=== PATIENT | male | born 1955 | race Two or more races ===

== ENCOUNTER 2020-07-21 08:49 | Day surgery (SDC) | payer MEDICAID, SELFPAY ==
[2020-07-18 11:26] VITALS: BMI 29.7
--- NOTE | 2020-07-18 13:09 | HO.ANESPROP2 ---
Documented by User: Laurie Goodman 07/18/20 13:11 HPI - Anesthesia Eval Consult details Narrative: 64yo F for colonoscopy: screening h/o incomplete prep PMFSH Past Medical History Medical History (Updated 07/21/20 @ 10:02 by Modesta Meredith) Arthritis Asthma Back pain Elevated cholesterol GERD (gastroesophageal reflux disease) HTN (hypertension) Myocardial infarction Peptic ulcer Surgical History Surgical History Hx of colonoscopy Hx of excision of mass Hx of umbilical hernia repair Social History Social History Smoking Status: Former smoker Packs Per Day: 2 Cigarettes Per Day: 40.0 Years Smoked: 40 Smoked in Last 30 Days: No Smoking Quit Date: 5 years Patient Interested in Nicotine Replacement: No Patient Given Instructions on How to Stop Smoking: No Second Hand Smoke Exposure: No Use of substances other than those prescribed or required for medical reasons: No Advance Directives Information Provided: No Recently lost weight without trying: No Meds Allergies Allergy/AdvReac Type Severity Reaction Status Date / Time lisinopril Allergy Swelling Verified 07/18/20 11:32 Home Medications Medication Instructions Recorded Confirmed Type albuterol sulfate [ProAir HFA] 2 puff INHALATION Q4-6H PRN 07/18/20 07/18/20 History amlodipine [Norvasc] 10 mg PO DAILY 07/18/20 07/21/20 History aspirin 81 mg PO DAILY 07/18/20 07/21/20 History atorvastatin [Lipitor] 40 mg PO BEDTIME 07/18/20 07/18/20 History fluticasone propion-salmeterol 1 inh INHALATION BID 07/18/20 07/18/20 History [Advair Diskus] ipratropium-albuterol 3 ml INHALATION QID PRN 07/18/20 07/18/20 History omega-3 fatty acids [Fish Oil] 1,000 mg PO DAILY 07/18/20 07/18/20 History omeprazole 20 mg PO DAILY 07/18/20 07/21/20 History Vitamin D3 07/21/20 History Exam Exam Date and Time: July 18, 2020 1309 Height,Weight and Vital Signs: Height 5 ft 6 in Weight 83.461 kg Assessment and Plan Assessment Anesthesia Assessment: Chart Reviewed Documented by User: Modesta Meredith 07/21/20 10:06 PMFSH Past Medical History Medical History (Updated 07/21/20 @ 10:02 by Modesta Meredith) Arthritis Asthma Back pain Elevated cholesterol GERD (gastroesophageal reflux disease) HTN (hypertension) Myocardial infarction Peptic ulcer Family History Family history of problems with anesthesia: No Surgical History Surgical History Hx of colonoscopy Hx of excision of mass Hx of umbilical hernia repair History of Problems with Anesthesia: No Social History Social History Smoking Status: Former smoker Packs Per Day: 2 Cigarettes Per Day: 40.0 Years Smoked: 40 Smoked in Last 30 Days: No Smoking Quit Date: 5 years Patient Interested in Nicotine Replacement: No Patient Given Instructions on How to Stop Smoking: No Second Hand Smoke Exposure: No Use of substances other than those prescribed or required for medical reasons: No Advance Directives Information Provided: No Recently lost weight without trying: No Meds Allergies Allergy/AdvReac Type Severity Reaction Status Date / Time lisinopril Allergy Swelling Verified 07/18/20 11:32 Home Medications Medication Instructions Recorded Confirmed Type albuterol sulfate [ProAir HFA] 2 puff INHALATION Q4-6H PRN 07/18/20 07/18/20 History amlodipine [Norvasc] 10 mg PO DAILY 07/18/20 07/21/20 History aspirin 81 mg PO DAILY 07/18/20 07/21/20 History atorvastatin [Lipitor] 40 mg PO BEDTIME 07/18/20 07/18/20 History fluticasone propion-salmeterol 1 inh INHALATION BID 07/18/20 07/18/20 History [Advair Diskus] ipratropium-albuterol 3 ml INHALATION QID PRN 07/18/20 07/18/20 History omega-3 fatty acids [Fish Oil] 1,000 mg PO DAILY 07/18/20 07/18/20 History omeprazole 20 mg PO DAILY 07/18/20 07/21/20 History Vitamin D3 07/21/20 History Exam Height,Weight and Vital Signs: Vital Signs Temp Pulse Resp BP Pulse Ox 07/21/20 09:16 96.7 F L 60 16 156/67 H 98 Airway Mallampati Class: II TM Dist: >3cm Neck ROM: Full Partial: Upper Heart: RRR Lungs: Bilateral wheezes Assessment and Plan Assessment Anesthesia Assessment: Anesthesia Plan Discussed and Chart Reviewed Final Anesthetic Review NPO: Yes ASA Class: III Final Preanesthetic Review: No Changes in Pt Med Stat, Meds/Allgs Chart Reviewed, Consent Obtained/Reviewed and Anes Risks/Benef Reviewed Patient Risk: Intermediate Procedure Risk: Low Anesthetic Plan Anesthetic Plan: MAC: Disposition: Standard PACU
[2020-07-21 09:16] VITALS: BP 156/67; PULSE 60; RESP 16; TEMP 35.9; O2SAT 98
[2020-07-21 09:20] VITALS: BMI 29.9
[2020-07-21] MEDS: Lactated Ringers 1,000 ML 100 ML IVCONT (09:20)
[2020-07-21] MEDS: Albuterol Sulfate (0.083%) 2.5 MG/3 ML VIAL.NEB INHALE (10:18)
--- NOTE | 2020-07-21 10:22 | MHC.SHP ---
Pre-Procedural Eval Section A The patient is an INPATIENT: No The History & Physical has been completed within 30 days and I have reviewed it.: No Section B Chief Complaint: HX adenomatous Polyps Details of Present Illness: Colon cancer screening Relevant Family History (Specify if Yes): No Relevant Social History: None Present Medications: see Short Stay Collaborative assessment Medical History: Significant History (Asthma vs Reactive Airway; Anxiety) History of Previous Operations: Relevant previous surgery/procedure and date(s) ([place] in [place] 10yr ago, [facility] colo-2017 ext adhesions; Gallbladder, appendix, BTL) Allergies: Allergies Allergy/AdvReac Type Severity Reaction Status Date / Time lisinopril Allergy Swelling Verified 07/18/20 11:32 Review of Systems Sugical H&P ROS: Negative: Constitution, Cardiovascular, Respiratory and Neurological and Yes, Specify: Psychiatric (anxiety) and Gastrointestinal (constipation) Exam Surgical H&P Exam: Normal: HEENT, Normal: Heart, Normal: Lungs, Normal: Extremities and Normal: Abdomen Exam Comment: Neg exam for changes. Plan Diagnosis/Plan: Unchanged Patient has been examined and remains a candidate for the planned procedure- YES
--- NOTE | 2020-07-21 10:31 | MHC.SHP ---
Pre-Procedural Eval Section A The patient is an INPATIENT: No The History & Physical has been completed within 30 days and I have reviewed it.: No Section B Chief Complaint: HX adenomatous Polyps Details of Present Illness: Colon Cancer screening No changes from H&P done in March, Relevant Family History (Specify if Yes): No Relevant Social History: Tobacco Use (former smoker< 5years) Present Medications: see Short Stay Collaborative assessment Medical History: Significant History (Asthma/? copd; GERD;CAD; Chronic back pain) History of Previous Operations: No relevant previous surgery (Colonoscopy 2014(R)---variability in preps) Allergies: Allergies Allergy/AdvReac Type Severity Reaction Status Date / Time lisinopril Allergy Swelling Verified 07/18/20 11:32 Review of Systems Sugical H&P ROS: Negative: Constitution, Cardiovascular and Gastrointestinal Exam Surgical H&P Exam: Normal: HEENT and Normal: Heart and Significant Findings: Lungs (slight hyperesonant) and Significant Findings: Abdomen (distended central obesity) Plan Diagnosis/Plan: Unchanged Patient has been examined and remains a candidate for the planned procedureYES
--- NOTE | 2020-07-21 10:32 | PC.NURSE ---
Resp. updraft given prior to procedure
[2020-07-21 10:37] VITALS: BP 121/80; PULSE 74; RESP 16; TEMP 36.8; O2SAT 100
[2020-07-21 11:40] VITALS: BP 111/54; PULSE 72; RESP 16; TEMP 36.6; O2SAT 91
--- NOTE | 2020-07-21 11:40 | PM.PROC ---
Brief Operative Note Date of procedure: 07/21/20 Pre-op diagnosis: COLON CANCER SCREENING Post-op diagnosis: other (FLAT ADENOMATOUS CECAL POLYP--ABOUT 1 CM.) Procedure: COLONOSCOPY WITH ORISE ELEVATION, SPOT TATOO, SEGMENTAL RESECTION USING SMALL HEX, AND SMALL HOT SNARE, ATTEMPT @ RESOLUTION CLIPPING--DUE TO RESPIRATORY EXCURSIONS. Anesthesia: MAC (JUAN JOSE HEIN) Surgeon: Ruth Ann Guthrie Estimated blood loss (mL): 0 Pathology: other (CECAL POLYP FRAGMENTS) Condition: stable Disposition: PACU
[2020-07-21 11:52] VITALS: BP 107/63; PULSE 68; RESP 18; TEMP 36.6; O2SAT 94
--- NOTE | 2020-07-21 12:26 | HO.POSTANES ---
Post Anesthesia Evaluation Post Anesthesia Evaluation Vital Signs: Vital Signs Temp Pulse Resp BP Pulse Ox 07/21/20 11:52 97.8 F 68 18 107/63 94 07/21/20 11:40 97.8 F 72 16 111/54 L 91 L 07/21/20 10:37 98.3 F 74 16 121/80 100 07/21/20 09:16 96.7 F L 60 16 156/67 H 98 Anesthesia: General (tiva) Mental Status: Awake Pain Control: Satisfactory Nausea/Vomiting: None Hydration: Adequate Anesthesia-Related Issues: No Anes. Related Issues
--- NOTE | 2020-07-21 12:29 | PC.NURSE ---
[facility] [id number] used for d/c instructions
--- NOTE | 2020-07-24 13:08 | OP_ITS ---
SURGEON: Ruth Ann Guthrie MD PREOPERATIVE DIAGNOSIS: Colon cancer screening. POSTOPERATIVE DIAGNOSIS: Flat cecal polyp, complex procedure, diverticulosis. PROCEDURE PERFORMED: Colonoscopy, ORISE submucosal injection, small hex snare, small loop [employer], cautery excisions, Erbe unit used, spot tattoo and ink marking, resolution clipping, was not able to be deployed due to positioning and movement. ESTIMATED BLOOD LOSS: Minimal. No grafts or implants. COMPLICATIONS: None. ANESTHESIA: Monitored ANESTHESIOLOGIST: Tommy Masters CRNA ASSISTANTS:NONE FEATHER SAWYER: Dr. Guthrie. CONDITION: Postprocedure, stable. SPECIMEN REMOVED: Flat cecal polyp. COMMENT: Start time for this procedure was 1038 hours, end time 1132 hours. Complex procedure using multiple modalities with segmental resection of flat adenomatous polyp. FINDINGS: Prostate was normal to digital palpation. Video colonoscope was introduced without difficulty without difficulty. It was navigated into the rectosigmoid where there were some diverticula noted through descending, transverse, ascending colon down into the cecum. In this area, 1-1.2 cm polyp was visualized. It was sessile. There was no component of pedunculation. ORISE lifting agent 6 mL was used submucosally. The various loop cautery systems were attempted with what appeared to be good removal of the polyp itself retrieved in segmental portions. Decision was made to tattoo the area. Spot ink was used. The scope was slowly withdrawn in good rotational views. No additional lesions were seen. Anorectal verge was clear. PLAN: Current recommendations are for the patient to avoid aspirin and nonsteroidals for 2 weeks. Avoid constipation if need be. Use stool softener. He will be re-seen to discuss need to reevaluate area in the cecum in 4-6 months. Purpose of this is to make sure that all of the polyp adenomatous fragments were removed. Ruth Ann Guthrie MD MEN/MODL / [id number] MTDD
== END 2020-07-21 12:29 | disposition home or self-care (01) ==
PROVIDERS: Visit Provider Internal Medicine Gastroenterology
PROC: 0DJD8ZZ Inspection of Lower Intestinal Tract, Via Natural or Artificial Opening Endoscopic (ICD-10-PCS; CPT 45378; principal; 2020-07-21 10:00)
DX: Z12.11 Encounter for screening for malignant neoplasm of colon (principal); Z86.010 Personal history of colon polyps; D12.0 Benign neoplasm of cecum; K57.30 Diverticulosis of large intestine without perforation or abscess without bleeding; K21.9 Gastro-esophageal reflux disease without esophagitis; I10 Essential (primary) hypertension; I25.10 Atherosclerotic heart disease of native coronary artery without angina pectoris; J45.909 Unspecified asthma, uncomplicated; F11.20 Opioid dependence, uncomplicated; Z87.891 Personal history of nicotine dependence; Z79.51 Long term (current) use of inhaled steroids; Z79.82 Long term (current) use of aspirin; Z79.899 Other long term (current) drug therapy; Z88.8 Allergy status to other drugs, medicaments and biological substances
CPT/HCPCS: 45380; 45381; 88305; 94640; J1610

== ENCOUNTER 2020-07-29 19:44 | Inpatient (IN) | payer MEDICAID, SELFPAY ==
[2020-07-29 20:02] VITALS: BP 147/73; PULSE 75; RESP 16; TEMP 37.2; O2SAT 99; BMI 30.2
--- NOTE | 2020-07-29 21:11 | ED.GENADULT ---
HPI - General Adult General Chief complaint: General Medical Stated complaint: RECTUM BLEEDING Time Seen by Provider: 07/29/20 20:50 Related Data Home Medications Medication Instructions Recorded Confirmed albuterol sulfate [ProAir HFA] 2 puff INHALATION Q4-6H PRN 07/18/20 07/18/20 amlodipine [Norvasc] 10 mg PO DAILY 07/18/20 07/21/20 atorvastatin [Lipitor] 40 mg PO BEDTIME 07/18/20 07/18/20 fluticasone propion-salmeterol 1 inh INHALATION BID 07/18/20 07/18/20 [Advair Diskus] ipratropium-albuterol 3 ml INHALATION QID PRN 07/18/20 07/18/20 omeprazole 20 mg PO DAILY 07/18/20 07/21/20 Vitamin D3 07/21/20 Allergies Allergy/AdvReac Type Severity Reaction Status Date / Time lisinopril Allergy Swelling Verified 07/18/20 11:32 [facility] Past Medical History Medical History Arthritis Asthma Back pain Elevated cholesterol GERD (gastroesophageal reflux disease) HTN (hypertension) Myocardial infarction Peptic ulcer Surgical History Hx of colonoscopy Hx of excision of mass Hx of umbilical hernia repair Social History Social History Smoking Status: Former smoker Packs Per Day: 2 Cigarettes Per Day: 40.0 Years Smoked: 40 Second Hand Smoke Exposure: No Advance Directives: No Physical Exam Vital Signs: Vital Signs: Vital Signs Temp Pulse Resp BP Pulse Ox 07/29/20 20:02 98.9 F 75 16 147/73 H 99 Body Mass Index 30.2 Discharge Plan Discharge Prescriptions: No Action atorvastatin [Lipitor] 40 mg Tablet 40 mg PO BEDTIME RF: 0 ipratropium-albuterol 0.5 mg-3 mg(2.5 mg base)/3 mL Solution For Nebulization 3 ml INHALATION QID PRN (Reason: Shortness Of Breath) RF: 0 amlodipine [Norvasc] 10 mg Tablet 10 mg PO DAILY RF: 0 fluticasone propion-salmeterol [Advair Diskus] 500-50 mcg/dose Blister With Device 1 inh INHALATION BID RF: 0 albuterol sulfate [ProAir HFA] 90 mcg/actuation Hfa Aerosol Inhaler 2 puff INHALATION Q4-6H PRN (Reason: Shortness Of Breath) RF: 0 omeprazole 20 mg Tablet,Delayed Release (Dr/Ec) 20 mg PO DAILY RF: 0 Vitamin D3 RF: 0
--- NOTE | 2020-07-29 21:19 | ED.GIBLEED ---
HPI - GI Bleed General Chief complaint: General Medical Stated complaint: RECTUM BLEEDING Time Seen by Provider: 07/29/20 20:50 Source: patient and digital photographic printer Mode of arrival: ambulatory Limitations: no limitations History of Present Illness HPI Narrative: This is a 64-year-old male with recent history of colonoscopy on 07/21/2020 and now presents with complaints of acute onset of bloody, painless bowel movements this started approximately 1915 this evening. This is not been associated with any nausea, vomiting, abdominal discomfort. Patient states that the episodes have soiled his underwear and denies any current blood thinners other than taking a daily aspirin. Otherwise, he denies shortness of breath, chest pain /palpitations, fevers, chills. Related Data Home Medications Medication Instructions Recorded Confirmed amlodipine 10 mg PO DAILY 07/29/20 07/29/20 aspirin 81 mg PO DAILY 07/29/20 07/29/20 atorvastatin 40 mg PO DAILY 07/29/20 07/29/20 cholecalciferol (vitamin D3) 25 mcg PO DAILY 07/29/20 07/29/20 [Vitamin D3] hydrochlorothiazide 25 mg PO DAILY 07/29/20 07/29/20 omega-3 fatty acids-vitamin E 1 cap PO DAILY 07/29/20 07/29/20 [Fish Oil] Allergies Allergy/AdvReac Type Severity Reaction Status Date / Time lisinopril Allergy Swelling Verified 07/18/20 11:32 Review of Systems Review of Systems: Pertinent positives and negatives as stated in HPI and 10 point review systems is otherwise negative. [facility] Past Medical History Source: nursing notes reviewed Medical History Arthritis Asthma Back pain Elevated cholesterol GERD (gastroesophageal reflux disease) HTN (hypertension) Myocardial infarction Peptic ulcer Surgical History Hx of colonoscopy Hx of excision of mass Hx of umbilical hernia repair Social History Social History Alcohol intake: never Smoking Status: Former smoker Packs Per Day: 2 Cigarettes Per Day: 40.0 Years Smoked: 40 Smoked in Last 30 Days: No Second Hand Smoke Exposure: No Use of substances other than those prescribed or required for medical reasons: No Advance Directives: No Physical Exam Vital Signs: Vital Signs: Vital Signs Temp Pulse Resp BP Pulse Ox 07/29/20 23:48 66 16 145/70 H 96 07/29/20 22:34 98.7 F 87 16 150/78 H 98 07/29/20 20:02 98.9 F 75 16 147/73 H 99 Body Mass Index 30.2 VITAL SIGNS: Reviewed. GENERAL: Well developed, well nourished, in no acute distress. HEAD: Normocephalic/atraumatic, EYES: PERRLA, EOMI intact without pain, no nystagmus/pallor/icterus noted EARS: Ext canals without abnormality, TMs non-bulging and non-erythematous NOSE: Nares patent bilateral OROPHARYNX: no oral lesions noted, posterior pharynx clear and non-erythematous without noted tonsillar enlargement/erythema/exudates NECK: Supple, no adenopathy LUNGS: Normal breath sounds. No adventitious sounds or accessory muscle use. SpO2<99> CARDIOVASCULAR: Regular rate and rhythm without noted murmurs, no JVD or lower extremity edema. ABDOMEN: Soft, non-tender, non-distended with bowel sounds. No rigidity. No guarding. No palpable masses or hernias noted MUSCULOSKELETAL: No tenderness, deformities, or effusions noted on gross inspection. CHAY: No hemorrhoids, tags, lesions, no stool in rectal vault but gross maroon /dark blood on finger. EXTREMITIES: No cyanosis, clubbing or edema. SKIN: Inspection of the skin reveals no rashes, ulcerations, jaundice, pallor, or petechiae. NEUROLOGIC: Alert and oriented x 4. Strength and sensation to light touch were grossly intact x 4. Course Course Course Narrative: This is a 64-year-old male with history and clinical presentation most consistent with likely lower GI bleed and will workup with labs, type and screen, as well as imaging as indicated. Review of all investigations shows a stable anemia without evidence of infection, coags within normal limits. CT scan did not indicate a blush to suggest brisk arterial bleeding, but there is evidence of a prominent venous plexus at the posterior wall of the rectum. Patient has remained hemodynamically stable throughout his stay in the emergency department and we are awaiting callback from GI, but in the interim this case was discussed with the inpatient hospitalist team who is agreeable for admission. Patient has been typed and screened. 0055: I discussed the case with GI who recommends repeat lab work in the morning unless there are otherwise acute changes. MDM - GI Bleed Lab Data Result diagrams: 07/29/20 21:25 07/29/20 21:25 Labs: Lab Results 07/29/20 07/29/20 07/29/20 Range/Units 21:25 21:25 21:25 WBC 10.7 (4.8-10.8) X10*3/uL RBC 4.57 L (4.60-5.80) X10*6/uL Hgb 13.1 L (14.0-18.0) g/dl Hct 40.6 L (42-52) % MCV 88.8 (80-98) fL MCH 28.7 (27.0-33.0) pg MCHC 32.3 (31.0-36.0) g/dl RDW 13.4 (11.0-16.0) % Plt Count 341 (160-400) X10*3/uL MPV 10.2 (9.4-12.4) fL Immature Gran % (Auto) 0.6 H (0.0-0.4) % Neut % (Auto) 54.2 (45-73) % Lymph % (Auto) 33.2 (20-40) % Andrews % (Auto) 9.1 (2-11) % Eos % (Auto) 2.3 (0-4) % Baso % (Auto) 0.6 (0-2) % Lymph # (Auto) 3.5 (1.2-4.9) X10*3/uL Andrews # (Auto) 1.0 (0.1-1.2) X10*3/uL Eos # (Auto) 0.3 (0.0-0.4) X10*3/uL Baso # (Auto) 0.1 (0.0-0.2) X10*3/uL Abs Immat Gran (auto) 0.06 H (0.00-0.03) X10*3/uL Absolute Neuts (auto) 5.8 (2.0-8.3) X10*3/uL Absolute Nucleated RBC 0.000 (0.0-0.012) X10*3/uL Nucleated RBC % (auto) 0.0 (0.0-0.2) /100WBC PT 12.0 (10.8-13.0) SEC INR 1.0 (0.9-1.1) Sodium 140 (135-145) mmol/L Potassium 3.7 (3.3-5.1) mmol/l Chloride 104 (96-108) mmol/L Carbon Dioxide 25 (22-29) mmol/L Anion Gap 15 (12-20) BUN 21 H (9-16) mg/dL Creatinine 1.31 (0.5-1.4) mg/dL Estim Creat Clear Calc 59.7 Estimated GFR 55 Random Glucose 160 H (60-115) mg/dL Calcium 8.3 L (8.4-10.2) mg/dL Total Bilirubin 0.3 (0.0-1.0) mg/dL AST 15 (5-37) U/L ALT 20 (0-40) U/L Alkaline Phosphatase 94 (39-117) U/L Total Protein 7.0 (6.5-8.0) g/dL Albumin 4.0 (3.5-5.0) g/dL Stool Occult Blood (NEG) Blood Type Antibody Screen 07/29/20 07/29/20 Range/Units 21:25 21:29 WBC (4.8-10.8) X10*3/uL RBC (4.60-5.80) X10*6/uL Hgb (14.0-18.0) g/dl Hct (42-52) % MCV (80-98) fL MCH (27.0-33.0) pg MCHC (31.0-36.0) g/dl RDW (11.0-16.0) % Plt Count (160-400) X10*3/uL MPV (9.4-12.4) fL Immature Gran % (Auto) (0.0-0.4) % Neut % (Auto) (45-73) % Lymph % (Auto) (20-40) % Andrews % (Auto) (2-11) % Eos % (Auto) (0-4) % Baso % (Auto) (0-2) % Lymph # (Auto) (1.2-4.9) X10*3/uL Andrews # (Auto) (0.1-1.2) X10*3/uL Eos # (Auto) (0.0-0.4) X10*3/uL Baso # (Auto) (0.0-0.2) X10*3/uL Abs Immat Gran (auto) (0.00-0.03) X10*3/uL Absolute Neuts (auto) (2.0-8.3) X10*3/uL Absolute Nucleated RBC (0.0-0.012) X10*3/uL Nucleated RBC % (auto) (0.0-0.2) /100WBC PT (10.8-13.0) SEC INR (0.9-1.1) Sodium (135-145) mmol/L Potassium (3.3-5.1) mmol/l Chloride (96-108) mmol/L Carbon Dioxide (22-29) mmol/L Anion Gap (12-20) BUN (9-16) mg/dL Creatinine (0.5-1.4) mg/dL Estim Creat Clear Calc Estimated GFR Random Glucose (60-115) mg/dL Calcium (8.4-10.2) mg/dL Total Bilirubin (0.0-1.0) mg/dL AST (5-37) U/L ALT (0-40) U/L Alkaline Phosphatase (39-117) U/L Total Protein (6.5-8.0) g/dL Albumin (3.5-5.0) g/dL Stool Occult Blood POS (NEG) Blood Type O Positive Antibody Screen NEGATIVE Discharge Plan Discharge Clinical Impression: Acute GI bleeding Patient Disposition: Admitted As Inpatient
--- NOTE | 2020-07-29 21:32 | PC.NURSE ---
this rn at bedside for rectal exam w/ dr. echols
[2020-07-29 21:35] LABS: MANUAL DIFF FLAG NO
[2020-07-29 21:36] LABS: Basophils Absolute Auto 0.1 X10*3/uL (0.0-0.2); Basophils Percent Auto 0.6 % (0-2); Eosinophils Absolute Auto 0.3 X10*3/uL (0.0-0.4); Eosinophils Percent Auto 2.3 % (0-4); Hematocrit 40.6 % (42-52); Hemoglobin 13.1 g/dl (14.0-18.0); Imm Gran Abs Auto 0.06 X10*3/uL (0.00-0.03); Imm Gran Pct Auto 0.6 % (0.0-0.4); Lymphocytes Absolute Auto 3.5 X10*3/uL (1.2-4.9); Lymphocytes Percent Auto 33.2 % (20-40); Mean Corpuscular HGB Conc 32.3 g/dl (31.0-36.0); Mean Corpuscular Hemoglobin 28.7 pg (27.0-33.0); Mean Corpuscular Volume 88.8 fL (80-98); Mean Platelet Volume 10.2 fL (9.4-12.4); Monocytes Percent Auto 9.1 % (2-11); Neutrophils Absolute Auto 5.8 X10*3/uL (2.0-8.3); Neutrophils Percent Auto 54.2 % (45-73); Platelet Count 341 X10*3/uL (160-400); Red Blood Count 4.57 X10*6/uL (4.60-5.80); Red Cell Distribution Width 13.4 % (11.0-16.0); White Blood Count 10.7 X10*3/uL (4.8-10.8)
[2020-07-29 21:45] LABS: OBS Int Ctl Valid YES; OBS1 POS (NEG)
[2020-07-29 22:07] LABS: Alanine Aminotransferase 20 U/L (0-40); Alkaline Phosphatase 94 U/L (39-117); Anion Gap 15 (12-20); Aspartate Amino Transferase 15 U/L (5-37); Bilirubin Total 0.3 mg/dL (0.0-1.0); Blood Urea Nitrogen 21 mg/dL (9-16); Calcium 8.3 mg/dL (8.4-10.2); Carbon Dioxide 25 mmol/L (22-29); Chloride 104 mmol/L (96-108); Creatinine Clr Calc Pharmacy 59.7; Estimated Glomerular Filt Rate 55; Glucose Random 160 mg/dL (60-115); Potassium 3.7 mmol/l (3.3-5.1); Sodium 140 mmol/L (135-145)
--- NOTE | 2020-07-29 22:19 | CT_ITS ---
EXAMINATION: CT ABDOMEN AND PELVIS WITHOUT AND WITH CONTRAST (GI BLEEDING PROTOCOL) CLINICAL INFORMATION: Bleeding. COMPARISON: CT abdomen and pelvis from 03/10/2015. TECHNIQUE: Multidetector volumetric imaging was performed through the abdomen and pelvis without contrast. Subsequently repeat imaging of the abdomen and pelvis was obtained following the administration of 80 mL of Omnipaque 350 intravenous contrast. Sagittal and coronal reformatted images were obtained on the technologist's workstation. DLP: 1458 mGy-cm. This CT examination was performed using dose optimization techniques as appropriate, variously including the following: *Automated exposure control. *Adjustment of mA and/or kV according to patient size (this includes techniques or standardized protocols for targeted exams where dose is matched to indication/reason for exam; i.e. extremities or head). *Use of iterative reconstruction technique. FINDINGS: Lower Chest: Moderate hiatal hernia. Small fat-containing Bochdalek diaphragmatic hernia. Mild bilateral dependent atelectasis. Otherwise, no diffuse or focal parenchymal abnormalities in the visualized lung bases. Coronary artery calcifications. There appears to be global cardiac enlargement. Otherwise, no demonstrated abnormalities of the visualized cardiac structures. Liver, Biliary Ducts, and Gallbladder: The liver is normal in size and attenuation without focal hepatic lesions or biliary ductal dilatation. The gallbladder is decompressed without radiopaque gallstones, pericholecystic fluid, or significant gallbladder wall thickening. Pancreas: The pancreas is normal in appearance. Adrenal Glands: The adrenal glands are normal in appearance. Spleen: The spleen is normal in appearance. Kidneys and Ureters: The kidneys demonstrate symmetric nephrograms without evidence of nephrolithiasis or hydronephrosis. There are two 1.5 cm cysts associated with the left kidney without suspicious features. No ureterolithiasis or hydroureter. Urinary Bladder: The urinary bladder is moderately distended without focal wall thickening. No bladder calculi are demonstrated. Gastrointestinal System: Moderate hiatal hernia. The stomach is moderately distended, presumably with ingested material. The small bowel is of normal caliber without regions of abnormal wall enhancement. Moderate pancolonic diverticulosis. No focal wall thickening or pericolonic inflammatory change. The appendix is not definitively visualized; however, there is no inflammatory change in its expected distribution to suggest appendicitis. No pooling hyperattenuating blood products within the colon on precontrast evaluation. On postcontrast evaluation, there is no definitive blush of intraluminal contrast. However, there does appear to be prominent serpiginous vascular structures within the posterior wall of the rectum with a prominent draining superior rectal vein. Genitourinary: Normal appearance of the prostate gland and seminal vesicles. Intra-abdominal and Retroperitoneal Spaces: No intra-abdominal free fluid collections or gas. No mesenteric, retroperitoneal, or inguinal lymphadenopathy. Vasculature: The abdominal aorta is of normal contour and caliber with mild to moderate calcific atherosclerotic disease. Normal opacification of the superior mesenteric, splenic, and portal veins. No demonstrated abnormalities of the renal veins, inferior vena cava, or hepatic veins. Musculoskeletal: Moderate multilevel degenerative changes of the spine. No lytic or sclerotic osseous lesions demonstrated. No soft tissue masses demonstrated. Moderate left-sided and mild right-sided fat-containing inguinal hernias. Small fat-containing umbilical hernia with adjacent 2 cm cystic structure adjacent. CT/CT gi bleed abd pel wo/w con IMPRESSION: Pancolonic diverticulosis without evidence of diverticulitis. There is no distinct blush of intraluminal contrast within the colon to strongly suggest brisk arterial active bleeding. There is a moderately prominent plexus of venous structures along the posterior wall of the rectum suggestive of telangiectasia versus internal venous ectasia. Moderate hiatal hernia. Mild cardiomegaly.
[2020-07-29 22:34] VITALS: BP 150/78; PULSE 87; RESP 16; TEMP 37.1; O2SAT 98
[2020-07-29] MEDS: 0.9 % Sodium Chloride 1,000 ML 1000 ML IV (22:49)
[2020-07-29] MEDS: iohexoL 350 MG/ML 100 ML INFUS..BTL IV (22:51)
--- NOTE | 2020-07-29 23:31 | PC.NURSE ---
Pt passed small bm, bright red, jelly-like substance, foul smelling. pt continues to deny pain.
[2020-07-29 23:48] VITALS: BP 145/70; PULSE 66; RESP 16; O2SAT 96
[2020-07-30] VITALS (9 sets, daily range): BP systolic 106–159; BP diastolic 43–71; PULSE 50–66; RESP 14–20; TEMP 36.1–36.8; O2SAT 96–99
--- NOTE | 2020-07-30 00:14 | PM.IMHP ---
History of Present Illness Date of Service: 07/30/20 Chief Complaint: GI bleed this is a 64-year-old male with past medical history of coronary artery disease, hypertension, presents to the hospital with complaints of GI bleed. Patient reports that the symptoms started about 7:00 p.m., he has seen blood with every bowel movement ever since. Patient has had about 3 episodes of bloody diarrhea while in the ED. The blood initially started as bright red blood progressed to be dark. Patient denies using any NSAIDs, he does take aspirin for history of coronary artery disease, he reports a history of heartburn. He otherwise denies any shortness of breath, dizziness, no chest pain, no abdominal pain, no nausea or vomiting, and no urinary symptoms or lower extremity edema. patient reports that he underwent colonoscopy on the of this month and is supposed to received there is also Saturday. On arrival to the ED hemodynamically stable with no significant abnormal vitals Labs are significant for hemoglobin of 13.1 (around his baseline ), BUN of 21, creatinine of 1.31 ( baseline around 1.1), stool occult positive, COVID-[address] GI bleed protocol shows pancolonic diverticulosis without evidence of diverticulitis. No distant/of intraluminal contras past medical history: Hypertension, coronary artery disease, GERD, chronic back pain, asthma, history of peptic ulcer, hyperlipidemia surgical history: Denies family history: Denies social history: Comes from home, denies tobacco alcohol or illicit drugs Review of Systems Review of Systems: Yes all other systems are reviewed and are negative [facility] Medical History (Updated 07/30/20 @ 04:31 by Pippa Clarke MD) Arthritis Asthma Back pain Elevated cholesterol GERD (gastroesophageal reflux disease) HTN (hypertension) Myocardial infarction Peptic ulcer Surgical History Hx of colonoscopy Hx of excision of mass Hx of umbilical hernia repair Social History Alcohol intake: never Smoking Status: Former smoker Packs Per Day: 2 Cigarettes Per Day: 40.0 Years Smoked: 40 Smoked in Last 30 Days: No Second Hand Smoke Exposure: No Use of substances other than those prescribed or required for medical reasons: No Advance Directives: No Meds Allergies Allergy/AdvReac Type Severity Reaction Status Date / Time lisinopril Allergy Swelling Verified 07/18/20 11:32 Home Medications Medication Instructions Recorded Confirmed Type amlodipine 10 mg PO DAILY 07/29/20 07/29/20 History aspirin 81 mg PO DAILY 07/29/20 07/29/20 History atorvastatin 40 mg PO DAILY 07/29/20 07/29/20 History cholecalciferol (vitamin D3) 25 mcg PO DAILY 07/29/20 07/29/20 History [Vitamin D3] hydrochlorothiazide 25 mg PO DAILY 07/29/20 07/29/20 History omega-3 fatty acids-vitamin E 1 cap PO DAILY 07/29/20 07/29/20 History [Fish Oil] Physical Exam Vital Signs and Narrative: Vital Signs: Last Vital Signs Temp 98.7 F 07/29/20 22:34 Pulse 66 07/29/20 23:48 Resp 16 07/29/20 23:48 BP 145/70 H 07/29/20 23:48 Pulse Ox 96 07/29/20 23:48 Body Mass Index 30.2 Const: General: cooperative and no acute distress Orientation/consciousness: patient oriented x3 Eyes: General: appearance normal, both eyes and all related structures Pupils: Equal, round and reactive pupils present Resp: Effort & Inspection: normal respiratory effort and able to speak in complete sentences Auscultation: clear to auscultation bilaterally Cardio: Rate: regular rate Rhythm: regular rhythm GI: Other: no abdominal tenderness Palpation (GI): Soft to palpation Auscultation: normal bowel sounds Skin: General skin exam: no rashes or lesions noted Neuro: General: patient oriented x3 Cranial nerves: Yes Equal, round and reactive pupils present Cognition (Neuro): normal cognition Extrem: General: Yes normal to inspection and Yes no pedal edema Results Labs Labs: Laboratory Tests 07/29/20 07/29/20 07/29/20 21:25 21:25 21:25 WBC 10.7 RBC 4.57 L Hgb 13.1 L Hct 40.6 L MCV 88.8 MCH 28.7 MCHC 32.3 RDW 13.4 Plt Count 341 MPV 10.2 Immature Gran % (Auto) 0.6 H Neut % (Auto) 54.2 Lymph % (Auto) 33.2 [place] % (Auto) 9.1 Eos % (Auto) 2.3 Baso % (Auto) 0.6 Lymph # (Auto) 3.5 [place] # (Auto) 1.0 Eos # (Auto) 0.3 Baso # (Auto) 0.1 Abs Immat Gran (auto) 0.06 H Absolute Neuts (auto) 5.8 Absolute Nucleated RBC 0.000 Nucleated RBC % (auto) 0.0 PT 12.0 INR 1.0 Sodium 140 Potassium 3.7 Chloride 104 Carbon Dioxide 25 Anion Gap 15 BUN 21 H Creatinine 1.31 Estim Creat Clear Calc 59.7 Estimated GFR 55 Random Glucose 160 H Calcium 8.3 L Total Bilirubin 0.3 AST 15 ALT 20 Alkaline Phosphatase 94 Total Protein 7.0 Albumin 4.0 Stool Occult Blood Blood Type Antibody Screen 07/29/20 07/29/20 21:25 21:29 WBC RBC Hgb Hct MCV MCH MCHC RDW Plt Count MPV Immature Gran % (Auto) Neut % (Auto) Lymph % (Auto) [place] % (Auto) Eos % (Auto) Baso % (Auto) Lymph # (Auto) [place] # (Auto) Eos # (Auto) Baso # (Auto) Abs Immat Gran (auto) Absolute Neuts (auto) Absolute Nucleated RBC Nucleated RBC % (auto) PT INR Sodium Potassium Chloride Carbon Dioxide Anion Gap BUN Creatinine Estim Creat Clear Calc Estimated GFR Random Glucose Calcium Total Bilirubin AST ALT Alkaline Phosphatase Total Protein Albumin Stool Occult Blood POS Blood Type O Positive Antibody Screen NEGATIVE Imaging CT scan - abdomen: Radiologist's impression: IMPRESSION: Pancolonic diverticulosis without evidence of diverticulitis. There is no distinct blush of intraluminal contrast within the colon to strongly suggest brisk arterial active bleeding. There is a moderately prominent plexus of venous structures along the posterior wall of the rectum suggestive of telangiectasia versus internal venous ectasia. Moderate hiatal hernia. Mild cardiomegaly. Assessment and Plan (1) Acute GI bleeding: Status: Acute (2) Asthma: Problem details: stable w/daily inhaler Status: Acute (3) GERD (gastroesophageal reflux disease): Status: Acute (4) HTN (hypertension): Status: Acute (5) Myocardial infarction: Problem details: 2002-no surgery or stents. Denies recent CP Status: Acute this is a 64-year-old male with past medical history of coronary artery disease as well as hypertension who presents to the hospital with complaints of acute GI bleed. # Acute GI bleed - evidence of telangiectasia versus internal venous ectasia on CT of the abdomen which may be the source of the bleed, versus diverticular versus hemorrhoidal - had colonoscopy on 21 of July, per pathology report had a polypectomy which shows tubular adenoma - hemodynamically stable, with no significant drop of hemoglobin - Also has history of peptic ulcer disease and uses aspirin for history of coronary artery disease - has elevated BUN plan: - pantoprazole IV b.i.d. - H&H q.12 hours - GI consult - NPO - hold aspirin # history of coronary artery disease - no history of stent placement - hold aspirin at this time given GI bleed # hyperlipidemia - continue statin # hypertension - stable - continue amlodipine and hydrochlorothiazide # GERD - IV pantoprazole as above DVT prophylaxis: SCDs
[2020-07-30 02:00] LABS: SARS COV2 PCR INHOUSE NEGATIVE (Negative)
--- NOTE | 2020-07-30 02:10 | PC.NURSE ---
Pt resting in bed, called hospitalist to clarify hospital admission- orders entered.awaiting room assignment
--- NOTE | 2020-07-30 02:45 | PC.NURSE ---
pt placed on tele, showing nsr
--- NOTE | 2020-07-30 02:47 | PC.NURSE ---
x1 attempt to give report
[2020-07-30] MEDS: Pantoprazole Sodium 40 MG/10 ML VIAL IVPUSH (04:11)
[2020-07-30] MEDS: Lactated Ringers 1,000 ML 100 ML IVCONT ×2 (04:29→14:06)
[2020-07-30 05:08] LABS: Hematocrit 37.6 % (42-52); Hemoglobin 12.2 g/dl (14.0-18.0)
[2020-07-30] MEDS: PEG 3350/Na Sulf,Bicarb,Cl/KCL 4,000 ML SOLN.RECON 4000 ML PO (11:14)
--- NOTE | 2020-07-30 13:54 | P.EN_ITS ---
Event Note Event Note: GI Consult-Full note dictated. History via EMR and center medical specialist. Imp: Postpolypectomy lower GI bleed in relation to his colonoscopy on 07/21/[address] Guthrie. A flat cecal tubular adenoma was removed with a combination of submucosal injection and cautery. He has been off all aspirin and NSAIDs since the procedure. His Hgb has dropped somewhat but he is asymptomatic otherwise. He is doing a colon prep currently and it still seems quite bloody. He denies abdominal pain and his abdomen is benign. Rec: Colonoscopy with MAC today. Full consent obtained for this, including risks of bleeding and perforation. Follow Hgb. D/W patient in detail and he is comfortable with this plan. Thanks
[2020-07-30 14:17] LABS: Hematocrit 38.6 % (42-52); Hemoglobin 12.4 g/dl (14.0-18.0); Mean Corpuscular HGB Conc 32.1 g/dl (31.0-36.0); Mean Corpuscular Hemoglobin 28.3 pg (27.0-33.0); Mean Corpuscular Volume 88.1 fL (80-98); Mean Platelet Volume 10.4 fL (9.4-12.4); Platelet Count 345 X10*3/uL (160-400); Red Blood Count 4.38 X10*6/uL (4.60-5.80); Red Cell Distribution Width 13.4 % (11.0-16.0); White Blood Count 10.5 X10*3/uL (4.8-10.8)
--- NOTE | 2020-07-30 15:12 | HO.ANESPROP2 ---
[facility] Past Medical History Medical History Arthritis Asthma Back pain Elevated cholesterol GERD (gastroesophageal reflux disease) HTN (hypertension) Myocardial infarction Peptic ulcer Surgical History Surgical History Hx of colonoscopy Hx of excision of mass Hx of umbilical hernia repair Social History Social History Household Members: Spouse Housing: Apartment Do you presently have visiting nurse or other home services: No Alcohol intake: never Smoking Status: Never smoker Packs Per Day: 2 Cigarettes Per Day: 40.0 Years Smoked: 40 Smoked in Last 30 Days: No Second Hand Smoke Exposure: No Use of substances other than those prescribed or required for medical reasons: No Advance Directives: No Do you have thoughts of harming others: None Do you have a plan to hurt others: No Plan Recently lost weight without trying: Unsure Meds Allergies Allergy/AdvReac Type Severity Reaction Status Date / Time lisinopril Allergy Swelling Verified 07/18/20 11:32 Home Medications Medication Instructions Recorded Confirmed Type amlodipine 10 mg PO DAILY 07/29/20 07/29/20 History aspirin 81 mg PO DAILY 07/29/20 07/29/20 History atorvastatin 40 mg PO DAILY 07/29/20 07/29/20 History cholecalciferol (vitamin D3) 25 mcg PO DAILY 07/29/20 07/29/20 History [Vitamin D3] hydrochlorothiazide 25 mg PO DAILY 07/29/20 07/29/20 History omega-3 fatty acids-vitamin E 1 cap PO DAILY 07/29/20 07/29/20 History [Fish Oil] Exam Exam Date and Time: July 30, 2020 1512 Height,Weight and Vital Signs: Height 5 ft 6 in Weight 84.5 kg Last Vital Signs Temp 97.2 F 07/30/20 12:00 Pulse 54 07/30/20 12:00 Resp 20 07/30/20 12:00 BP 159/70 H 07/30/20 12:00 Pulse Ox 98 07/30/20 12:00 Pertinent Lab Results Pertinent Lab Results: Laboratory Tests 07/29/20 07/29/20 07/29/20 21:25 21:25 21:25 WBC 10.7 RBC 4.57 L Hgb 13.1 L Hct 40.6 L MCV 88.8 MCH 28.7 MCHC 32.3 RDW 13.4 Plt Count 341 MPV 10.2 Immature Gran % (Auto) 0.6 H Neut % (Auto) 54.2 Lymph % (Auto) 33.2 [place] % (Auto) 9.1 Eos % (Auto) 2.3 Baso % (Auto) 0.6 Lymph # (Auto) 3.5 [place] # (Auto) 1.0 Eos # (Auto) 0.3 Baso # (Auto) 0.1 Abs Immat Gran (auto) 0.06 H Absolute Neuts (auto) 5.8 Absolute Nucleated RBC 0.000 Nucleated RBC % (auto) 0.0 PT 12.0 INR 1.0 Sodium 140 Potassium 3.7 Chloride 104 Carbon Dioxide 25 Anion Gap 15 BUN 21 H Creatinine 1.31 Estim Creat Clear Calc 59.7 Estimated GFR 55 Random Glucose 160 H Calcium 8.3 L Total Bilirubin 0.3 AST 15 ALT 20 Alkaline Phosphatase 94 Total Protein 7.0 Albumin 4.0 Stool Occult Blood Coronavirus (PCR) Blood Type Antibody Screen 07/29/20 07/29/20 07/30/20 21:25 21:29 00:55 WBC RBC Hgb Hct MCV MCH MCHC RDW Plt Count MPV Immature Gran % (Auto) Neut % (Auto) Lymph % (Auto) [place] % (Auto) Eos % (Auto) Baso % (Auto) Lymph # (Auto) [place] # (Auto) Eos # (Auto) Baso # (Auto) Abs Immat Gran (auto) Absolute Neuts (auto) Absolute Nucleated RBC Nucleated RBC % (auto) PT INR Sodium Potassium Chloride Carbon Dioxide Anion Gap BUN Creatinine Estim Creat Clear Calc Estimated GFR Random Glucose Calcium Total Bilirubin AST ALT Alkaline Phosphatase Total Protein Albumin Stool Occult Blood POS Coronavirus (PCR) NEGATIVE Blood Type O Positive Antibody Screen NEGATIVE 07/30/20 07/30/20 04:58 13:20 WBC 10.5 RBC 4.38 L Hgb 12.2 L 12.4 L Hct 37.6 L 38.6 L MCV 88.1 MCH 28.3 MCHC 32.1 RDW 13.4 Plt Count 345 MPV 10.4 Immature Gran % (Auto) Neut % (Auto) Lymph % (Auto) [place] % (Auto) Eos % (Auto) Baso % (Auto) Lymph # (Auto) [place] # (Auto) Eos # (Auto) Baso # (Auto) Abs Immat Gran (auto) Absolute Neuts (auto) Absolute Nucleated RBC 0.000 Nucleated RBC % (auto) 0.0 PT INR Sodium Potassium Chloride Carbon Dioxide Anion Gap BUN Creatinine Estim Creat Clear Calc Estimated GFR Random Glucose Calcium Total Bilirubin AST ALT Alkaline Phosphatase Total Protein Albumin Stool Occult Blood Coronavirus (PCR) Blood Type Antibody Screen Airway Mallampati Class: II TM Dist: >3cm Neck ROM: Full
--- NOTE | 2020-07-30 15:44 | CONS_ITS ---
DATE OF SERVICE: 07/30/2020 REASON FOR CONSULTATION: Lower GI bleeding. HISTORY OF PRESENT ILLNESS: This has been obtained from the patient with a medical assembler, and from the medical record. The patient is a 64-year-old male, who underwent a screening colonoscopy on July [address] Guthrie with removal of a cecal polyp. According to the note, the polyp in the cecum was approximately 1.2 cm and was sessile. This was removed initially with submucosal injection and then hot snare polypectomy. The area was also marked with submucosal ink. The remainder of the colonoscopy appeared normal. The pathology report is a tubular adenoma with no significant dysplasia nor carcinoma. The patient had been on aspirin in the past, but has not use any aspirin or NSAIDs since the procedure. He does describe some right-sided abdominal pain and question of fever the evening of the procedure, but since that time, he has been asymptomatic. In general, he has been feeling very well up until last evening. He describes the spontaneous onset of some lower GI bleeding with fresh blood. This persisted and prompted his visit to the ER. He subsequently was admitted. Since admission, he has continued to pass fresh blood and is currently undergoing a bowel prep, which still appears bloody. He denies any abdominal pain, dizziness, nor weakness. He has been afebrile. Prior to last evening, he was feeling well. He denies any nausea nor vomiting. On admission, his hemoglobin was 13.1 compared to 13.8 back in October. Hemoglobin early this morning was 12.2 and another hemoglobin is currently pending. MEDICATIONS: At home included amlodipine, atorvastatin, vitamin D, hydrochlorothiazide. Again, he does not use any aspirin and NSAIDs since his procedure. PAST MEDICAL HISTORY: Colon polyps as above. Hypertension. Asthma. He does have a history of NE over 10 years ago, but denies any history of surgery nor stent placement for that. He denies any subsequent cardiac problems. He denies any history of stroke nor diabetes. He does have asthma. He denies any surgeries. SOCIAL HISTORY: He is . He does not smoke nor use any significant amounts of alcohol. FAMILY HISTORY: Noncontributory. REVIEW OF SYSTEMS: CONSTITUTIONAL: He has been feeling very well up until last evening. SKIN: No rash. No pruritus. CARDIAC: No chest pain. PULMONARY: No cough. No hemoptysis. GASTROINTESTINAL: As above. URINARY: No dysuria. No hematuria. NEUROLOGIC: No headache or seizures. PHYSICAL EXAMINATION: GENERAL: The patient is a pleasant, alert, comfortable male. SKIN: Warm and dry. Anicteric sclerae. NECK: Supple. CHEST: Clear. CARDIAC: Normal S1 and S2. ABDOMEN: Soft, nondistended. Normal bowel sounds. Nontender. LABORATORY DATA: As above. PT 12.0 with INR 1.0. Chemistries are normal with BUN 21, creatinine 1.3. Liver profile is normal. IMPRESSION: Given the patient's clinical history, this does seem consistent with a post polypectomy bleed, albeit somewhat rather late in onset. Nonetheless, given what appears to be still be ongoing bleeding, I would recommend a colonoscopy today with monitored anesthesia care to attempt to visualize the polypectomy site and perform any therapeutic intervention as needed if indeed there is still signs of active bleeding or visible vessel. This has all been reviewed with the patient in detail. Given the location, it does make therapeutic intervention somewhat riskier in regard to perforation of the cecum, but nonetheless, we shall proceed at this time. Full consent has been obtained from him for this, including risks of bleeding and perforation. In the meantime, he will have continued monitoring of his hemoglobin. This has all been discussed with the patient in detail and he is comfortable with this plan. Thank you for this consultation. MD EVA Breaux/BEBE / [id number]
--- NOTE | 2020-07-30 16:25 | PM.OP ---
Brief Operative Note Date of procedure: 07/30/20 Pre-op diagnosis: Lower GI bleed Post-op diagnosis: other (Postpolypectomy bleed, Diverticulsosis, Internal hemorrhoids) Procedure: Colonoscopy to cecum with placement of Resolution clips x 8 on polypectomy site in cecum Surgeon: Piter Cifuentes Anesthesia: MAC Estimated blood loss (mL): 0 Pathology: none sent Condition: stable Disposition: PACU
--- NOTE | 2020-07-30 16:27 | PM.EVENT ---
Event Note Event Note: Colonoscopy to cecum-Full note dictated Findings: 1. Ulcerated Polypectomy site clearly visualized in ceum, adjacent to a submucosal ink henrik and opposite the ICV. 2. There was no active bleeding nor any definitive vessel noted in the polypectomy site, although the edges were friable. 3. The ulcerated site was rather large and deep, approx 15mm x 5mm 4. Given the clinical history and size of the lesion, I did feel it was prudent to endoscopically treat the area. 5. Given no active bleeding and its location in the cecum, I opted to hold off on any cautery or sclerotherapy. 6. I placed 8 Resolution clips, opposing the edges of the ulcerated area for its entire length. There was good deployment of all 8 clips. The area was copiously irrigated and observed for at least 10 minutes without any bleeding noted. 7. Sigmoid diverticulosis and occ. ascending colon diverticulosis 8. Internal hemorrhoids 9. Of note, prep was excellent and there was no old nor fresh blood in the colon. Plan: Observe, NPO for today, F/U Hgb, and clear liqs on Saturday. If stable on Saturday his diet can be advanced and he can be discharged once seen by Dr. Guthrie. Call me if recurrent bleeding. No ASA/NSAIDs/Blood thinners x 2 weeks. D/W patient and . Thanks
[2020-07-30 21:07] LABS: Hematocrit 35.3 % (42-52); Hemoglobin 11.4 g/dl (14.0-18.0); Mean Corpuscular HGB Conc 32.3 g/dl (31.0-36.0); Mean Corpuscular Hemoglobin 28.3 pg (27.0-33.0); Mean Corpuscular Volume 87.6 fL (80-98); Platelet Count 320 X10*3/uL (160-400); Red Blood Count 4.03 X10*6/uL (4.60-5.80); Red Cell Distribution Width 13.3 % (11.0-16.0); White Blood Count 14.5 X10*3/uL (4.8-10.8)
[2020-07-31] VITALS (7 sets, daily range): BP systolic 125–146; BP diastolic 57–67; PULSE 54–61; RESP 18; TEMP 36.4–36.9; O2SAT 97–99
[2020-07-31] MEDS: Lactated Ringers 1,000 ML 100 ML IVCONT (01:54)
[2020-07-31 05:24] LABS: MANUAL DIFF FLAG NO
[2020-07-31 05:36] LABS: Basophils Absolute Auto 0.1 X10*3/uL (0.0-0.2); Basophils Percent Auto 0.4 % (0-2); Eosinophils Absolute Auto 0.2 X10*3/uL (0.0-0.4); Hematocrit 35.3 % (42-52); Hemoglobin 11.6 g/dl (14.0-18.0); Imm Gran Abs Auto 0.04 X10*3/uL (0.00-0.03); Imm Gran Pct Auto 0.3 % (0.0-0.4); Lymphocytes Absolute Auto 2.8 X10*3/uL (1.2-4.9); Lymphocytes Percent Auto 23.4 % (20-40); Mean Corpuscular HGB Conc 32.9 g/dl (31.0-36.0); Mean Corpuscular Hemoglobin 28.7 pg (27.0-33.0); Mean Corpuscular Volume 87.4 fL (80-98); Mean Platelet Volume 10.8 fL (9.4-12.4); Monocytes Absolute Auto 0.8 X10*3/uL (0.1-1.2); Monocytes Percent Auto 6.9 % (2-11); Neutrophils Absolute Auto 7.9 X10*3/uL (2.0-8.3); Platelet Count 316 X10*3/uL (160-400); Red Blood Count 4.04 X10*6/uL (4.60-5.80); Red Cell Distribution Width 13.3 % (11.0-16.0); White Blood Count 11.8 X10*3/uL (4.8-10.8)
[2020-07-31 05:52] LABS: Anion Gap 12 (12-20); Blood Urea Nitrogen 11 mg/dL (9-16); Carbon Dioxide 25 mmol/L (22-29); Chloride 106 mmol/L (96-108); Creatinine Clr Calc Pharmacy 96.4; Estimated Glomerular Filt Rate > 60; Glucose Random 80 mg/dL (60-115); Potassium 3.6 mmol/l (3.3-5.1); Sodium 139 mmol/L (135-145)
[2020-07-31] MEDS: amLODIPine Besylate 10 MG TABLET PO (08:25)
[2020-07-31] MEDS: Atorvastatin Calcium 40 MG TABLET PO (08:25)
--- NOTE | 2020-07-31 12:17 | MHC.CM.PN ---
HEAD OF SCIENCE COMPLETED WITH PT WITH THE ASSISTANCE OF A SAUDI ARABIAN PROPOSAL WRITER. PT REPORTS HE LIVES AT HOME WITH HIS S/O AND IS INDEPENDENT WITH CARE AND MOBILITY. PT DENIES USING ANY DME AND HAS NO IN HOME SERVICES. PT REPORTS HE GOES TO [facility] FOR PRIMARY CARE. PT DOES NOT HAVE A HCP AND DECLINED TO COMPLETE ONE TODAY. CURRENT DC PLAN IS HOME WITH NO SERVICES. PT DENIES HAVING ANY CONCERNS RELATED TO DISCHARGE OR CARE ONCE HOME. PT WILL SELF ARRANGE TRANSPORTATION AT DC
--- NOTE | 2020-07-31 14:17 | HO.PM.IMPN ---
Subjective Subjective Date of Service: 07/31/20 Interval History: patient denies abdominal pain no recurrent melena now bright red blood per rectum, patient had an uneventful night. Review of Systems General no headache no dizziness no fever chills. CVS no chest pain, no palpitation. Respiratory no cough , no shortness of breath. Gastrointestinal no nausea,no vomiting, no abdominal pain Physical Exam Vital Signs: Vital Signs: Vital Signs Temp Pulse Resp BP Pulse Ox 07/31/20 11:00 98 F 59 18 146/67 H 98 07/31/20 08:25 61 137/66 07/31/20 07:46 98.5 F 55 18 137/66 97 07/31/20 04:00 97.8 F 54 18 125/57 L 98 07/31/20 00:00 97.9 F 57 18 131/61 97 07/30/20 19:14 97.4 F 60 14 139/69 98 07/30/20 16:46 96.9 F 50 16 150/70 H 98 07/30/20 16:40 97.0 F 57 16 128/50 L 97 07/30/20 16:31 51 18 112/49 L 99 07/30/20 16:26 96.9 F 53 15 106/43 L 96 Body Mass Index 30.0 General patient resting comfortably in no acute distress. Neck supple, no JVD. CVS regular, rate rhythm, Respiratory lungs clear to auscultation, no respiratory distress Gastrointestinal abdomen soft, nontender, bowel sounds audible, no no guarding , no rigidity. Extremities no clubbing cyanosis or edema. Neuro nonfocal Skin no rash Objective Data Current Medications Generic Name Dose Route Start Last Admin Trade Name Freq PRN Reason Stop Dose Admin Acetaminophen 650 mg 07/30/20 02:48 Acetaminophen 325 Mg Tablet PO Q6H PRN Pain, Mild (Pain Scale 1-3) Acetaminophen 650 mg 07/30/20 02:48 Acetaminophen Supp 650 Mg Supp.Rect NV Q6H PRN Pain, Mild (Pain Scale 1-3) Acetaminophen 650 mg 07/30/20 15:43 Acetaminophen 325 Mg Tablet PO ONCE PRN Pain, Mild (Pain Scale 1-3) Albuterol Sulfate 2.5 mg 07/30/20 15:43 Albuterol Sulfate (0.083%) 2.5 Mg/3 Ml Vial.Neb INHALE ONCE PRN Wheezing Amlodipine Besylate 10 mg 07/30/20 09:00 07/31/20 08:25 Amlodipine Besylate 10 Mg Tablet PO 10 mg DAILY JOANNA Administration Protocol Atorvastatin Calcium 40 mg 07/30/20 09:00 07/31/20 08:25 Atorvastatin Calcium 40 Mg Tablet PO 40 mg DAILY JOANNA Administration Ondansetron HCl 4 mg 07/30/20 02:48 Ondansetron Hcl 4 Mg/2 Ml Vial IVPUSH Q8H PRN Nausea and Vomiting Ondansetron HCl 4 mg 07/30/20 15:43 Ondansetron Hcl 4 Mg/2 Ml Vial IVPUSH ONCE PRN Nausea and Vomiting Sodium Chloride 3 ml 07/30/20 08:00 07/31/20 08:28 0.9 % Sodium Chloride Flush 3 Ml Syringe IVFLUSH Not Given QSHIFT [facility] Labs CBC & Chem 7: 07/31/20 04:20 07/31/20 04:20 Assessment and Plan (1) Acute GI bleeding: Status: Acute (2) Asthma: Problem details: stable w/daily inhaler Status: Acute (3) GERD (gastroesophageal reflux disease): Status: Acute (4) HTN (hypertension): Status: Acute (5) Elevated cholesterol: Status: Acute Assessment and Plan: 64-year-old male with past medical history of coronary artery disease as well as hypertension who presents to the hospital with complaints of acute GI bleed. # Acute GI bleed - no recurrent GI bleed hematocrit stable , CT abdomen showed telangiectasia versus internal venous ectasia , and diverticulosis, patient had colonoscopy on 21 of July, and had a polypectomy which shows tubular adenoma, due to active GI bleed patient underwent repeat colonoscopy by Dr. Cifuentes on 07/30 ,during colonoscopy patient was found to have ulcerated polypectomy site with no active bleeding, nor any definite vessel noted although the edges were friable and due to the size of the lesion patient was treated with 8 resolution clips, postprocedure patient had no recurrent bleed he is hemodynamically stable hematocrit remains stable therefore will place patient on clear liquid diet and if he tolerates it will advance diet to solid and patient will be evaluated by Dr. Guthrie prior to discharge as per Dr. Cifuentes recommendation will DC IV fluids # history of coronary artery disease no history of stent placement will hold aspirin no NSAIDs # hyperlipidemia - continue statin # hypertension - stable continue amlodipine and hold hydrochlorothiazide # GERD stable DVT prophylaxis: SCDs
--- NOTE | 2020-07-31 16:20 | PM.GIPN ---
Subjective Subjective Date of Service: 07/31/20 Interval History: Hx via patient and RN. Patient is comfortable. Denies any bleeding, abdominal pain, N/V. Physical Exam Vital Signs: Vital Signs: Vital Signs Temp Pulse Resp BP Pulse Ox 07/31/20 15:46 98.2 F 58 18 145/65 H 99 07/31/20 11:00 98 F 59 18 146/67 H 98 07/31/20 08:25 61 137/66 07/31/20 07:46 98.5 F 55 18 137/66 97 07/31/20 04:00 97.8 F 54 18 125/57 L 98 07/31/20 00:00 97.9 F 57 18 131/61 97 07/30/20 19:14 97.4 F 60 14 139/69 98 Body Mass Index 30.0 GI: Inspection: Yes normal to inspection Palpation (GI): Soft to palpation (Soft, normal BS, NT, Nondistended) Objective Data Labs CBC & Chem 7: 07/31/20 04:20 07/31/20 04:20 Labs: Laboratory Results - last 24 hr 07/30/20 07/31/20 07/31/20 20:50 04:20 04:20 WBC 14.5 H 11.8 H RBC 4.03 L 4.04 L Hgb 11.4 L 11.6 L Hct 35.3 L 35.3 L MCV 87.6 87.4 MCH 28.3 28.7 MCHC 32.3 32.9 RDW 13.3 13.3 Plt Count 320 316 MPV 10.0 10.8 Immature Gran % (Auto) 0.3 Neut % (Auto) 67.0 Lymph % (Auto) 23.4 [place] % (Auto) 6.9 Eos % (Auto) 2.0 Baso % (Auto) 0.4 Lymph # (Auto) 2.8 [place] # (Auto) 0.8 Eos # (Auto) 0.2 Baso # (Auto) 0.1 Abs Immat Gran (auto) 0.04 H Absolute Neuts (auto) 7.9 Absolute Nucleated RBC 0.000 0.000 Nucleated RBC % (auto) 0.0 0.0 Sodium 139 Potassium 3.6 Chloride 106 Carbon Dioxide 25 Anion Gap 12 BUN 11 Creatinine 0.81 Estim Creat Clear Calc 96.4 Estimated GFR > 60 Random Glucose 80 D Calcium 8.0 L Progress Note: A&P Assessment and plan (1) GI bleed: Status: Acute Assessment and Plan: Imp: Lower GI bleed due to probable postpolypectomy bleed. Presently stable. Tolerating liquids. Rec: Advance diet in AM, 08/01, if stable. F/U Hgb. Discharge 08/01 if stable, after seen by Dr. Guthrie. D/W patient. Thanks. Fall Risk Details Current Medications: Current Medications Generic Name Dose Route Start Last Admin Trade Name Freq PRN Reason Stop Dose Admin Acetaminophen 650 mg 07/30/20 02:48 Acetaminophen 325 Mg Tablet PO Q6H PRN Pain, Mild (Pain Scale 1-3) Acetaminophen 650 mg 07/30/20 02:48 Acetaminophen Supp 650 Mg Supp.Rect [place] Q6H PRN Pain, Mild (Pain Scale 1-3) Acetaminophen 650 mg 07/30/20 15:43 Acetaminophen 325 Mg Tablet PO ONCE PRN Pain, Mild (Pain Scale 1-3) Albuterol Sulfate 2.5 mg 07/30/20 15:43 Albuterol Sulfate (0.083%) 2.5 Mg/3 Ml Vial.Neb INHALE ONCE PRN Wheezing Amlodipine Besylate 10 mg 07/30/20 09:00 07/31/20 08:25 Amlodipine Besylate 10 Mg Tablet PO 10 mg DAILY JOANNA Administration Protocol Atorvastatin Calcium 40 mg 07/30/20 09:00 07/31/20 08:25 Atorvastatin Calcium 40 Mg Tablet PO 40 mg DAILY JOANNA Administration Ondansetron HCl 4 mg 07/30/20 02:48 Ondansetron Hcl 4 Mg/2 Ml Vial IVPUSH Q8H PRN Nausea and Vomiting Ondansetron HCl 4 mg 07/30/20 15:43 Ondansetron Hcl 4 Mg/2 Ml Vial IVPUSH ONCE PRN Nausea and Vomiting Sodium Chloride 3 ml 07/30/20 08:00 07/31/20 08:28 0.9 % Sodium Chloride Flush 3 Ml Syringe IVFLUSH Not Given QSHIFT JOANNA Time Spent With Patient Time: Total time spent is greater than 50% in coordination of care (as documented) at patient's floor/unit and/or counseling patient: Time with patient: 15 - 24 minutes
[2020-07-31] MEDS: 0.9 % Sodium Chloride Flush 3 ML SYRINGE IVFLUSH ×2 (16:29→23:39)
[2020-08-01] VITALS: BP 144/70; PULSE 53; RESP 16; TEMP 36.6; O2SAT 97
--- NOTE | 2020-08-01 00:27 | PC.NURSE ---
Pt refusing compression boots. note; pt is ambulating in room frequently. pt educated on need for ambulation for prevention of dvt. will cont to monitor
[2020-08-01 03:22] VITALS: BP 118/68; PULSE 48; RESP 16; TEMP 36.8; O2SAT 92
[2020-08-01 06:19] LABS: MANUAL DIFF FLAG NO
[2020-08-01 06:51] LABS: Basophils Absolute Auto 0.1 X10*3/uL (0.0-0.2); Basophils Percent Auto 0.6 % (0-2); Eosinophils Absolute Auto 0.3 X10*3/uL (0.0-0.4); Eosinophils Percent Auto 3.3 % (0-4); Hematocrit 35.5 % (42-52); Hemoglobin 11.4 g/dl (14.0-18.0); Imm Gran Abs Auto 0.04 X10*3/uL (0.00-0.03); Imm Gran Pct Auto 0.5 % (0.0-0.4); Lymphocytes Absolute Auto 2.6 X10*3/uL (1.2-4.9); Mean Corpuscular HGB Conc 32.1 g/dl (31.0-36.0); Mean Corpuscular Hemoglobin 28.3 pg (27.0-33.0); Mean Corpuscular Volume 88.1 fL (80-98); Mean Platelet Volume 10.7 fL (9.4-12.4); Monocytes Absolute Auto 0.8 X10*3/uL (0.1-1.2); Monocytes Percent Auto 9.7 % (2-11); Neutrophils Absolute Auto 4.6 X10*3/uL (2.0-8.3); Neutrophils Percent Auto 54.9 % (45-73); Platelet Count 337 X10*3/uL (160-400); Red Blood Count 4.03 X10*6/uL (4.60-5.80); Red Cell Distribution Width 13.3 % (11.0-16.0); White Blood Count 8.4 X10*3/uL (4.8-10.8)
[2020-08-01 07:40] VITALS: BP 130/69; PULSE 51; RESP 16; TEMP 36; O2SAT 98
--- NOTE | 2020-08-01 08:22 | PM.GIPN ---
Subjective Subjective Date of Service: 08/01/20 Interval History: Patient tells me he ate solid foods last PM. No abdominal pains, no bleeding. He is feeling well. He is seen with Interpretor Dav/JAYDE. Physical Exam Vital Signs: Vital Signs: Vital Signs Temp Pulse Resp BP Pulse Ox 08/01/20 07:40 96.8 F 51 16 130/69 98 08/01/20 03:22 98.2 F 48 L 16 118/68 92 08/01/20 00:00 97.8 F 53 16 144/70 H 97 07/31/20 19:25 97.6 F 56 18 126/65 97 07/31/20 15:46 98.2 F 58 18 145/65 H 99 07/31/20 11:00 98 F 59 18 146/67 H 98 07/31/20 08:25 61 137/66 Body Mass Index 30.0 Const: General: cooperative, healthy appearing and alert; No anxious Resp: Effort & Inspection: normal respiratory effort and able to speak in complete sentences Cardio: Rate: regular rate Rhythm: regular rhythm GI: Palpation (GI): Soft to palpation, nontender and no guarding Auscultation: normal bowel sounds Extrem: General: Yes no clubbing, cyanosis or edema Objective Data Labs CBC & Chem 7: 08/01/20 05:27 07/31/20 04:20 Labs: Laboratory Results - last 24 hr 08/01/20 05:27 WBC 8.4 RBC 4.03 L Hgb 11.4 L Hct 35.5 L MCV 88.1 MCH 28.3 MCHC 32.1 RDW 13.3 Plt Count 337 MPV 10.7 Immature Gran % (Auto) 0.5 H Neut % (Auto) 54.9 Lymph % (Auto) 31.0 [place] % (Auto) 9.7 Eos % (Auto) 3.3 Baso % (Auto) 0.6 Lymph # (Auto) 2.6 [facility] # (Auto) 0.8 Eos # (Auto) 0.3 Baso # (Auto) 0.1 Abs Immat Gran (auto) 0.04 H Absolute Neuts (auto) 4.6 Absolute Nucleated RBC 0.000 Nucleated RBC % (auto) 0.0 Progress Note: A&P Assessment and plan (1) Acute GI bleeding: Problem details: There was a post polypectomy site seen with urgent colo on 07/30. Patient has been tolerating diet since=no pain, no bleeding. Status: Acute Assessment and Plan: CBC in 1 week to be drawn @ [facility]; Avoid heavy lifting and constipation. No ASA or NSAIA for additional 2 weeks. OV in 2 weeks or as scheduled. Fall Risk Details Current Medications: Current Medications Generic Name Dose Route Start Last Admin Trade Name Freq PRN Reason Stop Dose Admin Acetaminophen 650 mg 07/30/20 02:48 Acetaminophen 325 Mg Tablet PO Q6H PRN Pain, Mild (Pain Scale 1-3) Acetaminophen 650 mg 07/30/20 02:48 Acetaminophen Supp 650 Mg Supp.Rect [place] Q6H PRN Pain, Mild (Pain Scale 1-3) Acetaminophen 650 mg 07/30/20 15:43 Acetaminophen 325 Mg Tablet PO ONCE PRN Pain, Mild (Pain Scale 1-3) Albuterol Sulfate 2.5 mg 07/30/20 15:43 Albuterol Sulfate (0.083%) 2.5 Mg/3 Ml Vial.Neb INHALE ONCE PRN Wheezing Amlodipine Besylate 10 mg 07/30/20 09:00 07/31/20 08:25 Amlodipine Besylate 10 Mg Tablet PO 10 mg DAILY JOANNA Administration Protocol Atorvastatin Calcium 40 mg 07/30/20 09:00 07/31/20 08:25 Atorvastatin Calcium 40 Mg Tablet PO 40 mg DAILY JOANNA Administration Ondansetron HCl 4 mg 07/30/20 02:48 Ondansetron Hcl 4 Mg/2 Ml Vial IVPUSH Q8H PRN Nausea and Vomiting Ondansetron HCl 4 mg 07/30/20 15:43 Ondansetron Hcl 4 Mg/2 Ml Vial IVPUSH ONCE PRN Nausea and Vomiting Sodium Chloride 3 ml 07/30/20 08:00 07/31/20 23:39 0.9 % Sodium Chloride Flush 3 Ml Syringe IVFLUSH 3 ml QSHIFT JOANNA Administration Time Spent With Patient Time: Total time spent is greater than 50% in coordination of care (as documented) at patient's floor/unit and/or counseling patient:(15minutes with assist vinyl top installer.) Time with patient: 15 - 24 minutes
[2020-08-01 08:44] VITALS: BP 141/79; PULSE 64
[2020-08-01] MEDS: amLODIPine Besylate 10 MG TABLET PO (08:44)
[2020-08-01] MEDS: 0.9 % Sodium Chloride Flush 3 ML SYRINGE IVFLUSH (08:45)
[2020-08-01] MEDS: Atorvastatin Calcium 40 MG TABLET PO (08:45)
--- NOTE | 2020-08-01 08:46 | PM.DS ---
DS: Providers Provider Date of admission: 07/30/20 02:04 Primary care physician: Unknown Physician Consults: 07/30/20 02:48 Consult to Gastroenterology Routine Consulting Provider: Piter Cifuentes Reason for consultation: GI bleed Has provider been notified: Yes DS: Diagnosis Discharge Diagnosis (1) Acute GI bleeding: Status: Acute DS: Summary Hospital Course Hospital Course: [id number] with past medical history of coronary artery disease, hypertension, presents to the hospital with complaints of GI bleed. Patient reports that the symptoms started about 7:00 p.m., he has seen blood with every bowel movement ever since. Patient has had about 3 episodes of bloody diarrhea while in the ED. The blood initially started as bright red blood progressed to be dark. Patient denies using any NSAIDs, he does take aspirin for history of coronary artery disease, he reports a history of heartburn. He otherwise denies any shortness of breath, dizziness, no chest pain, no abdominal pain, no nausea or vomiting, and no urinary symptoms or lower extremity edema. patient reports that he underwent colonoscopy on the of this month and is supposed to received there is also Saturday. On arrival to the ED hemodynamically stable with no significant abnormal vitals Labs are significant for hemoglobin of 13.1 (around his baseline ), BUN of 21, creatinine of 1.31 ( baseline around 1.1), stool occult positive, COVID-[address] GI bleed protocol shows pancolonic diverticulosis without evidence of diverticulitis. No distant/of intraluminal contras past medical history: Hypertension, coronary artery disease, GERD, chronic back pain, asthma, history of peptic ulcer, hyperlipidemia surgical history: Denies Acute GI bleed patient noted to have multiple episodes of melena and the 1st 24 hours, hematocrit remained stable , CT abdomen showed telangiectasia versus internal venous ectasia , and diverticulosis, patient had colonoscopy on 21 of July, and had a polypectomy which shows tubular adenoma, due to active GI bleed patient underwent repeat colonoscopy by Dr. Cifuentes on 07/30 ,during colonoscopy patient was found to have ulcerated polypectomy site with no active bleeding, nor any definite vessel noted although the edges were friable and due to the size of the lesion patient was treated with 8 resolution clips, postprocedure patient had no recurrent bleed he is hemodynamically stable hematocrit remains stable patient diet has been gradually advanced that he is tolerating fairly well subsequently patient seen by Dr. Guthrie and since he is hemodynamically stable he is being discharged home to have close outpatient follow-up with Gastroenterology. # history of coronary artery disease no history of stent placement will hold aspirin And no NSAIDs for 2 weeks # hyperlipidemia continue statin # hypertension stable continue amlodipine and hydrochlorothiazide # GERD stable Time Spent with Patient Time attestation: Total time spent providing and/or coordinating discharge services: Physical Exam Vital Signs: Vital Signs: Vital Signs Temp Pulse Resp BP Pulse Ox 08/01/20 08:44 64 141/79 H 08/01/20 07:40 96.8 F 51 16 130/69 98 08/01/20 03:22 98.2 F 48 L 16 118/68 92 08/01/20 00:00 97.8 F 53 16 144/70 H 97 07/31/20 19:25 97.6 F 56 18 126/65 97 07/31/20 15:46 98.2 F 58 18 145/65 H 99 07/31/20 11:00 98 F 59 18 146/67 H 98 Body Mass Index 30.0 General patient resting comfortably in no acute distress. Neck is supple no JVD. CVS regular rate rhythm, Respiratory lungs clear to auscultation, no respiratory distress, no wheeze, no rhonchi. Gastrointestinal abdomen soft, nontender, bowel sounds audible, Extremities no clubbing cyanosis or edema. Neuro nonfocal patient moving all 4 extremity speech clear. Skin no rash DS: Data Data Completed and Pending Labs on day of discharge: Labs from last 24 hours 08/01/20 05:27 WBC 8.4 RBC 4.03 L Hgb 11.4 L Hct 35.5 L MCV 88.1 MCH 28.3 MCHC 32.1 RDW 13.3 Plt Count 337 MPV 10.7 Immature Gran % (Auto) 0.5 H Neut % (Auto) 54.9 Lymph % (Auto) 31.0 [place] % (Auto) 9.7 Eos % (Auto) 3.3 Baso % (Auto) 0.6 Lymph # (Auto) 2.6 [place] # (Auto) 0.8 Eos # (Auto) 0.3 Baso # (Auto) 0.1 Abs Immat Gran (auto) 0.04 H Absolute Neuts (auto) 4.6 Absolute Nucleated RBC 0.000 Nucleated RBC % (auto) 0.0 Discharge Plan Discharge Patient Disposition: Home, Self-Care Referrals: Physician,Unknown [Primary Care Provider] - Discharge Medications: Continued atorvastatin 40 mg Tablet 40 mg PO DAILY RF: 0 amlodipine 10 mg Tablet 10 mg PO DAILY RF: 0 hydrochlorothiazide 25 mg Tablet 25 mg PO DAILY RF: 0 omega-3 fatty acids-vitamin E 1,000 mg Capsule 1 cap PO DAILY RF: 0 cholecalciferol (vitamin D3) [Vitamin D3] 25 mcg (1,000 unit) Tablet 25 mcg PO DAILY RF: 0 Held aspirin 81 mg Tablet 81 mg PO DAILY RF: 0 Hold Instructions: Resume on 08/13/20. Discharge Orders: Discharge Order (Routine); Ordered 08/01/20 Ordered By: Dayan Denny Diet: low fat, low cholesterol Activity on Discharge: As tolerated Visit Report Forms: Patient Portal Discharge page Care Plan Goals: Hold aspirin for 2 weeks and follow-up with gastroenterology, do not take any Advil or Motrin for 2 weeks Health Concerns: outpatient follow-up with PCP and Gastroenterology Plan of Treatment: continue all medication as prescribed.
--- NOTE | 2020-08-01 08:48 | MHC.CM.PN ---
Patient is being discharged home today no services. Patient will arrange for his own transportation.
--- NOTE | 2020-08-01 13:03 | HO.POSTANES ---
Post Anesthesia Evaluation Post Anesthesia Evaluation Vital Signs: Vital Signs Temp Pulse Resp BP Pulse Ox 08/01/20 08:44 64 141/79 H 08/01/20 07:40 96.8 F 51 16 130/69 98 08/01/20 03:22 98.2 F 48 L 16 118/68 92 Anesthesia: Monitored Mental Status: Awake Pain Control: Satisfactory Nausea/Vomiting: None Hydration: Adequate Anesthesia-Related Issues: No Anes. Related Issues
--- NOTE | 2020-08-22 11:09 | OP_ITS ---
SURGEON: Piter Cifuentes MD INDICATIONS: The patient presents for evaluation of lower GI bleeding. Full consent has been obtained from him for this, including risks of bleeding and perforation. PREOPERATIVE DIAGNOSIS: Lower gastrointestinal bleeding. POSTOPERATIVE DIAGNOSIS: PROCEDURE PERFORMED: Colonoscopy to the cecum with placement of Resolution clips. ESTIMATED BLOOD LOSS: COMPLICATIONS: ANESTHESIA: Monitored anesthesia care. ASSISTANTS: SPECIMENS: POSTOPERATIVE DIAGNOSES: Lower gastrointestinal bleeding, probable bleeding from polypectomy site, sigmoid diverticulosis, ascending colon diverticulosis, internal hemorrhoids. DESCRIPTION OF PROCEDURE: The patient was placed in the left lateral decubitus position. The digital rectal exam revealed no abnormalities. The Olympus video pediatric colonoscope was entered into the rectum and advanced easily into the cecum. Once in the cecum, I visualized the previously placed submucosal ink henrik at the ileocecal valve. The polypectomy site appeared ulcerated, but there was no active bleeding nor any definitive vessel noted in the polypectomy site, although the edges were somewhat friable. There was clearly no active bleeding. There was no old blood in the cecum either. The ulcerated site was rather large and deep, approximately 15 mm x 5 mm. Given the clinical history and size of the lesion, I did feel this was the most likely site of his lower GI bleeding and 8 Resolution clips were placed across the edges of the ulcerated area along the entire length, opposing the edges. There was good deployment of all 8 clips. The area was copiously irrigated and observed for at least 10 minutes without any bleeding noted. The scope was then slowly withdrawn assessing all mucosal surfaces carefully. Preparation was otherwise excellent and there was no sign of any fresh blood nor old blood in the colon. There was some diverticula noted in the ascending colon and sigmoid colon. There was no sign of any colitis nor angiodysplasia. In the rectum, scope was retroflexed visualizing internal hemorrhoids, but no other pathology. The rectal mucosa appeared normal. The scope was straightened and withdrawn from the patient. He tolerated the procedure well and was returned to the recovery area in stable condition. IMPRESSION: 1. Probable post-polypectomy bleed, status post placement of Resolution clips. 2. Diverticulosis. 3. Internal hemorrhoids. PLAN: The patient will be observed and kept n.p.o.. He will have followup hemoglobins followed closely. His diet will be slowly advanced over the next 24 to 48 hours if stable. He should avoid aspirin, NSAIDs, and other blood thinners for at least 2 weeks. This has been discussed with the patient and his . MD EVA Breaux/BEBE / [id number] MTDD
== END 2020-08-01 09:30 | disposition home or self-care (01) | DRG 810 ==
LOC: HO.ED 07-30 00:19 → HO.IMC 07-30 02:20
PROVIDERS: Internal Medicine; Admitting Provider Internal Medicine; Emergency Provider Student in an Organized Health Care Education/Training Program; Visit Provider Hospitalist
PROC: 0DJD8ZZ Inspection of Lower Intestinal Tract, Via Natural or Artificial Opening Endoscopic (ICD-10-PCS; CPT 45378; principal; 2020-07-30 15:00)
DX: K91.840 Postprocedural hemorrhage of a digestive system organ or structure following a digestive system procedure (principal); K63.3 Ulcer of intestine; K57.31 Diverticulosis of large intestine without perforation or abscess with bleeding; E78.5 Hyperlipidemia, unspecified; I25.10 Atherosclerotic heart disease of native coronary artery without angina pectoris; K64.8 Other hemorrhoids; K21.9 Gastro-esophageal reflux disease without esophagitis; Z20.828 Contact with and (suspected) exposure to other viral communicable diseases; Z87.891 Personal history of nicotine dependence; Z79.82 Long term (current) use of aspirin; Z79.899 Other long term (current) drug therapy
CPT/HCPCS: 36415; 74178; 80048; 80053; 82272; 85014; 85018; 85025; 85027; 85610; 86850; 86900; 86901; 96360; 99232; 99285; Q9967; U0003

== ENCOUNTER → 2020-08-01 14:40 | Outpatient (BNVA) | payer MEDICAID, SELFPAY | PROVIDERS: Visit Provider Nurse Practitioner | DX: D12.0 Benign neoplasm of cecum (principal); K57.30 Diverticulosis of large intestine without perforation or abscess without bleeding; Z98.890 Other specified postprocedural states | CPT/HCPCS: 99212 ==

== ENCOUNTER → 2020-11-03 14:09 | Outpatient (BNVA) | payer MEDICAID, SELFPAY | PROVIDERS: PCP Internal Medicine; Visit Provider Nurse Practitioner ==

== ENCOUNTER → 2020-11-09 08:17 | Outpatient (BNVA) | payer MEDICAID, SELFPAY | PROVIDERS: PCP Internal Medicine; Visit Provider Internal Medicine Gastroenterology ==

== ENCOUNTER → 2021-01-30 10:19 | Outpatient (BNVA) | payer MEDICAID, SELFPAY | PROVIDERS: PCP Internal Medicine; Visit Provider Nurse Practitioner ==

== ENCOUNTER 2021-05-06 08:34 | Emergency (ER) | payer MEDICAID, SELFPAY ==
[2021-05-06 08:46] VITALS: BP 138/67; PULSE 70; RESP 16; TEMP 36.9; O2SAT 96; BMI 30.9
--- NOTE | 2021-05-06 09:07 | ED.GENADULT ---
HPI - General Adult General Chief complaint: Upper Respiratory Symptoms Stated complaint: fever, body ache/chills, headache Time Seen by Provider: 05/06/21 09:06 Source: patient Mode of arrival: ambulatory Limitations: no limitations History of Present Illness HPI narrative: 65 y/o male presents to the ER from home after he woke up this morning feeling unwell. He reports feeling feverish and he has diffuse body aches. He has had no sick contacts and he is fully vaccinated against COVID-19. He has no cough, SOB, chest pain, abdominal pain, N/V/D, or urinary symptoms. No neck pain. MD complaint: body aches and headache Onset (ago): hour(s) Location: head and back Radiation: non-radiation Severity: mild Severity scale (1-10): 3 Quality: aching Pain Consistency: constant Relieving factors: none Exacerbating factors: none Associated symptoms: denies other symptoms Treatments prior to arrival: none Related Data Home Medications Medication Instructions Recorded Confirmed amlodipine 10 mg tablet 10 mg PO DAILY 07/29/20 11/09/20 aspirin 81 mg tablet 81 mg PO DAILY 07/29/20 11/09/20 atorvastatin 40 mg tablet 40 mg PO DAILY 07/29/20 11/09/20 cholecalciferol (vitamin D3) 25 25 mcg PO DAILY 07/29/20 11/09/20 mcg (1,000 unit) tablet (Vitamin D3) hydrochlorothiazide 25 mg tablet 25 mg PO DAILY 07/29/20 11/09/20 omega-3 fatty acids-vitamin E 1 cap PO DAILY 07/29/20 11/09/20 1,000 mg capsule Previous Rx's Medication Instructions Recorded Saccharomyces boulardii 250 mg 250 mg PO DAILY 30 Days #30 cap 11/03/20 capsule (Florastor) sennosides 8.6 mg tablet (senna) 17.2 mg PO BEDTIME #60 tab 04/11/21 Allergies Allergy/AdvReac Type Severity Reaction Status Date / Time lisinopril Allergy Intermediate Swelling Verified 01/30/21 10:19 Review of Systems Constitutional: Constitutional: Denies chills, Denies fever(s), Reports headache(s), Denies lethargy, Denies malaise and Denies night sweats Eyes: Eyes: Reports no additional eye complaints ENT: Denies dizziness, Denies otalgia, Reports headache(s), Denies nasal congestion, Denies neck pain and Denies sore throat Cardiovascular: Cardiovascular: Denies chest pain, Denies chest pain at rest and Denies chest pain with activity Respiratory: Respiratory: Denies chest congestion, Denies cough and Denies wheezing Gastrointestinal: Gastrointestinal: Denies abdominal pain, Denies diarrhea, Denies nausea and Denies vomiting Genitourinary: Genitourinary: Denies dysuria Musculoskeletal: Musculoskeletal: Reports back pain, Reports myalgias, Denies arthralgias, Denies joint swelling and Denies neck pain Integumentary/Breasts: Skin/Breast: Denies rash Neurologic: Denies dizziness and Reports headache(s) Hematologic/Lymphatic: Hematologic/Lymphatic: Denies lymphadenopathy Allergic/Immunologic: Allergic/Immunologic: Denies wheezing [facility] Past Medical History Medical History Arthritis Asthma Back pain Elevated cholesterol GERD (gastroesophageal reflux disease) HTN (hypertension) Myocardial infarction Peptic ulcer Surgical History Hx of colonoscopy Hx of excision of mass Hx of umbilical hernia repair Family History Family History Mother Diabetes Heart disease Arthritis Father Heart disease Social History Social History Household Members: Spouse Housing: Apartment Do you presently have visiting nurse or other home services: No Alcohol intake: current Alcohol intake frequency: does not drink Years Smoked: 40 Second Hand Smoke Exposure: No Advance Directives: No Advance Directives Information Provided: No service: No Current occupational status: unemployed Physical Exam Vital Signs: Vital Signs: Last Vital Signs Temp 98.3 F 05/06/21 09:57 Pulse 67 05/06/21 09:57 Resp 15 05/06/21 09:57 BP 132/70 05/06/21 09:57 Pulse Ox 98 05/06/21 09:57 Body Mass Index 30.9 Appearance: Alert. Oriented X3. No acute distress. Eyes: Pupils equal, round and reactive to light. ENT: Pharynx normal. Neck: Normal inspection. Neck supple. CVS: Normal heart rate and rhythm. Pulses normal. Respiratory: No respiratory distress. Breath sounds normal. Abdomen: Soft and nontender. +BS x4 Skin: Skin warm and dry. Normal skin color. Normal skin turgor. No rashes. Extremities: No lower extremity edema. Neuro: Oriented X 3. No motor deficit. No sensory deficit. Course Course Course Narrative: 65 y/o male with history of IBS and HTN presenting with body aches and headaches that started when he woke up this morning. Also reports subjective fever. No other symptoms. Afebrile on arrival. Non-toxic wiht a benign physical exam. Will check viral PCR. Concern for possible COVID delta variant. Reevaluation(s) Reevaluation #1: COVID, flu and RSV are negative. Patient is stable for discharge home with supportive care and plan to f/u with his PCP early next week. Patient agreeable with plan. Medical Decision Making Lab Data Labs: Lab Results 05/06/21 Range/Units 09:11 Coronavirus (PCR) NEGATIVE (Negative) Influenza Type A (PCR) NEGATIVE (Negative) Influenza Type B (PCR) NEGATIVE (Negative) RSV RNA Qual (PCR) NEGATIVE (Negative) Discharge Plan Discharge Clinical Impression: Acute viral syndrome Patient Disposition: Home, Self-Care Instructions: Viral Syndrome (ED) Additional Instructions: You were NEGATIVE for COVID, Flu and RSV. Your exam and vital signs are normal. Your symptoms are consistent with the start of a nonspecific viral illness. Recommend rest. Stay hydrated. Drink plenty of water. Take Motrin and/or Tylenol as needed for headache and body aches. Follow up with your doctor on Saturday. If you develop new or worsening symptoms call 911 or come back to the ER for further evaluation. Fue NEGATIVO para COVID, Gripe y RSV. Keyes examen y liana signos vitales son normales. Liana s?ntomas son consistentes con el comienzo de annette enfermedad viral inespec?fica. Recomiendo descansar. Mantente hidratado. Beber abundante agua. Rice Tracts Motrin y / o Tylenol seg?n sea necesario para el dolor de david y los praveen corporales. Charles un seguimiento con keyes m?dico el es. Si presenta s?ntomas nuevos o que empeoran, llame al 911 o regrese a la casey de emergencias para annette evaluaci?n adicional. Prescriptions: No Action sennosides [senna] 8.6 mg tablet 17.2 mg PO BEDTIME Qty: 60 RF: 3 atorvastatin 40 mg Tablet 40 mg PO DAILY RF: 0 amlodipine 10 mg Tablet 10 mg PO DAILY RF: 0 aspirin 81 mg Tablet 81 mg PO DAILY RF: 0 Hold Instructions: Resume on 08/13/20. hydrochlorothiazide 25 mg Tablet 25 mg PO DAILY RF: 0 omega-3 fatty acids-vitamin E 1,000 mg Capsule 1 cap PO DAILY RF: 0 cholecalciferol (vitamin D3) [Vitamin D3] 25 mcg (1,000 unit) Tablet 25 mcg PO DAILY RF: 0 Saccharomyces boulardii [Florastor] 250 mg capsule 250 mg PO DAILY 30 Days Qty: 30 RF: 6 Interventions: ED Discharge Assessment Last Done: 05/06/21 10:42 Discharge Date/Time: 05/06/21 10:42 Print Language: Barbadian
[2021-05-06 09:57] VITALS: BP 132/70; PULSE 67; RESP 15; TEMP 36.8; O2SAT 98
[2021-05-06 10:18] LABS: Influenza A PCR NEGATIVE (Negative); Influenza B PCR NEGATIVE (Negative); Resp Syncy Virus RNA Qual PCR NEGATIVE (Negative); SARS COV2 PCR INHOUSE NEGATIVE (Negative)
== END 2021-05-06 10:42 | disposition home or self-care (01) ==
PROVIDERS: Physician Assistant; Emergency Provider Emergency Medicine Emergency Medical Services
DX: B34.9 Viral infection, unspecified (principal); Z20.822 Contact with and (suspected) exposure to COVID-19
CPT/HCPCS: 0241U; 36415; 99283

== ENCOUNTER → 2021-06-16 15:40 | Outpatient (BNVA) | payer MEDICAID, SELFPAY | PROVIDERS: Visit Provider Nurse Practitioner ==

== ENCOUNTER → 2021-07-14 08:39 | Outpatient (BNVA) | payer MEDICAID, SELFPAY | PROVIDERS: Visit Provider Nurse Practitioner ==

== ENCOUNTER 2022-01-24 22:02 | Emergency (ER) | payer MEDICAID, SELFPAY ==
--- NOTE | 2022-01-24 | ECG_ITS ---
Test Reason : CHEST PAIN Blood Pressure : / mmHG Vent. Rate : 068 BPM Atrial Rate : 068 BPM P-R Int : 174 ms QRS Dur : 088 ms QT Int : 402 ms P-R-T Axes : 045 008 016 degrees QTc Int : 427 ms Normal sinus rhythm Normal ECG When compared with ECG of 02-NOV-2019 08:29, No significant change was found Referred By: Teresita Bernard Electronically Signed By:NICK ECKERT
--- NOTE | ~2022-01-24 | XR_ITS ---
EXAMINATION: XR CHEST CLINICAL INFORMATION: Chest pain COMPARISON: Chest radiograph 11/02/[address] abdomen pelvis 07/29/2020 TECHNIQUE: Frontal view of the chest was obtained. FINDINGS: Aside from the presence of a hiatal hernia, no significant abnormality is noted involving the heart, lungs, mediastinum, bony thorax or soft tissues. XR/XR chest 1V IMPRESSION: No acute intrathoracic disease. Redemonstration of a moderate-sized hiatal hernia. Could the patient's chest pain be secondary to reflux?
[2022-01-24 22:12] VITALS: BP 170/73; PULSE 67; RESP 26; TEMP 36.4; O2SAT 100; BMI 29.2
[2022-01-24 22:36] LABS: Glucose, Whole Blood 84 mg/dL (60-115)
--- NOTE | 2022-01-24 22:47 | ED_ITS ---
HPI - Chest Pain General Chief Complaint: Chest Pain Stated Complaint: chest pain Time Seen by Provider: 01/24/22 22:31 Source: patient Mode of arrival: ambulatory Limitations: no limitations History of Present Illness HPI narrative: Patient comes to the emergency room complaining of high blood pressure. Patient states that he is taking amlodipine and hydrochlorothiazide. Patient used to take lisinopril but he stopped taking it due angioedema. Patient states that earlier today he had a bit of blurry vision but it self resolved. The triage note states that the patient had drooping of the mouth and that the patient saw himself on his phone and said that this was abnormal for him. The patient's tells me that he did not understand before, patient states that his face has looked normal to him all day long, he did not notice anything abnormal in triage Related Data Home Medications Medication Instructions Recorded Confirmed amlodipine 10 mg tablet 10 mg PO DAILY 07/29/20 11/09/20 aspirin 81 mg tablet 81 mg PO DAILY 07/29/20 11/09/20 atorvastatin 40 mg tablet 40 mg PO DAILY 07/29/20 11/09/20 cholecalciferol (vitamin D3) 25 25 mcg PO DAILY 07/29/20 11/09/20 mcg (1,000 unit) tablet (Vitamin D3) hydrochlorothiazide 25 mg tablet 25 mg PO DAILY 07/29/20 11/09/20 omega-3 fatty acids-vitamin E 1 cap PO DAILY 07/29/20 11/09/20 1,000 mg capsule omega-3 fatty acids-fish oil 340 1 cap PO 06/16/21 mg-1,000 mg capsule (Fish Oil) omeprazole 20 mg capsule,delayed 20 mg PO QAM 06/16/21 release Previous Rx's Medication Instructions Recorded Saccharomyces boulardii 250 mg 250 mg PO DAILY 30 Days #30 cap 11/03/20 capsule (Florastor) sennosides 8.6 mg tablet (senna) 17.2 mg PO BEDTIME #60 ea 08/15/21 Allergies Allergy/AdvReac Type Severity Reaction Status Date / Time lisinopril Allergy Intermediate Swelling Verified 07/14/21 08:41 Review of Systems Review of Systems: Constitutional : No Weight loss, No Fever, No Chills, No Night Sweats, No Fatigue, No Malaise ENT/Mouth : No Hearing loss, No Ear Pain, No Nasal Congestion, No Sinus Pain, No Hoarseness, No sore throat, No Rhinorrhea, No Swallowing Difficulty Eyes: No Eye Pain, No Swelling, No Redness, No Foreign Body, No Discharge, mild blurry vision earlier today which self-resolved Cardiovascular : No Chest Pain, No SOB, No Dyspnea on Exertion, No Orthopnea, No Edema, No Palpitations Respiratory : No Cough, No Sputum, No Wheezing, No Smoke Exposure, No Dyspnea Gastrointestinal : No Nausea, No Vomiting, No Diarrhea, No Constipation, No abdominal Pain, No Hematochezia, No Melena Genitourinary : no irregular bleeding, No Dysuria, No Urinary Frequency, No Hematuria, No Urinary Incontinence, No Urgency, No Flank Pain, No Urinary Flow Changes, No Hesitancy Musculoskeletal : No joint pain, No Myalgias, No Joint Swelling Skin : No Skin Lesions, No rash Neuro : No Weakness, No Numbness, No Paresthesias, No Loss of Consciousness, No Dizziness, No Headache Psych : No Anxiety/Panic, No Depression, No SI/HI/AH/VH, No Social Issues, Heme/Lymph: No Bruising, No Bleeding,No Lymphadenopathy Endocrine : No Polyuria, No Polydipsia, No Temperature Intolerance PMFSH Past Medical History Medical History Arthritis Asthma Back pain Elevated cholesterol GERD (gastroesophageal reflux disease) HTN (hypertension) Lower gastrointestinal bleed Myocardial infarction Peptic ulcer Surgical History Hx of colonoscopy Hx of excision of mass Hx of umbilical hernia repair Family History Family History Mother Diabetes Heart disease Arthritis Father Heart disease Social History Social History Household Members: Spouse Housing: Apartment Do you presently have visiting nurse or other home services: No Alcohol intake: current Alcohol intake frequency: does not drink Years Smoked: 42 Second Hand Smoke Exposure: No Advance Directives: No Advance Directives Information Provided: Yes service: No Current occupational status: unemployed Physical Exam Vital Signs: Vital Signs: Last Vital Signs Temp 97.5 F 01/24/22 22:12 Pulse 67 01/24/22 22:12 Resp 26 H 01/24/22 22:12 BP 170/73 H 01/24/22 22:12 Pulse Ox 100 01/24/22 22:12 BMI result Body Mass Index 29.2 Const: Other: Appearance: Alert. Oriented X3. No acute distress. Eyes: Pupils equal, round and reactive to light. ENT: Pharynx normal. Neck: Normal inspection. Neck supple. No lymph nodes noted. No crepitus CVS: Normal heart rate and rhythm. Pulses normal. Normal S1 and S2 Respiratory: No respiratory distress. Breath sounds normal. No Wheezing. No rales Abdomen: Soft and nontender. No rigidity. No distention. Skin: Skin warm and dry. Normal skin color. Normal skin turgor. Extremities: No lower extremity edema. No Lacerations. No Rash Neuro: Oriented X 3. No motor deficit. No sensory deficit. Moving all extr emities. No slurred speech. CN 2 through 12 grossly intact, symmetric smile Psych: calm, cooperative, normal affect NIH Stroke Scale Level of Consciousness: Alert Level of Consciousness Questions: Answers both questions correctly Level of Consciousness Commands: Performs both tasks correctly Best Gaze: Normal Visual: No visual loss Facial Palsy: Normal Motor Arm (Right): No drift Motor Arm (Left): No drift Motor Leg (Right): No drift Motor Leg (Left): No drift Limb Ataxia: Absent Sensory: Normal Best Language: No aphasia Dysarthia: Normal Extinction and Inattention: No abnormality Score: 0 Course Course Course Narrative: Patient already takes maximum dose of hydrochlorothiazide and amlodipine. Patient cannot take lisinopril due to previous history of any edema. Patient's blood pressure 145/69, heart rate 53 without any medication. I discussed with the patient to keep a log of his blood pressures, at this time we will not change any of his medications. Patient asymptomatic. MDM - Chest Pain Lab Data Result diagrams: 01/24/22 23:02 01/24/22 23:02 Labs: Lab Results 01/24/22 01/24/22 01/24/22 Range/Units 22:30 23:02 23:02 WBC 10.9 H (4.8-10.8) X10*3/uL RBC 4.90 (4.60-5.80) X10*6/uL Hgb 13.3 L (14.0-18.0) g/dl Hct 41.8 L (42.0-52.0) % MCV 85.3 (80.0-98.0) fL MCH 27.1 (27.0-33.0) pg MCHC 31.8 (31.0-36.0) g/dl RDW 14.6 (11.0-16.0) % Plt Count 317 (160-400) X10*3/uL MPV 10.0 (9.4-12.4) fL Immature Gran % (Auto) 0.5 H (0.0-0.4) % Neut % (Auto) 52.8 (45-73) % Lymph % (Auto) 33.4 (20-40) % [place] % (Auto) 9.9 (2-11) % Eos % (Auto) 2.7 (0-4) % Baso % (Auto) 0.7 (0-2) % Lymph # (Auto) 3.7 (1.2-4.9) X10*3/uL [place] # (Auto) 1.1 (0.1-1.2) X10*3/uL Eos # (Auto) 0.3 (0.0-0.4) X10*3/uL Baso # (Auto) 0.1 (0.0-0.2) X10*3/uL Abs Immat Gran (auto) 0.05 H (0.00-0.03) X10*3/uL Absolute Neuts (auto) 5.8 (2.0-8.3) x10*3/uL Absolute Nucleated RBC 0.000 (0.0-0.012) X10*3/uL Nucleated RBC % (auto) 0.0 (0.0-0.2) /100WBC Sodium 135 (135-145) mmol/L Potassium 4.4 (3.3-5.1) mmol/L Chloride 104 (96-108) mmol/L Carbon Dioxide 22 (22-29) mmol/L Anion Gap 13 (12-20) BUN 15 (9-16) mg/dL Creatinine 1.05 (0.5-1.4) mg/dL Estim Creat Clear Calc 71.4 Estimated GFR > 60 POC Glucose 84 (60-115) mg/dL Random Glucose 95 (60-115) mg/dL Calcium 9.7 D (8.4-10.2) mg/dL Troponin I High Sens (<3.5-35.0) ng/L 01/24/22 Range/Units 23:02 WBC (4.8-10.8) X10*3/uL RBC (4.60-5.80) X10*6/uL Hgb (14.0-18.0) g/dl Hct (42.0-52.0) % MCV (80.0-98.0) fL MCH (27.0-33.0) pg MCHC (31.0-36.0) g/dl RDW (11.0-16.0) % Plt Count (160-400) X10*3/uL MPV (9.4-12.4) fL Immature Gran % (Auto) (0.0-0.4) % Neut % (Auto) (45-73) % Lymph % (Auto) (20-40) % [place] % (Auto) (2-11) % Eos % (Auto) (0-4) % Baso % (Auto) (0-2) % Lymph # (Auto) (1.2-4.9) X10*3/uL [place] # (Auto) (0.1-1.2) X10*3/uL Eos # (Auto) (0.0-0.4) X10*3/uL Baso # (Auto) (0.0-0.2) X10*3/uL Abs Immat Gran (auto) (0.00-0.03) X10*3/uL Absolute Neuts (auto) (2.0-8.3) x10*3/uL Absolute Nucleated RBC (0.0-0.012) X10*3/uL Nucleated RBC % (auto) (0.0-0.2) /100WBC Sodium (135-145) mmol/L Potassium (3.3-5.1) mmol/L Chloride (96-108) mmol/L Carbon Dioxide (22-29) mmol/L Anion Gap (12-20) BUN (9-16) mg/dL Creatinine (0.5-1.4) mg/dL Estim Creat Clear Calc Estimated GFR POC Glucose (60-115) mg/dL Random Glucose (60-115) mg/dL Calcium (8.4-10.2) mg/dL Troponin I High Sens 3.9 (<3.5-35.0) ng/L Discharge Plan Discharge Clinical Impression: Hypertension Patient Disposition: Home, Self-Care Instructions: Chronic Hypertension (DC) Additional Instructions: Please follow-up with your primary care physician tomorrow. If you have any worsening or new symptoms, please return to the emergency room or call 911 Prescriptions: No Action sennosides [senna] 8.6 mg tablet 17.2 mg PO BEDTIME Qty: 60 3RF atorvastatin 40 mg Tablet 40 mg PO DAILY 0RF amlodipine 10 mg Tablet 10 mg PO DAILY 0RF aspirin 81 mg Tablet 81 mg PO DAILY 0RF Hold Instructions: Resume on 08/13/20. hydrochlorothiazide 25 mg Tablet 25 mg PO DAILY 0RF omega-3 fatty acids-vitamin E 1,000 mg Capsule 1 cap PO DAILY 0RF cholecalciferol (vitamin D3) [Vitamin D3] 25 mcg (1,000 unit) Tablet 25 mcg PO DAILY 0RF Fish Oil 340-1,000 mg capsule 1 cap PO 0RF omeprazole 20 mg capsule,delayed release(DR/EC) 20 mg PO QAM 0RF Saccharomyces boulardii [Florastor] 250 mg capsule 250 mg PO DAILY 30 Days Qty: 30 6RF Rx Instructions: swallow whole
--- NOTE | 2022-01-24 23:02 | PC.NURSE ---
20G IV placed L AC, labs drawn.
[2022-01-24 23:09] LABS: MANUAL DIFF FLAG NO
[2022-01-24 23:11] LABS: Basophils Absolute Auto 0.1 X10*3/uL (0.0-0.2); Basophils Percent Auto 0.7 % (0-2); Eosinophils Absolute Auto 0.3 X10*3/uL (0.0-0.4); Eosinophils Percent Auto 2.7 % (0-4); Hematocrit 41.8 % (42.0-52.0); Hemoglobin 13.3 g/dl (14.0-18.0); Imm Gran Abs Auto 0.05 X10*3/uL (0.00-0.03); Imm Gran Pct Auto 0.5 % (0.0-0.4); Lymphocytes Absolute Auto 3.7 X10*3/uL (1.2-4.9); Lymphocytes Percent Auto 33.4 % (20-40); Mean Corpuscular HGB Conc 31.8 g/dl (31.0-36.0); Mean Corpuscular Hemoglobin 27.1 pg (27.0-33.0); Mean Corpuscular Volume 85.3 fL (80.0-98.0); Monocytes Absolute Auto 1.1 X10*3/uL (0.1-1.2); Monocytes Percent Auto 9.9 % (2-11); Neutrophils Absolute Auto 5.8 x10*3/uL (2.0-8.3); Neutrophils Percent Auto 52.8 % (45-73); Platelet Count 317 X10*3/uL (160-400); Red Cell Distribution Width 14.6 % (11.0-16.0); White Blood Count 10.9 X10*3/uL (4.8-10.8)
[2022-01-24 23:24] LABS: Anion Gap 13 (12-20); Blood Urea Nitrogen 15 mg/dL (9-16); Calcium 9.7 mg/dL (8.4-10.2); Carbon Dioxide 22 mmol/L (22-29); Chloride 104 mmol/L (96-108); Creatinine Clr Calc Pharmacy 71.4; Estimated Glomerular Filt Rate > 60; Glucose Random 95 mg/dL (60-115); Potassium 4.4 mmol/L (3.3-5.1); Sodium 135 mmol/L (135-145)
[2022-01-24 23:29] LABS: Troponin-I High Sensitivity 3.9 ng/L (<3.5-35.0)
[2022-01-24 23:38] VITALS: BP 145/69; PULSE 53; RESP 16; O2SAT 99
== END 2022-01-24 23:50 | disposition home or self-care (01) ==
PROVIDERS: Emergency Provider Emergency Medicine
DX: I10 Essential (primary) hypertension (principal); J45.909 Unspecified asthma, uncomplicated; Z79.899 Other long term (current) drug therapy; I25.2 Old myocardial infarction
CPT/HCPCS: 36415; 71045; 80048; 82947; 84484; 85025; 93005; 99284

== ENCOUNTER 2022-04-17 09:32 | Outpatient (REF) | payer MEDICAID, SELFPAY ==
[2022-04-17 10:01] LABS: COVID-19 Test Negative (Negative)
== END 2022-04-17 09:33 | disposition home or self-care (01) ==
LOC: HO.LAB 09:32
PROVIDERS: Visit Provider Internal Medicine
DX: Z20.822 Contact with and (suspected) exposure to COVID-19 (principal)
CPT/HCPCS: 87635; C9803

== ENCOUNTER 2022-05-04 14:01 | Outpatient (REF) | payer MEDICAID, SELFPAY ==
--- NOTE | ~2022-05-04 | XR_ITS ---
EXAMINATION: XR FOOT, LEFT CLINICAL INFORMATION: Pain left foot COMPARISON: None TECHNIQUE: AP, lateral, and oblique views of the left foot. FINDINGS: Normal bony mineralization. No acute or healing fracture, dislocation, destructive process. Visualized subtalar joint unremarkable. Retrocalcaneal recess preserved. No calcaneal spurring. No joint narrowing or erosive changes. There are atherosclerotic calcifications in region of posterior tibial artery. XR/XR foot LT min 3V IMPRESSION: -No fracture, destructive process, or arthropathy.
--- NOTE | ~2022-05-04 | XR_ITS ---
EXAMINATION: XR TIBIA AND FIBULA, LEFT CLINICAL INFORMATION: Pain COMPARISON: Radiographs left foot 05/04/2022 TECHNIQUE: Left lower leg is imaged in 3 views. FINDINGS: No fracture, dislocation, or destructive process. Normal bony mineralization. No periostitis. No focal joint narrowing or erosive change. No periostitis. XR/XR tibia fibula LT 2V IMPRESSION: Normal left tibia and fibula.
== END 2022-05-04 14:02 | disposition home or self-care (01) ==
LOC: HO.XRAY 14:01
PROVIDERS: Visit Provider Internal Medicine
DX: M79.672 Pain in left foot (principal)
CPT/HCPCS: 73590; 73630

== ENCOUNTER 2022-05-31 10:46 | Outpatient (REF) | payer MEDICAID, SELFPAY ==
--- NOTE | ~2022-05-31 | US_ITS ---
EXAMINATION: US VENOUS ULTRASOUND WITH DOPPLER LOWER EXTREMITY, LEFT CLINICAL INFORMATION: Leg swelling, rule out DVT COMPARISON: None TECHNIQUE: Ultrasound of the deep veins is performed from the hip to the calf with compression sonography and color and pulse Doppler assessment. Spectral analysis with color-flow imaging is performed. FINDINGS: There is normal venous compression and respiratory variation and augmented flow. The visualized common femoral vein, superficial femoral vein, profunda femoral vein, popliteal vein, and the trifurcation region shows no evidence of deep venous thrombosis. There is no significant popliteal fossa cyst. If the patient's symptoms persist, followup ultrasound in 5 days 7 days might be of value to exclude proximal propagation from a non-visualized calf vein. There is a prominent left inguinal lymph node. US/US venous duplex LE IMPRESSION: No DVT demonstrated in the left lower extremity.
== END 2022-05-31 10:47 | disposition home or self-care (01) ==
LOC: HO.US 10:46
PROVIDERS: PCP Internal Medicine; Visit Provider Internal Medicine
DX: M79.89 Other specified soft tissue disorders (principal)
CPT/HCPCS: 93971

== ENCOUNTER 2022-06-21 14:02 | Outpatient (REF) | payer MEDICAID, SELFPAY ==
--- NOTE | ~2022-06-21 | MR_ITS ---
EXAMINATION: MR ANKLE WITHOUT CONTRAST, LEFT CLINICAL INFORMATION: Left ankle and joint pain. Stabbing. Swelling. Burning. COMPARISON: None TECHNIQUE: Multidetector volumetric imaging was obtained to the left ankle without contrast on a 1.5 Nisha magnet. Multiplanar reformatted images in coronal and sagittal orientations were submitted. FINDINGS: ACHILLES TENDON: Normal OTHER TENDONS: Peroneus longus quartus is incidentally noted. Tendons are otherwise unremarkable. No tears. Minimal posterior tibial tendinosis at the insertion. No tenosynovitis. LIGAMENTS: There is mild edema signal around the superomedial band of the spring ligament without a discrete tear, possibly due to a mild sprain. Ligaments are otherwise unremarkable. No additional tears or sprains. BONE AND ARTICULAR CARTILAGE: Normal marrow signal. Cartilage is well preserved. No talar osteochondral lesions. JOINT FLUID AND SOFT TISSUES: Generalized subcutaneous edema in the ankle, most pronounced posteriorly in Kager's fat pad. Trace talocrural joint effusion. PLANTAR FASCIA: Normal SINUS TARSI AND TARSAL TUNNEL: Normal MR/MR ankle LT wo con IMPRESSION: Mild insertional tendinosis of the posterior tibial tendon without a tear. Mild edema signal at the spring ligament, possibly due to a prior sprain. No tears. Generalized subcutaneous edema in the ankle. No acute osteochondral abnormalities.
== END 2022-06-21 14:03 | disposition home or self-care (01) ==
LOC: HO.MRI 14:02
PROVIDERS: Visit Provider Internal Medicine
DX: M25.572 Pain in left ankle and joints of left foot (principal)
CPT/HCPCS: 73721

== ENCOUNTER 2022-07-30 07:20 | Outpatient (REF) | payer MEDICAID, SELFPAY ==
--- NOTE | ~2022-07-30 | XR_ITS ---
EXAMINATION: XR ANKLE, LEFT CLINICAL INFORMATION: Pain. COMPARISON: Tib-fib study dated 05/04/2022 TECHNIQUE: AP, lateral, and mortise views of the left ankle. FINDINGS: There is no acute finding here. The mortise is grossly intact. No significant degeneration is seen. There is no soft tissue calcification identified here. Vascular calcifications are noted. XR/XR ankle LT min 3V IMPRESSION: No acute bony finding. Vascular calcifications are noted.
== END 2022-07-30 07:21 | disposition home or self-care (01) ==
LOC: HO.HOSX 07:20
PROVIDERS: Visit Provider Physician Assistant
DX: M76.72 Peroneal tendinitis, left leg (principal); M25.572 Pain in left ankle and joints of left foot
CPT/HCPCS: 73610; 99202

== ENCOUNTER 2022-08-14 07:39 | Emergency (ER) | payer MEDICARE, MEDICAID, SELFPAY ==
[2022-08-14] VITALS (10 sets, daily range): BP systolic 133–154; BP diastolic 61–71; PULSE 52–625; RESP 11–18; TEMP 36.4–36.7; O2SAT 97–99; BMI 27.4
--- NOTE | ~2022-08-14 | CT_ITS ---
EXAMINATION: CTA OF THE HEAD AND NECK CLINICAL INFORMATION: Unsteady gait. COMPARISON: None. TECHNIQUE: Test bolus sequences followed by intravenous administration 70 mL of Omnipaque 350. Helical imaging was performed in the axial plane from the mediastinum to the skull vertex. Delayed postcontrast imaging of the head was also performed. The data was processed at the development technologist's workstation for generation of MIP sequences. Three-dimensional volume rendered reformatted images were also generated at an offline 3-D workstation. Stenoses are assessed in accordance with NASCET criteria unless otherwise indicated. This CT examination was performed using dose optimization techniques as appropriate, variously including the following: *Automated exposure control *Adjustment of mA and/or kV according to patient size (this includes techniques or standardized protocols for targeted exams where dose is matched to indication/reason for exam; i.e. extremities or head) *Use of iterative reconstruction technique DLP: 2446 mGy-cm. FINDINGS: CT head: There is no evidence of acute intracranial hemorrhage or territorial infarction. There is no loss of wilhelm to white matter differentiation. No abnormal mass effect or midline shift is seen. No extra-axial fluid collections are identified. There is no abnormal enhancement. The ventricles are normal in size. There is no abnormal attenuation within the brain parenchyma. The osseous structures and soft tissues are normal. The mastoid air cells and visualized portions of the paranasal sinuses are well aerated. CTA neck: The imaged aortic arch and origins of the great vessels are normal. The common carotid arteries are widely patent. The carotid bifurcations are relatively normal with mild atherosclerotic wall calcifications on the left side. The cervical internal carotid arteries are normal. The left vertebral artery opacifies normally and is normal in caliber. There is a severe stenosis at the origin of the right vertebral artery with atheromatous disease. There are multifocal areas of eotb-kw-xwsslunr stenosis in the cervical right vertebral artery as well. At the C2-C3 level, there is a severe stenosis in the cervical right vertebral artery. Moderate stenosis evident in the right vertebral artery at the C1 level. There is a focal high-grade stenosis in the distal V3 segment of the right vertebral artery near the craniovertebral junction as well. Incidental small perforated defect in the anterior-inferior cartilaginous septum. Iwfz-yp-bpyljuuj spondylosis noted at the C5-C6 level with a disc-osteophyte complex and moderate to severe right foraminal narrowing. Paraseptal emphysematous changes noted in the lungs with lateral apical bullae as well. CTA head: There is mild stenosis in the distal intradural right vertebral artery. The intradural left vertebral artery and basilar artery are normal. The posterior cerebral arteries are widely patent. The internal carotid arteries are of normal caliber with mild scattered atherosclerotic wall calcifications. The PRISCILLA and MCA vascular complexes bilaterally are normal. The venous sinuses opacify normally. CT/CT angio head neck IMPRESSION: 1. No acute territorial infarction or intracranial hemorrhage. No abnormal enhancement. 2. 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 Additional high-grade stenoses in the V3 segment of the upper cervical right vertebral artery near the craniovertebral junction. Mild long segment stenotic narrowing of the intradural right vertebral artery. Although findings may be due to chronic atheromatous disease, given that the remaining vasculature is relatively normal, the possibility of an age-indeterminate nonocclusive dissection of the right vertebral artery versus a prior dissection and vascular recanalization cannot be ruled out. If there is concern for a subtle acute or early evolving infarct in the posterior circulation, an MRI of the brain be recommended in follow-up for further evaluation. 3. Remainder of the vasculature in the head and neck appears relatively normal. 4. Paraseptal emphysematous changes in the lungs with lateral apical bullae. 5. Ridging findings reported to IKE Sal at 12:14 PM on 08/14/2022.
--- NOTE | ~2022-08-14 | MR_ITS ---
EXAMINATION: MR BRAIN WITHOUT CONTRAST CLINICAL INFORMATION: Evaluate posterior circulation for stroke. Unsteady gait. COMPARISON: CT angiogram from 08/14/2022. TECHNIQUE: Multiplanar, multisequence imaging of the brain was performed without contrast. FINDINGS: No diffusion abnormalities are identified to suggest an acute infarct. The ventricles are normal in size. No mass effect or midline shift is seen. No brain parenchymal signal abnormality is noted. Mild prominence of the frontoparietal extra-axial fluid spaces bilaterally along the high convexities to the vertex. The brainstem and cerebellum are normal. The gradient refocused acquisition is normal. The craniovertebral junction, marrow signal, and midline structures are normal. Loss of normal flow related signal evident in the distal V3 and proximal V4 segments of the right vertebral artery, due to vascular stenosis, better characterized on the CT angiogram study. The remaining major intracranial flow voids at the level of the yocha dehe of [place] are preserved. The dural venous sinus flow voids are maintained. The mastoid air cells are clear. [id number]-[id number] ethmoid sinus disease noted. MR/MR head/brain wo con IMPRESSION: No acute intracranial process. Frontoparietal brain parenchymal volume loss bilaterally along the high cerebral convexities to the vertex is favored as opposed to small bilateral hemispheric subdural hygromas. Poor flow-related signal within the distal cervical and proximal intradural right vertebral artery due to stenotic changes in the vessel described on the CT angiogram study.
--- NOTE | 2022-08-14 09:06 | ECG_ITS ---
Test Reason : dizziness Blood Pressure : / mmHG Vent. Rate : 047 BPM Atrial Rate : 047 BPM P-R Int : 200 ms QRS Dur : 090 ms QT Int : 450 ms P-R-T Axes : 031 001 003 degrees QTc Int : 398 ms Sinus bradycardia RSR' or QR pattern in V1 suggests right ventricular conduction delay Borderline ECG Heart rate has decreased Referred By: Prerna Sal Electronically Signed By:JESUSITA TABARES MD
--- NOTE | 2022-08-14 09:06 | ED_ITS ---
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 Patient states that since last night, he began to feel dizzy like he was spinning and his gait was off. Patient denies any lightheadedness, abdominal pain, nausea, vomiting, fever, chills, blurry vision, double vision, loss of vision, chest pain, difficulty breathing, shortness of breath, back pain, night sweats, pain with urination, increased urinary frequency, increased urinary urgency, blood in his urine or stool, syncope or a near syncopal episode, recent trauma or falls, bowel incontinence, bladder incontinence, bowel retention, bladder retention, or any other complaints at this time. Onset (ago): day(s) (1) Severity: mild Severity scale (1-10): 3 Relieving factors: none Exacerbating factors: none Associated symptoms: denies other symptoms Treatments prior to arrival: none Related Data Home Medications Medication Instructions Recorded Confirmed amlodipine 10 mg tablet 10 mg PO DAILY 07/29/20 08/14/22 aspirin 81 mg tablet 81 mg PO DAILY 07/29/20 08/14/22 atorvastatin 40 mg tablet 40 mg PO DAILY 07/29/20 08/14/22 cholecalciferol (vitamin D3) 25 25 mcg PO DAILY 07/29/20 08/14/22 mcg (1,000 unit) tablet (Vitamin D3) omeprazole 20 mg capsule,delayed 20 mg PO QAM 06/16/21 08/14/22 release spironolactone 25 mg tablet 25 mg PO QAM 07/30/22 08/14/22 fluticasone 500 mcg-salmeterol 50 1 puff inhalation DAILY 08/14/22 08/14/22 mcg/dose blistr powdr for inhalation (Advair Diskus) omega-3 300 mg-dha 120 mg-epa 180 1 cap PO BID 08/14/22 08/14/22 mg-fish oil 1,000 mg capsule Allergies Allergy/AdvReac Type Severity Reaction Status Date / Time lisinopril Allergy Intermediate Swelling Verified 07/30/22 11:23 Review of Systems Constitutional: Constitutional: Reports no additional constitutional complaints, Denies chills, Denies fever(s) and Denies night sweats Eyes: Eyes: Reports no additional eye complaints, Denies blurry vision, Denies change in vision, Denies diplopia, Denies eye discharge, Denies loss of vision and Denies eye pain ENT: Reports dizziness Cardiovascular: Cardiovascular: Reports no additional cardiovascular complaints, Denies chest pain, Denies lightheadedness, Denies Loss of Consciousness and Denies dyspnea Respiratory: Respiratory: Reports no additional respiratory complaints and Denies dyspnea Gastrointestinal: Gastrointestinal: Reports no additional gastrointestinal complaints, Denies abdominal pain, Denies melena, Denies hematochezia, Denies change in bowel habits and Denies change in stool character Genitourinary: Genitourinary: Reports no additional male genitourinary complaints, Denies hematuria, Denies oliguria, Denies difficulty urinating, Denies dysuria, Denies urinary frequency, Denies urinary hesitancy, Denies urinary incontinence and Denies urinary urgency Musculoskeletal: Musculoskeletal: Reports no additional musculoskeletal complaints, Reports abnormal gait, Denies numbness and Denies tingling Neurologic: Reports abnormal gait, Reports dizziness, Denies loss of vision, Denies numbness and Denies tingling Psychiatric: Psychiatric: Reports no additional psychiatric complaints Endocrine: Endocrine: Reports no additional endocrine complaints Hematologic/Lymphatic: Hematologic/Lymphatic: Reports no additional hematologic/lymphatic complaints Allergic/Immunologic: Allergic/Immunologic: Reports no additional allergic/immunologic complaints PMFSH Past Medical History Attestation statement: The following information was validated with the patient. Source: old records reviewed Medical History Arthritis Asthma Back pain Elevated cholesterol GERD (gastroesophageal reflux disease) HTN (hypertension) Lower gastrointestinal bleed Myocardial infarction Peptic ulcer Surgical History Hx of colonoscopy Hx of excision of mass Hx of umbilical hernia repair Family History Family History Mother Diabetes Heart disease Arthritis Father Heart disease Social History Social History Household Members: Spouse Housing: Apartment Do you presently have visiting nurse or other home services: No Alcohol intake: current Alcohol intake frequency: does not drink Patient Tobacco Use Status: Never used Tobacco Years Smoked: 40 Smoked in Last 30 Days: No Second Hand Smoke Exposure: No Use of substances other than those prescribed or required for medical reasons: No Advance Directives: No Advance Directives Information Provided: Yes service: No Current occupational status: unemployed Physical Exam ED Vital Signs: Vital Signs - 24 hr 08/14/22 07:47 08/14/22 07:56 08/14/22 08:14 Temperature 98.0 F 97.8 F 97.6 F Pulse Rate 53 54 53 Respiratory Rate 17 14 18 Blood Pressure 154/66 H 142/62 H 142/62 H Pulse Oximetry 97 97 97 Oxygen Delivery Method Room Air Room Air Room Air 08/14/22 10:47 08/14/22 12:59 08/14/22 14:12 Temperature 97.6 F Pulse Rate 55 52 625 H Respiratory Rate 16 12 16 Blood Pressure 150/70 H 142/64 H 150/71 H Pulse Oximetry 99 98 97 Oxygen Delivery Method Room Air Room Air Room Air 08/14/22 16:12 08/14/22 16:13 08/14/22 16:14 Temperature 97.7 F Pulse Rate 58 53 57 Respiratory Rate 11 L Blood Pressure 148/61 H 140/62 H 148/65 H Pulse Oximetry 99 Oxygen Delivery Method Room Air 08/14/22 16:17 Temperature Pulse Rate 61 Respiratory Rate Blood Pressure 133/67 Pulse Oximetry Oxygen Delivery Method BMI result Body Mass Index 27.4 Const General: cooperative, no acute distress, alert and awake Nutritional Appearance: well nourished Orientation/consciousness: patient oriented x3 Limitations: no limitations [facility] Head: Yes normal to inspection and Yes atraumatic Ears: hearing grossly normal bilaterally and external ears normal General nose exam: Normal external nose present, no nasal discharge noted and no epistaxis Face and sinus: Yes normal facial exam, No abrasion and No laceration Mouth: Normal oral and palatal mucosa present, no drooling and no muffled voice Eyes General: appearance normal, both eyes and all related structures Periorbital: periorbital findings normal Eyelids: Yes eyelids normal Conjunctivae: conjunctivae normal Pupils: Equal, round and reactive pupils present EOM: EOMs intact bilaterally Neck Neck: Yes normal visual inspection, Yes full ROM and Yes no lymphadenopathy Chest Chest palpation & inspection: normal inspection of the chest Resp Effort & Inspection: normal respiratory effort and able to speak in complete sentences Auscultation: clear to auscultation bilaterally Cardio Rate: regular rate Rhythm: regular rhythm GI Inspection: Yes normal to inspection Palpation (GI): Soft to palpation, not firm, nontender, no guarding and not rigid Neuro General: patient oriented x3 and moves all extremities Cranial nerves: Yes Equal, round and reactive pupils present Cognition (Neuro): normal cognition Gait exam (Neuro): Staggering gait present Motor exam (neuro): 5/5 motor strength present throughout Sensory Exam: Normal double simultaneous stimulation for sensation Coordination: [id number] test normal Extrem General: Yes normal to inspection, Yes full ROM and Yes capillary refill normal Psych Appearance: grossly normal Mental Status: mental status grossly normal Affect: normal affect Attitude: cooperative Thought process: Normal thought process present Thought content: Normal thought content present Insight: Good insight present (Psych) NIH Stroke Scale Internal: Initial- Upon Arrival Time: 09:06 Level of Consciousness: Alert Level of Consciousness Questions: Answers both questions correctly Level of Consciousness Commands: Performs both tasks correctly Best Gaze: Normal Visual: No visual loss Facial Palsy: Normal Motor Arm (Right): No drift Motor Arm (Left): No drift Motor Leg (Right): No drift Motor Leg (Left): No drift Limb Ataxia: Present in one limb Sensory: Normal Best Language: No aphasia Dysarthia: Normal Extinction and Inattention: No abnormality Score: 1 Course Course Course Narrative: Spoke with neurology team who recommended adding on a lipid panel, obtaining orthostatic vital signs, and giving the patient ASA. Neurology states they will come consult on the patient. Disposition will be determined after that. Medications Administered Discontinued Medications Generic Name Dose Route Start Last Admin Trade Name Kolby PRJeffy Reason Stop Dose Admin Aspirin 325 mg 08/14/22 14:43 08/14/22 15:47 Aspirin 325 Mg Tablet PO 08/14/22 14:44 325 mg ONCE ONE Administration Iohexol 70 ml 08/14/22 11:35 08/14/22 11:36 Iohexol 350 Mg/Ml 100 Ml Infus..Btl IV 08/14/22 11:36 70 ml ONCE ONE Administration Midazolam HCl 2 mg 08/14/22 13:29 08/14/22 13:30 Midazolam Hcl/Pf 2 Mg/2 Ml Vial IVPUSH 08/14/22 13:30 2 mg ONCE ONE Administration Medical Decision Making MDM Narrative Medical decision making narrative: Patient is a 66 year old assigned male at with a history of HTN presenting to the emergency department today with dizziness. Patient's physical exam showed some gait unsteadiness but was otherwise unremarkable. Patient's blood work was unremarkable. Patient's EKG was unremarkable. Patient's head/neck CTA showed severe stenosis at the origin of the right vertebral artery with multifocal areas of [id number] stenosis in the mid cervical right ve rtebral artery. Additional high-grade stenoses in the V3 segment of the upper cervical right vertebral artery near the craniovertebral junction. Mild long segment stenotic narrowing of the intradural right vertebral artery. Patient's brain MRI showed no acute process. Neurology was consulted, examined the patient, and recommended discharge home. I explained my physical exam findings as well as all test results to the patient and the patient's . I answered all questions asked by the patient and the patient's . I stressed the importance of the patient taking his medication as prescribed. I stressed the importance of the patient following up with his primary care provider and a neurologist. I stressed the importance of the patient returning to the emergency department immediately if his symptoms were to worsen or if he were to develop any dizziness, shortness of breath, difficulty breathing, chest pain, blurry vision, loss of vision, nausea, vomiting, abdominal pain, fever, chills, back pain, or any other complaints. Patient and the patient's verbalized agreement and understanding with this treatment plan and discharge. Medical Records Medical records reviewed: Yes I reviewed the patient's medical records. Lab Data Lab results reviewed: Yes I reviewed the patient's lab results. Result diagrams: 08/14/22 09:17 08/14/22 10:08 Labs: Lab Results 08/14/22 08/14/22 08/14/22 Range/Units 09:17 09:17 09:17 WBC 9.3 (4.8-10.8) X10*3/uL RBC 5.31 (4.60-5.80) X10*6/uL Hgb 14.1 (14.0-18.0) g/dl Hct 45.4 (42.0-52.0) % MCV 85.5 (80.0-98.0) fL MCH 26.6 L (27.0-33.0) pg MCHC 31.1 (31.0-36.0) g/dl RDW 15.4 (11.0-16.0) % Plt Count 330 (160-400) X10*3/uL MPV 10.6 (9.4-12.4) fL Immature Gran % (Auto) 0.3 (0.0-0.4) % Neut % (Auto) 58.1 (45-73) % Lymph % (Auto) 28.7 (20-40) % [place] % (Auto) 9.7 (2-11) % Eos % (Auto) 2.2 (0-4) % Baso % (Auto) 1.0 (0-2) % Lymph # (Auto) 2.7 (1.2-4.9) X10*3/uL [place] # (Auto) 0.9 (0.1-1.2) X10*3/uL Eos # (Auto) 0.2 (0.0-0.4) X10*3/uL Baso # (Auto) 0.1 (0.0-0.2) X10*3/uL Abs Immat Gran (auto) 0.03 (0.00-0.03) X10*3/uL Absolute Neuts (auto) 5.4 (2.0-8.3) x10*3/uL Absolute Nucleated RBC 0.000 (0.0-0.012) X10*3/uL Nucleated RBC % (auto) 0.0 (0.0-0.2) /100WBC Sodium (135-145) mmol/L Potassium (3.3-5.1) mmol/L Chloride (96-108) mmol/L Carbon Dioxide (22-29) mmol/L Anion Gap (12-20) BUN (9-16) mg/dL Creatinine (0.5-1.4) mg/dL Estim Creat Clear Calc Estimated GFR Random Glucose (60-115) mg/dL Calcium (8.4-10.2) mg/dL Magnesium (1.6-2.6) mg/dL Total Bilirubin (0.0-1.0) mg/dL AST (5-37) U/L ALT (0-40) U/L Alkaline Phosphatase (39-117) U/L Troponin I High Sens < 3.5 (<3.5-35.0) ng/L Total Protein (6.5-8.0) g/dL Albumin (3.5-5.0) g/dL Triglycerides mg/dL Cholesterol mg/dL LDL Cholesterol, Calc mg/dl HDL Cholesterol mg/dL Urine Color Yellow Urine Appearance Clear Urine pH 6.5 (5.0-9.0) Ur Specific [place] <= 1.005 (1.005-1.025) Urine Protein Negative (Neg-Trace) mg/dL Urine Glucose (UA) Negative (Negative) mg/dL Urine Ketones Negative (Negative) mg/dL Urine Blood Negative (Negative) Urine Nitrite Negative (Negative) Ur Leukocyte Esterase Negative (Negative) COVID-19 ([facility]) (Negative) COVID-19 Clin Com 08/14/22 08/14/22 08/14/22 Range/Units 10:08 13:05 16:39 WBC (4.8-10.8) X10*3/uL RBC (4.60-5.80) X10*6/uL Hgb (14.0-18.0) g/dl Hct (42.0-52.0) % MCV (80.0-98.0) fL MCH (27.0-33.0) pg MCHC (31.0-36.0) g/dl RDW (11.0-16.0) % Plt Count (160-400) X10*3/uL MPV (9.4-12.4) fL Immature Gran % (Auto) (0.0-0.4) % Neut % (Auto) (45-73) % Lymph % (Auto) (20-40) % [place] % (Auto) (2-11) % Eos % (Auto) (0-4) % Baso % (Auto) (0-2) % Lymph # (Auto) (1.2-4.9) X10*3/uL [place] # (Auto) (0.1-1.2) X10*3/uL Eos # (Auto) (0.0-0.4) X10*3/uL Baso # (Auto) (0.0-0.2) X10*3/uL Abs Immat Gran (auto) (0.00-0.03) X10*3/uL Absolute Neuts (auto) (2.0-8.3) x10*3/uL Absolute Nucleated RBC (0.0-0.012) X10*3/uL Nucleated RBC % (auto) (0.0-0.2) /100WBC Sodium 137 (135-145) mmol/L Potassium 5.3 H D (3.3-5.1) mmol/L Chloride 106 (96-108) mmol/L Carbon Dioxide 22 (22-29) mmol/L Anion Gap 14 (12-20) BUN 13 (9-16) mg/dL Creatinine 1.01 (0.5-1.4) mg/dL Estim Creat Clear Calc 72.2 Estimated GFR > 60 Random Glucose 104 (60-115) mg/dL Calcium 9.3 (8.4-10.2) mg/dL Magnesium 2.3 (1.6-2.6) mg/dL Total Bilirubin 0.3 (0.0-1.0) mg/dL AST 26 D (5-37) U/L ALT 26 (0-40) U/L Alkaline Phosphatase 80 (39-117) U/L Troponin I High Sens (<3.5-35.0) ng/L Total Protein 7.9 (6.5-8.0) g/dL Albumin 4.4 (3.5-5.0) g/dL Triglycerides 118 mg/dL Cholesterol 121 mg/dL LDL Cholesterol, Calc 56 mg/dl HDL Cholesterol 42 mg/dL Urine Color Urine Appearance Urine pH (5.0-9.0) Ur Specific [place] (1.005-1.025) Urine Protein (Neg-Trace) mg/dL Urine Glucose (UA) (Negative) mg/dL Urine Ketones (Negative) mg/dL Urine Blood (Negative) Urine Nitrite (Negative) Ur Leukocyte Esterase (Negative) COVID-19 ([facility]) Negative (Negative) COVID-19 Clin Com See Note Imaging Data Head and neck CTA: Attestation: I personally reviewed and interpreted this imaging study as follows: Radiologist's impression: EXAMINATION: CTA OF THE HEAD AND NECK CLINICAL INFORMATION: Unsteady gait. COMPARISON: None. TECHNIQUE: Test bolus sequences followed by intravenous administration 70 mL of Omnipaque 350. Helical imaging was performed in the axial plane from the mediastinum to the skull vertex. Delayed postcontrast imaging of the head was also performed. The data was processed at the clinical technologist's workstation for generation of MIP sequences. Three-dimensional volume rendered reformatted images were also generated at an offline 3-D workstation. Stenoses are assessed in accordance with NASCET criteria unless otherwise indicated. This CT examination was performed using dose optimization techniques as appropriate, variously including the following: *Automated exposure control *Adjustment of mA and/or kV according to patient size (this includes techniques or standardized protocols for targeted exams where dose is matched to indication/reason for exam; i.e. extremities or head) *Use of iterative reconstruction technique DLP: 2446 mGy-cm. FINDINGS: CT head: There is no evidence of acute intracranial hemorrhage or territorial infarction. There is no loss of wilhelm to white matter differentiation. No abnormal mass effect or midline shift is seen. No extra-axial fluid collections are identified. There is no abnormal enhancement. The ventricles are normal in size. There is no abnormal attenuation within the brain parenchyma. The osseous structures and soft tissues are normal. The mastoid air cells and visualized portions of the paranasal sinuses are well aerated. ? CTA neck: The imaged aortic arch and origins of the great vessels are normal. The common carotid arteries are widely patent. The carotid bifurcations are relatively normal with mild atherosclerotic wall calcifications on the left side. The cervical internal carotid arteries are normal. The left vertebral artery opacifies normally and is normal in caliber. There is a severe stenosis at the origin of the right vertebral artery with atheromatous disease. There are multifocal areas of uayd-ue-ghcptcyz stenosis in the cervical right vertebral artery as well. At the C2-C3 level, there is a severe stenosis in the cervical right vertebral artery. Moderate stenosis evident in the right vertebral artery at the C1 level. There is a focal high-grade stenosis in the distal V3 segment of the right vertebral artery near the craniovertebral junction as well. Incidental small perforated defect in the anterior-inferior cartilaginous septum. Njma-wt-kkjgrztr spondylosis noted at the C5-C6 level with a disc-osteophyte complex and moderate to severe right foraminal narrowing. Paraseptal emphysematous changes noted in the lungs with lateral apical bullae as well. CTA head: There is mild stenosis in the distal intradural right vertebral artery. The intradural left vertebral artery and basilar artery are normal. The posterior cerebral arteries are widely patent. The internal carotid arteries are of normal caliber with mild scattered atherosclerotic wall calcifications. The PRISCILLA and MCA vascular complexes bilaterally are normal. The venous sinuses opacify normally. CT/CT angio head neck IMPRESSION: 1.? No acute territorial infarction or intracranial hemorrhage. No abnormal enhancement. 2.? Severe stenosis at the origin of the right vertebral artery with multifocal areas of vevh-el-fdnbrraf stenosis in the mid cervical right vertebral artery. Additional high-grade stenoses in the V3 segment of the upper cervical right vertebral artery near the craniovertebral junction. Mild long segment stenotic narrowing of the intradural right vertebral artery. Although findings may be due to chronic atheromatous disease, given that the remaining vasculature is relatively normal, the possibility of an age-indeterminate nonocclusive dissection of the right vertebral artery versus a prior dissection and vascular recanalization cannot be ruled out. If there is concern for a subtle acute or early evolving infarct in the posterior circulation, an MRI of the brain be recommended in follow-up for further evaluation. 3.? Remainder of the vasculature in the head and neck appears relatively normal. 4.? Paraseptal emphysematous changes in the lungs with lateral apical bullae. ? 5.? Ridging findings reported to IKE Sal at 12:14 PM on 08/14/2022. Dictated By: NIEVES GARBER MD Signed By: Electronically signed by NIEVES GARBER MD 08/14/22 1218 MRI - head: Attestation: I personally reviewed and interpreted this imaging study as follows: My impression: No acute process. Radiologist's impression: EXAMINATION: MR BRAIN WITHOUT CONTRAST CLINICAL INFORMATION: Evaluate posterior circulation for stroke. Unsteady gait. COMPARISON: CT angiogram from 08/14/2022. TECHNIQUE: Multiplanar, multisequence imaging of the brain was performed without contrast. FINDINGS: No diffusion abnormalities are identified to suggest an acute infarct. The ventricles are normal in size. No mass effect or midline shift is seen. No brain parenchymal signal abnormality is noted. Mild prominence of the frontoparietal extra-axial fluid spaces bilaterally along the high convexities to the vertex. The brainstem and cerebellum are normal. The gradient refocused acquisition is normal. The craniovertebral junction, marrow signal, and midline structures are normal. Loss of normal flow related signal evident in the distal V3 and proximal V4 segments of the right vertebral artery, due to vascular stenosis, better characterized on the CT angiogram study. The remaining major intracranial flow voids at the level of the [place] are preserved. The dural venous sinus flow voids are maintained. The mastoid air cells are clear. Xcdm-fq-oryyfvwo ethmoid sinus disease noted. MR/MR head/brain wo con IMPRESSION: No acute intracranial process. Frontoparietal brain parenchymal volume loss bilaterally along the high cerebral convexities to the vertex is favored as opposed to small bilateral hemispheric subdural hygromas. ? Poor flow-related signal within the distal cervical and proximal intradural right vertebral artery due to stenotic changes in the vessel described on the CT angiogram study. Dictated By: NIEVES GARBER MD Signed By: Electronically signed by NIEVES GARBER MD 08/14/22 1500 ECG Data Attestation: I personally reviewed and interpreted this ECG as follows: Prior ECG tracings: available for review Interpretation: Vent. Rate: 047 BPM ? ? Atrial Rate: 047 BPM P-R Int: 200 ms? QRS Dur: 090 ms QT Int: 450 ms ? ? ? P-R-T Axes: 031 001 003 degrees QTc Int: 398 ms ? Sinus bradycardia Otherwise normal ECG DD/ [id number] Critical Care Time Critical Care Time Critical Care Time: Yes Total Critical Care Time: 30 Attestation: I spent 30 minutes of Critical Care Time with this patient. This does not include time spent on separately reported billable procedures. Discharge Plan Discharge Clinical Impression: Dizziness Patient Disposition: Home, Self-Care Instructions: Dizziness (ED) Additional Instructions: Follow up with your primary care provider and a neurologist. Return to the emergency department immediately if your symptoms worsen or if you develop any dizziness, shortness of breath, difficulty breathing, chest pain, blurry vision, loss of vision, nausea, vomiting, abdominal pain, fever, chills, back pain, or any other complaints. Prescriptions: No Action atorvastatin 40 mg Tablet 40 mg PO DAILY amlodipine 10 mg Tablet 10 mg PO DAILY aspirin 81 mg Tablet 81 mg PO DAILY Hold Instructions: Resume on 08/13/20. cholecalciferol (vitamin D3) [Vitamin D3] 25 mcg (1,000 unit) Tablet 25 mcg PO DAILY omega 0-tmh-osj-fish oil 300 mg (120 mg- 180mg)-1,000 mg capsule 1 cap PO BID fluticasone propion-salmeterol [Advair Diskus] 500-50 mcg/dose blister with device 1 puff inhalation DAILY omeprazole 20 mg capsule,delayed release(DR/EC) 20 mg PO QAM spironolactone 25 mg tablet 25 mg PO QAM Ref[place]: [facility] [place] [facility] [place] Group] Shyanne Antunez MD [Primary Care Provider] - Stand Alone Forms: Work/School Release Print Language: [place]ian
[2022-08-14 09:22] LABS: MANUAL DIFF FLAG NO
[2022-08-14 09:25] LABS: Appearance Urine Clear; Color Urine Yellow; Glucose Urine UA Negative (Negative); Leukocyte Esterase Urine Negative (Negative); Nitrite Urine Negative (Negative); PH 6.5 (5.0-9.0); Specific Gravity - Urine <= 1.005 (1.005-1.025); Urine Blood Negative (Negative); Urine Ketones Negative (Negative); Urine Protein Negative (Neg-Trace)
[2022-08-14 09:44] LABS: Basophils Absolute Auto 0.1 X10*3/uL (0.0-0.2); Eosinophils Absolute Auto 0.2 X10*3/uL (0.0-0.4); Eosinophils Percent Auto 2.2 % (0-4); Hematocrit 45.4 % (42.0-52.0); Hemoglobin 14.1 g/dl (14.0-18.0); Imm Gran Abs Auto 0.03 X10*3/uL (0.00-0.03); Imm Gran Pct Auto 0.3 % (0.0-0.4); Lymphocytes Absolute Auto 2.7 X10*3/uL (1.2-4.9); Lymphocytes Percent Auto 28.7 % (20-40); Mean Corpuscular HGB Conc 31.1 g/dl (31.0-36.0); Mean Corpuscular Hemoglobin 26.6 pg (27.0-33.0); Mean Corpuscular Volume 85.5 fL (80.0-98.0); Mean Platelet Volume 10.6 fL (9.4-12.4); Monocytes Absolute Auto 0.9 X10*3/uL (0.1-1.2); Monocytes Percent Auto 9.7 % (2-11); Neutrophils Absolute Auto 5.4 x10*3/uL (2.0-8.3); Neutrophils Percent Auto 58.1 % (45-73); Platelet Count 330 X10*3/uL (160-400); Red Blood Count 5.31 X10*6/uL (4.60-5.80); Red Cell Distribution Width 15.4 % (11.0-16.0); White Blood Count 9.3 X10*3/uL (4.8-10.8)
[2022-08-14 09:46] LABS: Troponin-I High Sensitivity < 3.5 ng/L (<3.5-35.0)
[2022-08-14 10:43] LABS: Alanine Aminotransferase 26 U/L (0-40); Albumin Level 4.4 g/dL (3.5-5.0); Alkaline Phosphatase 80 U/L (39-117); Anion Gap 14 (12-20); Aspartate Amino Transferase 26 U/L (5-37); Bilirubin Total 0.3 mg/dL (0.0-1.0); Blood Urea Nitrogen 13 mg/dL (9-16); Calcium 9.3 mg/dL (8.4-10.2); Carbon Dioxide 22 mmol/L (22-29); Chloride 106 mmol/L (96-108); Creatinine Clr Calc Pharmacy 72.2; Estimated Glomerular Filt Rate > 60; Glucose Random 104 mg/dL (60-115); Magnesium 2.3 mg/dL (1.6-2.6); Potassium 5.3 mmol/L (3.3-5.1); Sodium 137 mmol/L (135-145); Total Protein 7.9 g/dL (6.5-8.0)
[2022-08-14] MEDS: iohexoL 350 MG/ML 100 ML INFUS..BTL 70 ML IV (11:36)
[2022-08-14] MEDS: Midazolam HCl/PF 2 MG/2 ML VIAL IVPUSH (13:30)
[2022-08-14 13:45] LABS: COVID-19 Test Negative (Negative); IDNOW Serial# 55D5AD1C
--- NOTE | 2022-08-14 14:33 | PHA.MEDREC ---
Pharmacy Consult ? Medication Reconciliation Pharmacy has completed the medication reconciliation. Patient had a hand written list at bedside.
--- NOTE | 2022-08-14 14:51 | MHC.STROKE ---
Addendum entered by Columba Shine RN 08/14/22 15:47: I SPOKE WITH DR WOMACK AGAIN AND HE WILL SEE THE PATIENT IN CONSULT, OBTAIN ORTHOSTATIC BP'S AND DOCUMENT, STROKE PREVENTION GUIDELINES: I AM RECOMMENDING A LIPID PANEL, STATIN IF APPROPRIATE. Original Note: 0739 WALK-IN C/O UNSTEADY, OFF BALANCE, ONSET 08/13/[address] H/N DONE, RIGHT VERTEBRAL STENOSIS ATHEROSCLEROSIS. SEE REPORT. OUT OF THE WINDOW FOR THROMBOLYTICS. I REVIEWED CASE WITH DR WOMACK, HE CONCURS WITH RADIOLOGIST TO GET MRI. WITH TECHNOLOGY ANALYST PRESENT I MET WITH THE PATIENT AND HIS AND CONFIRMED THE ABOVE INFORMATION. HE PASSED THE NURSING SWALLOW SCREEN. I DID HAVE HIM GET UP AND SIT ON THE EDGE OF THE STRETCHER. HE COULD DO THAT WITHOUT ASSISTANCE. HE SAID HE FEELS BETTER THAN WHEN HE CAME IN. HE AMBULATED 50 FT UP AND BACK, I DID HOLD HIS ARM, WHEN I LET GO HE BEGAN TO TILT TO THE RIGHT THEN THE LEFT, HE COULD NOT WALK THE LINE WITH ONE FOOT IN FRONT OF THE OTHER WITHOUT LOOSING HIS BALANCE. NIHSS = 2 FOR ATAXIA. HE IS NOT ON ANY ANTIPLATELET. HE DOES NOT DRIVE OR WORK. HE HAS AN ELEVATOR WHERE HE LIVES. I REPORTED THIS INFORMATION TO THE PROVIDER. I WILL CONTINUE TO FOLLOW.
[2022-08-14] MEDS: Aspirin 325 MG TABLET PO (15:47)
[2022-08-14 17:00] LABS: Cholesterol 121 mg/dL; HDL Cholesterol 42 mg/dL; LDL Cholesterol Calculated 56 mg/dl; Triglycerides 118 mg/dL
--- NOTE | 2022-08-14 17:38 | P.CNNE_ITS ---
History of Present Illness Data of Consult Service Date: 08/14/22 Primary Care Provider: Shyanne Antunez MD [facility] Reason for consult: unstaedy balance This is a 66 year old man with a history of HTN presenting to the emergency department today with feeling dizzy like he was spinning and his gait was off. Patient denies any lightheadedness, abdominal pain, nausea, vomiting, blurry vision, double vision, loss of vision, chest pain, syncope or a near syncopal episode.His dizziness has resolved and he feels back to normal.. At no point was there any blurred vision or double vision no facial droop lateralized we akness or numbness. Review of Systems Constitutional: Constitutional: Reports no additional constitutional complaints, Denies chills, Denies fever(s) and Denies night sweats Eyes: Eyes: Reports no additional eye complaints, Denies blurry vision, Denies change in vision, Denies diplopia, Denies eye discharge, Denies loss of vision and Denies eye pain ENT: Reports dizziness Cardiovascular: Cardiovascular: Reports no additional cardiovascular complaints, Denies chest pain, Denies lightheadedness, Denies Loss of Consciousness and Denies dyspnea Respiratory: Respiratory: Reports no additional respiratory complaints and Denies dyspnea Gastrointestinal: Gastrointestinal: Reports no additional gastrointestinal complaints, Denies abdominal pain, Denies melena, Denies hematochezia, Denies change in bowel habits and Denies change in stool character Genitourinary: Genitourinary: Reports no additional male genitourinary complaints, Denies hematuria, Denies oliguria, Denies difficulty urinating, Denies dysuria, Denies urinary frequency, Denies urinary hesitancy, Denies urinary incontinence and Denies urinary urgency Musculoskeletal: Musculoskeletal: Reports no additional musculoskeletal complaints, Reports abnormal gait, Denies numbness and Denies tingling Neurologic: Reports abnormal gait, Reports dizziness, Denies loss of vision, Denies numbness and Denies tingling Psychiatric: Psychiatric: Reports no additional psychiatric complaints Endocrine: Endocrine: Reports no additional endocrine complaints Hematologic/Lymphatic: Hematologic/Lymphatic: Reports no additional hematologic/lymphatic complaints Allergic/Immunologic: Allergic/Immunologic: Reports no additional allergic/immunologic complaints PMFSH Past Medical History Medical History Arthritis Asthma Back pain Elevated cholesterol GERD (gastroesophageal reflux disease) HTN (hypertension) Lower gastrointestinal bleed Myocardial infarction Peptic ulcer Family History Family History Mother Diabetes Heart disease Arthritis Father Heart disease Surgical History Surgical History Hx of colonoscopy Hx of excision of mass Hx of umbilical hernia repair Social History Social History Household Members: Spouse Housing: Apartment Do you presently have visiting nurse or other home services: No Alcohol intake: current Alcohol intake frequency: does not drink Patient Tobacco Use Status: Never used Tobacco Years Smoked: 40 Smoked in Last 30 Days: No Second Hand Smoke Exposure: No Use of substances other than those prescribed or required for medical reasons: No Advance Directives: No Advance Directives Information Provided: Yes service: No Current occupational status: unemployed Meds Allergies Allergy/AdvReac Type Severity Reaction Status Date / Time lisinopril Allergy Intermediate Swelling Verified 07/30/22 11:23 Active Medications: Current Medications Pharmacy Consult (Consult Rx Perform Med Rec) 1 each MISCELLANE ONCE PRN PRN Reason: Consult order Home Medications Medication Instructions Recorded Confirmed Last Taken Type amlodipine 10 mg tablet 10 mg PO DAILY 07/29/20 08/14/22 Unknown History aspirin 81 mg tablet 81 mg PO DAILY 07/29/20 08/14/22 Unknown History atorvastatin 40 mg tablet 40 mg PO DAILY 07/29/20 08/14/22 Unknown History cholecalciferol (vitamin D3) 25 25 mcg PO DAILY 07/29/20 08/14/22 Unknown History mcg (1,000 unit) tablet (Vitamin D3) omeprazole 20 mg capsule,delayed 20 mg PO QAM 06/16/21 08/14/22 Unknown History release spironolactone 25 mg tablet 25 mg PO QAM 07/30/22 08/14/22 Unknown History fluticasone 500 mcg-salmeterol 50 1 puff inhalation DAILY 08/14/22 08/14/22 Unknown History mcg/dose blistr powdr for inhalation (Advair Diskus) omega-3 300 mg-dha 120 mg-epa 180 1 cap PO BID 08/14/22 08/14/22 Unknown History mg-fish oil 1,000 mg capsule Physical Exam Vital Signs: Vital Signs: Last Vital Signs Temp 97.7 F 08/14/22 16:12 Pulse 61 08/14/22 16:17 Resp 11 L 08/14/22 16:12 BP 133/67 08/14/22 16:17 Pulse Ox 99 08/14/22 16:12 O2 Del Method 08/14/22 16:12 BMI result Body Mass Index 27.4 Const: General: cooperative, no acute distress, alert and awake Nutritional Appearance: well nourished Orientation/consciousness: patient oriented x3 Limitations: no limitations HEENT: Head: Yes normal to inspection and Yes atraumatic Ears: hearing grossly normal bilaterally and external ears normal General nose exam: Normal external nose present, no nasal discharge noted and no epistaxis Face and sinus: Yes normal facial exam, No abrasion and No laceration Mouth: Normal oral and palatal mucosa present, no drooling and no muffled voice Eyes: General: appearance normal, both eyes and all related structures Periorbital: periorbital findings normal Eyelids: Yes eyelids normal Conjunctivae: conjunctivae normal Pupils: Equal, round and reactive pupils present EOM: EOMs intact bilaterally Neck: Neck: Yes normal visual inspection, Yes full ROM and Yes no lymphadenopathy Chest: Chest palpation & inspection: normal inspection of the chest Resp: Effort & Inspection: normal respiratory effort and able to speak in complete sentences Auscultation: clear to auscultation bilaterally Cardio: Rate: regular rate Rhythm: regular rhythm GI: Inspection: Yes normal to inspection Palpation (GI): Soft to palpation, not firm, nontender, no guarding and not rigid Neuro: Other: Nonfocal examination. Slight unsteadiness on tandem walking only. General: patient oriented x3 and moves all extremities Cranial nerves: Yes Equal, round and reactive pupils present Cognition (Neuro): normal cognition Gait exam (Neuro): Normal gait present Motor exam (neuro): 5/5 motor strength present throughout Sensory Exam: Normal double simultaneous stimulation for sensation Coordination: yucnht-nv-xqom test normal Extrem: General: Yes normal to inspection, Yes full ROM and Yes capillary r efill normal Psych: Appearance: grossly normal Mental Status: mental status grossly normal Affect: normal affect Attitude: cooperative Thought process: Normal thought process present Thought content: Normal thought content present Insight: Good insight present (Psych) Results Labs CBC & Chem 7: 08/14/22 09:17 08/14/22 10:08 Labs: Short CBC 08/14/22 Range/Units 09:17 WBC 9.3 (4.8-10.8) X10*3/uL Hgb 14.1 (14.0-18.0) g/dl Hct 45.4 (42.0-52.0) % Plt Count 330 (160-400) X10*3/uL BMP 08/14/22 10:08 Sodium 137 Potassium 5.3 H D Chloride 106 Carbon Dioxide 22 BUN 13 Creatinine 1.01 Calcium 9.3 Liver Function 08/14/22 Range/Units 10:08 Total Bilirubin 0.3 (0.0-1.0) mg/dL AST 26 D (5-37) U/L ALT 26 (0-40) U/L Alkaline Phosphatase 80 (39-117) U/L Albumin 4.4 (3.5-5.0) g/dL Urine 08/14/22 Range/Units 09:17 Urine Color Yellow Urine Appearance Clear Urine pH 6.5 (5.0-9.0) Ur Specific [place] <= 1.005 (1.005-1.025) Urine Protein Negative (Neg-Trace) mg/dL Urine Glucose (UA) Negative (Negative) mg/dL Assessment and Plan (1) Dizziness: Status: Acute No evidence of stroke. Probable labyrinthine dysfunction. MRI does nnot show any acute stroke. There may be some right vertebral diseasse, however of the left vertebral system appears wide open. Recommendations aspirin 81 mg a day. Atorvastatin 40 mg a day. The patient can be discharged Procedures Date of Service Date of Service: 08/14/22
== END 2022-08-14 19:05 | disposition home or self-care (01) ==
PROVIDERS: Physician Assistant Medical; Emergency Provider Emergency Medicine Emergency Medical Services; PCP Internal Medicine
DX: R42 Dizziness and giddiness (principal); I10 Essential (primary) hypertension; R26.9 Unspecified abnormalities of gait and mobility; Z20.822 Contact with and (suspected) exposure to COVID-19; Z79.899 Other long term (current) drug therapy
CPT/HCPCS: 36415; 70496; 70498; 70551; 80053; 80061; 81003; 83735; 84484; 85025; 87635; 93005; 96374; 99285; J2250; Q9967

== ENCOUNTER 2022-11-20 13:20 | Emergency (ER) | payer MEDICARE, MEDICAID, SELFPAY ==
--- NOTE | ~2022-11-20 | CT_ITS ---
EXAMINATION: CT ABDOMEN AND PELVIS WITH CONTRAST CLINICAL INFORMATION: Right lower quadrant pain COMPARISON: CT abdomen pelvis 07/29/2020 TECHNIQUE: Multidetector volumetric images were obtained from the superior aspect of the liver through the pubic symphysis following administration 85 mL of Omnipaque 350 intravenous contrast. Sagittal and coronal reformatted images were obtained on the technologist's workstation. Oral contrast: No This CT examination was performed using dose optimization techniques as appropriate, variously including the following: *Automated exposure control *Adjustment of mA and/or kV according to patient size (this includes techniques or standardized protocols for targeted exams where dose is matched to indication/reason for exam; i.e. extremities or head) *Use of iterative reconstruction technique DLP: 565 mGy-cm FINDINGS: LUNG BASES: The visualized lung bases are unremarkable. There is a left-sided Bochdalek hernia containing only fat. LIVER, GALLBLADDER, AND BILIARY TREE: The liver is normal in size, shape, and attenuation. No focal hepatic lesion or biliary ductal dilatation is present. The gallbladder is distended. A tiny calcification is seen near the fundus. No other radiopaque gallstones, gallbladder wall thickening, or obvious pericholecystic inflammatory changes. PANCREAS: Unremarkable. SPLEEN: Unremarkable. ADRENAL GLANDS: Unremarkable. KIDNEYS AND URETERS: The kidneys are normal in size, shape, and attenuation. A Bosniak class I left renal cysts are seen which need no additional imaging or follow-up. No solid renal masses. No hydronephrosis, hydroureter, or calculi seen. No perinephric stranding. BLADDER: Symmetric bladder wall thickening. No calculi or masses. GASTROINTESTINAL TRACT: A moderate-sized hiatal hernia is present. There is colonic diverticulosis without evidence of diverticulitis. The small and large bowel are unremarkable. The appendix is not seen but there is no evidence of appendicitis appendicitis. ABDOMINAL WALL: Tiny periumbilical hernia seen containing only fat. There is a left inguinal hernia seen containing only fat. LYMPH NODES: No retroperitoneal lymphadenopathy. VASCULAR: Mild calcific aorto iliofemoral plaque without aneurysm. PELVIC VISCERA: Prostate upper limits of normal. Seminal vesicles appear normal. OSSEOUS STRUCTURES: Mild degenerative changes are seen in the spine. There is mild compression fracture of the superior endplate of L4 unchanged from 2019. CT/CT abdomen pelvis w IV con IMPRESSION: 1. A cause for the patient's right lower quadrant pain has not been found. 2. Incidental note made of distended gallbladder with a tiny calcification, moderate-sized hiatal hernia, colonic diverticulosis without diverticulitis and other findings described above. Fleischner guidelines were followed.
--- NOTE | 2022-11-20 13:49 | ED_ITS ---
HPI - Abdominal Pain General Chief Complaint: Abdominal Pain <IKE Fam - Last Filed: 11/20/22 13:53> Stated Complaint: Abd pain <IKE Fam Last Filed: 11/20/22 13:53> Time Seen by Provider: 11/20/22 16:02 <IKE Fam - Last Filed: 11/20/22 13:53> Source: patient <IKE Madrigal Last Filed: 11/20/22 19:12> Mode of arrival: ambulatory <IKE Madrigal Last Filed: 11/20/22 19:12> Limitations: no limitations <IKE Madrigal Last Filed: 11/20/22 19:12> History of Present Illness HPI narrative: This is a 67-year-old male history of peroneal tendinitis, since L colonic polyp, IBS presenting to the emergency department with complaints of body aches and pains, dry cough, diffuse headache which feels like his typical without vision changes or dizziness, subjective fevers and chills, right lower quadrant pain that started this morning. Patient reports that right lower quadrant pain is intermittent, sharp and very uncomfortable in nature, nonradiating. Patient denies recent sick contacts, chest pain, shortness of breath, nausea, vomiting, changes in bowel habits or urination, testicular pain or discharge, vision changes, dizziness or weakness. NIH stroke scale 0. <IKE Madrigal Last Filed: 11/20/22 19:12> Related Data Home Medications: Home Medications Medication Instructions Recorded Confirmed amlodipine 10 mg tablet 10 mg PO DAILY 07/29/20 08/14/22 aspirin 81 mg tablet 81 mg PO DAILY 07/29/20 08/14/22 atorvastatin 40 mg tablet 40 mg PO DAILY 07/29/20 08/14/22 cholecalciferol (vitamin D3) 25 25 mcg PO DAILY 07/29/20 08/14/22 mcg (1,000 unit) tablet (Vitamin D3) omeprazole 20 mg capsule,delayed 20 mg PO QAM 06/16/21 08/14/22 release spironolactone 25 mg tablet 25 mg PO QAM 07/30/22 08/14/22 fluticasone 500 mcg-salmeterol 50 1 puff inhalation DAILY 08/14/22 08/14/22 mcg/dose blistr powdr for inhalation (Advair Diskus) omega-3 300 mg-dha 120 mg-epa 180 1 cap PO BID 08/14/22 08/14/22 mg-fish oil 1,000 mg capsule <IKE Fam - Last Filed: 11/20/22 13:53> Allergies/Adverse Reactions: Allergies Allergy/AdvReac Type Severity Reaction Status Date / Time lisinopril Allergy Intermediate Swelling Verified 07/30/22 11:23 <IKE Fam - Last Filed: 11/20/22 13:53> Review of Systems Review of Systems Constitutional : No Weight loss, + Fever, + Chills, + Fatigue, + Malaise ENT/Mouth : No sore throat, No Rhinorrhea Eyes: No Eye Pain, No Swelling, No Redness Cardiovascular : No Chest Pain, No SOB, No Dyspnea on Exertion, No Orthopnea, No Edema, No Palpitations Respiratory : No Cough, No Sputum, No Wheezing Gastrointestinal : No Nausea, No Vomiting, No Diarrhea, No Constipation, + ab dominal Pain, No Hematochezia, No Melena Genitourinary : No Dysuria, No Urinary Frequency, No Hematuria, Musculoskeletal : No joint pain, + Myalgias, No Joint Swelling Skin : No Skin Lesions, No rash Neuro : No Weakness, No Numbness, No Dizziness, + Headache Psych : No Anxiety/Panic, No Depression All other systems reviewed and are negative <IKE Madrigal - Last Filed: 11/20/22 19:12> Yes all other systems are reviewed and are negative <IKE Madrigal - Last Filed: 11/20/22 19:12> PMFSH Past Medical History Medical History: Medical History Arthritis Asthma Back pain Elevated cholesterol GERD (gastroesophageal reflux disease) HTN (hypertension) Lower gastrointestinal bleed Myocardial infarction Peptic ulcer <IKE Fam - Last Filed: 11/20/22 13:53> Surgical History: Surgical History Hx of colonoscopy Hx of excision of mass Hx of umbilical hernia repair <IKE Fam - Last Filed: 11/20/22 13:53> Family History Family History: Family History Mother Diabetes Heart disease Arthritis Father Heart disease <IKE Fam - Last Filed: 11/20/22 13:53> Social History Social History: Social History Household Members: Spouse Housing: Apartment Do you presently have visiting nurse or other home services: No Alcohol intake: current Alcohol intake frequency: does not drink Patient Tobacco Use Status: Never used Tobacco Years Smoked: 40 Smoked in Last 30 Days: No Second Hand Smoke Exposure: No Use of substances other than those prescribed or required for medical reasons: No Advance Directives: No Advance Directives Information Provided: Yes service: No Current occupational status: unemployed <IKE Fam - Last Filed: 11/20/22 13:53> Physical Exam ED Vital Signs: Vital Signs - 24 hr 11/20/22 13:50 11/20/22 16:06 Temperature 97.4 F Pulse Rate 83 74 Respiratory Rate 18 18 Blood Pressure 150/63 H 146/69 H Pulse Oximetry 98 96 Oxygen Delivery Method Room Air Room Air BMI result Body Mass Index 28.2 <IKE Fam - Last Filed: 11/20/22 13:53> Vital Signs - 24 hr 11/20/22 13:50 11/20/22 16:06 Temperature 97.4 F Pulse Rate 83 74 Respiratory Rate 18 18 Blood Pressure 150/63 H 146/69 H Pulse Oximetry 98 96 Oxygen Delivery Method Room Air Room Air BMI result Body Mass Index 28.2 Vital signs stable <IKE Madrigal - Last Filed: 11/20/22 19:12> Appearance: Alert.? Oriented X3.? No acute distress.? Head: Normocephalic, atraumatic, no step-offs or deformities Eyes: Pupils equal, round and reactive to light.? Neck: Normal inspection.? Neck supple.? CVS: Normal heart rate and rhythm.? Pulses normal.? Respiratory: No respiratory distress.? Breath sounds normal.? Abdomen: Soft and + tenderness to right lower quadrant on palpation. Negative Rovsing sign negative Doan's..? Skin: Skin warm and dry.? Normal skin color.? Normal skin turgor.? Extremities: No lower extremity edema.? No calf ttp. 5/5 strength to bilateral upper and lower extremities Neuro: Oriented X 3.? No motor deficit.? No sensory deficit. CN 2-12 intact. Ambulating with steady gait normal coordination. Normal rapid alternating movements. <IKE Madrigal - Last Filed: 11/20/22 19:12> Course Course Course Narrative: RMKorin--67-year-old male with a past medical history of IBS, presenting to the ED complaining of constant RLQ abd pain and subj fever x4 days. Denies nausea, vomiting, diarrhea Abdomen soft with RLQ tenderness, no guarding, no CVA tenderness Labs, UA, IVF, CTAP ordered <IKE Fam - Last Filed: 11/20/22 13:53> Reevaluation(s) Reevaluation #1: CBC appears to have slight leukocytosis could be secondary to viral infection. Chemistry with no acute electrolyte abnormalities requiring int ervention. Lipase within normal limits. UA without infection. Patient is noted to be positive for COVID-19 likely contributing to all his symptoms. Pending CT of the abdomen and pelvis. <IKE Madrigal Last Filed: 11/20/22 19:12> Time: 16:34 <IKE Madrigal - Last Filed: 11/20/22 19:12> Reevaluation #2: Patient's pain improving, tolerating p.o.. Patient's CT scan unable to identify a cause for patient's right lower quadrant pain, no signs of appendicitis. Incidental note of distended gallbladder with a tiny calci fication, moderate size hiatal hernia, colonic diverticulosis without diverticulitis. Patient does not have tenderness to right upper quadrant I do not suspect acute cholecystitis. Negative Doan sign on exam. At this time likely cause of patient's symptoms is COVID-19. Will discharge with CDC guidelines. Educated patient on diagnosis and treatment plan, answered all question, patient verbalizes understanding. At this time patient will be discharged home, advised to return with new or worsening symptoms. Educated on worrisome signs and symptoms and when to return. At this time I feel comfortable discharge home. <IKE Madrigal - Last Filed: 11/20/22 19:12> Time: 19:09 <IKE Madrigal - Last Filed: 11/20/22 19:12> Medical Decision Making Medical Decision Making [facility] Narrative: 1600 This is a 67-year-old male presenting with fevers, chills, body aches and pains, fatigue, malaise, abdominal pain is, headache x1 day. Sudden in onset. Physical examination with right lower quadrant tenderness to palpation. Suspected viral infection. Patient's history and physical exam not consistent with acute abdomen, appendicitis, cholecystitis, testicular torsion, cholecystitis, diverticulitis. Plan at this time to obtain basic labs, urine, viral testing, CT of the abdomen and pelvis has been ordered from triage. <IKE Madrigal - Last Filed: 11/20/22 19:12> Differential Diagnosis Differential Diagnoses: The differential diagnosis associated with the presentation includes <IKE Madrigal - Last Filed: 11/20/22 19:12> Suspected viral infection. Patient's history and physical exam not consistent with acute abdomen, appendicitis, cholecystitis, testicular torsion, cholecystitis, diverticulitis. <IKE Madrigal - Last Filed: 11/20/22 19:12> Admission/Observation Consideration of admission/observation: Escalation of care including admission/observation considered <IKE Madrigal - Last Filed: 11/20/22 19:12> Unlikely <IKE Madrigal - Last Filed: 11/20/22 19:12> Lab Data [facility] Lab Attestation statement: I reviewed the patient's lab results. <IKE Madrigal - Last Filed: 11/20/22 19:12> Result Diagrams: 11/20/22 14:08 11/20/22 14:08 <IKE Fam - Last Filed: 11/20/22 13:53> Labs: Lab Results 11/20/22 11/20/22 11/20/22 Range/Units 14:08 14:08 14:08 WBC 11.0 H (4.8-10.8) X10*3/uL RBC 5.21 (4.60-5.80) X10*6/uL Hgb 14.2 (14.0-18.0) g/dl Hct 44.2 (42.0-52.0) % MCV 84.8 (80.0-98.0) fL MCH 27.3 (27.0-33.0) pg MCHC 32.1 (31.0-36.0) g/dl RDW 15.0 (11.0-16.0) % Plt Count 317 (160-400) X10*3/uL MPV 9.5 (9.4-12.4) fL Immature Gran % (Auto) 0.5 H (0.0-0.4) % Neut % (Auto) 78.2 H (45-73) % Lymph % (Auto) 7.6 L (20-40) % [place] % (Auto) 11.7 H (2-11) % Eos % (Auto) 1.4 (0-4) % Baso % (Auto) 0.6 (0-2) % Lymph # (Auto) 0.8 L (1.2-4.9) X10*3/uL [place] # (Auto) 1.3 H (0.1-1.2) X10*3/uL Eos # (Auto) 0.2 (0.0-0.4) X10*3/uL Baso # (Auto) 0.1 (0.0-0.2) X10*3/uL Abs Immat Gran (auto) 0.05 H (0.00-0.03) X10*3/uL Absolute Neuts (auto) 8.6 H (2.0-8.3) x10*3/uL Absolute Nucleated RBC 0.000 (0.0-0.012) X10*3/uL Nucleated RBC % (auto) 0.0 (0.0-0.2) /100WBC Sodium 135 (135-145) mmol/L Potassium 3.6 D (3.3-5.1) mmol/L Chloride 96 (96-108) mmol/L Carbon Dioxide 29 (22-29) mmol/L Anion Gap 14 (12-20) BUN 12 (9-16) mg/dL Creatinine 1.14 (0.5-1.4) mg/dL Estim Creat Clear Calc 63.9 Estimated GFR > 60 Random Glucose 101 (60-115) mg/dL Calcium 9.4 (8.4-10.2) mg/dL Magnesium 1.7 (1.6-2.6) mg/dL Total Bilirubin 0.8 (0.0-1.0) mg/dL Direct Bilirubin 0.3 (0.0-0.5) mg/dL AST 29 (5-37) U/L ALT 42 H (0-40) U/L Alkaline Phosphatase 77 (39-117) U/L Total Protein 7.6 (6.5-8.0) g/dL Albumin 4.5 (3.5-5.0) g/dL Lipase 21 (8-78) U/L Urine Color Urine Appearance Urine pH (5.0-9.0) Ur Specific [place] (1.005-1.025) Urine Protein (Neg-Trace) mg/dL Urine Glucose (UA) (Negative) mg/dL Urine Ketones (Negative) mg/dL Urine Blood (Negative) Urine Nitrite (Negative) Ur Leukocyte Esterase (Negative) COVID-19 (UYEN) Positive A (Negative) COVID-19 Clin Com See Note 11/20/22 Range/Units 14:08 WBC (4.8-10.8) X10*3/uL RBC (4.60-5.80) X10*6/uL Hgb (14.0-18.0) g/dl Hct (42.0-52.0) % MCV (80.0-98.0) fL MCH (27.0-33.0) pg MCHC (31.0-36.0) g/dl RDW (11.0-16.0) % Plt Count (160-400) X10*3/uL MPV (9.4-12.4) fL Immature Gran % (Auto) (0.0-0.4) % Neut % (Auto) (45-73) % Lymph % (Auto) (20-40) % [place] % (Auto) (2-11) % Eos % (Auto) (0-4) % Baso % (Auto) (0-2) % Lymph # (Auto) (1.2-4.9) X10*3/uL [place] # (Auto) (0.1-1.2) X10*3/uL Eos # (Auto) (0.0-0.4) X10*3/uL Baso # (Auto) (0.0-0.2) X10*3/uL Abs Immat Gran (auto) (0.00-0.03) X10*3/uL Absolute Neuts (auto) (2.0-8.3) x10*3/uL Absolute Nucleated RBC (0.0-0.012) X10*3/uL Nucleated RBC % (auto) (0.0-0.2) /100WBC Sodium (135-145) mmol/L Potassium (3.3-5.1) mmol/L Chloride (96-108) mmol/L Carbon Dioxide (22-29) mmol/L Anion Gap (12-20) BUN (9-16) mg/dL Creatinine (0.5-1.4) mg/dL Estim Creat Clear Calc Estimated GFR Random Glucose (60-115) mg/dL Calcium (8.4-10.2) mg/dL Magnesium (1.6-2.6) mg/dL Total Bilirubin (0.0-1.0) mg/dL Direct Bilirubin (0.0-0.5) mg/dL AST (5-37) U/L ALT (0-40) U/L Alkaline Phosphatase (39-117) U/L Total Protein (6.5-8.0) g/dL Albumin (3.5-5.0) g/dL Lipase (8-78) U/L Urine Color Yellow Urine Appearance Clear Urine pH 7.5 (5.0-9.0) Ur Specific [place] 1.015 (1.005-1.025) Urine Protein Negative (Neg-Trace) mg/dL Urine Glucose (UA) Negative (Negative) mg/dL Urine Ketones Negative (Negative) mg/dL Urine Blood Negative (Negative) Urine Nitrite Negative (Negative) Ur Leukocyte Esterase Negative (Negative) COVID-19 (UYEN) (Negative) COVID-19 Clin Com <IKE Fam - Last Filed: 11/20/22 13:53> Lab Results 11/20/22 11/20/22 11/20/22 Range/Units 14:08 14:08 14:08 WBC 11.0 H (4.8-10.8) X10*3/uL RBC 5.21 (4.60-5.80) X10*6/uL Hgb 14.2 (14.0-18.0) g/dl Hct 44.2 (42.0-52.0) % MCV 84.8 (80.0-98.0) fL MCH 27.3 (27.0-33.0) pg MCHC 32.1 (31.0-36.0) g/dl RDW 15.0 (11.0-16.0) % Plt Count 317 (160-400) X10*3/uL MPV 9.5 (9.4-12.4) fL Immature Gran % (Auto) 0.5 H (0.0-0.4) % Neut % (Auto) 78.2 H (45-73) % Lymph % (Auto) 7.6 L (20-40) % [place] % (Auto) 11.7 H (2-11) % Eos % (Auto) 1.4 (0-4) % Baso % (Auto) 0.6 (0-2) % Lymph # (Auto) 0.8 L (1.2-4.9) X10*3/uL [place] # (Auto) 1.3 H (0.1-1.2) X10*3/uL Eos # (Auto) 0.2 (0.0-0.4) X10*3/uL Baso # (Auto) 0.1 (0.0-0.2) X10*3/uL Abs Immat Gran (auto) 0.05 H (0.00-0.03) X10*3/uL Absolute Neuts (auto) 8.6 H (2.0-8.3) x10*3/uL Absolute Nucleated RBC 0.000 (0.0-0.012) X10*3/uL Nucleated RBC % (auto) 0.0 (0.0-0.2) /100WBC Sodium 135 (135-145) mmol/L Potassium 3.6 D (3.3-5.1) mmol/L Chloride 96 (96-108) mmol/L Carbon Dioxide 29 (22-29) mmol/L Anion Gap 14 (12-20) BUN 12 (9-16) mg/dL Creatinine 1.14 (0.5-1.4) mg/dL Estim Creat Clear Calc 63.9 Estimated GFR > 60 Random Glucose 101 (60-115) mg/dL Calcium 9.4 (8.4-10.2) mg/dL Magnesium 1.7 (1.6-2.6) mg/dL Total Bilirubin 0.8 (0.0-1.0) mg/dL Direct Bilirubin 0.3 (0.0-0.5) mg/dL AST 29 (5-37) U/L ALT 42 H (0-40) U/L Alkaline Phosphatase 77 (39-117) U/L Total Protein 7.6 (6.5-8.0) g/dL Albumin 4.5 (3.5-5.0) g/dL Lipase 21 (8-78) U/L Urine Color Urine Appearance Urine pH (5.0-9.0) Ur Specific [place] (1.005-1.025) Urine Protein (Neg-Trace) mg/dL Urine Glucose (UA) (Negative) mg/dL Urine Ketones (Negative) mg/dL Urine Blood (Negative) Urine Nitrite (Negative) Ur Leukocyte Esterase (Negative) COVID-19 (UYEN) Positive A (Negative) COVID-19 Clin Com See Note 11/20/22 Range/Units 14:08 WBC (4.8-10.8) X10*3/uL RBC (4.60-5.80) X10*6/uL Hgb (14.0-18.0) g/dl Hct (42.0-52.0) % MCV (80.0-98.0) fL MCH (27.0-33.0) pg MCHC (31.0-36.0) g/dl RDW (11.0-16.0) % Plt Count (160-400) X10*3/uL MPV (9.4-12.4) fL Immature Gran % (Auto) (0.0-0.4) % Neut % (Auto) (45-73) % Lymph % (Auto) (20-40) % [place] % (Auto) (2-11) % Eos % (Auto) (0-4) % Baso % (Auto) (0-2) % Lymph # (Auto) (1.2-4.9) X10*3/uL [place] # (Auto) (0.1-1.2) X10*3/uL Eos # (Auto) (0.0-0.4) X10*3/uL Baso # (Auto) (0.0-0.2) X10*3/uL Abs Immat Gran (auto) (0.00-0.03) X10*3/uL Absolute Neuts (auto) (2.0-8.3) x10*3/uL Absolute Nucleated RBC (0.0-0.012) X10*3/uL Nucleated RBC % (auto) (0.0-0.2) /100WBC Sodium (135-145) mmol/L Potassium (3.3-5.1) mmol/L Chloride (96-108) mmol/L Carbon Dioxide (22-29) mmol/L Anion Gap (12-20) BUN (9-16) mg/dL Creatinine (0.5-1.4) mg/dL Estim Creat Clear Calc Estimated GFR Random Glucose (60-115) mg/dL Calcium (8.4-10.2) mg/dL Magnesium (1.6-2.6) mg/dL Total Bilirubin (0.0-1.0) mg/dL Direct Bilirubin (0.0-0.5) mg/dL AST (5-37) U/L ALT (0-40) U/L Alkaline Phosphatase (39-117) U/L Total Protein (6.5-8.0) g/dL Albumin (3.5-5.0) g/dL Lipase (8-78) U/L Urine Color Yellow Urine Appearance Clear Urine pH 7.5 (5.0-9.0) Ur Specific [place] 1.015 (1.005-1.025) Urine Protein Negative (Neg-Trace) mg/dL Urine Glucose (UA) Negative (Negative) mg/dL Urine Ketones Negative (Negative) mg/dL Urine Blood Negative (Negative) Urine Nitrite Negative (Negative) Ur Leukocyte Esterase Negative (Negative) COVID-19 (UYEN) (Negative) COVID-19 Clin Com <IKE Madrigal - Last Filed: 11/20/22 19:12> Independent Interpretation I performed an independent interpretation of an: CT Scan <IKE Madrigal - Last Filed: 11/20/22 19:12> Radiology Impression Discussion of test interpretation with radiology: I have reviewed the radiologist's reading. <IKE Madrigal - Last Filed: 11/20/22 19:12> External Record Review External record reviewed: Inpatient record, Office record, Outpatient record, Prior outpatient labs, Prior outpatient radiology, Primary care record and Outside ED record <IKE Madrigal - Last Filed: 11/20/22 19:12> Core Measures AMI core measures followed: Yes <IKE Madrigal - Last Filed: 11/20/22 19:12> Measure exclusions: not indicated <IKE Madrigal - Last Filed: 11/20/22 19:12> Medications Administered Discontinued Medications Generic Name Dose Route Start Last Admin Trade Name Freq PRN Reason Stop Dose Admin Acetaminophen 650 mg 11/20/22 16:34 11/20/22 16:52 Acetaminophen 325 Mg Tablet PO 11/20/22 16:35 650 mg ONCE ONE Administration Sodium Chloride 1,000 mls @ 999 mls/hr 11/20/22 14:00 11/20/22 16:53 Ns IV 11/20/22 15:00 Not Given .Q1H1M JOANNA <IKE Fam - Last Filed: 11/20/22 13:53> Medications Administered Discontinued Medications Generic Name Dose Route Start Last Admin Trade Name Freq PRN Reason Stop Dose Admin Acetaminophen 650 mg 11/20/22 16:34 11/20/22 16:52 Acetaminophen 325 Mg Tablet PO 11/20/22 16:35 650 mg ONCE ONE Administration Sodium Chloride 1,000 mls @ 999 mls/hr 11/20/22 14:00 11/20/22 16:53 Ns IV 11/20/22 15:00 Not Given .Q1H1M JOANNA <IKE Madrigal - Last Filed: 11/20/22 19:12> Critical Care Time Critical Care Time Critical Care Time: No <IKE Madrigal - Last Filed: 11/20/22 19:12> Discharge Plan Discharge Clinical Impression: Abdominal pain, COVID-19 <IKE Fam - Last Filed: 11/20/22 13:53> Patient Disposition: Home, Self-Care <IKE Fam - Last Filed: 11/20/22 13:53> Instructions: Abdominal Pain (ED), COVID-19 (Coronavirus Disease 2019) (ED) <IKE Fam - Last Filed: 11/20/22 13:53> Additional Instructions: Take your medications as prescribed. If you were prescribed antibiotics today, it is important that you take your medication to their entirety, do not skip any doses, do not finish them early. Today you tested positive for COVID-19. Take Ibuprofen or Tylenol as needed for fevers or body aches. Quarantine for 5 days and ensure you wear a mask. After 5 days you should wear a mask for 5 days after that. Practice social distancing and good hand hygiene. Drink plenty of fluids. Follow-up with your primary care provider this week. Return to the emergency department with new or worsening symptoms. In case of emergency call 911 You can purchase a pulse oximeter from your local pharmacy or grocery store, and monitor your oxygen saturation if it goes below 94% you should return to the emergency department for further evaluation. [place] kasandra medicamentos seg?n lo prescrito. Si le recetaron antibi?ticos hoy, es importante que tome duran medicamento en duran totalidad, no se salte ninguna dosis, no los termine antes de tiempo. Hoy diste positivo por COVID-19. [place] ibuprofeno o Tylenol seg?n sea necesario para la fiebre o los praveen corporales. Cuarentena keon 5 d?as y aseg?rese de usar annette m?scara. Despu?s de 5 d?as, debe usar annette m?scara keon 5 d?as despu?s de eso. Practique el distanciamiento social y annette buena higiene de douglas. Beber mucho l?quido. Seguimiento con duran proveedor de atenci?n primaria esta semana. Regrese al departamento de emergencias con s?ntomas nuevos o que empeoran. En tim de emergencia llama al 911 Puede comprar un ox?metro de pulso en duran farmacia o serge de comestibles local, y controlar duran saturaci?n de ox?enriqueta si desciende por debajo del 94%, debe regresar al departamento de emergencias para annette evaluaci?n adicional. CT/CT abdomen pelvis w IV con IMPRESSION: 1.? A cause for the patient's right lower quadrant pain has not been found. 2.? Incidental note made of distended gallbladder with a tiny calcification, moderate-sized hiatal hernia, colonic diverticulosis without diverticulitis and other findings described above. ? Fleischner guidelines were followed. <IKE Fam - Last Filed: 11/20/22 13:53> Prescriptions: No Action atorvastatin 40 mg Tablet 40 mg PO DAILY amlodipine 10 mg Tablet 10 mg PO DAILY aspirin 81 mg Tablet 81 mg PO DAILY Hold Instructions: Resume on 08/13/20. cholecalciferol (vitamin D3) [Vitamin D3] 25 mcg (1,000 unit) Tablet 25 mcg PO DAILY omega [id number]-[id number]-fish oil 300 mg (120 mg- 180mg)-1,000 mg capsule 1 cap PO BID fluticasone propion-salmeterol [Advair Diskus] 500-50 mcg/dose blister with device 1 puff inhalation DAILY omeprazole 20 mg capsule,delayed release(DR/EC) 20 mg PO QAM spironolactone 25 mg tablet 25 mg PO QAM <IKE Fam - Last Filed: 11/20/22 13:53> Referrals: Shyanne Antunez MD [Primary Care Provider] - 2 days <IKE Fam - Last Filed: 11/20/22 13:53> Stand Alone Forms: Work/School Release <IKE Fam - Last Filed: 11/20/22 13:53>
[2022-11-20 13:50] VITALS: BP 150/63; PULSE 83; RESP 18; TEMP 36.3; O2SAT 98; BMI 28.2
[2022-11-20 14:14] LABS: MANUAL DIFF FLAG NO
[2022-11-20 14:17] LABS: Basophils Absolute Auto 0.1 X10*3/uL (0.0-0.2); Basophils Percent Auto 0.6 % (0-2); Eosinophils Absolute Auto 0.2 X10*3/uL (0.0-0.4); Eosinophils Percent Auto 1.4 % (0-4); Hematocrit 44.2 % (42.0-52.0); Hemoglobin 14.2 g/dl (14.0-18.0); Imm Gran Abs Auto 0.05 X10*3/uL (0.00-0.03); Imm Gran Pct Auto 0.5 % (0.0-0.4); Lymphocytes Absolute Auto 0.8 X10*3/uL (1.2-4.9); Lymphocytes Percent Auto 7.6 % (20-40); Mean Corpuscular HGB Conc 32.1 g/dl (31.0-36.0); Mean Corpuscular Hemoglobin 27.3 pg (27.0-33.0); Mean Corpuscular Volume 84.8 fL (80.0-98.0); Mean Platelet Volume 9.5 fL (9.4-12.4); Monocytes Absolute Auto 1.3 X10*3/uL (0.1-1.2); Monocytes Percent Auto 11.7 % (2-11); Neutrophils Absolute Auto 8.6 x10*3/uL (2.0-8.3); Neutrophils Percent Auto 78.2 % (45-73); Platelet Count 317 X10*3/uL (160-400); Red Blood Count 5.21 X10*6/uL (4.60-5.80)
[2022-11-20 14:21] LABS: Appearance Urine Clear; Color Urine Yellow; Glucose Urine UA Negative (Negative); Leukocyte Esterase Urine Negative (Negative); Nitrite Urine Negative (Negative); PH 7.5 (5.0-9.0); Specific Gravity - Urine 1.015 (1.005-1.025); Urine Blood Negative (Negative); Urine Ketones Negative (Negative); Urine Protein Negative (Neg-Trace)
[2022-11-20 14:25] LABS: COVID-19 Test Positive (Negative); IDNOW Serial# 9DB6401D
[2022-11-20 14:31] LABS: Alanine Aminotransferase 42 U/L (0-40); Albumin Level 4.5 g/dL (3.5-5.0); Alkaline Phosphatase 77 U/L (39-117); Anion Gap 14 (12-20); Aspartate Amino Transferase 29 U/L (5-37); Bilirubin Direct 0.3 mg/dL (0.0-0.5); Bilirubin Total 0.8 mg/dL (0.0-1.0); Blood Urea Nitrogen 12 mg/dL (9-16); Calcium 9.4 mg/dL (8.4-10.2); Carbon Dioxide 29 mmol/L (22-29); Chloride 96 mmol/L (96-108); Creatinine Clr Calc Pharmacy 63.9; Estimated Glomerular Filt Rate > 60; Glucose Random 101 mg/dL (60-115); Lipase 21 U/L (8-78); Magnesium 1.7 mg/dL (1.6-2.6); Potassium 3.6 mmol/L (3.3-5.1); Sodium 135 mmol/L (135-145); Total Protein 7.6 g/dL (6.5-8.0)
[2022-11-20 16:06] VITALS: BP 146/69; PULSE 74; RESP 18; O2SAT 96
[2022-11-20] MEDS: Acetaminophen 325 MG TABLET 650 MG PO (16:52)
== END 2022-11-20 19:28 | disposition home or self-care (01) ==
PROVIDERS: Physician Assistant; Emergency Provider Emergency Medicine Emergency Medical Services; PCP Internal Medicine
DX: U07.1 COVID-19 (principal); R10.31 Right lower quadrant pain; I10 Essential (primary) hypertension; E78.5 Hyperlipidemia, unspecified; Z79.899 Other long term (current) drug therapy; Z79.02 Long term (current) use of antithrombotics/antiplatelets
CPT/HCPCS: 74177; 80048; 80076; 81003; 83690; 83735; 85025; 87635; 99284

== ENCOUNTER → 2023-03-27 08:21 | Outpatient (BNVA) | payer MEDICARE, MEDICAID, SELFPAY | PROVIDERS: PCP Internal Medicine; Visit Provider Internal Medicine | DX: R07.2 Precordial pain (principal); I25.10 Atherosclerotic heart disease of native coronary artery without angina pectoris; I10 Essential (primary) hypertension; E11.9 Type 2 diabetes mellitus without complications; E78.00 Pure hypercholesterolemia, unspecified; Z79.82 Long term (current) use of aspirin; Z79.84 Long term (current) use of oral hypoglycemic drugs; Z79.899 Other long term (current) drug therapy | CPT/HCPCS: 99202 ==

== ENCOUNTER → 2023-04-23 08:40 | Outpatient (REF) | payer MEDICARE, MEDICAID, SELFPAY ==
--- NOTE | ~2023-04-23 | NM_ITS ---
EXERCISE MYOCARDIAL PERFUSION STUDY INDICATION: Coronary artery disease, history of myocardial infarction, assess for ischemia TECHNIQUE: The patient was brought in for an exercise perfusion study on 04/23/2023. Patient performed exercise as per Nate protocol and was injected 30 mCi of sestamibi once target heart rate was achieved. Images were obtained using the SPECT gamma camera interlaced with the gating device. Images were obtained in supine position. Resting perfusion study was performed on 04/24/2023. Patient was administered 30 mCi of sestamibi intravenously at rest. Images were then obtained in supine position. Images were processed with the software and compared side to side in short axis, horizontal long axis and vertical long axis views. Total DLP 87mGy-cm. FINDINGS: Raw images were reviewed. The stress perfusion study showed diminished tracer uptake along the inferior wall. There is improvement with CT attenuation correction and hence could be components of diaphragmatic attenuation artifact. The gated study shows normal LV systolic function with calculated LVEF of 65%. LV cavity is normal in size. The gated study shows normal wall thickening and contraction of segments. Resting study shows diminished tracer uptake along the inferior wall. There is improvement with CT attenuation correction suggestive of diaphragmatic attenuation artifact. Gating at rest reveals normal wall motion with ejection fraction at 55%. The findings are consistent with fixed inferior defect which could be related to diaphragmatic attenuation artifact. NM/NM cardiolite stress test IMPRESSION: 1. Myocardial perfusion imaging study shows no clear evidence of any ischemia. Fixed inferior defect probably related to diaphragmatic attenuation artifact. 2. Gated LVEF is 65% during stress and 55% during rest. 3. Transient ischemic dilatation not present. EKG component of the test reported separately.
--- NOTE | 2023-04-23 08:44 | CA_ITS ---
Acquisition Time: 2023-04-23 09:42:54 Total Exercise Time: 00:05:20 Test Indications: CP Medications: SEE H Protocol: RACHELL Max HR: 150 BPM 96% of Pred: 155 BPM Max BP: 184/060 mmHG Max Work Load: 7.0 METS Exercise stress test exercise 5 min 20 sec of Rachell protocol achieving 97% MPHR, with moderate SOB, no chest discomfort, with isolated PVCs and PACs, with normotensive response to exercise, without EKG changes, Nuclear images pending. Test reviewed with Dr. Johnson. Referred By: Nick Eckert Overread By: NICK ECKERT
--- NOTE | 2023-04-23 08:44 | CA_ITS ---
Transthoracic Echocardiogram Patient (Last, First, Middle): John Milligan, Gender: Male Date of : 1955 Age: 67 Procedure Date: 04/23/2023 Procedure Type: Transthoracic Echocardiogram Location: OP Height: 167.64 cm Weight: 74.84 kg BSA: 1.84 m2 Heart Rate: bpm BP: 115 / 72 mmHg Casino Surveillance Officer: MEIR Referring MD: Bhavesh Medrano MD Cattle Sticker: Jeremy Johnson MD Symptoms: I25.10 - Atherosclerotic heart disease of [place] coronary artery without... Study Quality: Adequate ECG Rhythm: Sinus Conclusions: - Essentially normal study Findings Left Ventricle Normal left ventricular size, thickness, and systolic function. The visually estimated ejection fraction is between 55-60%. Spectral Doppler is indicative of a normal filling pattern. Peak GLS is -19.1%, within normal limits. Right Ventricle Normal right ventricular cavity size and systolic function. Atria Both atria are normal in size. There is no evidence of interatrial shunt. Aortic Valve Normal aortic valve structure and function. There is no aortic valve stenosis. There is no aortic valve regurgitation. Mitral Valve Normal mitral valve structure and function. There is trace mitral valve regurgitation. There is no mitral valve stenosis. Pulmonic Valve The pulmonic valve is likely normal. There is no pulmonic valve regurgitation. Tricuspid Valve Normal tricuspid valve structure. Tricuspid regurgitation envelope is inadequate for calculation of right ventricular systolic pressure. Normal right atrial pressure. Great Vessels All visible segments of the aorta are normal in size. The pulmonary artery was not well visualized. Venous The inferior vena cava is normal in size and collapses greater than 50% with inspiration. Pericardium/Pleural There is no evidence of pericardial effusion. Measurements 2D Linear Measurements IVSd: 1.05 0.6-0.9/0.6-1.0 cm LVIDd: 4.67 3.9-5.3/4.2-5.9 cm LVIDd Index: 2.54 2.4-3.2/2.2-3.1 cm/m2 LVIDs: 2.79 2.0-3.6 cm LVPWd: 1.06 0.7-1.1 cm LA Diam: 3.20 2.7-3.8/3.0-4.0 cm LAIDs Index: 1.74 1.5-2.3 cm/m2 LV Mass: 218.21 67-162/88-224 g LV Mass Index: 118.59 43-95/49-115 g/m2 LVOT Diam: 2.10 3.0+(-)1.3 cm 2D Systolic Function EF 4C: 55.30 >55% EF 2C: 61.20 >55% EF BiP: 58.60 >55% Mitral Valve MV Pk E: 0.91 MV PK A: 0.81 MV Decel Time: 240.00 E/A: 1.10 E'Lateral: 9.36 E'Medial: 7.40 E/E' Med: 12.30 E/E' Lat: 9.70 PHT: 70.00 MVA PHT: 3.14 Decel Walker: 3.79 Aortic Valve AoV Pk Justus: 1.36 AoV Mn Justus: 0.81 AoV VTI: 0.34 AoV Pk Grad: 7.00 Aov Mn Grad: 3.00 IGOR Cont.VTI: 2.53 LVOT LVOT Pk Justus: 0.98 LVOT Mn Justus: 0.58 LVOT VTI: 0.25 LVOT Pk Grad: 4.00 LVOT Mn Grad: 2.00 LVOT Diam: 2.10 LVOT Area: 3.46 Diastolic Function MV Pk E: 0.91 MV Pk A: 0.81 E/A: 1.10 E'Medial: 7.40 E/E' Med: 12.30 E' Laterial: 9.36 E/E' Lat: 9.70 Right Ventricle TAPSE (mm): 24.90 TVS' Justus: 11.90 Tricuspid Valve RA Press: 3.00 Great Vessels Aorta Sinus of Valsalva: 3.47 2.0-3.[address] [place]: 2.45 1.7-3.4 cm Ao Asc: 3.30 2.1-3.4 cm Updated in Other Vendor System with Status of Final Jeremy Johnson MD electronically signed on 04/23/2023 1:27:02 PM with status of Final
== END ==
LOC: HO.CARD 08:40
PROVIDERS: Visit Provider Internal Medicine
DX: R07.2 Precordial pain (principal); I25.10 Atherosclerotic heart disease of native coronary artery without angina pectoris
CPT/HCPCS: 78452; 93017; 93306; 93356; A9500

== ENCOUNTER → 2023-04-23 08:44 | Outpatient (BNV) | payer MEDICARE, MEDICAID, SELFPAY | PROVIDERS: Visit Provider Internal Medicine Cardiovascular Disease | DX: I25.10 Atherosclerotic heart disease of native coronary artery without angina pectoris (principal) | CPT/HCPCS: 78452; 93016; 93018; 93306 ==

== ENCOUNTER 2023-05-20 12:57 | Outpatient (AMB) | payer MEDICARE, MEDICAID, SELFPAY ==
[2023-05-20 13:10] VITALS: BP 144/78; PULSE 60; O2SAT 98; BMI 28.3
--- NOTE | 2023-05-20 13:10 | A.OFFVIS_ITS ---
Intake Vital Signs 05/20/23 13:10 Height 5 ft 6 in Weight 175 lb 7.807 oz BMI 28.3 BP 144/78 H Blood Pressure Location Lt brachial Position Sitting Pulse 60 Pulse Source Pulse Oximeter Pulse Oximetry (%) 98 Oxygen Delivery Method Room Air Intake Visit Reasons: follow up after testing per HS Allergies lisinopril Allergy (Intermediate, Verified 05/20/23 13:15) Swelling Medication List - Last Reconciled 05/20/23 by Tamiko Arriola NP-C albuterol sulfate 90 mcg/actuation (Ventolin HFA) 0 mcg inhalation amlodipine 10 mg PO DAILY aspirin 81 mg PO DAILY atorvastatin 40 mg PO DAILY cholecalciferol (vitamin D3) (Vitamin D3) 25 mcg PO DAILY famotidine 20 mg PO DAILY fluticasone propion-salmeterol 500-50 mcg/dose (Advair Diskus) 1 puff inhalation DAILY docakttefit-edmqrghcu-otlorunu 200-62.5-25 mcg (Trelegy Ellipta) 1 ea inhalation DAILY metformin 1,000 mg PO omega 4-inf-sgc-fish oil 300 mg (120 mg- 180mg)-1,000 mg 1 cap PO BID HPI follow up after testing per HS HPI Details John is a 67-year-old male with past medical history of hypertension, hyperlipidemia, diabetes, CAD with reported history of prior [place] who reported rodger rtness of breath in the humid weather and presents for follow-up after recent echocardiogram and stress test. Today he reports he has been feeling well. He denies any chest discomfort at rest or with activity. No shortness of breath that is bothersome to him recently. He does admit to having COPD and coughs occasionally. He quit smoking approximately 8 years ago. No palpitations, dizziness, presyncope, syncope, PND, orthopnea or edema. He stays active throughout the day. Takes his medications as directed. is present. [facility] Medical History Arthritis Asthma Atherosclerotic cardiovascular disease Back pain Elevated cholesterol GERD (gastroesophageal reflux disease) HTN (hypertension) Lower gastrointestinal bleed Myocardial infarction Peptic ulcer Surgical History Hx of colonoscopy Hx of excision of mass Hx of umbilical hernia repair Family History Mother Diabetes Heart disease Arthritis Father Heart disease Social History Household Members: Spouse Housing: Apartment Do you presently have visiting nurse or other home services: No Alcohol intake: current Alcohol intake frequency: does not drink Patient Tobacco Use Status: Never used Tobacco Years Smoked: 40 Second Hand Smoke Exposure: No service: No Current occupational status: unemployed Review of Systems Const All systems reviewed & are unremarkable except as noted in HPI and below Card Reports dyspnea (with humidity) Resp Reports dyspnea (with humidity) Physical Exam Vital Signs: Last Vital Signs Pulse 60 05/20/23 13:10 BP 144/78 H 05/20/23 13:10 Pulse Ox 98 05/20/23 13:10 Oxygen Delivery Method Room Air 05/20/23 13:10 BMI result Body Mass Index 28.3 Const General: cooperative, healthy appearing, comfortable and no acute distress Orientation/consciousness: patient oriented x3 Neck Neck: Yes normal visual inspection Resp Effort & Inspection: normal respiratory effort Auscultation: clear to auscultation bilaterally, no crackles, no rales, no rhonchi and no wheezes Cardio Jugular venous distension: no JVD Rate: regular rate Rhythm: regular rhythm Heart sounds: S1 normal heart sound present, S2 normal heart sound present, no murmurs and no rubs Neuro General: patient oriented x3 Extrem General: Yes normal to inspection Psych Appearance: grossly normal Mental Status: mental status grossly normal Speech and movement: Normal speech and movement present Assessment & Plan Assessment & Plan (1) Atherosclerotic cardiovascular disease: Code(s): I25.10 - Atherosclerotic heart disease of [place] coronary artery without angina pectoris Plan: History of CAD with reported prior [place]. on last visit reported feeling short of breath in the humid air. EKG done in July showed sinus rhythm with incomplete right bundle-branch block. Echocardiogram was done 04/23/2023 showing normal study, EF 55-60%. Nuclear stress test done 04/23/2023 showing exercise 5 minutes 20 seconds, moderate shortness of breath, no EKG changes, nuclear imaging with no clear ischemia, fixed defect most likely related to diaphragm attenuation artifact. Today he reports that his breathing has been better more recently. He has no chest discomfort at rest or with activity. Continue with cardiac risk factor modification including good blood pressure, cholesterol and diabetes control. Activity as tolerated. Continue aspirin indefinitely. Continue atorvastatin with ideal LDL goal less than 70. Hemoglobin A1c goal less than 7, followed by his PCP. He is newer to our practice. Signs and symptoms of angina reviewed. Will arrange for re-evaluation of symptoms in 6 months, sooner if needed. (2) HTN (hypertension): Code(s): I10 - Essential (primary) hypertension Plan: Mild elevation initially, improved on recheck. Blood pressure meds continued without change. He is currently on amlodipine 10 mg daily. Lisinopril is listed as an allergy for him, causing swelling. Heart rate today is 60. If further antihypertensive agent is needed then recommend start of diuretic such as hydrochlorothiazide. (3) Elevated cholesterol: Code(s): E78.00 - Pure hypercholesterolemia, unspecified Plan: Aragon LDL goal less than 70. Continue atorvastatin. Labs done on 08/14/2022 shows LDL 56. Recheck can be done by PCP (4) Type 2 diabetes mellitus with unspecified complications: Code(s): E11.8 - Type 2 diabetes mellitus with unspecified complications Plan: As above (5) Myocardial infarction: Comment: 2002-no surgery or stents. Denies recent CP Code(s): I21.9 - Acute myocardial infarction, unspecified Coding Level of Care Code Est Pt Level 4 (23986) Diagnoses Atherosclerotic cardiovascular disease I25.10 HTN (hypertension) I10 Elevated cholesterol E78.00 Type 2 diabetes mellitus with unspecified complications E11.8 Myocardial infarction I21.9 Time Spent (min) 26 Comment Chart review, documentation, interview, assessment
== END 2023-05-20 13:39 | disposition home or self-care (01) ==
PROVIDERS: PCP Internal Medicine; Visit Provider Nurse Practitioner Family
DX: I25.10 Atherosclerotic heart disease of native coronary artery without angina pectoris (principal); I10 Essential (primary) hypertension; E78.00 Pure hypercholesterolemia, unspecified; E11.8 Type 2 diabetes mellitus with unspecified complications; I21.9 Acute myocardial infarction, unspecified
CPT/HCPCS: 99214

== ENCOUNTER → 2023-05-20 12:57 | Outpatient (BNVA) | payer MEDICARE, MEDICAID, SELFPAY | PROVIDERS: PCP Internal Medicine; Visit Provider Nurse Practitioner Family | DX: I25.10 Atherosclerotic heart disease of native coronary artery without angina pectoris (principal); I10 Essential (primary) hypertension; I25.2 Old myocardial infarction; E11.9 Type 2 diabetes mellitus without complications; E78.00 Pure hypercholesterolemia, unspecified; Z87.891 Personal history of nicotine dependence | CPT/HCPCS: 99212 ==

== ENCOUNTER 2023-05-22 10:45 | Outpatient (AMB) | payer MEDICARE, MEDICAID, SELFPAY ==
[2023-05-22 10:54] VITALS: BP 132/87; PULSE 64; O2SAT 99; BMI 28.5
--- NOTE | 2023-05-22 10:54 | A.OFFVIS_ITS ---
Intake Vital Signs 05/22/23 10:54 Height 5 ft 6 in Weight 176 lb 5.917 oz BMI 28.5 BP 132/87 Blood Pressure Location Rt brachial Position Sitting Pulse 64 Pulse Source Doppler Pulse Oximetry (%) 99 Oxygen Delivery Method Room Air Intake Visit Reasons: Pulmonary Emphysema Allergies lisinopril Allergy (Intermediate, Verified 05/22/23 10:56) Swelling HPI Pulmonary Emphysema HPI Details 67-year-old gentleman, former 40 pack-year smoker, quit 2014 referred for evaluation for possible emphysema and/or COPD. Patient complains of intermittent dyspnea on exertion. He denies cough or sputum production. He has been using Trelegy and albuterol MDI. Patient denies family history of lung disease or personal history of exposure to industrial dusts. [facility] Medical History Arthritis Asthma Atherosclerotic cardiovascular disease Back pain Elevated cholesterol GERD (gastroesophageal reflux disease) HTN (hypertension) Lower gastrointestinal bleed Myocardial infarction Peptic ulcer Surgical History Hx of colonoscopy Hx of excision of mass Hx of umbilical hernia repair Family History Mother Diabetes Heart disease Arthritis Father Heart disease Social History Household Members: Spouse Housing: Apartment Do you presently have visiting nurse or other home services: No Alcohol intake: current Alcohol intake frequency: does not drink Patient Tobacco Use Status: Never used Tobacco Years Smoked: 40 Second Hand Smoke Exposure: No service: No Current occupational status: unemployed Review of Systems Const Denies daytime sleepiness, Denies excessive sweating, Denies fatigue, Denies fever(s), Denies lethargy, Denies malaise, Denies night sweats, Denies snoring and Denies weight loss Eyes Denies blurry vision and Denies itchy eyes ENT Denies nasal congestion, Denies post nasal drip, Denies sinus pain, Denies sinus pressure and Denies other ( Thrush) Card Denies chest pain, Denies pedal edema, Denies dyspnea, Denies orthopnea and Denies paroxysmal nocturnal dyspnea Resp Denies cough, Denies hemoptysis, Denies excessive phlegm production, Denies dyspnea, Denies snoring and Denies wheezing GI Denies abdominal pain and Denies heartburn Musc Denies myalgias, Denies arthralgias and Denies joint swelling Skin/Breast Denies rash Neuro Denies memory loss and Denies seizure-like activity Psych Denies abnormal sleep pattern, Denies anxiety and Denies memory loss Endo Denies excessive sweating, Denies fatigue and Denies heat intolerance Sukumar/Lymph Denies easy bruising Aller/Immun Denies itchy eyes, Denies seasonal rhinorrhea and Denies wheezing Physical Exam Vital Signs: Last Vital Signs Pulse 64 05/22/23 10:54 BP 132/87 05/22/23 10:54 Pulse Ox 99 05/22/23 10:54 Oxygen Delivery Method Room Air 05/22/23 10:54 BMI result Body Mass Index 28.5 Const General: no acute distress and alert Nutritional Appearance: not obese Orientation/consciousness: Other orientation findings ( oriented) HEENT Head: Yes atraumatic Eyes General: appearance normal, both eyes and all related structures Sclerae: sclerae normal EOM: EOMs intact bilaterally Neck Neck: Yes supple Lymphatic: no lymphadenopathy noted Resp Effort & Inspection: normal respiratory effort and no use of accessory muscles Auscultation: clear to auscultation bilaterally Cardio Rate: regular rate Rhythm: regular rhythm Heart sounds: no gallops, no murmurs and no rubs Skin General skin exam: other ( warm) Extrem General: No clubbing, No cyanosis and No edema Assessment & Plan Assessment & Plan (1) COPD (chronic obstructive pulmonary disease): Code(s): J44.9 - Chronic obstructive pulmonary disease, unspecified Plan: Likely underlying COPD of unclear severity. Continue Trelegy and albuterol MDI. Will obtain full PFT. Inhaler technique checked and adjusted. Coding Level of Care Code New Pt Level 3 (26623) Diagnoses COPD (chronic obstructive pulmonary disease) J44.9
== END 2023-05-22 11:15 | disposition home or self-care (01) ==
PROVIDERS: PCP Internal Medicine; Visit Provider Internal Medicine Pulmonary Disease
DX: J44.9 Chronic obstructive pulmonary disease, unspecified (principal)
CPT/HCPCS: 99203

== ENCOUNTER → 2023-05-22 10:45 | Outpatient (BNVA) | payer MEDICARE, MEDICAID, SELFPAY | PROVIDERS: PCP Internal Medicine; Visit Provider Internal Medicine Pulmonary Disease | DX: J44.9 Chronic obstructive pulmonary disease, unspecified (principal); Z79.899 Other long term (current) drug therapy; Z87.891 Personal history of nicotine dependence | CPT/HCPCS: 99202 ==

== ENCOUNTER 2023-06-12 08:39 | Outpatient (REF) | payer MEDICARE, MEDICAID, SELFPAY ==
[2023-06-12 11:39] LABS: MANUAL DIFF FLAG NO
[2023-06-12 12:07] LABS: Basophils Absolute Auto 0.1 X10*3/uL (0.0-0.2); Basophils Percent Auto 0.6 % (0-2); Eosinophils Absolute Auto 0.2 X10*3/uL (0.0-0.4); Eosinophils Percent Auto 1.7 % (0-4); Hematocrit 42.1 % (42.0-52.0); Hemoglobin 13.4 g/dl (14.0-18.0); Imm Gran Abs Auto 0.04 X10*3/uL (0.00-0.03); Imm Gran Pct Auto 0.4 % (0.0-0.4); Lymphocytes Absolute Auto 2.9 X10*3/uL (1.2-4.9); Lymphocytes Percent Auto 31.2 % (20-40); Mean Corpuscular HGB Conc 31.8 g/dl (31.0-36.0); Mean Corpuscular Hemoglobin 27.4 pg (27.0-33.0); Mean Corpuscular Volume 86.1 fL (80.0-98.0); Mean Platelet Volume 10.7 fL (9.4-12.4); Monocytes Absolute Auto 0.9 X10*3/uL (0.1-1.2); Monocytes Percent Auto 9.1 % (2-11); Neutrophils Absolute Auto 5.3 x10*3/uL (2.0-8.3); Platelet Count 371 X10*3/uL (160-400); Red Blood Count 4.89 X10*6/uL (4.60-5.80); Red Cell Distribution Width 14.9 % (11.0-16.0); White Blood Count 9.3 X10*3/uL (4.8-10.8)
[2023-06-12 12:10] LABS: Estimated Average Glucose 117 mg/dL; Hemoglobin A1c % 5.7 % (<6.0)
[2023-06-12 12:32] LABS: Alanine Aminotransferase 25 U/L (0-40); Albumin Level 4.4 g/dL (3.5-5.0); Alkaline Phosphatase 64 U/L (39-117); Anion Gap 15 (12-20); Aspartate Amino Transferase 18 U/L (5-37); Bilirubin Total 0.6 mg/dL (0.0-1.0); Blood Urea Nitrogen 20 mg/dL (9-16); C Reactive Protein 0.18 mg/dL (< or = 0.50); Calcium 10.1 mg/dL (8.4-10.2); Carbon Dioxide 28 mmol/L (22-29); Chloride 101 mmol/L (96-108); Cholesterol 133 mg/dL (<200); Estimated Glomerular Filt Rate 55; Glucose Random 96 mg/dL (60-115); HDL Cholesterol 43 mg/dL (>40); LDL Cholesterol Calculated 72 mg/dL (<100); Sodium 140 mmol/L (135-145); Total Protein 7.9 g/dL (6.5-8.0); Triglycerides 93 mg/dL (<150)
[2023-06-12 12:48] LABS: Creatinine Urine 263.15 mg/dL
[2023-06-12 12:48] LABS: Rheumatoid Factor < 13.0 IU/mL (<15.0); Vitamin B12 421 pg/mL (200-900)
[2023-06-12 12:59] LABS: Erythrocyte Sedimentation Rate 4 MM/HR (0-15)
[2023-06-14 15:54] LABS: IgA 297 mg/dL (70-320); IgG 1429 mg/dL (600-1540); IgM 124 mg/dL (50-300)
[2023-06-17 07:28] LABS: Cyclic Citrullinated Peptide <16 UNITS
== END 2023-06-12 08:40 | disposition home or self-care (01) ==
LOC: HO.HHCL 08:39
PROVIDERS: Visit Provider Student in an Organized Health Care Education/Training Program
DX: Z13.89 Encounter for screening for other disorder (principal)
CPT/HCPCS: 36415; 80053; 80061; 82043; 82570; 82607; 82784; 83036; 85025; 85652; 86140; 86200; 86431

== ENCOUNTER 2023-07-03 08:46 | Outpatient (REF) | payer MEDICARE, MEDICAID, SELFPAY | END 2023-07-03 08:47 | disposition home or self-care (01) | LOC: HO.US 08:46 | PROVIDERS: PCP Internal Medicine; Visit Provider Student in an Organized Health Care Education/Training Program | DX: Z13.6 Encounter for screening for cardiovascular disorders (principal); Z87.891 Personal history of nicotine dependence; Z77.22 Contact with and (suspected) exposure to environmental tobacco smoke (acute) (chronic) | CPT/HCPCS: 76604; 76775 ==

== ENCOUNTER 2023-08-06 09:53 | Outpatient (REF) | payer MEDICARE, MEDICAID, SELFPAY ==
[2023-08-08 18:34] LABS: Antibody to SS-A Antigen <1.0 NEG AI (<1.0 NEG); Antibody to SS-B Antigen <1.0 NEG AI (<1.0 NEG)
== END 2023-08-06 09:54 | disposition home or self-care (01) ==
LOC: HO.HHCL 09:53
PROVIDERS: Visit Provider Student in an Organized Health Care Education/Training Program
DX: R68.2 Dry mouth, unspecified (principal)
CPT/HCPCS: 36415; 86235

== ENCOUNTER 2023-08-20 13:48 | Outpatient (AMB) | payer MEDICARE, MEDICAID, SELFPAY ==
--- NOTE | 2023-08-20 14:13 | A.OFFVIS_ITS ---
Intake Vital Signs 3 08/20/23 14:23 Height 5 ft 6 in Weight 177 lb 2 oz BMI 28.6 BP 156/75 H Blood Pressure Location Lt brachial Position Sitting Pulse 71 Intake Visit Reasons: umbilical hernia Intake Note: Patient is seen in office for evaluation and treatment of an umbilical hernia. Patient c/o: recurrent umbilical hernia was repaired 6 yrs ago, came back couple yrs after, Ct abd: 11/20/22 Supervisor [employer] Required: Yes [employer] Language: Junior Sales Representative Name: Ranjana HICKS Information Interpreted: non-clinical & clinical Wood Finisher: Wood Finisher Present Accompanied by: Family/Other Allergies lisinopril Allergy (Intermediate, Verified 08/20/23 14:19) Swelling Medication List - Last Reconciled 08/20/23 by Vijay Armenta MD albuterol sulfate 90 mcg/actuation (Ventolin HFA) 0 mcg inhalation amlodipine 2.5 mg PO DAILY aspirin 81 mg PO DAILY atorvastatin 40 mg PO DAILY cholecalciferol (vitamin D3) (Vitamin D3) 25 mcg PO DAILY famotidine 20 mg PO DAILY fluticasone propion-salmeterol 500-50 mcg/dose (Advair Diskus) 1 puff inhalation DAILY kexmtdckmxu-xaymnbryd-iqjpivha 200-62.5-25 mcg (Trelegy Ellipta) 1 ea inhalation DAILY metformin 1,000 mg PO omega 8-izw-avp-fish oil 300 mg (120 mg- 180mg)-1,000 mg 1 cap PO BID omeprazole 20 mg PO DAILY HPI HPI Comments 2 History of Present Illness0 Details 67-year-old male patient with a previous history of an umbilical hernia repaired in 2017 with mesh now returning with a recurrent umbilical hernia. He reports that the hernia recurred approximately 2 years ago following the repair while doing heavy lifting. Since this time the hernias increased in size and is causing occasional discomfort. The pain also increases with pressure on the hernia. He denies nausea, vomiting, fever or chills. His bowels have been normal without bleeding. He has requested repair of this recurrent umbilical hernia. He also reports a soft tissue mass on the left flank which is been present for several years and is felt to be a lipoma. He is also requesting excision of this lesion as well. [facility] Medical History Atherosclerotic cardiovascular disease Lower gastrointestinal bleed Back pain Arthritis Peptic ulcer GERD (gastroesophageal reflux disease) Asthma Elevated cholesterol Myocardial infarction HTN (hypertension) Surgical History Hx of excision of mass (03/30/15) Hx of colonoscopy Hx of umbilical hernia repair (04/23/17) Family History Mother Diabetes Heart disease Arthritis Father Heart disease Household Members: Spouse Housing: Apartment Do you presently have visiting nurse or other home services: No Alcohol intake: current Alcohol intake frequency: does not drink Patient Tobacco Use Status: Never used Tobacco Years Smoked: 40 Second Hand Smoke Exposure: No service: No Current occupational status: unemployed Review of Systems Const All systems reviewed & are unremarkable except as noted in HPI and below Physical Exam Vital Signs: Last Vital Signs Pulse 71 08/20/23 14:23 BP 156/75 H 08/20/23 14:23 BMI result Body Mass Index 28.6 Const General: cooperative and no acute distress Nutritional Appearance: well nourished Orientation/consciousness: patient oriented x3 Limitations: no limitations HEENT Head: Yes normocephalic and Yes atraumatic Ears: hearing grossly normal bilaterally Resp Effort & Inspection: normal respiratory effort, no audible wheezes, no cough and no respiratory distress Cardio Jugular venous distension: no JVD GI Inspection: Yes normal to inspection Palpation (GI): Soft to palpation, nontender, no guarding and not rigid Percussion: Yes normal to percussion Auscultation: normal bowel sounds Abdomen image: 2 1. Hernia to right of umbilicus, reducible, 2 cm diameter Back/Spine/Pelvis Back/spine/pelvis image: 2 1. Soft tissue mass left flank 2.5 cm diameter, mobile within the subcutaneous tissue. No overlying skin changes appreciated. Skin Other: Warm, dry, no rash Neuro General: patient oriented x3 Extrem General: Yes no clubbing, cyanosis or edema Assessment & Plan Assessment & Plan (1) Recurrent umbilical hernia: Code(s): K42.9 - Umbilical hernia without obstruction or gangrene (2) Lipoma of flank: Code(s): D17.1 - Benign lipomatous neoplasm of skin and subcutaneous tissue of trunk Plan 67-year-old male patient presenting with a recurrent umbilical hernia and a lipoma of the left flank. I recommended repair of the umbilical hernia with mesh and excision of the lipoma at the same time. After discussion of the procedure, risks, and alternatives, he consents to the surgery. This will be scheduled as a short-stay surgery at his earliest convenience. Coding Level of Care Code New Pt Level 4 (73948) Diagnoses Recurrent umbilical hernia K42.9 Lipoma of flank D17.1
[2023-08-20 14:23] VITALS: BP 156/75; PULSE 71; BMI 28.6
== END 2023-08-20 14:59 | disposition home or self-care (01) ==
PROVIDERS: PCP Student in an Organized Health Care Education/Training Program; Referring Provider Student in an Organized Health Care Education/Training Program; Visit Provider Surgery
DX: K42.9 Umbilical hernia without obstruction or gangrene (principal); D17.1 Benign lipomatous neoplasm of skin and subcutaneous tissue of trunk
CPT/HCPCS: 99204

== ENCOUNTER → 2023-08-20 13:48 | Outpatient (BNVA) | payer MEDICARE, MEDICAID, SELFPAY | PROVIDERS: PCP Student in an Organized Health Care Education/Training Program; Referring Provider Student in an Organized Health Care Education/Training Program; Visit Provider Surgery | DX: K42.9 Umbilical hernia without obstruction or gangrene (principal); D17.1 Benign lipomatous neoplasm of skin and subcutaneous tissue of trunk | CPT/HCPCS: 99202 ==

== ENCOUNTER 2023-11-01 09:47 | Outpatient (AMB) | payer MEDICARE, MEDICAID, SELFPAY ==
--- NOTE | 2023-11-01 09:53 | MHC.OFFVIS ---
Intake Intake Visit Reasons: LDCT SD Allergies lisinopril Allergy (Intermediate, Verified 08/20/23 14:19) Swelling HPI LDCT SD HPI Details quit 8 years ago HPI Comments History of Present Illness Details John is a pleasant 68 year old male, former smoker with a 49 PYH. Patient started smoking at age 11 for 49 years at 1 ppd, quit 8 years ago Denies marijuana use. Denies exposure to chemicals or substances like asbestos. Denies second hand smoke exposure. Denies known family history of lung cancer. Denies personal history of cancers. Denies chest CT in last year. Denies recent travel outside the [place]. Denies testing positive for COVID. Admits receiving COVID Vaccine. Denies fever, chills, chest pain, new cough, hemoptysis or unintentional weight loss. Lung Cancer Screening Questionnaire reviewed with patient by provider. Shared Decision Making Completed. Discussed in detail with patient, the risk versus benefit of LDCT screening. Patient in agreement of proceeding with scan. [facility] Medical History Atherosclerotic cardiovascular disease Lower gastrointestinal bleed Back pain Arthritis Peptic ulcer GERD (gastroesophageal reflux disease) Asthma Elevated cholesterol Myocardial infarction HTN (hypertension) Surgical History Hx of excision of mass (03/30/15) Hx of colonoscopy Hx of umbilical hernia repair (04/23/17) Family History Mother Diabetes Heart disease Arthritis Father Heart disease Social History (Updated 11/01/23 @ 10:25 by Teresita Hawkins NP) Household Members: Spouse Housing: Apartment Do you presently have visiting nurse or other home services: No Alcohol intake: current Alcohol intake frequency: does not drink Patient Tobacco Use Status: Former Tobacco user Quit Date: quit 8 years ago Years Smoked: 48 Second Hand Smoke Exposure: No service: No Current occupational status: unemployed Assessment & Plan Assessment & Plan (1) Personal history of tobacco use: Code(s): Z87.891 - Personal history of nicotine dependence Plan Shared decision-making visit completed today in office. This patient meets criteria for LDCT for lung cancer screening purposes and is asymptomatic. Patient has been scheduled for a low dose chest CT for screening purposes at [facility]. We discussed how the results will be obtained depending on CT findings. RADS 1 and RADS 2 will receive a letter with results and will follow up for annual LDCT. Patient informed they will be contacted at later date to schedule upcoming LDCT scan. RADS 3 and RADS 4 will receive a telephone call, or an office visit after reviewing case at our Lung Cancer Conference to determine when the next LDCT will be scheduled or further interventions that may be needed. Discussed importance of screening program and compliance with yearly LDCT scan as scheduled. Risks, benefits, and alternatives were discussed in detail and patient agrees to proceed. Risks discussed include but are not limited to: radiation exposure and possibility of additional intervention for benign disease. Benefits include detection of lung cancer at an early stage. A copy of today's visit and LDCT results will be sent to patient's PCP. Incidental findings on LDCT are PCP's responsibility. If there are incidental findings, our office will ensure that PCP office is aware of these findings. All questions were answered and patient is in agreement of plan. Coding Level of Care Code Lung Cancer Screening G0296 Diagnoses Personal history of tobacco use Z87.891
== END 2023-11-01 10:43 | disposition home or self-care (01) ==
PROVIDERS: PCP Student in an Organized Health Care Education/Training Program; Referring Provider Student in an Organized Health Care Education/Training Program; Visit Provider Nurse Practitioner Family
DX: Z87.891 Personal history of nicotine dependence (principal)
CPT/HCPCS: G0296

== ENCOUNTER 2023-11-01 10:15 | Outpatient (REF) | payer MEDICARE, MEDICAID, SELFPAY ==
--- NOTE | ~2023-11-01 | CT_ITS ---
EXAMINATION: CT CHEST SCREENING CLINICAL INFORMATION: Former smoker with 50 pack year history, quit smoking 8 years ago COMPARISON: 02/05/[address] TECHNIQUE: Multidetector volumetric CT imaging of the chest is performed without contrast using low dose technique. Additional 2D coronal and sagittal reformatted images and axial 3D maximum intensity projection (MIP) images are generated on the CT workstation. This CT examination was performed using dose optimization techniques as appropriate, variously including the following: *Automated exposure control *Adjustment of mA and/or kV according to patient size (this includes techniques or standardized protocols for targeted exams where dose is matched to indication/reason for exam; i.e. extremities or head) *Use of iterative reconstruction technique DLP: 58 mGy-cm FINDINGS: MANAGEMENT ARCHITECT: Hiatal hernia. Clear lungs. LUNGS: Trachea and bronchi are patent. Diffuse peribronchial thickening. Apical bullous changes. Interval development of 9 mm peripheral soft tissue density associated with decreasing size left upper lobe bulla, 5:80. No significant change groundglass opacity just superior to the aortic arch, 5:123. Patchy central peribronchial groundglass opacities, 4:23 through 32. Superior segment right lower lobe 5 mm groundglass opacity, 8:79 Dependent atelectasis. MEDIASTINUM: Unremarkable thyroid. Large hiatal hernia. No pathologic lymphadenopathy. Nonenlarged heart. No pericardial effusion. Nonaneurysmal aorta with atherosclerotic calcifications. Nonenlarged pulmonary arteries. CORONARY ARTERY CALCIFICATION: Moderate. PLEURA: There is no pleural effusion. No pleural mass or thickening. AXILLA: No lymphadenopathy. UPPER ABDOMEN: Hepatic calcifications. OSSEOUS STRUCTURES: No suspicious osseous lesions. CT/CT lung screening IMPRESSION: Groundglass opacities and 5 mm RLL groundglass nodule. Increasing soft tissue density associated with decreasing size below left apex. ASSESSMENT: Lung-RADS category 3: Probably Benign RECOMMENDATION: Short interval 6 month follow up low dose CT chest.
== END 2023-11-01 10:16 | disposition home or self-care (01) ==
LOC: HO.CT 10:15
PROVIDERS: PCP Student in an Organized Health Care Education/Training Program; Visit Provider Nurse Practitioner Family
DX: Z87.891 Personal history of nicotine dependence (principal)
CPT/HCPCS: 71271; G0296

== ENCOUNTER → 2023-11-22 10:29 | Outpatient (BNVA) | payer MEDICARE, MEDICAID, SELFPAY | PROVIDERS: PCP Student in an Organized Health Care Education/Training Program; Visit Provider Nurse Practitioner ==

== ENCOUNTER 2023-11-27 05:52 | Day surgery (SDC) | payer MEDICARE, MEDICAID, SELFPAY ==
[2023-11-15 12:31] VITALS: BP 158/72; PULSE 61; RESP 20; O2SAT 99; BMI 29.0
--- NOTE | 2023-11-15 12:59 | P.CONAN_ITS ---
Documented by User: Modesta Meredith MD 11/15/23 13:30 HPI - Anesthesia Eval Consult details Narrative: 68 yo male patient for repair of recurrent umbilical hernia and excision of left flank lipoma Echo 04/23/23: EF 50-55% Stress test 04/23/23: PMFSH Active Problems Active Problems: All Active Problems (Updated 11/15/23 @ 13:00 by Modesta Meredith MD) Personal history of tobacco use (Acute) Lipoma of flank (Acute) Recurrent umbilical hernia (Acute) COPD (chronic obstructive pulmonary disease) (Acute) Type 2 diabetes mellitus with unspecified complications (Acute) Peroneal tendonitis (Acute) IBS (irritable bowel syndrome) (Acute) Sessile colonic polyp (Acute) Elevated cholesterol (Acute) HTN (hypertension) (Acute) Atherosclerotic cardiovascular disease (Acute) Past Medical History Medical History COVID-19 Wheezing Normocytic anemia Poor memory Overweight Dry mouth Osteoarthrosis Skin lesion Diabetes Umbilical hernia Hearing loss Nodule of chest wall Murmur CAD (coronary artery disease) COPD (chronic obstructive pulmonary disease) Atherosclerotic cardiovascular disease Lower gastrointestinal bleed Back pain Arthritis Peptic ulcer GERD (gastroesophageal reflux disease) Asthma Elevated cholesterol Myocardial infarction HTN (hypertension) Family History Family History Mother Diabetes Heart disease Arthritis Father Heart disease Family history of problems with anesthesia: No Surgical History Surgical History Hx of excision of mass (03/30/15) Hx of colonoscopy Hx of umbilical hernia repair (04/23/17) History of Problems with Anesthesia: No Social History Social History Household Members: Spouse Housing: Apartment Are you a primary care management assistant to a significant other at home: No Do you presently have visiting nurse or other home services: No Alcohol intake: current Alcohol intake frequency: does not drink Patient Tobacco Use Status: Former Tobacco user Quit Date: quit 8 years ago Years Smoked: 48 Second Hand Smoke Exposure: No Use of substances other than those prescribed or required for medical reasons: No Have you been hit, kicked, punched, or otherwise hurt by someone within the past year? If so, by whom?: No Advance Directives: No Advance Directives Information Provided: Yes Advance Directives on File: No Recently lost weight without trying: No Eating poorly because of decreased appetite: No Nutrition Risks: No Nutritional Risk service: No Current occupational status: unemployed Meds Allergies Allergy/AdvReac Type Severity Reaction Status Date / Time lisinopril Allergy Intermediate Swelling Verified 11/27/23 06:01 Home Medications Medication Instructions Recorded Confirmed Last Taken Type atorvastatin 40 mg tablet 40 mg PO BEDTIME 07/29/20 11/15/23 Unknown History cholecalciferol (vitamin D3) 25 25 mcg PO DAILY 07/29/20 11/15/23 Unknown History mcg (1,000 unit) tablet (Vitamin D3) omega-3 300 mg-dha 120 mg-epa 180 1 cap PO BID 08/14/22 11/15/23 Unknown History mg-fish oil 1,000 mg capsule albuterol sulfate 90 mcg/actuation 2 puff inhalation QID PRN 03/27/23 11/15/23 Unknown History aerosol inhaler (Ventolin HFA) Shortness Of Breath Or Wheezing fluticasone fur. 200 mcg-umeclid 1 ea inhalation DAILY 03/27/23 11/15/23 Unknown History 62.5 mcg-vilant 25 mcg inhalat.powder (Trelegy Ellipta) metformin 1,000 mg tablet 1,000 mg PO BID 03/27/23 11/15/23 Unknown History omeprazole 20 mg capsule,delayed 20 mg PO DAILY 08/20/23 11/15/23 Unknown History release amlodipine 5 mg tablet 5 mg PO QAM 11/15/23 11/15/23 Unknown History aspirin 81 mg tablet,delayed 81 mg PO DAILY 11/15/23 11/15/23 Unknown History release chlorthalidone 25 mg tablet 25 mg PO BEDTIME 11/15/23 11/15/23 Unknown History Exam Height,Weight and Vital Signs: Height 5 ft 6 in Weight 81.647 kg Last Vital Signs Pulse 61 11/15/23 12:31 Resp 20 11/15/23 12:31 BP 158/72 H 11/15/23 12:31 Pulse Ox 99 11/15/23 12:31 O2 Del Method Room Air 11/15/23 12:31 Airway Mallampati Class: III TM Dist: >3cm Neck ROM: Full Denture: Upper Loose/Missing/Broken Teeth: Yes (Full dentures top. Denies broken or loose teeth) Heart: RRR Lungs: CTAB Assessment and Plan Assessment Anesthesia Assessment: Anesthesia Plan Discussed and Chart Reviewed Final Anesthetic Review Family History of Problems with Anesthesia: No History of Problems with Anesthesia: No NPO: Yes ASA Class: III Final Preanesthetic Review: No Changes in Pt Med Stat, Meds/Allgs Chart Reviewed, Consent Obtained/Reviewed and Anes Risks/Benef Reviewed Patient Risk: Intermediate Procedure Risk: Low Assessment/Block/Sedation in SS: Assess/Block/Sedation-SS Anesthetic Plan Anesthetic Plan: GA Disposition: Standard PACU Documented by User: Laurie Goodman NP 11/26/23 08:38 HPI - Anesthesia Eval Consult details Narrative: 68 yo male patient for repair of recurrent umbilical hernia and excision of left flank lipoma Echo 04/23/23: EF 50-55% Stress test 04/23/23: Neg (see below) PMFSH Past Medical History Medical History COVID-19 Wheezing Normocytic anemia Poor memory Overweight Dry mouth Osteoarthrosis Skin lesion Diabetes Umbilical hernia Hearing loss Nodule of chest wall Murmur CAD (coronary artery disease) COPD (chronic obstructive pulmonary disease) Atherosclerotic cardiovascular disease Lower gastrointestinal bleed Back pain Arthritis Peptic ulcer GERD (gastroesophageal reflux disease) Asthma Elevated cholesterol Myocardial infarction HTN (hypertension) Family History Family History Mother Diabetes Heart disease Arthritis Father Heart disease Surgical History Surgical History Hx of excision of mass (03/30/15) Hx of colonoscopy Hx of umbilical hernia repair (04/23/17) Social History Social History Household Members: Spouse Housing: Apartment Are you a primary care management assistant to a significant other at home: No Do you presently have visiting nurse or other home services: No Alcohol intake: current Alcohol intake frequency: does not drink Patient Tobacco Use Status: Former Tobacco user Quit Date: quit 8 years ago Years Smoked: 48 Second Hand Smoke Exposure: No Use of substances other than those prescribed or required for medical reasons: No Have you been hit, kicked, punched, or otherwise hurt by someone within the past year? If so, by whom?: No Advance Directives: No Advance Directives Information Provided: Yes Advance Directives on File: No Recently lost weight without trying: No Eating poorly because of decreased appetite: No Nutrition Risks: No Nutritional Risk service: No Current occupational status: unemployed Meds Allergies Allergy/AdvReac Type Severity Reaction Status Date / Time lisinopril Allergy Intermediate Swelling Verified 11/27/23 06:01 Home Medications Medication Instructions Recorded Confirmed Last Taken Type atorvastatin 40 mg tablet 40 mg PO BEDTIME 07/29/20 11/15/23 Unknown History cholecalciferol (vitamin D3) 25 25 mcg PO DAILY 07/29/20 11/15/23 Unknown History mcg (1,000 unit) tablet (Vitamin D3) omega-3 300 mg-dha 120 mg-epa 180 1 cap PO BID 08/14/22 11/15/23 Unknown History mg-fish oil 1,000 mg capsule albuterol sulfate 90 mcg/actuation 2 puff inhalation QID PRN 03/27/23 11/15/23 Unknown History aerosol inhaler (Ventolin HFA) Shortness Of Breath Or Wheezing fluticasone fur. 200 mcg-umeclid 1 ea inhalation DAILY 03/27/23 11/15/23 Unknown History 62.5 mcg-vilant 25 mcg inhalat.powder (Trelegy Ellipta) metformin 1,000 mg tablet 1,000 mg PO BID 03/27/23 11/15/23 Unknown History omeprazole 20 mg capsule,delayed 20 mg PO DAILY 08/20/23 11/15/23 Unknown History release amlodipine 5 mg tablet 5 mg PO QAM 11/15/23 11/15/23 Unknown History aspirin 81 mg tablet,delayed 81 mg PO DAILY 11/15/23 11/15/23 Unknown History release chlorthalidone 25 mg tablet 25 mg PO BEDTIME 11/15/23 11/15/23 Unknown History Exam Pertinent Lab Results Pertinent Lab Results: Laboratory Tests 06/12/23 08:46 WBC 9.3 Hgb 13.4 L Hct 42.1 Plt Count 371 Sodium 140 Potassium 4.0 Chloride 101 Carbon Dioxide 28 BUN 20 H Creatinine 1.31 Narrative Narrative: ME cardiolite stress test 03/2023 IMPRESSION: 1. Myocardial perfusion imaging study shows no clear evidence of any ischemia. Fixed inferior defect probably related to diaphragmatic attenuation artifact. 2. Gated LVEF is 65% during stress and 55% during rest. 3. Transient ischemic dilatation not present. EKG component of the test reported separately. Documented by User: Rod Shine MD 11/27/23 07:21 PMF Past Medical History Medical History COVID-19 Wheezing Normocytic anemia Poor memory Overweight Dry mouth Osteoarthrosis Skin lesion Diabetes Umbilical hernia Hearing loss Nodule of chest wall Murmur CAD (coronary artery disease) COPD (chronic obstructive pulmonary disease) Atherosclerotic cardiovascular disease Lower gastrointestinal bleed Back pain Arthritis Peptic ulcer GERD (gastroesophageal reflux disease) Asthma Elevated cholesterol Myocardial infarction HTN (hypertension) Functional capacity: independent ambulation Family History Family History Mother Diabetes Heart disease Arthritis Father Heart disease Surgical History Surgical History Hx of excision of mass (03/30/15) Hx of colonoscopy Hx of umbilical hernia repair (04/23/17) Social History Social History Household Members: Spouse Housing: Apartment Are you a primary care management assistant to a significant other at home: No Do you presently have visiting nurse or other home services: No Alcohol intake: current Alcohol intake frequency: does not drink Patient Tobacco Use Status: Former Tobacco user Quit Date: quit 8 years ago Years Smoked: 48 Second Hand Smoke Exposure: No Use of substances other than those prescribed or required for medical reasons: No Have you been hit, kicked, punched, or otherwise hurt by someone within the past year? If so, by whom?: No Advance Directives: No Advance Directives Information Provided: Yes Advance Directives on File: No Recently lost weight without trying: No Eating poorly because of decreased appetite: No Nutrition Risks: No Nutritional Risk service: No Current occupational status: unemployed Meds Allergies Allergy/AdvReac Type Severity Reaction Status Date / Time lisinopril Allergy Intermediate Swelling Verified 11/27/23 06:01 Home Medications Medication Instructions Recorded Confirmed Last Taken Type atorvastatin 40 mg tablet 40 mg PO BEDTIME 07/29/20 11/15/23 Unknown History cholecalciferol (vitamin D3) 25 25 mcg PO DAILY 07/29/20 11/15/23 Unknown History mcg (1,000 unit) tablet (Vitamin D3) omega-3 300 mg-dha 120 mg-epa 180 1 cap PO BID 08/14/22 11/15/23 Unknown History mg-fish oil 1,000 mg capsule albuterol sulfate 90 mcg/actuation 2 puff inhalation QID PRN 03/27/23 11/15/23 Unknown History aerosol inhaler (Ventolin HFA) Shortness Of Breath Or Wheezing fluticasone fur. 200 mcg-umeclid 1 ea inhalation DAILY 03/27/23 11/15/23 Unknown History 62.5 mcg-vilant 25 mcg inhalat.powder (Trelegy Ellipta) metformin 1,000 mg tablet 1,000 mg PO BID 03/27/23 11/15/23 Unknown History omeprazole 20 mg capsule,delayed 20 mg PO DAILY 08/20/23 11/15/23 Unknown History release amlodipine 5 mg tablet 5 mg PO QAM 11/15/23 11/15/23 Unknown History aspirin 81 mg tablet,delayed 81 mg PO DAILY 11/15/23 11/15/23 Unknown History release chlorthalidone 25 mg tablet 25 mg PO BEDTIME 11/15/23 11/15/23 Unknown History
[2023-11-27] VITALS (8 sets, daily range): BP systolic 124–139; BP diastolic 49–86; PULSE 50–74; RESP 16–18; TEMP 36.2–36.7; O2SAT 94–99; BMI 28.1
[2023-11-27] MEDS: Lactated Ringers 1,000 ML 100 ML IVCONT (06:14)
[2023-11-27 06:22] LABS: Glucose, Whole Blood 94 mg/dL (60-115)
--- NOTE | 2023-11-27 07:21 | MHC.SHP ---
Pre-Procedural Eval Section A - 24 Hr Update-Section A only Date of Service: 11/27/23 The patient is an INPATIENT: Yes Changes since office visit: Yes Patient answered all questions; No Cold of Flu in the past 2 weeks, No New Medical Problems and No Changes in Medication The patient has been examined within 24 hours of the surgical procedure. The History & Physical has been completed within 30 days and I have reviewed it.: No Section B - Complete if H&P > 30 days Chief Complaint: Benign lipomatous neoplasm of skin and subcutaneou Details of Present Illness: No changes since previous evaluation, minimal pain reported Relevant Family History (Specify if Yes): No Relevant Social History: None Present Medications: see Short Stay Collaborative assessment Medical History: No relevant PMH History of Previous Operations: Relevant previous surgery/procedure and date(s) (previous umbilical hernia repair) Allergies: Allergies Allergy/AdvReac Type Severity Reaction Status Date / Time lisinopril Allergy Intermediate Swelling Verified 11/27/23 06:01 Review of Systems Sugical H&P ROS: Negative: Constitution, Cardiovascular, Respiratory, Neurological, Psychiatric, Hem-Onc, Allergic/Immunologic, Gastrointestinal, Genitourinary, Musculoskeletal, Integumentary, Endocrine and Eyes/Ears/Nose/Throat Exam Surgical H&P Exam: Normal: HEENT, Normal: Heart, Normal: Lungs, Normal: Extremities, Normal: Skin and Normal: Neurological and Significant Findings: Abdomen (small umbilical hernia 1 cm diameter) Plan Diagnosis/Plan: Unchanged I have reviewed the history and physical and performed a pertinent physical examination on my patient. No changes have occurred unless specified. Time Spent With Patient Time: Total time managing care of this patient today ____ minutes.
--- NOTE | 2023-11-27 08:28 | P.OP_ITS ---
Operative Note Operative Note Date of Service: 11/27/23 Narrative: Preoperative diagnosis: Umbilical hernia, recurrent; lipoma left flank Postoperative diagnosis: Same Procedure: Repair of umbilical hernia, recurrent with mesh; excision of lipoma left flank Surgeon: Vijay Armenta MD Mangle Tender Cloth: Chance Kline PA-S Anesthesia: General endotracheal Indications for procedure: 68-year-old male patient presenting umbilical hernia which is causing some discomfort and increasing in size. The previous underwent a mesh repair in 2017. Patient also has a painful lipoma in the left flank measuring approximately 2 cm. Operative findings: Recurrent umbilical hernia, lipoma left flank Specimen: Lipoma left flank Estimated blood loss: 2 mL Complications: None Procedure details: Patient was brought to the OR and placed in a supine position. After administering general anesthesia the patient's abdomen was prepped with ChloraPrep and draped in a sterile fashion. A surgical time-out was called the consent confirmed. Patient received preoperative antibiotics and Venodyne boots were in place. Local anesthesia was then infiltrated in a curvilinear fashion across the top surface of the umbilicus transversely. Incision was then made with a scalpel carried out through subcutaneous tissue down to the hernia sac. The umbilical skin was then lifted off the fascia using electrocautery. Hernia sac was then dissected down to the fascial edge. Hernia sac contained preperitoneal fat. This was then reduced into the abdominal cavity. A previous repair was noted just above this new hernia. A mesh was noted in this location with polypropylene sutures. A preperitoneal space was then created using electrocautery and blunt dissection. A 4.6 cm round Ventralex mesh was then obtained. This was deployed within the preperitoneal space and secured in 4 quadrants using 0 Tycron sutures in the fascia and including the previous mesh repair. The fascia was then closed over the mesh using [id number] 0 Tycron sutures. Wounds were then irrigated with saline solution and suctioned dry. Umbilical skin was then reattached to the fascia using a 3-0 Polysorb suture. Dermis was then reapproximated using interrupted 3-0 Polysorb sutures. Skin was closed using a running subcuticular 4-0 Polysorb suture. Steri-Strips and Tegaderm were then applied. Patient was then rotated to a right lateral decubitus position for excision of the lipoma. The skin was prepped with Betadine and draped in a sterile fashion. Local anesthesia was then infiltrated in a transverse fashion over the lipoma. Incision was then made with a 15 blade and carried out through subcutaneous tissue of the lipoma. Electrocautery was then used to dissect the lipoma from the surrounding subcutaneous tissue. Lipoma was passed off the table and sent to pathology for further examination. Hemostasis was again assured using electrocautery. Dermis was then reapproximated using interrupted 3-0 Polysorb sutures. Skin was closed using a running subcuticular 4-0 Polysorb suture. Steri-Strips, 2 x 2 gauze and Tegaderm were then applied. The patient tolerated the procedure well. Sponge, instrument, and needle counts reported as correct. The patient was transferred to PACU in stable condition.
--- NOTE | 2023-11-27 10:52 | PC.NURSE ---
Jameel from [employer] present during all discharge instructions and patient has copy of all. 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 Aware to f/u in one week with surgeon.
== END 2023-11-27 10:25 | disposition home or self-care (01) ==
PROVIDERS: PCP Student in an Organized Health Care Education/Training Program; Visit Provider Surgery
PROC: (CPT 49613; principal; 2023-11-27 07:30)
PROC: (CPT 49613; 2023-11-27 07:30)
DX: K42.9 Umbilical hernia without obstruction or gangrene (principal); D17.1 Benign lipomatous neoplasm of skin and subcutaneous tissue of trunk; K21.9 Gastro-esophageal reflux disease without esophagitis; Z79.82 Long term (current) use of aspirin; I25.10 Atherosclerotic heart disease of native coronary artery without angina pectoris; I25.2 Old myocardial infarction; I10 Essential (primary) hypertension; E11.9 Type 2 diabetes mellitus without complications; E78.00 Pure hypercholesterolemia, unspecified; J45.909 Unspecified asthma, uncomplicated; Z79.51 Long term (current) use of inhaled steroids; Z79.84 Long term (current) use of oral hypoglycemic drugs; Z79.899 Other long term (current) drug therapy; Z88.8 Allergy status to other drugs, medicaments and biological substances; Z87.891 Personal history of nicotine dependence
CPT/HCPCS: 49613; 21930; 82947; 88304; C1781; J0131; J0665; J0690; J2250; J2405; J2704; J3010

== ENCOUNTER → 2023-11-27 05:52 | Outpatient (BNV) | payer MEDICARE, MEDICAID, SELFPAY | PROVIDERS: PCP Student in an Organized Health Care Education/Training Program; Visit Provider Surgery | DX: K42.9 Umbilical hernia without obstruction or gangrene (principal); D17.1 Benign lipomatous neoplasm of skin and subcutaneous tissue of trunk | CPT/HCPCS: 21930; 49615 ==

== ENCOUNTER 2023-12-12 12:52 | Outpatient (AMB) | payer MEDICARE, MEDICAID, SELFPAY ==
--- NOTE | 2023-12-12 12:54 | A.OFFVIS_ITS ---
Intake Vital Signs 12/12/23 13:09 Height 5 ft 6 in Weight 174 lb 4 oz BMI 28.1 BP 156/72 H Blood Pressure Location Lt brachial Position Sitting Pulse 73 Intake Visit Reasons: S/P umbilical hernia, exc. lipoma Lt flank Intake Note: Patient is seen in office for post op assessment post recurrent hernia repair & excision of left flank lipoma. Pt c/o: back cyst looking well, steri strips removed by pts PCP, regarding hernia pt states he still feels a lump in the area Op: 11/27/23 Industrial Insulator Required: Yes Industrial Insulator Language: Kelly Machine Operator Name: Ranjana HICKS Information Interpreted: non-clinical & clinical Accompanied by: Family/Other Allergies lisinopril Allergy (Intermediate, Verified 12/12/23 12:56) Swelling HPI HPI Comments History of Present Illness Details Patient returns 2 weeks following repair of an umbilical hernia recurrence with mesh and excision of a lipoma of the posterior left shoulder. He denies any significant pain but does note some hardness in the incision at the umbilicus. Denies any bleeding or discharge. [facility] Medical History COVID-19 Wheezing Normocytic anemia Poor memory Overweight Dry mouth Osteoarthrosis Skin lesion Diabetes Umbilical hernia Hearing loss Nodule of chest wall Murmur CAD (coronary artery disease) COPD (chronic obstructive pulmonary disease) Atherosclerotic cardiovascular disease Lower gastrointestinal bleed Back pain Arthritis Peptic ulcer GERD (gastroesophageal reflux disease) Asthma Elevated cholesterol Myocardial infarction HTN (hypertension) Surgical History S/P excision of lipoma (11/27/23) H/O umbilical hernia repair (11/27/23) Hx of excision of mass (03/30/15) Hx of colonoscopy Hx of umbilical hernia repair (04/23/17) Family History Mother Diabetes Heart disease Arthritis Father Heart disease Social History Household Members: Spouse Housing: Apartment Are you a primary healthcare administrative assistant to a significant other at home: No Do you presently have visiting nurse or other home services: No Alcohol intake: current Alcohol intake frequency: does not drink Comment: COUNTS CORRECT Patient Tobacco Use Status: Former Tobacco user Quit Date: quit 8 years ago Years Smoked: 48 Second Hand Smoke Exposure: No service: No Current occupational status: unemployed Physical Exam Const General: no acute distress Nutritional Appearance: well nourished Orientation/consciousness: patient oriented x3 Resp Effort & Inspection: normal respiratory effort, no audible wheezes, no cough and no respiratory distress GI Other: Umbilical incision is clean, dry, and intact. There is a small scab located in the central portion of the incision. There is some residual firmness in the umbilical skin consistent with scar tissue. No changes noted with Valsalva maneuvers. Back/Spine/Pelvis Other: Excision site in the left mid back clean, dry, and intact without redness or discharge. Neuro General: patient oriented x3 Assessment & Plan Assessment & Plan (1) Lipoma of flank: Code(s): D17.1 - Benign lipomatous neoplasm of skin and subcutaneous tissue of trunk (2) Recurrent umbilical hernia: Code(s): K42.9 - Umbilical hernia without obstruction or gangrene Plan Patient returns 2 weeks following repair of a recurrent umbilical hernia with mesh as well as excision of a lipoma of the left back. He tolerated the procedure well the wounds are healing nicely. He should continue to avoid lifting greater than 10 lb for another 2 weeks after which he may resume normal activity. Should follow up as needed. Medications: Discontinued oxycodone Partial Fill upon patient request. Discontinued Reason: Patient Completed Course 5 mg PO Q6H PRN 15 tabs 0RF pain (scale score 7-10) Coding Level of Care Code Global (45757) Diagnoses Lipoma of flank D17.1 Recurrent umbilical hernia K42.9
[2023-12-12 13:09] VITALS: BP 156/72; PULSE 73; BMI 28.1
== END 2023-12-12 13:18 | disposition home or self-care (01) ==
PROVIDERS: PCP Student in an Organized Health Care Education/Training Program; Visit Provider Surgery
DX: D17.1 Benign lipomatous neoplasm of skin and subcutaneous tissue of trunk (principal); K42.9 Umbilical hernia without obstruction or gangrene
CPT/HCPCS: 99024

== ENCOUNTER → 2023-12-12 12:52 | Outpatient (BNVA) | payer MEDICARE, MEDICAID, SELFPAY | PROVIDERS: PCP Student in an Organized Health Care Education/Training Program; Visit Provider Surgery | DX: Z48.815 Encounter for surgical aftercare following surgery on the digestive system (principal); Z48.817 Encounter for surgical aftercare following surgery on the skin and subcutaneous tissue; Z87.2 Personal history of diseases of the skin and subcutaneous tissue; Z87.19 Personal history of other diseases of the digestive system | CPT/HCPCS: 99212 ==

== ENCOUNTER 2024-01-21 08:10 | Outpatient (REF) | payer MEDICARE, MEDICAID, SELFPAY ==
[2024-01-21 11:44] LABS: Hematocrit 36.6 % (42.0-52.0); Mean Corpuscular HGB Conc 32.8 g/dl (31.0-36.0); Mean Corpuscular Volume 85.5 fL (80.0-98.0); Mean Platelet Volume 10.2 fL (9.4-12.4); Platelet Count 437 X10*3/uL (160-400); Red Blood Count 4.28 X10*6/uL (4.60-5.80); Red Cell Distribution Width 14.8 % (11.0-16.0); White Blood Count 10.2 X10*3/uL (4.8-10.8)
[2024-01-21 12:08] LABS: Estimated Average Glucose 123 mg/dL; Hemoglobin A1c % 5.9 % (<6.0)
[2024-01-21 12:30] LABS: Alanine Aminotransferase 18 U/L (0-40); Albumin Level 4.1 g/dL (3.5-5.0); Alkaline Phosphatase 65 U/L (39-117); Anion Gap 11 (12-20); Aspartate Amino Transferase 20 U/L (5-37); Bilirubin Total 0.4 mg/dL (0.0-1.0); Blood Urea Nitrogen 23 mg/dL (9-16); Calcium 9.8 mg/dL (8.4-10.2); Carbon Dioxide 29 mmol/L (22-29); Chloride 105 mmol/L (96-108); Cholesterol 107 mg/dL (<200); Estimated Glomerular Filt Rate 55; Glucose Random 94 mg/dL (60-115); HDL Cholesterol 30 mg/dL (>40); Iron 55 mcg/dL (45-160); LDL Cholesterol Calculated 60 mg/dL (<100); Percent Iron Saturation 19 % (15-50); Sodium 141 mmol/L (135-145); Total Iron Binding Capacity 297 mcg/dL (228-428); Total Protein 7.6 g/dL (6.5-8.0); Triglycerides 88 mg/dL (<150); Unsaturated Iron Binding 242 ug/dL
[2024-01-21 12:47] LABS: Ferritin 31 ng/mL (20-250)
[2024-01-21 12:55] LABS: Folate 12.2 ng/mL (> or = 4.0); Vitamin B12 283 pg/mL (200-900)
[2024-01-23 15:23] LABS: Anti Nuclear Antibody Screen NEGATIVE (NEGATIVE)
== END 2024-01-21 08:11 | disposition home or self-care (01) ==
LOC: HO.HHCL 08:10
PROVIDERS: Visit Provider Student in an Organized Health Care Education/Training Program
DX: D64.9 Anemia, unspecified (principal); E11.9 Type 2 diabetes mellitus without complications; R68.2 Dry mouth, unspecified
CPT/HCPCS: 36415; 80053; 80061; 82607; 82728; 82746; 83036; 83540; 85027; 86038

== ENCOUNTER 2024-01-28 09:46 | Outpatient (AMB) | payer MEDICARE, MEDICAID, SELFPAY ==
--- NOTE | 2024-01-28 09:53 | MHC.OFFVIS ---
Vital Signs 01/28/24 09:54 Height 5 ft 6 in Weight 173 lb 7.554 oz BMI 28.0 BP 120/64 Blood Pressure Location Rt brachial Position Sitting Pulse 65 Pulse Source Doppler Pulse Oximetry (%) 99 Oxygen Delivery Method Room Air Intake Visit Reasons: Emphysema Accounts Receivable Administrator Required: Yes Accounts Receivable Administrator Name: Rocío Van C.L.M Allergies lisinopril Allergy (Intermediate, Verified 01/28/24 10:02) Swelling HPI HPI Emphysema: Details: 67-year-old gentleman, former 40 pack-year smoker, quit 2014 now followed for underlying pulmonary emphysema and environmental allergies. Patient states that after the last office visit he has been using trilogy and albuterol MDI with good control of his symptoms. He does complain of intermittent allergy symptoms during summer months. He was not able to complete his pulmonary function testing. [facility] Medical History COVID-19 Wheezing Normocytic anemia Poor memory Overweight Dry mouth Osteoarthrosis Skin lesion Diabetes Umbilical hernia Hearing loss Nodule of chest wall Murmur CAD (coronary artery disease) COPD (chronic obstructive pulmonary disease) Atherosclerotic cardiovascular disease Lower gastrointestinal bleed Back pain Arthritis Peptic ulcer GERD (gastroesophageal reflux disease) Asthma Elevated cholesterol Myocardial infarction HTN (hypertension) Surgical History S/P excision of lipoma (11/27/23) H/O umbilical hernia repair (11/27/23) Hx of excision of mass (03/30/15) Hx of colonoscopy Hx of umbilical hernia repair (04/23/17) Family History Mother Diabetes Heart disease Arthritis Father Heart disease Social History Household Members: Spouse Housing: Apartment Are you a primary director of home care hospice to a significant other at home: No Do you presently have visiting nurse or other home services: No Alcohol intake: current Alcohol intake frequency: does not drink Comment: COUNTS CORRECT Patient Tobacco Use Status: Former Tobacco user Quit Date: quit 8 years ago Years Smoked: 48 Second Hand Smoke Exposure: No service: No Current occupational status: unemployed Review of Systems Const Denies daytime sleepiness, Denies excessive sweating, Denies fatigue, Denies fever(s), Denies lethargy, Denies malaise, Denies night sweats, Denies snoring and Denies weight loss Eyes Denies blurry vision and Denies itchy eyes ENT Denies nasal congestion, Denies post nasal drip, Denies sinus pain, Denies sinus pressure and Denies other ( Thrush) Card Denies chest pain, Denies pedal edema, Denies dyspnea, Denies orthopnea and Denies paroxysmal nocturnal dyspnea Resp Denies cough, Denies hemoptysis, Denies excessive phlegm production, Denies dyspnea, Denies snoring and Denies wheezing GI Denies abdominal pain and Denies heartburn Musc Denies myalgias, Denies arthralgias and Denies joint swelling Skin/Breast Denies rash Neuro Denies memory loss and Denies seizure-like activity Psych Denies abnormal sleep pattern, Denies anxiety and Denies memory loss Endo Denies excessive sweating, Denies fatigue and Denies heat intolerance Sukumar/Lymph Denies easy bruising Aller/Immun Denies itchy eyes, Denies seasonal rhinorrhea and Denies wheezing Physical Exam Vital Signs: Last Vital Signs Pulse 65 01/28/24 09:54 BP 120/64 01/28/24 09:54 Pulse Ox 99 01/28/24 09:54 Oxygen Delivery Method Room Air 01/28/24 09:54 BMI result Body Mass Index 28.0 Const General: no acute distress and alert Nutritional Appearance: not obese Orientation/consciousness: Other orientation findings ( oriented) HEENT Head: Yes atraumatic Eyes General: appearance normal, both eyes and all related structures Sclerae: sclerae normal EOM: EOMs intact bilaterally Neck Neck: Yes supple Lymphatic: no lymphadenopathy noted Resp Effort & Inspection: normal respiratory effort and no use of accessory muscles Auscultation: clear to auscultation bilaterally Cardio Rate: regular rate Rhythm: regular rhythm Heart sounds: no gallops, no murmurs and no rubs Skin General skin exam: other ( warm) Extrem General: No clubbing, No cyanosis and No edema Assessment & Plan Assessment & Plan (1) COPD (chronic obstructive pulmonary disease): Code(s): J44.9 - Chronic obstructive pulmonary disease, unspecified Category: Medical Plan: Well controlled on current regimen of trilogy and albuterol MDI. Continue regimen. (2) Environmental allergies: Code(s): Z91.09 - Other allergy status, other than to drugs and biological substances Category: Medical Plan: Will start on empiric Singulair for intermittent symptoms. (3) Personal history of nicotine dependence: Code(s): Z87.891 - Personal history of nicotine dependence Category: Medical Plan: Results of lung cancer screening CT chest reviewed. Follow-up CT chest is pending in 2 months. Medications: New montelukast (Singulair) 10 mg PO DAILY 30 tabs 2RF Coding Level of Care Code Est Pt Level 4 (92925) Diagnoses COPD (chronic obstructive pulmonary disease) J44.9 Environmental allergies Z91.09 Personal history of nicotine dependence Z87.891
[2024-01-28 09:54] VITALS: BP 120/64; PULSE 65; O2SAT 99; BMI 28.0
== END 2024-01-28 10:17 | disposition home or self-care (01) ==
PROVIDERS: PCP Student in an Organized Health Care Education/Training Program; Visit Provider Internal Medicine Pulmonary Disease
DX: J44.9 Chronic obstructive pulmonary disease, unspecified (principal); Z91.09 Other allergy status, other than to drugs and biological substances; Z87.891 Personal history of nicotine dependence
CPT/HCPCS: 99214

== ENCOUNTER → 2024-01-28 09:46 | Outpatient (BNVA) | payer MEDICARE, MEDICAID, SELFPAY | PROVIDERS: PCP Student in an Organized Health Care Education/Training Program; Visit Provider Internal Medicine Pulmonary Disease | DX: J44.9 Chronic obstructive pulmonary disease, unspecified (principal); Z91.09 Other allergy status, other than to drugs and biological substances; Z87.891 Personal history of nicotine dependence | CPT/HCPCS: 99212 ==

== ENCOUNTER 2024-01-29 11:49 | Outpatient (AMB) | payer MEDICARE, MEDICAID, SELFPAY ==
--- NOTE | 2024-01-29 12:48 | A.OFFVIS_ITS ---
Vital Signs 01/29/24 12:49 Height 5 ft 6 in Weight 167 lb 8.821 oz BMI 27.0 BP 120/70 Blood Pressure Location Lt brachial Position Sitting Pulse 63 Intake Visit Reasons: 6 month f/u Intake Note: 6 month follow-up with ekg feeling good Call Center Support Consultant Required: Yes Call Center Support Consultant [place] [facility] [place]ergies lisinopril Allergy (Intermediate, Verified 01/28/24 10:02) Swelling Medication List - Last Reconciled 01/29/24 by Bhavesh Medrano MD albuterol sulfate 90 mcg/actuation (Ventolin HFA) 2 puffs inhalation QID PRN amlodipine 5 mg PO QAM aspirin 81 mg PO DAILY atorvastatin 40 mg PO BEDTIME chlorthalidone 25 mg PO BEDTIME cholecalciferol (vitamin D3) (Vitamin D3) 25 mcg PO DAILY docusate sodium 100 mg PO BID aqkjjuzqpix-crkmsenky-hldpayun 200-62.5-25 mcg (Trelegy Ellipta) 1 ea inhalation DAILY metformin 1,000 mg PO BID montelukast (Singulair) 10 mg PO DAILY omega 4-fyp-fgg-fish oil 300 mg (120 mg- 180mg)-1,000 mg 1 cap PO BID omeprazole 20 mg PO DAILY sodium,potassium,mag sulfates 17.5-3.13-1.6 gram (Suprep Bowel Prep Kit) 480 mL orally; FOR COLONOSCOPY PREP HPI Comments Details: John returns for follow-up. History of coronary disease. Apparently myocardial infarction on 2001 in [place] but we do not know what exactly was done. Overall, he states he feels good. No cardiac symptoms at all. Many comorbidities including diabetes, hypertension and dyslipidemia. [facility] Medical History COVID-19 Wheezing Normocytic anemia Poor memory Overweight Dry mouth Osteoarthrosis Skin lesion Diabetes Umbilical hernia Hearing loss Nodule of chest wall Murmur CAD (coronary artery disease) COPD (chronic obstructive pulmonary disease) Atherosclerotic cardiovascular disease Lower gastrointestinal bleed Back pain Arthritis Peptic ulcer GERD (gastroesophageal reflux disease) Asthma Elevated cholesterol Myocardial infarction HTN (hypertension) Surgical History S/P excision of lipoma (11/27/23) H/O umbilical hernia repair (11/27/23) Hx of excision of mass (03/30/15) Hx of colonoscopy Hx of umbilical hernia repair (04/23/17) Family History Mother Diabetes Heart disease Arthritis Father Heart disease Social History Household Members: Spouse Housing: Apartment Are you a primary care management coordinator to a significant other at home: No Do you presently have visiting nurse or other home services: No Alcohol intake: current Alcohol intake frequency: does not drink Comment: COUNTS CORRECT Patient Tobacco Use Status: Former Tobacco user Quit Date: quit 8 years ago Years Smoked: 48 Second Hand Smoke Exposure: No service: No Current occupational status: unemployed Review of Systems Const Denies chills, Denies fatigue, Denies fever(s), Denies frequent falls, Denies weakness, Denies weight gain and Denies weight loss ENT Denies dizziness Card Denies chest pain, Denies leg edema, Denies lightheadedness, Denies palpitations, Denies dyspnea, Denies dyspnea on exertion, Denies orthopnea and Denies other (loss of consciousness) Resp Denies cough, Denies dyspnea and Denies dyspnea on exertion GI Denies hematochezia and Denies change in stool character Musc Denies abnormal gait, Denies muscle weakness, Denies numbness, Denies radiating pain into limb and Denies tingling Neuro Denies abnormal gait, Denies dizziness, Denies frequent falls, Denies numbness, Denies tingling and Denies weakness Endo Denies fatigue and Denies palpitations Physical Exam Vital Signs: Last Vital Signs Pulse 63 01/29/24 12:49 BP 120/70 01/29/24 12:49 BMI result Body Mass Index 27.0 Const General: comfortable and no acute distress Orientation/consciousness: patient oriented x3 HEENT Other: Unremarkable Head: Yes normal to inspection Neck Neck: Yes normal visual inspection Chest Chest palpation & inspection: normal inspection of the chest Resp Auscultation: clear to auscultation bilaterally Cardio Palpation: normal PMI Heart sounds: S1 normal heart sound present, S2 normal heart sound present, no gallops, no murmurs and no rubs GI Palpation (GI): Soft to palpation Back/Spine/Pelvis Other: unremarkable Skin General skin exam: no rashes or lesions noted Neuro General: patient oriented x3 Extrem General: Yes normal to inspection Psych Mental Status: mental status grossly normal Office Procedures EKG Details: EKG with sinus rhythm at 63/Min; RSR' pattern in V1; T-wave inversions in lead 3 and AVF slightly more prominent than prior. [id number], Complete Assessment & Plan Assessment & Plan (1) Atherosclerotic cardiovascular disease: Code(s): I25.10 - Atherosclerotic heart disease of [place] coronary artery without angina pectoris Category: Medical (2) HTN (hypertension): Code(s): I10 - Essential (primary) hypertension Category: Medical (3) Type 2 diabetes mellitus with unspecified complications: Code(s): E11.8 - Type 2 diabetes mellitus with unspecified complications Category: Medical (4) Elevated cholesterol: Code(s): E78.00 - Pure hypercholesterolemia, unspecified Category: Medical Plan Based on 12 lead EKG, possible prior NSTEMI with inferior wall involvement. In the echocardiogram, LVEF is 55-60% with no significant abnormalities. Myocardial perfusion imaging study reported to be with no ischemia; fixed inferior defect thought to be from diaphragmatic attenuation artifact but based on the EKG findings could also be reflecting a prior inferior scar. Overall, continue treatment for stable coronary disease. Continue aspirin statins. Cholesterol level is controlled. Otherwise, risk factor modification diabetes, hypertension. Hemoglobin A1c is 5.9%. Blood pressure seems to be okay. Follow-up in 1 year. In the interim, call with concerns. Discussed patient using a in-person ruby engineer. Coding Level of Care Code Est Pt Level 4 (28336) Diagnoses Atherosclerotic cardiovascular disease I25.10 HTN (hypertension) I10 Type 2 diabetes mellitus with unspecified complications E11.8 Elevated cholesterol E78.00 CPT Codes EKG - CPT: 51805-[id number], Complete ([id number])
[2024-01-29 12:49] VITALS: BP 120/70; PULSE 63; BMI 27.0
== END 2024-01-29 13:06 | disposition home or self-care (01) ==
PROVIDERS: PCP Student in an Organized Health Care Education/Training Program; Visit Provider Internal Medicine
DX: I25.10 Atherosclerotic heart disease of native coronary artery without angina pectoris (principal); I10 Essential (primary) hypertension; E11.8 Type 2 diabetes mellitus with unspecified complications; E78.00 Pure hypercholesterolemia, unspecified
CPT/HCPCS: 93010; 99214

== ENCOUNTER → 2024-01-29 11:49 | Outpatient (BNVA) | payer MEDICARE, MEDICAID, SELFPAY | PROVIDERS: PCP Student in an Organized Health Care Education/Training Program; Visit Provider Internal Medicine | DX: I25.10 Atherosclerotic heart disease of native coronary artery without angina pectoris (principal); I10 Essential (primary) hypertension; E78.00 Pure hypercholesterolemia, unspecified; E11.8 Type 2 diabetes mellitus with unspecified complications | CPT/HCPCS: 93005; 99212 ==

== ENCOUNTER 2024-02-14 11:41 | Emergency (ER) | payer MEDICARE, MEDICAID, SELFPAY ==
[2024-02-14 11:52] VITALS: BP 140/63; PULSE 67; RESP 20; TEMP 36.6; O2SAT 97; BMI 28.3
--- NOTE | 2024-02-14 11:57 | ED_ITS ---
HPI - URI/Sore Throat General Chief Complaint: Upper Respiratory Symptoms Stated Complaint: Flu symptoms Time Seen by Provider: 02/14/24 13:17 Source: patient and family Mode of arrival: ambulatory Limitations: no limitations History of Present Illness HPI Narrative: 68 year old male hx of HTN, asthma, diabetes, arthritis, cad, ibs, copd, presents w/ fatigue, malaise, myalgias, sore throat, cough X 2 days sick with similar symptoms. No cp, sob, nausea, vomiting, diarrhea, vision changes, dizziness. Related Data Home Medications ?Medication ?Instructions ?Recorded ?Confirmed atorvastatin 40 mg tablet 40 mg PO BEDTIME 07/29/20 02/26/24 cholecalciferol (vitamin D3) 25 25 mcg PO DAILY 07/29/20 02/26/24 mcg (1,000 unit) tablet (Vitamin D3) omega-3 300 mg-dha 120 mg-epa 180 1 cap PO BID 08/14/22 02/26/24 mg-fish oil 1,000 mg capsule albuterol sulfate 90 mcg/actuation 2 puff inhalation QID PRN 03/27/23 02/26/24 aerosol inhaler (Ventolin HFA) Shortness Of Breath Or Wheezing fluticasone fur. 200 mcg-umeclid 1 ea inhalation DAILY 03/27/23 02/26/24 62.5 mcg-vilant 25 mcg inhalat.powder (Trelegy Ellipta) metformin 1,000 mg tablet 1,000 mg PO BID 03/27/23 02/26/24 omeprazole 20 mg capsule,delayed 20 mg PO DAILY 08/20/23 02/26/24 release aspirin 81 mg tablet,delayed 81 mg PO DAILY 11/15/23 02/26/24 release chlorthalidone 25 mg tablet 25 mg PO BEDTIME 11/15/23 02/26/24 amlodipine 10 mg tablet 10 mg PO DAILY 03/11/24 cyanocobalamin (vitamin B-12) 500 500 mcg PO QAM 03/11/24 mcg tablet Previous Rx's ?Medication ?Instructions ?Recorded docusate sodium 100 mg capsule 100 mg PO BID #60 caps 11/28/23 montelukast 10 mg tablet 10 mg PO DAILY #30 tabs 01/28/24 (Singulair) bisacodyl 5 mg tablet,delayed 10 mg (2 x 5 mg) PO BEDTIME 2 days 03/11/24 release (Dulcolax (bisacodyl)) #4 tabs sodium,potassium,mag sulfates 17.5 480 ml PO .COMPLEX #354 mL 03/11/24 gram-3.13 gram-1.6 gram oral soln (Suprep Bowel Prep Kit) Allergies Allergy/AdvReac Type Severity Reaction Status Date / Time lisinopril Allergy Intermediate Swelling Verified 03/11/24 08:55 Review of Systems Review of Systems: Yes all other systems are reviewed and are negative [facility] Past Medical History Attestation statement: The following information was validated with the patient. Source: old records reviewed and nursing notes reviewed Medical History (Updated 03/16/24 @ 11:26 by Terri Mccarthy PA-C) CAD (coronary artery disease) Atherosclerotic cardiovascular disease History of ID (myocardial infarction) Murmur HTN (hypertension) Elevated cholesterol Diabetes COPD (chronic obstructive pulmonary disease) Asthma Personal history of nicotine dependence GERD (gastroesophageal reflux disease) Peptic ulcer Tubular adenoma of colon Sessile colonic polyp History of lower GI bleeding Normocytic anemia Poor memory Overweight Dry mouth Osteoarthrosis Skin lesion Hearing loss Nodule of chest wall Back pain Arthritis Surgical History (Updated 03/16/24 @ 11:26 by Terri Mccarthy PA-C) History of colonoscopy History of excision of mass History of umbilical hernia repair S/P excision of lipoma Family History Family History Mother Diabetes Heart disease Arthritis Father Heart disease Social History Social History Household Members: Spouse Housing: Apartment Are you a primary chronic care nurse to a significant other at home: No Do you presently have visiting nurse or other home services: No Alcohol intake: current Alcohol intake frequency: does not drink Comment: COUNTS CORRECT Patient Tobacco Use Status: Former Tobacco user Years Smoked: 48 Second Hand Smoke Exposure: No service: No Current occupational status: unemployed Physical Exam Vital Signs: Vital Signs: Last Vital Signs Temp 97.9 F 02/14/24 13:51 Pulse 67 02/14/24 13:51 Resp 20 02/14/24 13:51 BP 140/63 H 02/14/24 13:51 Pulse Ox 97 02/14/24 13:51 O2 Del Method Room Air 05/17/24 11:52 BMI result Body Mass Index 28.3 vss Appearance: Alert.? Oriented X3.? No acute distress.? Head: Normocephalic, atraumatic, no step-offs or deformities Eyes: Pupils equal, round and reactive to light.? ENT: Pharynx normal. Neck: Normal inspection.? Neck supple.? CVS: Normal heart rate and rhythm.? Pulses normal.? Respiratory: No respiratory distress.? Breath sounds normal.? Abdomen: Soft and nontender.? Skin: Skin warm and dry.? Normal skin color.? Normal skin turgor.? Extremities: No lower extremity edema.? No calf ttp. 5/5 strength to bilateral upper and lower extremities Back: No midline tenderness, no C-spine tenderness, full range of motion, no CVA tenderness bilaterally Neuro: Oriented X 3.? No motor deficit.? No sensory deficit. CN 2-12 intact Course Course Course Narrative: This is an RME done by [facility] Lewis: Additional HPI, ROS, PE not included below will be deferred to primary provider. 68 year old male hx of HTN, asthma, diabetes, arthritis, cad, ibs, copd, presents w/ fatigue, malaise, myalgias, sore throat, cough X 2 days sick with similar symptoms. No cp, sob, nausea, vomiting, diarrhea, vision changes, dizziness. Appearance: Alert.? Oriented X3.? No acute cardiopulmonary distress distress.? Head: Normocephalic, atraumatic, no step-offs or deformities ENT: Pharynx normal.? Neck: Normal inspection.? Neck supple.? CVS: Pulses normal.? Respiratory: No respiratory distress.? Abdomen: N/A Skin: ? Normal skin color. Extremities: 5/5 strength to bilateral upper and lower extremities Back: No midline tenderness, no C-spine tenderness, full range of motion, Neuro: Oriented X 3.? No motor deficit.? No sensory deficit. Reevaluation(s) Reevaluation #1: + COVID --> d/c w/ supportive measures dicssued milla will follow with PCP Educated patient on diagnosis and treatment plan, answered all question, patient verbalizes understanding. At this time patient will be discharged home, advised to return with new or worsening symptoms. Educated on worrisome signs and symptoms and when to return. At this time I feel comfortable discharge home. Time: 13:30 Medical Decision Making Medical Decision Making [facility] Narrative: 1325 68 year old male presents w/ URI sx for the lasat 2 days. + sick contacts at home w/ similar sx. PE - benign hx and pe concerning for flu vs covid vs rsv. Unlikley acs, PE, pna, pneumothorax, ards, dissection, epiglotitis, RPA, SENIOR PRODUCT INTEGRITY ENGINEER, threat to airway Plan- strep test and viral test. Differential Diagnosis Differential Diagnoses: The differential diagnosis associated with the presentation includes hx and pe concerning for flu vs covid vs rsv. Unlikley acs, PE, pna, pneumothorax, ards, dissection, epiglotitis, RPA, SENIOR PRODUCT INTEGRITY ENGINEER, threat to airway Admission/Observation Consideration of admission/observation: Escalation of care including admission/observation [facility] Lab Data [facility] Lab Attestation statement: I reviewed the patient's lab results. Labs: Lab Results 02/14/24 Range/Units 12:09 Influenza Type A (PCR) NEGATIVE (Negative) Influenza Type B (PCR) NEGATIVE (Negative) RSV RNA Qual (PCR) NEGATIVE (Negative) SARS-CoV-2 RNA (RT-PCR) POSITIVE A (Negative) S. pyogenes GrpA TREMAYNE Negative (Negative) Tests considered The following testing was considered but not selected: BS CTA - no indication for xray of chest Chronic Conditions Patient?s care impacted by: Diabetes, Hypertension and Other Critical Care Time Critical Care Time Critical Care Time: No Discharge Plan Discharge Clinical Impression: COVID-19 Patient Disposition: Home, Self-Care Instructions: COVID-19 (Coronavirus Disease 2019) (ED) Additional Instructions: Take your medications as prescribed. If you were prescribed antibiotics today, it is important that you take your medication to their entirety, do not skip any doses, do not finish them early. Today you tested positive for COVID-19. Take Ibuprofen or Tylenol as needed for fevers or body aches. Quarantine for 5 days and ensure you wear a mask. After 5 days you should wear a mask for 5 days after that. Practice social distancing and good hand hygiene. Drink plenty of fluids. Follow-up with your primary care provider this week. Return to the emergency department with new or worsening symptoms. In case of emergency call 911 You can purchase a pulse oximeter from your local pharmacy or grocery store, and monitor your oxygen saturation if it goes below 94% you should return to the emergency department for further evaluation. Discuss initiation of paxlovid with your pcp if indicated Prescriptions: No Action docusate sodium 100 mg capsule 100 mg PO BID Qty: 60 0RF atorvastatin 40 mg Tablet 40 mg PO BEDTIME cholecalciferol (vitamin D3) [Vitamin D3] 25 mcg (1,000 unit) Tablet 25 mcg PO DAILY omega 4-gqu-fha-fish oil 300 mg (120 mg- 180mg)-1,000 mg capsule 1 cap PO BID aspirin 81 mg Tablet,Delayed Release (Dr/Ec) 81 mg PO DAILY chlorthalidone 25 mg tablet 25 mg PO BEDTIME Trelegy Ellipta 200-62.5-25 mcg blister with device 1 ea inhalation DAILY metformin 1,000 mg tablet 1,000 mg PO BID albuterol sulfate [Ventolin HFA] 90 mcg/actuation HFA aerosol inhaler 2 puff inhalation QID PRN (Reason: Shortness Of Breath Or Wheezing) amlodipine 10 mg tablet 10 mg PO DAILY cyanocobalamin (vitamin B-12) 500 mcg tablet 500 mcg PO QAM sodium,potassium,mag sulfates [Suprep Bowel Prep Kit] 17.5-3.13-1.6 gram recon soln 480 ml PO .COMPLEX Qty: 354 0RF Rx Instructions: 480 mL orally; FOR COLONOSCOPY PREP bisacodyl [Dulcolax (bisacodyl)] 5 mg tablet,delayed release (DR/EC) 10 mg PO BEDTIME 2 Days Qty: 4 0RF montelukast [Singulair] 10 mg tablet 10 mg PO DAILY Qty: 30 2RF omeprazole 20 mg capsule,delayed release(DR/EC) 20 mg PO DAILY Referrals: Lisa Ji MD [Primary Care Provider] - 2 days Interventions: ED Discharge Assessment Last Done: 02/14/24 13:51 Discharge Date/Time: 02/14/24 13:52 Print Language: Divehi
[2024-02-14 12:35] LABS: IDNOW Serial# 08D9AD1C; Strep A Nucleic Acid Negative (Negative)
[2024-02-14 13:12] LABS: Influenza A PCR NEGATIVE (Negative); Influenza B PCR NEGATIVE (Negative); Resp Syncy Virus RNA Qual PCR NEGATIVE (Negative); SARS COV2 PCR INHOUSE POSITIVE (Negative)
[2024-02-14 13:51] VITALS: BP 140/63; PULSE 67; RESP 20; TEMP 36.6; O2SAT 97
== END 2024-02-14 13:52 | disposition home or self-care (01) ==
LOC: HO.ED 13:46
PROVIDERS: Physician Assistant; Emergency Provider Emergency Medicine; PCP Student in an Organized Health Care Education/Training Program
DX: U07.1 COVID-19 (principal); J02.9 Acute pharyngitis, unspecified; R05.9 Cough, unspecified
CPT/HCPCS: 0241U; 87651; 99282; 99283

== ENCOUNTER 2024-02-26 10:02 | Day surgery (SDC) | payer MEDICARE, MEDICAID, SELFPAY ==
[2024-02-26 11:40] VITALS: BMI 25.8
[2024-02-26 11:55] VITALS: BP 163/74; PULSE 59; RESP 18; TEMP 36.8; O2SAT 99
[2024-02-26 11:56] LABS: Glucose, Whole Blood 97 mg/dL (60-115)
[2024-02-26] MEDS: Albuterol Sulfate (0.083%) 2.5 MG/3 ML VIAL.NEB INHALE (12:00)
[2024-02-26] MEDS: Lactated Ringers 1,000 ML 80 ML IVCONT (12:00)
--- NOTE | 2024-02-26 12:31 | MHC.SHP ---
Pre-Procedural Eval Section A - 24 Hr Update-Section A only Date of Service: 02/26/24 Section B - Complete if H&P > 30 days Chief Complaint: Polyp of colon Relevant Family History (Specify if Yes): No Relevant Social History: None Present Medications: see Short Stay Collaborative assessment Medical History: Significant History (COVID-19 Wheezing Normocytic anemia Poor memory Overweight Dry mouth Osteoarthrosis Skin lesion Diabetes Umbilical hernia Hearing loss Nodule of chest wall Murmur CAD (coronary artery disease) COPD (chronic obstructive pulmonary disease) Atherosclerotic cardiovascular disease Lower gastrointestinal ) History of Previous Operations: Relevant previous surgery/procedure and date(s) (Hx of excision of mass (03/30/15) Hx of colonoscopy Hx of umbilical hernia repair (04/23/17)) Allergies: Allergies Allergy/AdvReac Type Severity Reaction Status Date / Time lisinopril Allergy Intermediate Swelling Verified 02/26/24 11:26 Review of Systems Sugical H&P ROS: Negative: Constitution, Cardiovascular, Respiratory, Neurological, Psychiatric, Hem-Onc, Allergic/Immunologic, Gastrointestinal, Genitourinary, Musculoskeletal, Integumentary, Endocrine and Eyes/Ears/Nose/Throat Exam Surgical H&P Exam: Normal: HEENT, Normal: Heart, Normal: Lungs, Normal: Extremities, Normal: Abdomen, Normal: Skin and Normal: Neurological Plan Diagnosis/Plan: Unchanged I have reviewed the history and physical and performed a pertinent physical examination on my patient. No changes have occurred unless specified. Time Spent With Patient Time: Total time managing care of this patient today ____ minutes.
--- NOTE | 2024-02-26 12:47 | P.OPN-COLO_ITS ---
Colonoscopy Operative Note Operative Note Date of Service: 02/26/24 Narrative: Operative Information Procedure Description: Colonoscopy Indication: screening, hx of colon polyp Anesthesia: MAC COLONOSCOPY Instrument: Olympus variable stiffness pediatric scope 190L Colonoscopy Monitoring: Vital signs and clinical assessment, continuous EKG monitoring, Pulse oximetry, Carbon Dioxide monitoring and blood pressure monitoring were done throughout the procedure. Colon withdrawal time was 47 minutes. Procedure: The patient was placed in the left lateral decubitis position and pre-procedure medications were administered. After a digital rectal examination of the ano-rectum, the video colonoscope was inserted into the rectum and advanced through the colon to the cecum/TI. The colonoscope was slowly withdrawn in a retrograde panoramic fashion and the colon mucosa was carefully examined including a retroflexed view of the rectum. Findings and interventions are described below. Procedure Difficulty: moderate Findings: Terminal Ileum-normal Cecum: 4-6 mm sessile polyp removed with cold forceps, adjacent to a prior tattoo henrik there was a lateral spreading granular polyp about 14-15 mm, which was raised with eleview and removed with combination of hot snare, cold snare and cold forceps. Edges were ablated and x2 ultra clips applied for hemostasis along with hemospray application. for this part, the scope was withdrawn and a distal attachment placed. Ascending Colon: x 2 sessile polyps 7-9 mm removed with cold snare Transverse Colon -normal Descending Colon: x 2 sessile polyps 8-10 mm removed with cold snare Sigmoid Colon: moderate diverticulosis Rectum: Retroflexion with small internal hemorrhoids seen, grade I Anorectum - normal Intervention: cold snare, eleview injection for EMR, cold forceps, clips, hemospray Colon preparation: [place] Bowel Preparation Scale Right colon; 2 Transverse colon: 2 Left colon; 2 (0 = Unprepared colon segment with mucosa not seen due to solid stool that cannot be cleared. 1 = Portion of mucosa of the colon segment seen, but other areas of the colon segment not well seen due to staining, residual stool and/or opaque liquid. 2 = Minor amount of residual staining, small fragments of stool and/or opaque liquid, but mucosa of colon segment seen well. 3 = Entire mucosa of colon segment seen well with no residual staining, small fragments of stool or opaque liquid) Impression and Post Procedure Diagnosis: diverticulosis colon polyps internal hemorrhoids Plan: High fiber diet leaflet Avoid straining at stool, epsom salts and sitz bath, anusol supps or cream Repeat Colonoscopy in 3-6 months or earlier if clinically indicated Above findings were reviewed with the patient and relevant handouts were provided if indicated.
[2024-02-26 13:47] VITALS: BP 103/59; PULSE 63; RESP 16; TEMP 36.2; O2SAT 95
[2024-02-26 14:02] VITALS: BP 139/63; PULSE 62; RESP 20; TEMP 36.7; O2SAT 96
== END 2024-02-26 15:42 | disposition home or self-care (01) ==
PROVIDERS: PCP Student in an Organized Health Care Education/Training Program; Visit Provider Internal Medicine Gastroenterology
PROC: 0DJD8ZZ Inspection of Lower Intestinal Tract, Via Natural or Artificial Opening Endoscopic (ICD-10-PCS; CPT 45378; principal; 2024-02-26 13:30)
DX: Z12.11 Encounter for screening for malignant neoplasm of colon (principal); D12.0 Benign neoplasm of cecum; D12.2 Benign neoplasm of ascending colon; K57.30 Diverticulosis of large intestine without perforation or abscess without bleeding; K64.0 First degree hemorrhoids; Z86.010 Personal history of colon polyps; E11.9 Type 2 diabetes mellitus without complications; I10 Essential (primary) hypertension; E78.00 Pure hypercholesterolemia, unspecified; I25.2 Old myocardial infarction; Z87.891 Personal history of nicotine dependence; Z79.02 Long term (current) use of antithrombotics/antiplatelets; Z79.84 Long term (current) use of oral hypoglycemic drugs; Z79.82 Long term (current) use of aspirin; Z79.899 Other long term (current) drug therapy
CPT/HCPCS: 45385; 45381; 45380; 82947; 88305; J1610; J2704

== ENCOUNTER → 2024-02-26 10:02 | Outpatient (BNV) | payer MEDICARE, MEDICAID, SELFPAY | PROVIDERS: PCP Student in an Organized Health Care Education/Training Program; Visit Provider Internal Medicine Gastroenterology | DX: Z12.11 Encounter for screening for malignant neoplasm of colon (principal); Z86.010 Personal history of colon polyps; D12.0 Benign neoplasm of cecum; K63.5 Polyp of colon; K57.30 Diverticulosis of large intestine without perforation or abscess without bleeding; K64.0 First degree hemorrhoids | CPT/HCPCS: 45380; 45381; 45385 ==

== ENCOUNTER 2024-03-11 08:50 | Outpatient (AMB) | payer MEDICARE, MEDICAID, SELFPAY ==
[2024-03-11 08:54] VITALS: BP 141/63; PULSE 63; BMI 27.3
--- NOTE | 2024-03-11 08:54 | MHC.OFFVIS ---
Vital Signs 03/11/24 08:54 Height 5 ft 6 in Weight 169 lb 5.04 oz BMI 27.3 BP 141/63 H Blood Pressure Location Lt brachial Position Sitting Pulse 63 Intake Visit Reasons: S/P [place] Pool; Dr. Umanzor Intake Note: John returns to in office visit today in follow up s/p colonoscopy. CC: Patient states that he has been doing good and denies having any GI symptoms today. Lock Operator Required: Yes Allergies lisinopril Allergy (Intermediate, Verified 03/11/24 08:55) Swelling HPI HPI S/P [place] Pool; Dr. Umanzor: Details: Assessment & Plan (1) Sessile colonic polyp: Comment: TA at the I/C valve, on 06/2020 scope repeat 1 year. Code(s): K63.5 - Polyp of colon (2) Pre-op examination: Code(s): Z01.818 - Encounter for other preprocedural examination (3) COPD (chronic obstructive pulmonary disease): Code(s): J44.9 - Chronic obstructive pulmonary disease, unspecified (4) Myocardial infarction: Comment: 2002-no surgery or stents. Denies recent CP Code(s): I21.9 - Acute myocardial infarction, unspecified Plan INDONESIAN #Shalonda Live He is here today with his who is supportive. He is still upset over the bleeding from the last colonoscopy, so I again explain that I can not book him with Dr. Cifuentes, but reassure him that we have very good providers here and the physician that he felt did not treat him properly is not here any more. With this he is in agreement to have a repeat scope via out service. Pt needs Suprep or low volume prep as can not tolerate PEG. His COPD is controlled as is his cardiac conditions. He was no asleep for one of the procedures and this upset him, no other problems with anesthesia or sedation. He will be having umbilical surgery soon. No ID problems. There is no known family history of colon cancer or polyps. Orders: Orders Colonoscopy - GI Use Only 11/22/23 K63.5 - Polyp of colon Medications: New sodium,potassium,mag sulfates 17.5-3.13-1.6 gram (Suprep Bowel Prep Kit) 480 mL orally; FOR COLONOSCOPY PREP 354 mL 0RF COLONOSCOPY 02/27/24 Findings: Terminal Ileum-normal Cecum: 4-6 mm sessile polyp removed with cold forceps, adjacent to a prior tattoo henrik there was a lateral spreading granular polyp about 14-15 mm, which was raised with eleview and removed with combination of hot snare, cold snare and cold forceps. Edges were ablated and x2 ultra clips applied for hemostasis along with hemospray application. for this part, the scope was withdrawn and a distal attachment placed. Ascending Colon: x 2 sessile polyps 7-9 mm removed with cold snare Transverse Colon -normal Descending Colon: x 2 sessile polyps 8-10 mm removed with cold snare Sigmoid Colon: moderate diverticulosis Rectum: Retroflexion with small internal hemorrhoids seen, grade I Anorectum - normal Intervention: cold snare, eleview injection for EMR, cold forceps, clips, hemospray Impression and Post Procedure Diagnosis: diverticulosis colon polyps internal hemorrhoids Plan: High fiber diet leaflet Avoid straining at stool, epsom salts and sitz bath, anusol supps or cream Repeat Colonoscopy in 3-6 months or earlier if clinically indicated BIOPSY .Received: 02/27/24 Diagnosis A. Cecum, polypectomy: Inflammatory polyp. B. Colon, descending, polypectomies (2): Hyperplastic mucosal polyps. C. Colon, ascending, polypectomies (2): Fragments of sessile serrated lesions/polyps; negative for cytologic dysplasia. D. Cecum, #2, polypectomy: Fragments of tubular adenoma; negative for high-grade dysplasia or carcinoma. TODAY'S VISIT INDONESIAN #Yunior, Live He is agreeable to a 6 mos repeat. He did not have any of the problems with sedation or bleeding that he had on prior procedures. The procedure was well tolerated. The results were explained and the patient is agreeable to the follow-up interval as stated. The bowel pattern has returned to normal. Education was provided to tell any 1st degree relatives about their findings to be sure that they are screened by age 45. Educated that they will be put on a recall list when it is time for their repeat scope but should they move out of state or away from the hospital they will need to remember along with their primary to repeat the procedure in a timely fashion to avoid any adverse complications. He needs a low volume prep such as Suprep as he does not tolerate the PEG prep. His COPD is controlled as is his cardiac conditions. He was no asleep for one of the procedures and this upset him, no other problems with anesthesia or sedation. He will be having umbilical surgery soon. No ID problems. There is no known family history of colon cancer or polyps. I will see him after the repeat procedure. [facility] Medical History (Updated 03/11/24 @ 09:12 by BEATRIZ Carter) Sessile colonic polyp Pre-op examination COVID-19 Wheezing Normocytic anemia Poor memory Overweight Dry mouth Osteoarthrosis Skin lesion Diabetes Umbilical hernia Hearing loss Nodule of chest wall Murmur CAD (coronary artery disease) COPD (chronic obstructive pulmonary disease) Atherosclerotic cardiovascular disease Lower gastrointestinal bleed Back pain Arthritis Peptic ulcer GERD (gastroesophageal reflux disease) Asthma Elevated cholesterol Myocardial infarction HTN (hypertension) Surgical History S/P excision of lipoma (11/27/23) H/O umbilical hernia repair (11/27/23) Hx of excision of mass (03/30/15) Hx of colonoscopy Hx of umbilical hernia repair (04/23/17) Family History Mother Diabetes Heart disease Arthritis Father Heart disease Social History Household Members: Spouse Housing: Apartment Are you a primary health and social care teacher to a significant other at home: No Do you presently have visiting nurse or other home services: No Alcohol intake: current Alcohol intake frequency: does not drink Comment: COUNTS CORRECT Patient Tobacco Use Status: Former Tobacco user Years Smoked: 48 Second Hand Smoke Exposure: No service: No Current occupational status: unemployed Review of Systems Const Denies fatigue, Denies fever(s), Denies night sweats, Denies poor appetite and Denies weight loss ENT Reports Normal hearing present, Denies dental pain, Denies dysphagia, Denies hearing loss, Denies mouth pain, Denies odynophagia, Denies throat swelling, Denies tongue swelling and Reports other (Dentition adequate) Card Reports no additional complaints Resp Reports no additional complaints GI Details: Denies abdominal pain, Denies melena, Denies bloating, Denies hematochezia, Denies constipation, Denies GI cramping, Denies dysphagia, Denies excessive flatus, Denies early satiety, Denies heartburn, Denies diarrhea, Denies nausea, Denies odynophagia, Denies vomiting and Denies hematemesis Skin/Breast Denies pruritus, Denies lesions, Denies rash and Denies jaundice Neuro Reports Normal hearing present and Denies Abnormal speech present Endo Denies fatigue Aller/Immun Denies throat swelling and Denies tongue swelling Physical Exam Vital Signs: Last Vital Signs Pulse 63 03/11/24 08:54 BP 141/63 H 03/11/24 08:54 BMI result Body Mass Index 27.3 Const General: cooperative, no acute distress, well developed and well groomed Nutritional Appearance: average body habitus and well nourished Orientation/consciousness: oriented to person, oriented to place and oriented to time Limitations: language barrier HEENT Head: Yes normocephalic and Yes atraumatic Eyes General: appearance normal, both eyes and all related structures Pupils: Equal, round and reactive pupils present Neck Neck: Yes normal visual inspection and Yes no lymphadenopathy Thyroid: Thyroid normal Resp Effort & Inspection: normal respiratory effort and able to speak in complete sentences Auscultation: clear to auscultation bilaterally Cardio Rate: regular rate Rhythm: regular rhythm Heart sounds: Normal, physiologic split S2 sound present Peripheral pulses: radial pulses present and posterior tibial pulses present GI Inspection: No distended and No Abdominal panniculus present Palpation (GI): Soft to palpation, nontender, no guarding, not rigid and No hepatosplenomegaly present Percussion: Yes normal to percussion Auscultation: normal bowel sounds Rectal Exam - Male: Yes deferred Skin General skin exam: no rashes or lesions noted, turgor normal, skin not dry, no jaundice, No spider nevi and no striae Rashes: no rashes Nails: normal Neuro General: oriented to person, oriented to place and oriented to time Cranial nerves: Yes Equal, round and reactive pupils present and Yes Normal hearing present Speech: No Abnormal speech present Extrem General: Yes normal to inspection, No clubbing, No cyanosis and No edema Psych Appearance: grossly normal and well kempt Mental Status: mental status grossly normal Speech and movement: Normal speech and movement present Affect: normal affect Attitude: cooperative Thought process: Normal thought process present and not confabulating Thought content: Normal thought content present Insight: Limited insight present (Psych) Judgement: Limited judgement present (Psych) Assessment & Plan Assessment & Plan (1) Tubular adenoma of colon: Comment: 2023 SCOPE= multiple polyps/ TA IS REPEAT IN 3-6 mos; TA at the I/C valve, on 06/2020 scope repeat 1 year. Code(s): D12.6 - Benign neoplasm of colon, unspecified Category: Medical Plan INDONESIAN #Yunior, Waldemar He is agreeable to a 6 mos repeat. He did not have any of the problems with sedation or bleeding that he had on prior procedures. The procedure was well tolerated. The results were explained and the patient is agreeable to the follow-up interval as stated. The bowel pattern has returned to normal. Education was provided to tell any 1st degree relatives about their findings to be sure that they are screened by age 45. Educated that they will be put on a recall list when it is time for their repeat scope but should they move out of state or away from the hospital they will need to remember along with their primary to repeat the procedure in a timely fashion to avoid any adverse complications. He needs a low volume prep such as Suprep as he does not tolerate the PEG prep. His COPD is controlled as is his cardiac conditions. He was no asleep for one of the procedures and this upset him, no other problems with anesthesia or sedation. He will be having umbilical surgery soon. No ID problems. There is no known family history of colon cancer or polyps. I will see him after the repeat procedure. Orders: Orders Colonoscopy - GI Use Only Today D12.6 - Benign neoplasm of colon, unspecified Medications: New sodium,potassium,mag sulfates 17.5-3.13-1.6 gram (Suprep Bowel Prep Kit) 480 mL orally; FOR COLONOSCOPY PREP 354 mL 0RF bisacodyl (Dulcolax (bisacodyl)) 10 mg (2 x 5 mg) PO BEDTIME 4 tabs 0RF 2 days Coding Level of Care Code Est Pt Level 3 (92418) Diagnoses Tubular adenoma of colon D12.6
== END 2024-03-11 09:20 | disposition home or self-care (01) ==
PROVIDERS: PCP Student in an Organized Health Care Education/Training Program; Visit Provider Nurse Practitioner
DX: D12.6 Benign neoplasm of colon, unspecified (principal)
CPT/HCPCS: 99213

== ENCOUNTER → 2024-03-11 08:50 | Outpatient (BNVA) | payer MEDICARE, MEDICAID, SELFPAY | PROVIDERS: PCP Student in an Organized Health Care Education/Training Program; Visit Provider Nurse Practitioner | DX: D12.6 Benign neoplasm of colon, unspecified (principal) | CPT/HCPCS: 99212 ==

== ENCOUNTER 2024-04-22 09:52 | Outpatient (AMB) | payer MEDICARE, MEDICAID, SELFPAY ==
[2024-04-22 10:01] VITALS: BP 122/64; PULSE 56; O2SAT 99; BMI 27.9
--- NOTE | 2024-04-22 10:01 | MHC.OFFVIS ---
Vital Signs 04/22/24 10:01 Height 5 ft 6 in Weight 173 lb 1.006 oz BMI 27.9 BP 122/64 Blood Pressure Location Lt brachial Position Sitting Pulse 56 Pulse Source Doppler Pulse Oximetry (%) 99 Oxygen Delivery Method Room Air Intake Visit Reasons: Emphysema Cutting And Splicing Supervisor Required: Yes Cutting And Splicing Supervisor Name: Rocío Castañeda Allergies lisinopril Allergy (Intermediate, Verified 03/11/24 08:55) Swelling HPI HPI Emphysema: Details: 68-year-old gentleman, former 40 pack-year smoker, quit 2014 now followed for underlying pulmonary emphysema and environmental allergies. He continues to use Trelegy and albuterol MDI with good control of his symptoms. His follow-up CT chest is pending. He denies recent acute exacerbations. [facility] Medical History (Updated 04/22/24 @ 10:41 by William Armas MD) CAD (coronary artery disease) Atherosclerotic cardiovascular disease History of AK (myocardial infarction) Murmur HTN (hypertension) Elevated cholesterol Diabetes COPD (chronic obstructive pulmonary disease) Asthma Personal history of nicotine dependence GERD (gastroesophageal reflux disease) Peptic ulcer Tubular adenoma of colon Sessile colonic polyp History of lower GI bleeding Normocytic anemia Poor memory Overweight Dry mouth Osteoarthrosis Skin lesion Hearing loss Nodule of chest wall Back pain Arthritis Surgical History (Updated 03/16/24 @ 11:26 by Terri Mccarthy PA-C) History of colonoscopy History of excision of mass History of umbilical hernia repair S/P excision of lipoma Family History Mother Diabetes Heart disease Arthritis Father Heart disease Social History Household Members: Spouse Housing: Apartment Are you a primary wound care rn to a significant other at home: No Do you presently have visiting nurse or other home services: No Alcohol intake: current Alcohol intake frequency: does not drink Comment: COUNTS CORRECT Patient Tobacco Use Status: Former Tobacco user Years Smoked: 48 Second Hand Smoke Exposure: No service: No Current occupational status: unemployed Review of Systems Const Denies daytime sleepiness, Denies excessive sweating, Denies fatigue, Denies fever(s), Denies lethargy, Denies malaise, Denies night sweats, Denies snoring and Denies weight loss Eyes Denies blurry vision and Denies itchy eyes ENT Denies nasal congestion, Denies post nasal drip, Denies sinus pain, Denies sinus pressure and Denies other ( Thrush) Card Denies chest pain, Denies pedal edema, Denies dyspnea, Denies orthopnea and Denies paroxysmal nocturnal dyspnea Resp Denies cough, Denies hemoptysis, Denies excessive phlegm production, Denies dyspnea, Denies snoring and Denies wheezing GI Denies abdominal pain and Denies heartburn Musc Denies myalgias, Denies arthralgias and Denies joint swelling Skin/Breast Denies rash Neuro Denies memory loss and Denies seizure-like activity Psych Denies abnormal sleep pattern, Denies anxiety and Denies memory loss Endo Denies excessive sweating, Denies fatigue and Denies heat intolerance Sukumar/Lymph Denies easy bruising Aller/Immun Denies itchy eyes, Denies seasonal rhinorrhea and Denies wheezing Physical Exam Vital Signs: Last Vital Signs Pulse 56 04/22/24 10:01 BP 122/64 04/22/24 10:01 Pulse Ox 99 04/22/24 10:01 Oxygen Delivery Method Room Air 04/22/24 10:01 BMI result Body Mass Index 27.9 Const General: no acute distress and alert Nutritional Appearance: not obese Orientation/consciousness: Other orientation findings ( oriented) HEENT Head: Yes atraumatic Eyes General: appearance normal, both eyes and all related structures Sclerae: sclerae normal EOM: EOMs intact bilaterally Neck Neck: Yes supple Lymphatic: no lymphadenopathy noted Resp Effort & Inspection: normal respiratory effort and no use of accessory muscles Auscultation: clear to auscultation bilaterally Cardio Rate: regular rate Rhythm: regular rhythm Heart sounds: no gallops, no murmurs and no rubs Skin General skin exam: other ( warm) Extrem General: No clubbing, No cyanosis and No edema Assessment & Plan Assessment & Plan (1) Personal history of nicotine dependence: Comment: (former smoker - onset 11, 1ppd x 49, 40pyh - quit 2014) Code(s): Z87.891 - Personal history of nicotine dependence Category: Medical Plan: Follow-up CT chest is pending for March of 2024. (2) COPD (chronic obstructive pulmonary disease): Code(s): J44.9 - Chronic obstructive pulmonary disease, unspecified Category: Medical Plan: Now well controlled on Trelegy and albuterol MDI. Continue current regimen. Orders: Orders CT lung screen follow up Today Z87.891 - Personal history of nicotine dependence Coding Level of Care Code Est Pt Level 4 (97090) Diagnoses Personal history of nicotine dependence Z87.891 COPD (chronic obstructive pulmonary disease) J44.9
== END 2024-04-22 10:24 | disposition home or self-care (01) ==
PROVIDERS: PCP Student in an Organized Health Care Education/Training Program; Visit Provider Internal Medicine Pulmonary Disease
DX: Z87.891 Personal history of nicotine dependence (principal); J44.9 Chronic obstructive pulmonary disease, unspecified
CPT/HCPCS: 99214

== ENCOUNTER 2024-04-22 11:56 | Emergency (ER) | payer MEDICARE, MEDICAID, SELFPAY ==
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
--- NOTE | ~2024-04-22 | XR_ITS ---
EXAMINATION: XR SHOULDER, LEFT CLINICAL INFORMATION: Left shoulder pain rule out fracture COMPARISON: None available. TECHNIQUE: AP external rotation, Grashey, scapular Y, and axillary views of the left shoulder. FINDINGS: The bones and soft tissues are normal. No fracture. Glenohumeral and acromioclavicular alignment is anatomic with normal joint space. No abnormal soft tissue calcifications. XR/XR shoulder LT min 2V IMPRESSION: Normal left shoulder.
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
[2024-04-22 12:05] VITALS: BP 186/74; PULSE 66; O2SAT 98
[2024-04-22 12:09] VITALS: BP 167/72; PULSE 72; RESP 18; TEMP 36.3; O2SAT 99; BMI 23.8
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
[2024-04-22 12:36] VITALS: BP 156/71; PULSE 72; RESP 16; TEMP 36.4; O2SAT 98
[2024-04-22] MEDS: Ibuprofen 400 MG TABLET PO (12:56)
[2024-04-22 13:20] VITALS: BP 148/91; PULSE 91; RESP 18; TEMP 36.9; O2SAT 96
[2024-04-22 14:00] VITALS: BP 154/63; PULSE 66; RESP 15; O2SAT 98
[2024-04-22 15:54] VITALS: BP 143/65; PULSE 58; RESP 16; TEMP 36.4; O2SAT 98
== END 2024-04-22 15:55 | disposition home or self-care (01) ==
PROVIDERS: Emergency Provider Emergency Medicine Emergency Medical Services; PCP Student in an Organized Health Care Education/Training Program
DX: S40.012A Contusion of left shoulder, initial encounter (principal); S20.212A Contusion of left front wall of thorax, initial encounter; S80.01XA Contusion of right knee, initial encounter; V73.6XXA Passenger on bus injured in collision with car, pick-up truck or van in traffic accident, initial encounter; Y93.89 Activity, other specified; Y92.414 Local residential or business street as the place of occurrence of the external cause; Y99.9 Unspecified external cause status; J43.9 Emphysema, unspecified; Z87.891 Personal history of nicotine dependence
CPT/HCPCS: 70450; 71250; 72125; 73030; 73562; 99212; 99284

== ENCOUNTER 2024-05-07 08:35 | Outpatient (REF) | payer MEDICARE, MEDICAID, SELFPAY ==
[2024-05-07 11:17] LABS: Hematocrit 36.5 % (42.0-52.0); Hemoglobin 11.8 g/dl (14.0-18.0); Mean Corpuscular HGB Conc 32.3 g/dl (31.0-36.0); Mean Corpuscular Hemoglobin 27.1 pg (27.0-33.0); Mean Corpuscular Volume 83.9 fL (80.0-98.0); Mean Platelet Volume 10.5 fL (9.4-12.4); Platelet Count 352 X10*3/uL (160-400); Red Blood Count 4.35 X10*6/uL (4.60-5.80); Red Cell Distribution Width 14.8 % (11.0-16.0); White Blood Count 8.5 X10*3/uL (4.8-10.8)
[2024-05-07 11:28] LABS: Estimated Average Glucose 120 mg/dL; Hemoglobin A1c % 5.8 % (<6.0)
[2024-05-07 11:33] LABS: Alanine Aminotransferase 24 U/L (0-40); Albumin Level 4.5 g/dL (3.5-5.0); Alkaline Phosphatase 59 U/L (39-117); Anion Gap 12 (12-20); Aspartate Amino Transferase 25 U/L (5-37); Bilirubin Total 0.5 mg/dL (0.0-1.0); Blood Urea Nitrogen 22 mg/dL (9-16); Carbon Dioxide 28 mmol/L (22-29); Chloride 103 mmol/L (96-108); Cholesterol 116 mg/dL (<200); Estimated Glomerular Filt Rate 55; Glucose Random 90 mg/dL (60-115); HDL Cholesterol 36 mg/dL (>40); LDL Cholesterol Calculated 62 mg/dL (<100); Potassium 3.1 mmol/L (3.3-5.1); Sodium 140 mmol/L (135-145); Total Protein 7.7 g/dL (6.5-8.0); Triglycerides 93 mg/dL (<150)
[2024-05-07 11:50] LABS: TSH reflex Free T4 0.71 uIU/mL (0.32-4.0)
[2024-05-07 12:04] LABS: Folate 12.1 ng/mL (> or = 4.0); Vitamin B12 577 pg/mL (200-900)
[2024-05-08 14:51] LABS: Iron 56 mcg/dL (45-160); Percent Iron Saturation 18 % (15-50); Total Iron Binding Capacity 320 mcg/dL (228-428); Unsaturated Iron Binding 264 ug/dL
[2024-05-08 15:03] LABS: Ferritin 14 ng/mL (20-250)
== END 2024-05-07 08:36 | disposition home or self-care (01) ==
LOC: HO.HHCL 08:35
PROVIDERS: Visit Provider Student in an Organized Health Care Education/Training Program
DX: Z00.00 Encounter for general adult medical examination without abnormal findings (principal); Z13.1 Encounter for screening for diabetes mellitus; Z13.6 Encounter for screening for cardiovascular disorders; D64.9 Anemia, unspecified
CPT/HCPCS: 36415; 80053; 80061; 82607; 82728; 82746; 83036; 83540; 84443; 85027

== ENCOUNTER 2024-05-13 11:33 | Outpatient (REF) | payer MEDICARE, MEDICAID, SELFPAY ==
[2024-05-13 13:48] LABS: Magnesium 1.6 mg/dL (1.6-2.6); Potassium 3.6 mmol/L (3.3-5.1)
[2024-05-15 12:04] LABS: Prot Elec - Albumin 4.5 g/dL (3.8-4.8); Prot Elec - Alpha1 0.3 g/dL (0.2-0.3); Prot Elec - Alpha2 0.6 g/dL (0.5-0.9); Prot Elec - Beta 1 0.5 g/dL (0.4-0.6); Prot Elec - Beta 2 0.5 g/dL (0.2-0.5); Prot Elec - Gamma 1.3 g/dL (0.8-1.7); Prot Elec - Total Protein 7.7 g/dL (6.1-8.1)
[2024-05-19 12:48] LABS: IgA 303 mg/dL (70-320); IgG 1452 mg/dL (600-1540); IgM 99 mg/dL (50-300)
== END 2024-05-13 11:34 | disposition home or self-care (01) ==
LOC: HO.HHCL 11:33
PROVIDERS: Visit Provider Student in an Organized Health Care Education/Training Program
DX: E87.6 Hypokalemia (principal); D64.9 Anemia, unspecified
CPT/HCPCS: 36415; 82784; 83735; 84132; 84165; 86334

== ENCOUNTER 2024-06-02 08:56 | Outpatient (AMB) | payer MEDICARE, MEDICAID, SELFPAY ==
[2024-06-02 09:06] VITALS: BP 124/62; PULSE 61; O2SAT 99; BMI 28.3
--- NOTE | 2024-06-02 09:06 | MHC.OFFVIS ---
Vital Signs 06/02/24 09:06 Height 5 ft 6 in Weight 175 lb 4.28 oz BMI 28.3 BP 124/62 Blood Pressure Location Lt brachial Position Sitting Pulse 61 Pulse Source Doppler Pulse Oximetry (%) 99 Oxygen Delivery Method Room Air Intake Visit Reasons: Discuss CT Chest Fitting Supervisor Required: Yes Fitting Supervisor Name: Rocío Hairston.Liz Allergies lisinopril Allergy (Intermediate, Verified 04/22/24 12:11) Swelling HPI HPI Discuss CT Chest: Details: 68-year-old gentleman, former 40 pack-year smoker, quit 2014 now followed for underlying pulmonary emphysema, pulmonary nodules, and environmental allergies. He continues to use Trelegy and albuterol MDI with good control of his symptoms. His follow-up CT chest shows stable 9 mm and under pulmonary nodules and also moderate-sized hiatal hernia. He denies recent exacerbations. [facility] Medical History (Updated 06/02/24 @ 09:28 by William Armas MD) CAD (coronary artery disease) Atherosclerotic cardiovascular disease History of [place] (myocardial infarction) Murmur HTN (hypertension) Elevated cholesterol Diabetes COPD (chronic obstructive pulmonary disease) Asthma Personal history of nicotine dependence GERD (gastroesophageal reflux disease) Peptic ulcer Tubular adenoma of colon Sessile colonic polyp History of lower GI bleeding Normocytic anemia Poor memory Overweight Dry mouth Osteoarthrosis Skin lesion Hearing loss Nodule of chest wall Back pain Arthritis Surgical History (Updated 03/16/24 @ 11:26 by Terri Mccarthy PA-C) History of colonoscopy History of excision of mass History of umbilical hernia repair S/P excision of lipoma Family History Mother Diabetes Heart disease Arthritis Father Heart disease Social History Household Members: Spouse Housing: Apartment Are you a primary md do resident urgent care to a significant other at home: No Do you presently have visiting nurse or other home services: No Alcohol intake: current Alcohol intake frequency: does not drink Comment: COUNTS CORRECT Patient Tobacco Use Status: Former Tobacco user Years Smoked: 48 Second Hand Smoke Exposure: No service: No Current occupational status: unemployed Review of Systems Const Denies daytime sleepiness, Denies excessive sweating, Denies fatigue, Denies fever(s), Denies lethargy, Denies malaise, Denies night sweats, Denies snoring and Denies weight loss Eyes Denies blurry vision and Denies itchy eyes ENT Denies nasal congestion, Denies post nasal drip, Denies sinus pain, Denies sinus pressure and Denies other ( Thrush) Card Denies chest pain, Denies pedal edema, Denies dyspnea, Denies orthopnea and Denies paroxysmal nocturnal dyspnea Resp Denies cough, Denies hemoptysis, Denies excessive phlegm production, Denies dyspnea, Denies snoring and Denies wheezing GI Denies abdominal pain and Denies heartburn Musc Denies myalgias, Denies arthralgias and Denies joint swelling Skin/Breast Denies rash Neuro Denies memory loss and Denies seizure-like activity Psych Denies abnormal sleep pattern, Denies anxiety and Denies memory loss Endo Denies excessive sweating, Denies fatigue and Denies heat intolerance Sukumar/Lymph Denies easy bruising Aller/Immun Denies itchy eyes, Denies seasonal rhinorrhea and Denies wheezing Physical Exam Vital Signs: Last Vital Signs Pulse 61 06/02/24 09:06 BP 124/62 06/02/24 09:06 Pulse Ox 99 06/02/24 09:06 Oxygen Delivery Method Room Air 06/02/24 09:06 BMI result Body Mass Index 28.3 Const General: no acute distress and alert Nutritional Appearance: not obese Orientation/consciousness: Other orientation findings ( oriented) HEENT Head: Yes atraumatic Eyes General: appearance normal, both eyes and all related structures Sclerae: sclerae normal EOM: EOMs intact bilaterally Neck Neck: Yes supple Lymphatic: no lymphadenopathy noted Resp Effort & Inspection: normal respiratory effort and no use of accessory muscles Auscultation: clear to auscultation bilaterally Cardio Rate: regular rate Rhythm: regular rhythm Heart sounds: no gallops, no murmurs and no rubs Skin General skin exam: other ( warm) Extrem General: No clubbing, No cyanosis and No edema Assessment & Plan Assessment & Plan (1) COPD (chronic obstructive pulmonary disease): Code(s): J44.9 - Chronic obstructive pulmonary disease, unspecified Category: Medical Plan: Well controlled on current regimen of Trelegy and albuterol MDI. Continue current regimen. (2) Personal history of nicotine dependence: Comment: (former smoker - onset 9, 1ppd x 49, 40pyh - quit 2014) Code(s): Z87.891 - Personal history of nicotine dependence Category: Medical Plan: Results of follow-up CT chest reviewed, 9 mm and under stable pulmonary nodules. Continue with yearly screening, next in March of 2025. (3) Hiatal hernia: Code(s): K44.9 - Diaphragmatic hernia without obstruction or gangrene Category: Medical Plan: Clinically silent, continue to monitor clinically. Orders: Orders CT lung screening 04/01/25 Z87.891 - Personal history of nicotine dependence Coding Level of Care Code Est Pt Level 4 (07404) Diagnoses COPD (chronic obstructive pulmonary disease) J44.9 Personal history of nicotine dependence Z87.891 Hiatal hernia K44.9
== END 2024-06-02 09:28 | disposition home or self-care (01) ==
PROVIDERS: PCP Student in an Organized Health Care Education/Training Program; Visit Provider Internal Medicine Pulmonary Disease
DX: J44.9 Chronic obstructive pulmonary disease, unspecified (principal); Z87.891 Personal history of nicotine dependence; K44.9 Diaphragmatic hernia without obstruction or gangrene
CPT/HCPCS: 99214

== ENCOUNTER → 2024-06-02 08:56 | Outpatient (BNVA) | payer MEDICARE, MEDICAID, SELFPAY | PROVIDERS: PCP Student in an Organized Health Care Education/Training Program; Visit Provider Internal Medicine Pulmonary Disease | DX: J44.9 Chronic obstructive pulmonary disease, unspecified (principal); K44.9 Diaphragmatic hernia without obstruction or gangrene; Z87.891 Personal history of nicotine dependence | CPT/HCPCS: 99212 ==

== ENCOUNTER 2024-08-14 09:50 | Outpatient (REF) | payer MEDICARE, MEDICAID, SELFPAY ==
[2024-08-14 11:04] LABS: MANUAL DIFF FLAG NO
[2024-08-14 11:20] LABS: Basophils Absolute Auto 0.1 X10*3/uL (0.0-0.2); Basophils Percent Auto 0.7 % (0-2); Eosinophils Absolute Auto 0.2 X10*3/uL (0.0-0.4); Eosinophils Percent Auto 1.5 % (0-4); Hemoglobin 13.2 g/dl (14.0-18.0); Imm Gran Abs Auto 0.05 X10*3/uL (0.00-0.03); Imm Gran Pct Auto 0.4 % (0.0-0.4); Lymphocytes Absolute Auto 2.9 X10*3/uL (1.2-4.9); Mean Corpuscular HGB Conc 32.2 g/dl (31.0-36.0); Mean Corpuscular Hemoglobin 27.5 pg (27.0-33.0); Mean Corpuscular Volume 85.4 fL (80.0-98.0); Monocytes Absolute Auto 1.3 X10*3/uL (0.1-1.2); Neutrophils Absolute Auto 7.1 x10*3/uL (2.0-8.3); Neutrophils Percent Auto 61.4 % (45-73); Platelet Count 392 X10*3/uL (160-400); Red Cell Distribution Width 16.4 % (11.0-16.0); White Blood Count 11.5 X10*3/uL (4.8-10.8)
[2024-08-14 12:36] LABS: Iron 78 mcg/dL (45-160); Percent Iron Saturation 25 % (15-50); Total Iron Binding Capacity 317 mcg/dL (228-428); Unsaturated Iron Binding 239 ug/dL
[2024-08-14 13:04] LABS: Ferritin 26 ng/mL (20-250)
== END 2024-08-14 09:51 | disposition home or self-care (01) ==
LOC: HO.HHCL 09:50
PROVIDERS: Visit Provider Student in an Organized Health Care Education/Training Program
DX: D50.9 Iron deficiency anemia, unspecified (principal)
CPT/HCPCS: 36415; 82728; 83540; 85025

== ENCOUNTER 2024-09-09 05:55 | Day surgery (SDC) | payer MEDICARE, MEDICAID, SELFPAY ==
[2024-09-07 13:53] VITALS: BMI 28.2
--- NOTE | 2024-09-08 08:29 | HO.ANESPROP2 ---
Documented by User: Laurie Goodman NP 09/08/24 08:39 HPI - Anesthesia Eval Consult details Narrative: 69yo M for Colonoscopy Follows [facility] Cardiology for CAD / Hx SD in 2001. Stable at 01/2024 office visit with routine yearly f/u [facility] Active Problems Active Problems: All Active Problems Hiatal hernia (Acute) COPD (chronic obstructive pulmonary disease) (Acute) History of [place] (myocardial infarction) (Acute) Atherosclerotic cardiovascular disease (Acute) HTN (hypertension) (Acute) Elevated cholesterol (Acute) Type 2 diabetes mellitus with unspecified complications (Acute) COPD (chronic obstructive pulmonary disease) (Acute) Personal history of nicotine dependence (Acute) Tubular adenoma of colon (Acute) COVID-19 (Acute) Environmental allergies (Acute) Lipoma of flank (Acute) Recurrent umbilical hernia (Acute) Precordial chest pain (Acute) Peroneal tendonitis (Acute) IBS (irritable bowel syndrome) (Acute) Past Medical History Medical History History of lower GI bleeding History of [place] (myocardial infarction) Tubular adenoma of colon Personal history of nicotine dependence Normocytic anemia Poor memory Overweight Dry mouth Osteoarthrosis Skin lesion Diabetes Hearing loss Nodule of chest wall Murmur CAD (coronary artery disease) COPD (chronic obstructive pulmonary disease) Atherosclerotic cardiovascular disease Sessile colonic polyp Back pain Arthritis Peptic ulcer GERD (gastroesophageal reflux disease) Asthma Elevated cholesterol HTN (hypertension) Family History Family History Mother Diabetes Heart disease Arthritis Father Heart disease Family history of problems with anesthesia: No Surgical History Surgical History Hx of cardiac catheterization History of colonoscopy History of excision of mass History of umbilical hernia repair S/P excision of lipoma History of Problems with Anesthesia: No Social History Social History Household Members: Spouse Housing: Apartment Are you a primary child care center administrator to a significant other at home: No Do you presently have visiting nurse or other home services: No Alcohol intake: current Alcohol intake frequency: does not drink Comment: COUNTS CORRECT Patient Tobacco Use Status: Former Tobacco user Years Smoked: 48 Second Hand Smoke Exposure: No Use of substances other than those prescribed or required for medical reasons: No Are you DNR?: No Advance Directives: No Advance Directives Information Provided: Yes Recently lost weight without trying: No service: No Current occupational status: unemployed Meds Allergies Allergy/AdvReac Type Severity Reaction Status Date / Time lisinopril Allergy Intermediate Swelling Verified 09/09/24 06:44 Home Medications ?Medication ?Instructions ?Recorded ?Confirmed ?Last Taken ?Type atorvastatin 40 mg tablet 40 mg PO BEDTIME 07/29/20 09/09/24 Unknown History cholecalciferol (vitamin D3) 25 25 mcg PO DAILY 07/29/20 09/09/24 Unknown History mcg (1,000 unit) tablet (Vitamin D3) omega-3 300 mg-dha 120 mg-epa 180 1 cap PO BID 08/14/22 09/09/24 09/06/24 History mg-fish oil 1,000 mg capsule albuterol sulfate 90 mcg/actuation 2 puff inhalation QID PRN 03/27/23 09/09/24 Unknown History aerosol inhaler (Ventolin HFA) Shortness Of Breath Or Wheezing fluticasone fur. 200 mcg-umeclid 1 ea inhalation DAILY 03/27/23 09/09/24 Unknown History 62.5 mcg-vilant 25 mcg inhalat.powder (Trelegy Ellipta) metformin 1,000 mg tablet 1,000 mg PO BID 03/27/23 09/09/24 Unknown History omeprazole 20 mg capsule,delayed 20 mg PO DAILY 08/20/23 09/09/24 Unknown History release aspirin 81 mg tablet,delayed 81 mg PO DAILY 11/15/23 09/09/24 09/06/24 History release chlorthalidone 25 mg tablet 25 mg PO BEDTIME 11/15/23 09/09/24 Unknown History amlodipine 10 mg tablet 10 mg PO DAILY 03/11/24 09/09/24 09/09/24 05:30 History cyanocobalamin (vitamin B-12) 500 500 mcg PO QAM 03/11/24 09/09/24 Unknown History mcg tablet Exam Height,Weight and Vital Signs: Height 5 ft 6 in Weight 79.379 kg Pertinent Lab Results Pertinent Lab Results: Laboratory Tests 05/07/24 05/13/24 08/14/24 08:38 11:36 09:55 WBC 11.5 H Hgb 13.2 L Hct 41.0 L Plt Count 392 Sodium 140 Potassium 3.6 Chloride 103 Carbon Dioxide 28 BUN 22 H Creatinine 1.30 Narrative Narrative: EKG 01/2024 Details: EKG with sinus rhythm at 63/Min; RSR' pattern in V1; T-wave inversions in lead 3 and AVF slightly more prominent than prior. ECHO 2022 Conclusions: - Essentially normal study Findings Left Ventricle Normal left ventricular size, thickness, and systolic function. The visually estimated ejection fraction is between 55-60%. Spectral Doppler is indicative of a normal filling pattern. Peak GLS is -19.1%, within normal limits. NM cardiolite stress test 2022 IMPRESSION: 1. Myocardial perfusion imaging study shows no clear evidence of any ischemia. Fixed inferior defect probably related to diaphragmatic attenuation artifact. 2. Gated LVEF is 65% during stress and 55% during rest. 3. Transient ischemic dilatation not present. Assessment and Plan Assessment Anesthesia Assessment: Chart Reviewed Final Anesthetic Review Family History of Problems with Anesthesia: No History of Problems with Anesthesia: No Documented by User: Mago Ward MD 09/09/24 08:52 PMFSH Past Medical History Medical History History of lower GI bleeding History of [place] (myocardial infarction) Tubular adenoma of colon Personal history of nicotine dependence Normocytic anemia Poor memory Overweight Dry mouth Osteoarthrosis Skin lesion Diabetes Hearing loss Nodule of chest wall Murmur CAD (coronary artery disease) COPD (chronic obstructive pulmonary disease) Atherosclerotic cardiovascular disease Sessile colonic polyp Back pain Arthritis Peptic ulcer GERD (gastroesophageal reflux disease) Asthma Elevated cholesterol HTN (hypertension) Family History Family History Mother Diabetes Heart disease Arthritis Father Heart disease Surgical History Surgical History Hx of cardiac catheterization History of colonoscopy History of excision of mass History of umbilical hernia repair S/P excision of lipoma Social History Social History Household Members: Spouse Housing: Apartment Are you a primary child care center administrator to a significant other at home: No Do you presently have visiting nurse or other home services: No Alcohol intake: current Alcohol intake frequency: does not drink Comment: COUNTS CORRECT Patient Tobacco Use Status: Former Tobacco user Years Smoked: 48 Second Hand Smoke Exposure: No Use of substances other than those prescribed or required for medical reasons: No Are you DNR?: No Advance Directives: No Advance Directives Information Provided: Yes Recently lost weight without trying: No service: No Current occupational status: unemployed Meds Allergies Allergy/AdvReac Type Severity Reaction Status Date / Time lisinopril Allergy Intermediate Swelling Verified 09/09/24 06:44 Home Medications ?Medication ?Instructions ?Recorded ?Confirmed ?Last Taken ?Type atorvastatin 40 mg tablet 40 mg PO BEDTIME 07/29/20 09/09/24 Unknown History cholecalciferol (vitamin D3) 25 25 mcg PO DAILY 07/29/20 09/09/24 Unknown History mcg (1,000 unit) tablet (Vitamin D3) omega-3 300 mg-dha 120 mg-epa 180 1 cap PO BID 08/14/22 09/09/24 09/06/24 History mg-fish oil 1,000 mg capsule albuterol sulfate 90 mcg/actuation 2 puff inhalation QID PRN 03/27/23 09/09/24 Unknown History aerosol inhaler (Ventolin HFA) Shortness Of Breath Or Wheezing fluticasone fur. 200 mcg-umeclid 1 ea inhalation DAILY 03/27/23 09/09/24 Unknown History 62.5 mcg-vilant 25 mcg inhalat.powder (Trelegy Ellipta) metformin 1,000 mg tablet 1,000 mg PO BID 03/27/23 09/09/24 Unknown History omeprazole 20 mg capsule,delayed 20 mg PO DAILY 08/20/23 09/09/24 Unknown History release aspirin 81 mg tablet,delayed 81 mg PO DAILY 11/15/23 09/09/24 09/06/24 History release chlorthalidone 25 mg tablet 25 mg PO BEDTIME 11/15/23 09/09/24 Unknown History amlodipine 10 mg tablet 10 mg PO DAILY 03/11/24 09/09/24 09/09/24 05:30 History cyanocobalamin (vitamin B-12) 500 500 mcg PO QAM 03/11/24 09/09/24 Unknown History mcg tablet Exam Airway Mallampati Class: II TM Dist: >3cm Neck ROM: Full Heart: rrr Lungs: cta Assessment and Plan Assessment Anesthesia Assessment: Anesthesia Plan Discussed Final Anesthetic Review NPO: Yes ASA Class: III Final Preanesthetic Review: No Changes in Pt Med Stat, Meds/Allgs Chart Reviewed, Consent Obtained/Reviewed and Anes Risks/Benef Reviewed Patient Risk: Intermediate Procedure Risk: Low Anesthetic Plan Anesthetic Plan: MAC: Disposition: Standard PACU
[2024-09-09 06:45] VITALS: BMI 27.8
[2024-09-09 07:01] VITALS: BP 157/70; PULSE 53; RESP 15; TEMP 36.5; O2SAT 96
[2024-09-09 07:06] LABS: Glucose, Whole Blood 109 mg/dL (60-115)
--- NOTE | 2024-09-09 07:09 | MHC.SHP ---
Pre-Procedural Eval Section A - 24 Hr Update-Section A only Date of Service: 09/09/24 Section B - Complete if H&P > 30 days Chief Complaint: Benign neoplasm of colon, unspecified Relevant Family History (Specify if Yes): No Relevant Social History: None Present Medications: see Short Stay Collaborative assessment Medical History: Significant History (CAD (coronary artery disease) Atherosclerotic cardiovascular disease History of [place] (myocardial infarction) Murmur HTN (hypertension) Elevated cholesterol Diabetes COPD (chronic obstructive pulmonary disease) Asthma Personal history of nicotine dependence GERD (gastroesophageal reflux disease) Peptic) History of Previous Operations: Relevant previous surgery/procedure and date(s) ( History of colonoscopy History of excision of mass History of umbilical hernia repair S/P excision of lipoma) Allergies: Allergies Allergy/AdvReac Type Severity Reaction Status Date / Time lisinopril Allergy Intermediate Swelling Verified 09/09/24 06:44 Review of Systems Sugical H&P ROS: Negative: Constitution, Cardiovascular, Respiratory, Neurological, Psychiatric, Hem-Onc, Allergic/Immunologic, Gastrointestinal, Genitourinary, Musculoskeletal, Integumentary, Endocrine and Eyes/Ears/Nose/Throat Exam Surgical H&P Exam: Normal: HEENT, Normal: Heart, Normal: Lungs, Normal: Extremities, Normal: Abdomen, Normal: Skin and Normal: Neurological Plan Diagnosis/Plan: Unchanged I have reviewed the history and physical and performed a pertinent physical examination on my patient. No changes have occurred unless specified. Time Spent With Patient Time: Total time managing care of this patient today ____ minutes.
[2024-09-09] MEDS: Lactated Ringers 1,000 ML 100 ML IVCONT (07:19)
--- NOTE | 2024-09-09 09:21 | HO.ANESPROP2 ---
[facility] Active Problems Active Problems: All Active Problems Hiatal hernia (Acute) COVID-19 (Acute) Environmental allergies (Acute) Lipoma of flank (Acute) Recurrent umbilical hernia (Acute) COPD (chronic obstructive pulmonary disease) (Acute) Type 2 diabetes mellitus with unspecified complications (Acute) Precordial chest pain (Acute) Peroneal tendonitis (Acute) IBS (irritable bowel syndrome) (Acute) COPD (chronic obstructive pulmonary disease) (Acute) History of [place] (myocardial infarction) (Acute) Atherosclerotic cardiovascular disease (Acute) HTN (hypertension) (Acute) Elevated cholesterol (Acute) Personal history of nicotine dependence (Acute) Tubular adenoma of colon (Acute) Past Medical History Medical History History of lower GI bleeding History of [place] (myocardial infarction) Tubular adenoma of colon Personal history of nicotine dependence Normocytic anemia Poor memory Overweight Dry mouth Osteoarthrosis Skin lesion Diabetes Hearing loss Nodule of chest wall Murmur CAD (coronary artery disease) COPD (chronic obstructive pulmonary disease) Atherosclerotic cardiovascular disease Sessile colonic polyp Back pain Arthritis Peptic ulcer GERD (gastroesophageal reflux disease) Asthma Elevated cholesterol HTN (hypertension) Functional capacity: independent ambulation Family History Family History Mother Diabetes Heart disease Arthritis Father Heart disease Family history of problems with anesthesia: No Surgical History Surgical History Hx of cardiac catheterization History of colonoscopy History of excision of mass History of umbilical hernia repair S/P excision of lipoma History of Problems with Anesthesia: No Social History Social History Household Members: Spouse Housing: Apartment Are you a primary spiritual care coordinator to a significant other at home: No Do you presently have visiting nurse or other home services: No Alcohol intake: current Alcohol intake frequency: does not drink Comment: COUNTS CORRECT Patient Tobacco Use Status: Former Tobacco user Years Smoked: 48 Second Hand Smoke Exposure: No Use of substances other than those prescribed or required for medical reasons: No Are you DNR?: No Advance Directives: No Advance Directives Information Provided: Yes Recently lost weight without trying: No service: No Current occupational status: unemployed Meds Allergies Allergy/AdvReac Type Severity Reaction Status Date / Time lisinopril Allergy Intermediate Swelling Verified 09/09/24 06:44 Active Medications: Current Medications Albuterol Sulfate (Albuterol Sulfate (0.083%) 2.5 Mg/3 Ml Vial.Neb) 2.5 mg INHALE ONCE PRN PRN Reason: Shortness of Breath/Wheezing Lactated Ringer's (Lr) 1,000 mls @ 100 mls/hr IVCONT .Q10H JOANNA Last Admin: 09/09/24 07:19 Dose: 100 mls/hr Naloxone HCl (Naloxone Hcl 0.4 Mg/Ml Vial) 0.04 mg IVPUSH Q5M PRN PRN Reason: Excessive sedation or RR < 8 Home Medications ?Medication ?Instructions ?Recorded ?Confirmed ?Last Taken ?Type atorvastatin 40 mg tablet 40 mg PO BEDTIME 07/29/20 09/09/24 Unknown History cholecalciferol (vitamin D3) 25 25 mcg PO DAILY 07/29/20 09/09/24 Unknown History mcg (1,000 unit) tablet (Vitamin D3) omega-3 300 mg-dha 120 mg-epa 180 1 cap PO BID 08/14/22 09/09/24 09/06/24 History mg-fish oil 1,000 mg capsule albuterol sulfate 90 mcg/actuation 2 puff inhalation QID PRN 03/27/23 09/09/24 Unknown History aerosol inhaler (Ventolin HFA) Shortness Of Breath Or Wheezing fluticasone fur. 200 mcg-umeclid 1 ea inhalation DAILY 03/27/23 09/09/24 Unknown History 62.5 mcg-vilant 25 mcg inhalat.powder (Trelegy Ellipta) metformin 1,000 mg tablet 1,000 mg PO BID 03/27/23 09/09/24 Unknown History omeprazole 20 mg capsule,delayed 20 mg PO DAILY 08/20/23 09/09/24 Unknown History release aspirin 81 mg tablet,delayed 81 mg PO DAILY 11/15/23 09/09/24 09/06/24 History release chlorthalidone 25 mg tablet 25 mg PO BEDTIME 11/15/23 09/09/24 Unknown History amlodipine 10 mg tablet 10 mg PO DAILY 03/11/24 09/09/24 09/09/24 05:30 History cyanocobalamin (vitamin B-12) 500 500 mcg PO QAM 03/11/24 09/09/24 Unknown History mcg tablet Exam Height,Weight and Vital Signs: Height 5 ft 6 in Weight 78.018 kg Last Vital Signs Temp 97.7 F 09/09/24 07:01 Pulse 53 09/09/24 07:01 Resp 15 09/09/24 07:01 BP 157/70 H 09/09/24 07:01 Pulse Ox 96 09/09/24 07:01 O2 Del Method Room Air 09/09/24 07:01 Pertinent Lab Results Pertinent Lab Results: Laboratory Tests 09/09/24 06:59 POC Glucose 109 Airway Mallampati Class: II TM Dist: >3cm Neck ROM: Full Heart: RRR Lungs: CTA Assessment and Plan Assessment Anesthesia Assessment: Anesthesia Plan Discussed Final Anesthetic Review Family History of Problems with Anesthesia: No History of Problems with Anesthesia: No NPO: Yes ASA Class: III Final Preanesthetic Review: Meds/Allgs Chart Reviewed, Consent Obtained/Reviewed and Anes Risks/Benef Reviewed Patient Risk: Intermediate Procedure Risk: Low Anesthetic Plan Disposition: Standard PACU
--- NOTE | 2024-09-09 09:25 | HO.OPN-COLON ---
Colonoscopy Operative Note Operative Note Date of Service: 09/09/24 Narrative: Operative Information Procedure Description: Colonoscopy Indication: hx of colon polyps Anesthesia: MAC COLONOSCOPY Instrument: Olympus variable stiffness pediatric scope 190L Colonoscopy Monitoring: Vital signs and clinical assessment, continuous EKG monitoring, Pulse oximetry, Carbon Dioxide monitoring and blood pressure monitoring were done throughout the procedure. Colon withdrawal time was 12 minutes. Procedure: The patient was placed in the left lateral decubitis position and pre-procedure medications were administered. After a digital rectal examination of the ano-rectum, the video colonoscope was inserted into the rectum and advanced through the colon to the cecum/TI. The colonoscope was slowly withdrawn in a retrograde panoramic fashion and the colon mucosa was carefully examined including a retroflexed view of the rectum. Findings and interventions are described below. Procedure Difficulty: mdoerate Findings: Terminal Ileum-not intubated Cecum:normal Ascending Colon: mild diverticulosis, 6-8 mm sessile poylp removed with cold snare Transverse Colon -normal Descending Colon:normal Sigmoid Colon: moderate diverticulosis, 7-9 mm sessile polyp removed with cold snare Rectum: Retroflexion with small internal hemorrhoids seen, grade I, 5-6 mm sessile polyp removed with cold forceps and 8-9 mm sessile polyp removed with cold snare Anorectum - normal Intervention: cold snare, cold forceps Colon preparation: [place] Bowel Preparation Scale Right colon; 2 Transverse colon: 2 Left colon; 1-2 (0 = Unprepared colon segment with mucosa not seen due to solid stool that cannot be cleared. 1 = Portion of mucosa of the colon segment seen, but other areas of the colon segment not well seen due to staining, residual stool and/or opaque liquid. 2 = Minor amount of residual staining, small fragments of stool and/or opaque liquid, but mucosa of colon segment seen well. 3 = Entire mucosa of colon segment seen well with no residual staining, small fragments of stool or opaque liquid) Impression and Post Procedure Diagnosis: diverticulosis colon polyps x 4 internal hemorrhoids Plan: High fiber diet leaflet Avoid straining at stool, epsom salts and sitz bath, anusol supps or cream Repeat Colonoscopy in 1 year or earlier if clinically indicated Above findings were reviewed with the patient and relevant handouts were provided if indicated.
[2024-09-09 09:33] VITALS: BP 122/61; PULSE 56; RESP 16; TEMP 36.3; O2SAT 98
[2024-09-09 09:48] VITALS: BP 115/74; PULSE 64; RESP 16; TEMP 36.3; O2SAT 99
--- NOTE | 2024-09-09 10:40 | HO.POSTANES ---
Post Anesthesia Evaluation Post Anesthesia Evaluation Date of Service: 09/09/24 Vital Signs: Vital Signs Temp Pulse Resp BP Pulse Ox O2 Del Method 09/09/24 09:48 97.4 F 64 16 115/74 99 Room Air 09/09/24 09:33 97.4 F 56 16 122/61 98 Room Air 09/09/24 07:01 97.7 F 53 15 157/70 H 96 Room Air Anesthesia: Monitored Mental Status: Awake Pain Control: Satisfactory Nausea/Vomiting: None Hydration: Adequate Anesthesia-Related Issues: No Anes. Related Issues
== END 2024-09-09 10:22 | disposition home or self-care (01) ==
PROVIDERS: PCP Student in an Organized Health Care Education/Training Program; Visit Provider Internal Medicine Gastroenterology
PROC: 0DJD8ZZ Inspection of Lower Intestinal Tract, Via Natural or Artificial Opening Endoscopic (ICD-10-PCS; CPT 45378; principal; 2024-09-09 08:30)
DX: Z12.11 Encounter for screening for malignant neoplasm of colon (principal); Z86.0101 Personal history of adenomatous and serrated colon polyps; D12.2 Benign neoplasm of ascending colon; D12.5 Benign neoplasm of sigmoid colon; K63.5 Polyp of colon; K57.30 Diverticulosis of large intestine without perforation or abscess without bleeding; K64.0 First degree hemorrhoids; J44.9 Chronic obstructive pulmonary disease, unspecified; I25.10 Atherosclerotic heart disease of native coronary artery without angina pectoris; I25.2 Old myocardial infarction; E78.00 Pure hypercholesterolemia, unspecified; I10 Essential (primary) hypertension; D64.9 Anemia, unspecified; E11.9 Type 2 diabetes mellitus without complications; Z79.82 Long term (current) use of aspirin; Z79.84 Long term (current) use of oral hypoglycemic drugs; Z79.51 Long term (current) use of inhaled steroids; Z79.899 Other long term (current) drug therapy; Z88.8 Allergy status to other drugs, medicaments and biological substances; Z87.891 Personal history of nicotine dependence; Z56.0 Unemployment, unspecified
CPT/HCPCS: 45385; 45380; 82947; 88305; J0461

== ENCOUNTER → 2024-09-09 05:55 | Outpatient (BNV) | payer MEDICARE, MEDICAID, SELFPAY | PROVIDERS: PCP Student in an Organized Health Care Education/Training Program; Visit Provider Internal Medicine Gastroenterology | DX: Z12.11 Encounter for screening for malignant neoplasm of colon (principal); Z86.0101 Personal history of adenomatous and serrated colon polyps; D12.5 Benign neoplasm of sigmoid colon; K63.5 Polyp of colon; K62.1 Rectal polyp; K57.90 Diverticulosis of intestine, part unspecified, without perforation or abscess without bleeding | CPT/HCPCS: 45380; 45385 ==

== ENCOUNTER 2024-10-18 08:53 | Emergency (ER) | payer MEDICARE, MEDICAID, SELFPAY ==
--- NOTE | ~2024-10-18 | CT_ITS ---
CLINICAL HISTORY: fall with head strike CT cervical spine without contrast Comparison: CT/SR - CT CERVICAL SPINE WO IV CON - 04/22/24 13:33 EDT Findings: No prevertebral soft tissue edema. No fracture or acute malalignment. Facet joints are normally imbricating. Mild multilevel degenerative change most pronounced at C5-C6. Lung apices demonstrate possible small effusions. Impression: No acute cervical spine fracture or malalignment. This document has been electronically signed by: Vipin Vivar MD on 10/18/2024 11:06:01
--- NOTE | ~2024-10-18 | XR_ITS ---
CLINICAL HISTORY: midline tenderness, fall 3 views lumbar spine Comparison: None Findings: No fractures or spondylolisthesis. Degenerative facet arthropathy L4-L5. Disc spaces are maintained. Pedicles and transverse processes intact. Lordotic curvature is preserved. Borderline osteopenia.Calcified atherosclerotic disease. Sacroiliac joints unremarkable. Impression: 1. No compression fractures or spondylolisthesis. This document has been electronically signed by: Saroj Donaldson MD on 10/18/2024 10:58:31
--- NOTE | ~2024-10-18 | CT_ITS ---
CLINICAL HISTORY: fall with head strike CT head without contrast Comparison: CT/SR - CT HEAD/BRAIN WO IV CON - 04/22/24 13:33 EDT Findings: No intra-axial mass, midline shift, hydrocephalus, or acute hemorrhage. Mild volume loss. The visualized paranasal sinuses and mastoid air cells are normal. The orbits are within normal limits. There is no acute fracture. Mild soft tissue edema, left frontal region. IMPRESSION: 1. No acute intracranial findings. This document has been electronically signed by: Vipin Vivar MD on 10/18/2024 11:01:49
[2024-10-18 08:56] VITALS: BP 167/84; PULSE 68; RESP 18; TEMP 36.8; O2SAT 100; BMI 28.4
--- NOTE | 2024-10-18 09:49 | ED_ITS ---
HPI - General Adult General Chief complaint: Wound/Laceration Stated complaint: L arm laceration Time Seen by Provider: 10/18/24 09:48 Source: patient, RN notes reviewed, old records reviewed and hr consultant Mode of arrival: ambulatory Limitations: language barrier History of Present Illness ED Provider: Gaetano HPI narrative: Patient is a 69-year-old Pakistani-speaking male with history of COPD, T2 DM, MS, HTN presenting to the emergency department with complaint of lower back pain and left forearm laceration after [place] [employer] this [place]. Patient states that he slipped while walking down a step, falling onto his lower back and hitting his left forearm on the edge of the step causing a laceration. He denies head strike or loss of consciousness. He is not anticoagulated. Denies headache or neck pain, vision changes. Denies radiation of pain to lower extremities. Denies saddle anesthesia or bowel or bladder incontinence. MD complaint: back pain, laceration Onset (ago): hour(s) Location: back Relieving factors: rest Exacerbating factors: movement Treatments prior to arrival: none Related Data Home Medications ?Medication ?Instructions ?Recorded ?Confirmed atorvastatin 40 mg tablet 40 mg PO BEDTIME 07/29/20 09/09/24 cholecalciferol (vitamin D3) 25 25 mcg PO DAILY 07/29/20 09/09/24 mcg (1,000 unit) tablet (Vitamin D3) omega-3 300 mg-dha 120 mg-epa 180 1 cap PO BID 08/14/22 09/09/24 mg-fish oil 1,000 mg capsule albuterol sulfate 90 mcg/actuation 2 puff inhalation QID PRN 03/27/23 09/09/24 aerosol inhaler (Ventolin HFA) Shortness Of Breath Or Wheezing fluticasone fur. 200 mcg-umeclid 1 ea inhalation DAILY 03/27/23 09/09/24 62.5 mcg-vilant 25 mcg inhalat.powder (Trelegy Ellipta) metformin 1,000 mg tablet 1,000 mg PO BID 03/27/23 09/09/24 omeprazole 20 mg capsule,delayed 20 mg PO DAILY 08/20/23 09/09/24 release aspirin 81 mg tablet,delayed 81 mg PO DAILY 11/15/23 09/09/24 release chlorthalidone 25 mg tablet 25 mg PO BEDTIME 11/15/23 09/09/24 amlodipine 10 mg tablet 10 mg PO DAILY 03/11/24 09/09/24 cyanocobalamin (vitamin B-12) 500 500 mcg PO QAM 03/11/24 09/09/24 mcg tablet Previous Rx's ?Medication ?Instructions ?Recorded acetaminophen 500 mg tablet 1,000 mg (2 x 500 mg) PO Q6H PRN 04/22/24 (Tylenol Extra Strength) fever or pain #20 tabs ibuprofen 400 mg tablet 400 mg PO TID PRN fever or pain 04/22/24 #30 tabs montelukast 10 mg tablet 10 mg PO QPM #30 tabs 10/05/24 lidocaine 5 % topical patch 1 patch topical DAILY #15 ea 10/18/24 Allergies Allergy/AdvReac Type Severity Reaction Status Date / Time lisinopril Allergy Intermediate Swelling Verified 10/18/24 08:57 Review of Systems Review of Systems: As per HPI. Yes all other systems are reviewed and are negative Constitutional: Constitutional: Reports as per HPI PMFSH Past Medical History Medical History History of lower GI bleeding History of MS (myocardial infarction) Tubular adenoma of colon Personal history of nicotine dependence Normocytic anemia Poor memory Overweight Dry mouth Osteoarthrosis Skin lesion Diabetes Hearing loss Nodule of chest wall Murmur CAD (coronary artery disease) COPD (chronic obstructive pulmonary disease) Atherosclerotic cardiovascular disease Sessile colonic polyp Back pain Arthritis Peptic ulcer GERD (gastroesophageal reflux disease) Asthma Elevated cholesterol HTN (hypertension) Surgical History Hx of cardiac catheterization History of colonoscopy History of excision of mass History of umbilical hernia repair S/P excision of lipoma Family History Family History Mother Diabetes Heart disease Arthritis Father Heart disease Social History Social History Household Members: Spouse Housing: Apartment Are you a primary urgent care nurse practitioner to a significant other at home: No Do you presently have visiting nurse or other home services: No Alcohol intake: current Alcohol intake frequency: does not drink Comment: COUNTS CORRECT Patient Tobacco Use Status: Former Tobacco user Years Smoked: 48 Second Hand Smoke Exposure: No Advance Directives: No Advance Directives Information Provided: Yes service: No Current occupational status: unemployed Physical Exam ED Vital Signs: Vital Signs - 24 hr 10/18/24 08:56 Temperature 98.3 F Pulse Rate 68 Respiratory Rate 18 Blood Pressure 167/84 H Pulse Oximetry 100 Oxygen Delivery Method Room Air BMI result Body Mass Index 28.4 Vital signs have been reviewed and appear to be correct. Blood pressure elevated. Heart rate normal. Respiratory rate normal. Temperature normal. Oxygen saturation normal. Const General: cooperative, healthy appearing and no acute distress Orientation/consciousness: oriented to person, oriented to place, oriented to time and patient oriented x3 Limitations: no limitations HENMT Head: Yes normocephalic and Yes atraumatic Ears: external ears normal General nose exam: Normal external nose present Face and sinus: Yes face symmetric Mouth: oropharynx normal and moist mucous membranes Throat: Yes uvula midline Eyes Pupils: Equal, round and reactive pupils present Neck Neck: Yes normal visual inspection and Yes supple Resp Effort & Inspection: normal respiratory effort and able to speak in complete sentences Auscultation: clear to auscultation bilaterally Cardio Rate: regular rate Rhythm: regular rhythm Heart sounds: S1 normal heart sound present and S2 normal heart sound present GI Palpation (GI): Soft to palpation and nontender Auscultation: normoactive bowel sounds General: Yes no CVA tenderness Back/Spine/Pelvis Back: no CVA tenderness Cervical Spine: cervical ROM normal, No cervical muscular tenderness, No pain with cervical ROM, No Cervical spine tenderness and No step off deformity Thoracic/Lumbar Spine: thoracic and lumbar spine normal to inspection, thoraco- lumbar ROM normal, straight leg raise negative bilaterally, pain with thoraco- lumbar ROM, No thoracic spinal tenderness and lumbar spinal tenderness at L2 Pelvis: no pain with anterior-posterior compression and no pain with lateral compression Sacroiliac joints: on the right tender to palpation Skin General skin exam: elasticity normal and turgor normal Neuro General: oriented to person, oriented to place, oriented to time, patient oriented x3, moves all extremities, no focal motor deficits and CN's II-XI intact bilaterally Cranial nerves: Yes Equal, round and reactive pupils present Cognition (Neuro): normal cognition Extrem General: Yes full ROM, Yes no pedal edema and Yes no calf tenderness Left upper extremity: elbow/forearm Details: laceration forearm mid lateral Details: linear, involving subcutaneous tissue, with motor nerve function intact and with sensation intact Psych Mental Status: mental status grossly normal Affect: normal affect Thought process: Normal thought process present Medications Administered Discontinued Medications Generic Name Dose Route Start Last Admin Trade Name Kolby PRN Reason Stop Dose Admin Bacitracin 1 appl 10/18/24 09:59 10/18/24 10:39 Bacitracin Oint 0.9 Gm Packet TOPICAL 10/18/24 10:00 1 appl ONCE ONE Administration Protocol Lidocaine HCl 5 ml 10/18/24 09:54 10/18/24 10:39 Lidocaine Hcl 1 % 20 Ml Vial INFILTRATI 10/18/24 09:55 5 ml ONCE ONE Administration Procedures Laceration Laceration 1: Site: upper extremity Side (If applicable): left Size (cm): 2 Description: linear Depth: simple, single layer Local Anesthetic: lidocaine 1% Amount of anesthesia used (mL): 3 Pre-repair: wound explored, irrigated extensively and deep structures intact Skin layer closed with: other (prolene) Size (cm): 5-0 Number of sutures: 5 Technique: simple, interrupted Medical Decision Making Medical Decision Making MDM Narrative: Patient is a 69-year-old Pakistani-speaking male with history of COPD, T2 DM, MS, HTN presenting to the emergency department with complaint of lower back pain and left forearm laceration after a [place] [employer] this [place]. On exam patient is awake, A+Ox3, VS WNL, afebrile, normal neurological exam without focal deficits, physical exam findings as above. Given reported symptoms and physical exam findings, initial differential includes but is not limited to left forearm laceration, lumbar strain, lumbar contusion, lumbar vertebral fracture or subluxation, ICH, skull or cervical vertebral fracture or subluxation. X-ray lumbar spine notable for no acute fracture subluxation. CT head and C-spine notable for no evidence of ICH, skull or cervical vertebral fracture or subluxation. My interpretation is in agreement with the radiologist's interpretation. Patient updated on results and all questions answered. Laceration repaired as per procedure note. Patient states he received Tdap last year, is up-to-date. Wound care instructions discussed at bedside as well as return precautions. Will send prescription for topical lidocaine patches for back pain, advised Tylenol and ibuprofen. Patient verbalized understanding of and agreement with plan. In-person blindstitch lining feller was utilized for all interactions, assessments, and discussions. Differential Diagnosis Differential Diagnoses: The differential diagnosis associated with the presentation includes as per mdm Admission/Observation Consideration of admission/observation: Escalation of care including admission/observation considered Patient would have been admitted to the hospital had their work up had any findings where hospital admission was appropriate and their clinical presentation warranted hospital admission. Independent Interpretation I performed an independent interpretation of an: Plain X-Ray and CT Scan (X-ray lumbar spine notable for no acute fracture subluxation. CT head and C-spine notable for no evidence of ICH, skull or cervical vertebral fracture or subluxation. ) Radiology Impression Discussion of test interpretation with radiology: I have reviewed the radiologist's reading. Radiologist Impression: Findings: No prevertebral soft tissue edema. No fracture or acute malalignment. Facet joints are normally imbricating. Mild multilevel degenerative change most pronounced at C5-C6. Lung apices demonstrate possible small effusions. Impression: No acute cervical spine fracture or malalignment. Findings: No intra-axial mass, midline shift, hydrocephalus, or acute hemorrhage. Mild volume loss. The visualized paranasal sinuses and mastoid air cells are normal. The orbits are within normal limits. There is no acute fracture. Mild soft tissue edema, left frontal region. IMPRESSION: 1. No acute intracranial findings. Findings: No fractures or spondylolisthesis. Degenerative facet arthropathy L4-L5. Disc spaces are maintained. Pedicles and transverse processes intact. Lordotic curvature is preserved. Borderline osteopenia.Calcified atherosclerotic disease. Sacroiliac joints unremarkable. Impression: 1. No compression fractures or spondylolisthesis. External Record Review External record reviewed: Inpatient record, Office record and Outpatient record Prescription Management I considered prescription management with: Pain Medication Discharge Plan Discharge Clinical Impression: Forearm laceration, Lumbar contusion Patient Disposition: Home, Self-Care Instructions: Care For Your Stitches (DC), Laceration (DC), Acute Low Back Pain (ED), Contusion in Adults (ED), Stitches Removal (ED) Additional Instructions: You have been evaluated in the emergency department today for an injury to your back and a laceration to your arm. Your x-ray and CT scans did not show evidence of any injuries to your bring or fractures to your skull, cervical spine, or lumbar spine. We recommend that you take 650 mg of Tylenol or 600 mg ibuprofen every 6 hours as needed for pain. You are also being prescribed topical lidocaine patches which you can apply to the affected area for up to 12 hours in a 24 hour period. Do not apply heat directly over the patches. Your laceration was repaired in the emergency department with 5 sutures. Please keep the area surrounding the laceration clean and dry and keep dressing in place for the next 24 hours. After that please change the dressing and assess the wound daily. Do not submerge the wound in water until the stitches has been removed and the wound has fully healed (no washing dishes, swimming, hot tubs, etc. and ESPECIALLY no outdoor water). Keep the area out of direct sunlight for the next 6 months to help prevent scarring. You should have the sutures removed in 7-10 days. If you develop fever, redness, swelling at the site of your laceration, or thick yellow drainage please come back to the ER for a wound check. Prescriptions: New lidocaine 5 % adhesive patch,medicated 1 patch topical DAILY Qty: 15 0RF Rx Instructions: leave on most painful area for up to 12 hrs No Action montelukast 10 mg tablet 10 mg PO QPM Qty: 30 2RF atorvastatin 40 mg Tablet 40 mg PO BEDTIME cholecalciferol (vitamin D3) [Vitamin D3] 25 mcg (1,000 unit) Tablet 25 mcg PO DAILY omega 6-pne-hjg-fish oil 300 mg (120 mg- 180mg)-1,000 mg capsule 1 cap PO BID aspirin 81 mg Tablet,Delayed Release (Dr/Ec) 81 mg PO DAILY chlorthalidone 25 mg tablet 25 mg PO BEDTIME acetaminophen [Tylenol Extra Strength] 500 mg tablet 1,000 mg PO Q6H PRN (Reason: fever or pain) Qty: 20 0RF ibuprofen 400 mg tablet 400 mg PO TID PRN (Reason: fever or pain) Qty: 30 0RF Trelegy Ellipta 200-62.5-25 mcg blister with device 1 ea inhalation DAILY metformin 1,000 mg tablet 1,000 mg PO BID albuterol sulfate [Ventolin HFA] 90 mcg/actuation HFA aerosol inhaler 2 puff inhalation QID PRN (Reason: Shortness Of Breath Or Wheezing) amlodipine 10 mg tablet 10 mg PO DAILY cyanocobalamin (vitamin B-12) 500 mcg tablet 500 mcg PO QAM omeprazole 20 mg capsule,delayed release(DR/EC) 20 mg PO DAILY Print Language: Pakistani
[2024-10-18] MEDS: Lidocaine HCl 1 % 20 ML VIAL 5 ML INFILTRATI (10:39)
[2024-10-18] MEDS: Bacitracin Oint 0.9 GM PACKET 1 APPL TOPICAL (10:39)
[2024-10-18 11:38] VITALS: BP 167/84; PULSE 68; RESP 18; TEMP 36.8; O2SAT 100
== END 2024-10-18 11:39 | disposition home or self-care (01) ==
PROVIDERS: Emergency Provider Emergency Medicine; PCP Student in an Organized Health Care Education/Training Program
DX: S51.812A Laceration without foreign body of left forearm, initial encounter (principal); S30.0XXA Contusion of lower back and pelvis, initial encounter; R51.9 Headache, unspecified; M54.2 Cervicalgia; M54.50 Low back pain, unspecified; J44.9 Chronic obstructive pulmonary disease, unspecified; E11.9 Type 2 diabetes mellitus without complications; I25.2 Old myocardial infarction; I10 Essential (primary) hypertension; W10.9XXA Fall (on) (from) unspecified stairs and steps, initial encounter; Y93.01 Activity, walking, marching and hiking; Y92.22 Religious institution as the place of occurrence of the external cause; Y99.8 Other external cause status; Z87.891 Personal history of nicotine dependence; Z79.84 Long term (current) use of oral hypoglycemic drugs; Z79.899 Other long term (current) drug therapy
CPT/HCPCS: 12001; 70450; 72100; 72125; 99282; 99284; J2003

== ENCOUNTER → 2024-10-18 09:54 | Outpatient (BNV) | payer MEDICARE, MEDICAID, SELFPAY | PROVIDERS: Emergency Provider Emergency Medicine; PCP Student in an Organized Health Care Education/Training Program; Visit Provider Radiology Diagnostic Radiology | DX: S09.90XA Unspecified injury of head, initial encounter (principal); M54.50 Low back pain, unspecified; W19.XXXA Unspecified fall, initial encounter | CPT/HCPCS: 70450; 72125 ==

== ENCOUNTER 2024-11-17 09:07 | Outpatient (REF) | payer MEDICARE, MEDICAID, SELFPAY ==
[2024-11-17 11:06] LABS: MANUAL DIFF FLAG NO
[2024-11-17 11:16] LABS: Basophils Absolute Auto 0.1 X10*3/uL (0.0-0.2); Basophils Percent Auto 0.5 % (0-2); Eosinophils Absolute Auto 0.2 X10*3/uL (0.0-0.4); Hematocrit 41.6 % (42.0-52.0); Hemoglobin 13.5 g/dl (14.0-18.0); Imm Gran Abs Auto 0.08 X10*3/uL (0.00-0.03); Imm Gran Pct Auto 0.5 % (0.0-0.4); Lymphocytes Absolute Auto 3.1 X10*3/uL (1.2-4.9); Lymphocytes Percent Auto 19.7 % (20-40); Mean Corpuscular HGB Conc 32.5 g/dl (31.0-36.0); Mean Corpuscular Hemoglobin 28.4 pg (27.0-33.0); Mean Corpuscular Volume 87.4 fL (80.0-98.0); Mean Platelet Volume 10.4 fL (9.4-12.4); Monocytes Absolute Auto 1.3 X10*3/uL (0.1-1.2); Monocytes Percent Auto 8.5 % (2-11); Neutrophils Percent Auto 69.8 % (45-73); Platelet Count 338 X10*3/uL (160-400); Red Blood Count 4.76 X10*6/uL (4.60-5.80); Red Cell Distribution Width 15.2 % (11.0-16.0); White Blood Count 15.8 X10*3/uL (4.8-10.8)
== END 2024-11-17 09:08 | disposition home or self-care (01) ==
LOC: HO.HHCL 09:07
PROVIDERS: Visit Provider Student in an Organized Health Care Education/Training Program
DX: D50.9 Iron deficiency anemia, unspecified (principal)
CPT/HCPCS: 36415; 85025

== ENCOUNTER 2024-11-24 08:45 | Outpatient (REF) | payer MEDICARE, MEDICAID, SELFPAY ==
--- NOTE | ~2024-11-24 | CT_ITS ---
EXAMINATION: CT HEAD WITHOUT CONTRAST CLINICAL INFORMATION: [facility] COMPARISON: CT dated October 18, 2024. TECHNIQUE: Contiguous axial imaging was performed from the skull base to vertex without intravenous administration of contrast. This CT examination was performed using dose optimization techniques as appropriate, variously including the following: *Automated exposure control *Adjustment of mA and/or kV according to patient size (this includes techniques or standardized protocols for targeted exams where dose is matched to indication/reason for exam; i.e. extremities or head) *Use of iterative reconstruction technique DLP: 881 mGy-cm FINDINGS: Prominence of the extra-axial CSF spaces along the endometrial convexities measuring less than 8 mm. No acute intracranial hemorrhage, mass effect, midline shift, hydrocephalus or herniation. Valadez-white matter differentiation is normal. Posterior cranial fossa contents demonstrated no acute intracranial hemorrhage. Calcified plaques in the V4 segments of the vertebral arteries and the cavernous supracavernous segments both ICAs. Tympanic cavities and mastoid cells are aerated. Decreased volume of the maxillary sinuses bilaterally. No air-fluid levels in the included paranasal sinuses. There is a focal, 3 mm calcification in the right frontal soft tissue scalp.. CT/CT head/brain wo IV con IMPRESSION: Consider bilateral hygromas versus old subdural hemorrhage. No acute intracranial hemorrhage. . Electronically signed by: Juan Miranda MD 11/24/2024 03:11 PM IGOR
--- OUTSIDE RECORDS SUMMARY | 2024-11-24 09:21 | XMS_ITS | Encounter Summary ---
Author Organization [employer] Address [address] [facility] [address] [place] [address] Care Team Providers Care [employer] Name Role Phone Lisa Ji MD Primary Care Pro vider Encounter Details Date Type Department Care Team (Late st Contact Info) Description 08/14/2023 Abstract [facility] [address] [place], [place] [phone] Lisa Ji MD [address] [place] [phone] Social History Tobacco Use Types Packs/Day Years Used Date Smoking Tobacco: Former Cigarettes Passive Smoke Exposure: Never Smokeless Tobacco: Never Comments:Used to smoke since 11 y of age and stopped at 59 y of age ( 8 years ago) --->10 cigarettes in average a day-PQT a year: 25 a year Alcohol Use Standard Drinks/Week Comments Never 0 (1 standard drink = 0.6 oz pur e alcohol) PHQ-2 Answer Date Recorded Patient Health Questionnaire-2 Score 2 12/05/2022 Housing Stability Answer Date Recorded What is your housing situation today? I have jonelle mar 08/06/[address] you li ve. Do you have problems with any of the following? None of the above 08/06/2023 Food Insecurity Answer Date Recorded Within the past 12 months, y ou worried that your food would run out before you got money to buy more: Never True 08/06/2023 Within the past 12 months,th e food you bought just didn't last and you didn't have enough money to get more: Never True 03/2023 Transportation Answer Date Recorded In the past 12 months, has l ack of transportation kept you from medical appts, meetings, work or from getting things needed for daily living? No 08/06/2023 Utilities Answer Date Recorded In the past 12 months, has t he electric, gas, oil or water company threatened to shut off services in your home? No 08/06/2023 Depression Answer Date Recorded Patient Health Questionnaire-2 Score 2 12/05/2022 Sex and Gender Information Value Date Recorded Sex Assigned at Male 07/30/2022 10:19 AM EDT Legal Sex Male 10:19 AM EDT Gender Identity Male 07/30/2022 10:19 AM EDT Sexual Orientation Straight 07/30/2022 10 :19 AM EDT documented as of this encounter Plan of Treatment Upcoming Encounters Date Type Department Care Team (Late st Contact Info) Description 01/08/2025 9:00 AM EDT Office Visit [facility] [address] [place] [address] [phone] Lisa Ji MD [address] [place] [address] [phone] documented as of this encounter Procedures Procedure Name Priority Date/Time Associated Diagnosis Comments COLONOSCOPY Routine 07/21/2020 documented in this encounter Results * Colonoscopy (07/21/2020) Colonoscopy Normal Normal Narrative Thalia Gilmore - 07/21/2020 Recommended 1 year follow up Historical Provider HEALTH MAINTENANCE Final Result documented in this encounter Visit Diagnoses Not on filedocumented in this encounter Care Teams [employer] Relationship Specialty Start Date End Date Lisa Ji MD [address] [place] [phone] PCP - General Internal Medicine 01/10/23 documented as of this encounter
--- OUTSIDE RECORDS SUMMARY | 2024-11-24 09:21 | XMS_ITS | Encounter Summary ---
Author Organization [employer] Address [address] [place] [address] Care Team Providers Care Audio Visual Technician Name Role Phone Lisa Ji MD Primary Care Pro vider Encounter Details Date Type Department Care Team (Late st Contact Info) Description 11/20/2024 9:15 AM EST Office Visit [facility] [address] [place], [place] [phone] Chandrakant, Annika, OD [address] [place] [address] Presbyopia (Primary Dx) Social History Tobacco Use Types Packs/Day Years [...] drink = 0.6 oz pur e alcohol) Depression Answer Date Recorded Patient Health Questionnaire-9 Score 0 03/26/2024 Patient Health Questionnaire-9 Score 0 03/26/2024 Last PHQ-9: Questionnaire Data Not on file 0 03/26/2024 Housing Stability Answer Date Recorded What is your housing situation today? I have jonelle mar 01/24/[address] you li ve. Do you have problems with any of the following? None of the above 01/24/2024 Food Insecurity Answer Date Recorded Within the past 12 months, y ou worried that your food would run out before you got money to buy more: Never True 01/24/2024 Within the past 12 months,th e food you bought just didn't last and you didn't have enough money to get more: Never True Transportation Answer Date Recorded In the past 12 months, has l ack of transportation kept you from medical appts, meetings, work or from getting things needed for daily living? No 01/24/2024 Utilities Answer Date Recorded In the past 12 months, has t he electric, gas, oil or water company threatened to shut off services in your home? No 01/24/2024 Depression Answer Date Recorded Patient Health Questionnaire-2 Score 0 03/26/2024 Sex and Gender Information Value Date Recorded Sex Assigned at Male 07/30/2022 10:19 AM EDT Legal Sex Male 10:19 AM EDT Gender Identity Male 07/30/2022 10:19 AM EDT Sexual Orientation Straight 07/30/2022 10 :19 AM EDT documented as of this encounter Progress Notes * Annika Stallings OD - 11/20/2024 9:15 AM EST MH glasses were dispensed. documented in this encounter Plan of Treatment Upcoming Encounters Date Type Department Care Team (Late st Contact Info) Description 01/08/2025 9:00 AM EDT Office Visit [facility] [address] [place] [phone] Lisa Ji MD [address] [place] [phone] documented as of this encounter Visit Diagnoses Diagnosis Presbyopia- Primary documented in this encounter Additional Health Concerns Assessment Noted Time PHQ-9 Depression Total Score: 0 03/26/20 9:07 AM EDT documented as of this encounter Care Teams Audio Visual Technician Relationship Specialty Start Date End Date Lisa Ji MD [address] [place] [phone] PCP - General Internal Medicine 01/10/23 documented as of this encounter
--- OUTSIDE RECORDS SUMMARY | 2024-11-24 09:21 | XMS_ITS | Encounter Summary ---
Author Organization [employer] Address [address] [place] [address] Care Team Providers Care Care Assistant Name Role Phone Lisa Ji MD Primary Care Pro vider Reason for Visit * Reason Onset Date Comments partial appt 05/29/2023 Encounter Details Date Type Department Care Team ([facility] st Contact Info) Description 05/29/2023 Telephone [facility] [address] [place] [address] Santiago Marquez, DMD [address] [place] [address] partial appt Social History Tobacco Use Types Packs/Day Years [...] Recorded Patient Health Questionnaire-2 Score 2 12/05/2022 Depression Answer Date Recorded Patient Health Questionnaire-2 Score 2 12/05/2022 Sex and Gender Information Value Date Recorded Sex Assigned at Male 07/30/2022 10:19 AM EDT Legal Sex Male 10:19 AM EDT Gender Identity Male 07/30/2022 10:19 AM EDT Sexual Orientation Straight 07/30/2022 10 :19 AM EDT documented as of this encounter Miscellaneous Notes * Telephone Encounter - Ericka Jauregui - 05/29/2023 12:02 PM EDT Patient came in yesterday and wants an appt to come in for adjustment. Partials are not fitting well and they hit against each other when talking and eating. Discomfort. Please reach out to patient for scheduling. No room on PAR side DR documented in this encounter Plan of Treatment Upcoming Encounters Date Type Department Care Team (Late st Contact Info) Description 01/08/2025 9:00 AM EDT Office Visit [facility] [address] [place] [address] [phone] Lisa Ji MD [address] [place] [address] [phone] documented as of this encounter Visit Diagnoses Not on filedocumented in this encounter Care Teams Care Assistant Relationship Specialty Start Date End Date Lisa Ji MD [address] [place] [address] [phone] PCP - General Internal Medicine 01/10/23 documented as of this encounter
--- OUTSIDE RECORDS SUMMARY | 2024-11-24 09:21 | XMS_ITS | Encounter Summary ---
Author Organization [employer] Address 75 [facility] 7t [place] [address] Care Team Providers Care Health Teacher Name Role Phone Lisa Ji MD Primary Care Pro vider Reason for Visit * Reason Comments Dressing Change Encounter Details Date Type Department Care Team (Latest Contact Info) Description 10/26/2024 1:00 PM EST Clinical Support [facility] [address] [place], [place] [phone] Ingrid Olivera RN 230 [place], [place] [phone] Encounter for wound care Social History Tobacco Use Types Packs/Day Years [...] as of this encounter Progress Notes * Ingrid Olivera RN - 10/26/2024 1:00 PM ESTAssociated Order(s): Wound Care Post-Procedure Diagnose(s): Encounter for wound care Patient ID: John Ansari is a 69 y.o. male. Wound Care Date/Time: 10/26/2024 1:29 PM Performed by: Ingrid Olivera RN Authorized by: LUCI Stewart Consent: Consent obtained: Verbal Consent given by: Patient Dressing: Dressing applied: Telfa pad Wrapped with: Juli 2 inch Post-procedure details: Procedure completion: Tolerated Comments: Pt came in for suture removal. He sustained laceration from a fall down the stairs outside of hinduism after slipping on ice 10/18/24. He presented to [facility] ED immediately after the fall at which time 5 sutures were placed in left forearm. Instructions from the ED were to have them removed 7-10 days later. Pt is within window to have them removed today. However, upon examination of the wound there is slight purulent drainage and the top of the wound does not look like it is ready for the suture to be removed. Pt reports having changed dressing twice since being in the ED. Pt reports putting iodine on the wound and taking over the counter antibiotics for which he did not knowthe name. Instructed pt to clean wound daily with warm water and antibacterial soap, pat dry with paper towel, apply thin layer of bacitracin, and cover with sterile dressing. Gave supplies to complete these tasks and scheduled to see him again for wound check in 2 days and to remove sutures if appropriate. Pt agreeable. Advised to call immediately if he has a faver, is sweating, wound is hot to the touch, has red streaking, pus increases. documented in this encounter Plan of Treatment Upcoming Encounters Date Type Department Care Team (Late st Contact Info) Description 01/08/2025 9:00 AM EDT Office Visit [facility] [address] [place] [address] [phone] Lisa Ji MD 230 [place], [place] [phone] documented as of this encounter Procedures Procedure Name Priority Date/Time Associated Diagnosis Comments WOUND CARE Routine 10/26/2024 1:29 PM EST Encounter for wound care documented in this encounter Results * Wound Care (10/26/2024 1:29 PM EST) Narrative Ingrid Olivera RN - 10/26/2024 1:29 PM EST Ingrid Olivera RN ? 10/26/2024 ??1:37 PM Wound Care Date/Time: 10/26/2024 1:29 PM Performed by: Ingrid Olivera RN Authorized by: LUCI Stewart ?? Consent: ??Consent obtained: ??Verbal ??Consent given by: ??Patient Dressing: ??Dressing applied: ??Telfa pad ??Wrapped with: ??Juli 2 inch Post-procedure details: ??Procedure completion: ??Tolerated Comments: ?? Pt came in for suture removal. He sustained laceration from a fall down the stairs outside of hinduism after slipping on ice 10/18/24. He presented to [facility] ED immediately after the fall at which time 5 sutures were placed in left forearm. Instructions from the ED were to have them removed 7-10 days later. Pt is within window to have them removed today. However, upon examination of the wound there is slight purulent drainage and the top of the wound does not look like it is ready for the suture to be removed. Pt reports having changed dressing twice since being in the ED. Pt reports putting iodine on the wound and taking over the counter antibiotics for which he did not know the name. Instructed pt to clean wound daily with warm water and antibacterial soap, pat dry with paper towel, apply thin layer of bacitracin, and cover with sterile dressing. Gave supplies to complete these tasks and scheduled to see him again for wound check in 2 days and to remove sutures if appropriate. Pt agreeable. Advised to call immediately if he has a faver, is sweating, wound is hot to the touch, has red streaking, pus increases. us Felicitas VERMA IN CLINIC/BEDSIDE ORDERABLES Fin al Result documented in this encounter Visit Diagnoses Diagnosis Encounter for wound care documented in this encounter Additional Health Concerns Assessment Noted Time PHQ-9 Depression Total Score: 0 03/26/20 24 9:07 AM EDT documented as of this encounter Care Teams Health Teacher Relationship Specialty Start Date End Date Lisa Ji MD [address] [place] [phone] PCP - General Internal Medicine 01/10/23 documented as of this encounter
--- OUTSIDE RECORDS SUMMARY | 2024-11-24 09:21 | XMS_ITS | Encounter Summary ---
Author Organization [employer] Address 75 [facility] 7t [place] [address] Care Team Providers Care Chemical Lab Technician Name Role Phone Lisa Ji MD Primary Care Pro vider Reason for Visit * Reason Comments Med Refill Encounter Details Date Type Department Care Team ([facility] st Contact Info) Description 11/03/2024 Refill [facility] [address] [place], [place] [phone] Lisa Ji MD 230 [place] [phone] Social History Tobacco Use Types Packs/Day Years [...] 01/08/2025 9:00 AM EDT Office Visit [facility] [address] [place] [address] Lisa Ji MD 230 [place] [address] documented as of this encounter Visit Diagnoses Not on filedocumented in this encounter Additional Health Concerns Assessment Noted Time PHQ-9 Depression Total Score: 0 03/26/20 24 9:07 AM EDT documented as of this encounter Care Teams Chemical Lab Technician Relationship Specialty Start Date End Date Lisa Ji MD [address] [place] [phone] PCP - General Internal Medicine 01/10/23 documented as of this encounter
--- OUTSIDE RECORDS SUMMARY | 2024-11-24 09:21 | XMS_ITS | Encounter Summary ---
Author Organization [employer] Address 75 [facility] 7t [place] [address] Care Team Providers Care Armature Varnisher Name Role Phone Lisa Ji MD Primary Care Pro vider Reason for Visit * Reason Comments Med Refill Encounter Details Date Type Department Care Team ([facility] st Contact Info) Description 09/10/2023 Refill [facility] 230 [place], [place] [phone] Lisa Ji MD 230 [place] [phone] Social History Tobacco Use Types Packs/Day Years [...] encounter Miscellaneous Notes * Telephone Encounter - Lisa Vegas MD - 09/12/2023 8:45 AM EST Med already sent documented in this encounter Plan of Treatment Upcoming Encounters Date Type Department Care Team (Late st Contact Info) Description 01/08/2025 9:00 AM EDT Office Visit [facility] [address] [place] [address] [phone] Lisa Ji MD [address] [place] [phone] documented as of this encounter Visit Diagnoses Not on filedocumented in this encounter Care Teams Armature Varnisher Relationship Specialty Start Date End Date Lisa Ji MD [address] [place] [phone] PCP - General Internal Medicine 01/10/23 documented as of this encounter
--- OUTSIDE RECORDS SUMMARY | 2024-11-24 09:21 | XMS_ITS | Encounter Summary ---
Author Organization [employer] Address 75 [facility] 7t [place] [address] Care Team Providers Care Apprentice Lineman Third Step Name Role Phone Lisa Ji MD Primary Care Pro vider Encounter Details Date Type Department Care Team (Latest Contact Info) Description 10/30/2024 Travel Social History Tobacco Use Types Packs/Day Years [...] Description 01/08/2025 9:00 AM EDT Office Visit [facility] [address] [place] [phone] Lisa Ji MD [address] [place] [address] documented as of this encounter Visit Diagnoses Not on filedocumented in this encounter Additional Health Concerns Assessment Noted Time PHQ-9 Depression Total Score: 0 03/26/20 24 9:07 AM EDT documented as of this encounter Care Teams Apprentice Lineman Third Step Relationship Specialty Start Date End Date Lisa Ji MD [address] [place] [address] [phone] PCP - General Internal Medicine 01/10/23 documented as of this encounter
--- OUTSIDE RECORDS SUMMARY | 2024-11-24 09:21 | XMS_ITS | Encounter Summary ---
Author Organization [employer] Address 75 [facility] 7t [place] [address] Care Team Providers Care Driller Hand Name Role Phone Lisa Ji MD Primary Care Pro vider Encounter Details Date Type Department Care Team ([facility] st Contact Info) Description 10/14/[address] [facility] [address] [place], [place] [phone] Columba Hammer, PharmD 230 [place] [address] Social History Tobacco Use Types Packs/Day Years [...] encounter Miscellaneous Notes * Telephone Encounter - Columba Hammer PharmD - 10/14/2024 9:44 AM EST Hi. I am seeing John Freire 59 today for a MB/MTM visit and I noticed that on 01/24/24 prescribed Cevimeline for him and it required a PA. It was never filled. I just ran it now and got a paid claim. Should we fill this for him? documented in this encounter Plan of Treatment Upcoming Encounters Date Type Department Care Team (Late st Contact Info) Description 01/08/2025 9:00 AM EDT Office [address] [facility] [address] [place] [address] Lisa Ji MD 230 [place] [phone] documented as of this encounter Visit Diagnoses Not on filedocumented in this encounter Additional Health Concerns Assessment Noted Time PHQ-9 Depression Total Score: 0 03/26/20 24 9:07 AM EDT documented as of this encounter Care Teams Driller Hand Relationship Specialty Start Date End Date Lisa Ji MD [address] [place] [phone] PCP - General Internal Medicine 01/10/23 documented as of this encounter
--- OUTSIDE RECORDS SUMMARY | 2024-11-24 09:21 | XMS_ITS | Encounter Summary ---
Author Organization [employer] Address 75 [facility] 7t [place] [address] Care Team Providers Care Bus System Operator Name Role Phone Lisa Ji MD Primary Care Pro vider Reason for Visit * Reason Onset Date Comments Appointment Request 10/09/2024 Encounter Details Date Type Department Care Team ([facility] Contact Info) Description 10/09/2024 Telephone [facility] [address] [place], [place] [phone] Lisa Ji MD [address] [place], [place] [phone] Appointment Request Social History Tobacco Use Types Packs/Day Years [...] encounter Miscellaneous Notes * Telephone Encounter - Saravanan Dexter - 10/09/2024 11:33 AM EST Tc from pt requesting call back to schedule an appt. Pt states no immediate concerns just wanted toverify if needs a follow up appt. Please contact pt at [phone]. (French Speaker) documented in this encounter Plan of Treatment Upcoming Encounters Date Type Department Care Team (Late st Contact Info) Description 01/08/2025 9:00 AM EDT Office Visit [facility] [address] [place] [phone] Lisa Ji MD [address] [place] [phone] documented as of this encounter Visit Diagnoses Not on filedocumented in this encounter Additional Health Concerns Assessment Noted Time PHQ-9 Depression Total Score: 0 03/26/20 24 9:07 AM EDT documented as of this encounter Care Teams Bus System Operator Relationship Specialty Start Date End Date Lisa Ji MD [address] [place] [phone] PCP - General Internal Medicine 01/10/23 documented as of this encounter
--- OUTSIDE RECORDS SUMMARY | 2024-11-24 09:21 | XMS_ITS | Encounter Summary ---
Author Organization [employer] Address 75 [facility] 7t [place] [address] Care Team Providers Care Marionette Performer Name Role Phone Lisa Ji MD Primary Care Pro vider Reason for Visit * Reason Comments Suture / Staple Removal Encounter Details Date Type Department Care Team (Latest Contact Info) Description 10/30/2024 11:00 AM EST Clinical Support [facility] [address] [place], [place] [phone] Ingrid Olivera RN 230 [place], [place] [phone] Visit for suture removal Social History Tobacco Use Types Packs/Day Years [...] Progress Notes * Ingrid Olivera RN - 10/30/2024 11:00 AM ESTAssociated Order(s): Suture Removal Post-Procedure Diagnose(s): Visit for suture removal Patient ID: John Ansari is a 69 y.o. male. Suture Removal Date/Time: 10/30/2024 10:42 AM Performed by: Ingrid Olivera RN Authorized by: LUCI Stewart Consent: Consent obtained: Verbal Consent given by: Patient Risks discussed: Pain Location: Location: Upper extremity Upper extremity location: Arm Arm location: L lower arm Procedure details: Wound appearance: Good wound healing, no signs of infection and clean Number of sutures removed: 4 Post-procedure details: Post-removal: Antibiotic ointment applied Procedure completion: Tolerated Comments: Pt came in for suture removal. He sustained laceration from a fall down the stairs outside of taoism after slipping on ice 10/18/24. He presented to [facility] ED immediately after the fall at which time 5 sutures were placed in left forearm. Instructions from the ED were to have them removed 7-10 days later. Pt came in 10/26/24 for suture removal. However, wound care was not done correctly. Wound did have some purulent drainage and RN suspected there would be wound separation if sutures were removed at that time. Pt was given very specific wound care instructions and triple Abx ointment. Was advised to care for wound as instructed and come back in 3 days. Today pt presents for recheck. Wound is much improved! No drainage noted, is healing well. It is now appropriate to remove sutures. However, only 4/5 sutures visible. This RN suspects that one may have fallen out, pt agrees.4 sutures removed easily, no embedding present. Slight scabbing on wound, not over sutures. No signs of infection, healing well. Advised pt continue cleaning with antibacterial soap and warm water daily and applying Abx ointment x2 more days, no need to continue covering. Pt agreeable. Tolerated procedure well. documented in this encounter Plan of Treatment Upcoming Encounters Date Type Department Care Team (Late st Contact Info) Description 01/08/2025 9:00 AM EDT Office Visit [facility] [address] [place] [phone] Lisa Ji MD [address] [place] [phone] documented as of this encounter Procedures Procedure Name Priority Date/Time Associated Diagnosis Comments SUTURE REMOVAL Routine 10/30/2024 10:42 AM EST Visit for suture removal documented in this encounter Results * Suture Removal (10/30/2024 10:42 AM EST) Narrative Ingrid Olivera RN - 10/30/2024 10:42 AM EST Ingrid Olivera RN ? 10/30/2024 10:52 AM Suture Removal Date/Time: 10/30/2024 10:42 AM Performed by: Ingrid Olivera RN Authorized by: LUCI Stewart ?? Consent: ??Consent obtained: ??Verbal ??Consent given by: ??Patient ??Risks discussed: ??Pain Location: ??Location: ??Upper extremity ??Upper extremity location: ??Arm ??Arm location: ??L lower arm Procedure details: ??Wound appearance: ??Good wound healing, no signs of infection and clean ??Number of sutures removed: ??4 Post-procedure details: ??Post-removal: ??Antibiotic ointment applied ??Procedure completion: ??Tolerated Comments: ?? Pt came in for suture removal. He sustained laceration from a fall down the stairs outside of taoism after slipping on ice 10/18/24. He presented to [facility] ED immediately after the fall at which time 5 sutures were placed in left forearm. Instructions from the ED were to have them removed 7-10 days later. Pt came in 10/26/24 for suture removal. However, wound care was not done correctly. Wound did have some purulent drainage and RN suspected there would be wound separation if sutures were removed at that time. Pt was given very specific wound care instructions and triple Abx ointment. Was advised to care for wound as instructed and come back in 3 days. Today pt presents for recheck. Wound is much improved! No drainage noted, is healing well. It is now appropriate to remove sutures. However, only 4/5 sutures visible. This RN suspects that one may have fallen out, pt agrees. 4 sutures removed easily, no embedding present. Slight scabbing on wound, not over sutures. No signs of infection, healing well. Advised pt continue cleaning with antibacterial soap and warm water daily and applying Abx ointment x2 more days, no need to continue covering. Pt agreeable. Tolerated procedure well. us Felicitas VERMA IN CLINIC/BEDSIDE ORDERABLES Fin al Result documented in this encounter Visit Diagnoses Diagnosis Visit for suture removal documented in this encounter Additional Health Concerns Assessment Noted Time PHQ-9 Depression Total Score: 0 03/26/20 24 9:07 AM EDT documented as of this encounter Care Teams Marionette Performer Relationship Specialty Start Date End Date Lisa Ji MD [address] [place] [phone] PCP - General Internal Medicine 01/10/23 documented as of this encounter
--- OUTSIDE RECORDS SUMMARY | 2024-11-24 09:21 | XMS_ITS | Encounter Summary ---
Author Organization [employer] Address 75 [facility] 7t [place] [address] Care Team Providers Care Woodworking Bench Carpenter Name Role Phone Lisa Ji MD Primary Care Pro vider Encounter Details Date Type Department Care Team (Latest Contact Info) Description 11/20/2024 Travel Social History Tobacco Use Types Packs/Day [...] Description 01/08/2025 9:00 AM EDT Office Visit [facility] [address] [place] [phone] Lisa Ji MD [address] [place] [phone] documented as of this encounter Visit Diagnoses Not on filedocumented in this encounter Additional Health Concerns Assessment Noted Time PHQ-9 Depression Total Score: 0 03/26/20 24 9:07 AM EDT documented as of this encounter Care Teams Woodworking Bench Carpenter Relationship Specialty Start Date End Date Lisa Ji MD [address] [place] [address] [phone] PCP - General Internal Medicine 01/10/23 documented as of this encounter
--- OUTSIDE RECORDS SUMMARY | 2024-11-24 09:22 | XMS_ITS | Encounter Summary ---
Author Organization [employer] Address [address] [facility] 7t [place] [address] Care Team Providers Care Guyline Operator Name Role Phone Lisa Ji MD Primary Care Pro vider Encounter Details Date Type Department Care Team (Late Contact Info) Description 01/10/2023 Orders Only [facility] [address] [place], [place] [phone] Rocío Berman LPN Social History Tobacco Use Types Packs/Day Years Used Date Smoking Tobacco: Never Smokeless Tobacco: Never Alcohol Use Standard Drinks/Week Comments Never 0 [...] Orientation Straight 07/30/2022 10 :19 AM EDT COVID-19 Exposure Response Date Recorded In the last 10 days, have yo u been in contact with someone who was confirmed or suspected to have Coronavirus/COVID-19? No / Unsure 01/07/2023 8:36 AM EDT documented as of this encounter Plan of Treatment Upcoming Encounters Date Type Department Care Team (Late Contact Info) Description 01/08/2025 9:00 AM EDT Office Visit [facility] MEDICINE [address] [place], [place] [phone] Lisa Ji MD 230 [place], [place] [phone] documented as of this encounter Visit Diagnoses Not on filedocumented in this encounter Care Teams Guyline Operator Relationship Specialty Start Date End Date Lisa Ji MD [address] [place] [address] [phone] PCP - General Internal Medicine 01/10/23 documented as of this encounter
--- OUTSIDE RECORDS SUMMARY | 2024-11-24 09:22 | XMS_ITS | Encounter Summary ---
Author Organization [email or web address] [facility] Address 75 [facility] 7 [place] [address] Care Team Providers Care Unit Secretary Name Role Phone Shyanne Antunez MD Primary Care Provider Gautam Montesinos Primary Care Provider Nate Carmona Primary Care Provider Unavail able Lisa Ji MD Primary Care Pro vider Encounter Details Date Type Department Care Team (Latest Contact Info) Description 12/30/2020 Abstract [facility] Dental, Provider, DDS Social History Tobacco Use Types Packs/Day Years Used Date Smoking Tobacco: Never Assessed Sex and Gender Information Value Date Recorded Sex Assigned at Male 07/30/2022 10:19 AM EDT Legal Sex Male 10:19 AM EDT Gender Identity Male 07/30/2022 10:19 AM EDT Sexual Orientation Straight 07/30/2022 10 :19 AM EDT documented as of this encounter Plan of Treatment Upcoming Encounters Date Type Department Care Team ( st Contact Info) Description 01/08/2025 9:00 AM EDT Office Visit [facility] 230 [place] [address] Lisa Ji MD 230 [place], [place] [phone] documented as of this encounter Visit Diagnoses Not on filedocumented in this encounter Care Teams Unit Secretary Relationship Specialty Start Date End Date Shyanne Antunez MD PCP - General Family Medicine 08/26/19 10/09/22 Gautam Reynaga FNP PCP - General Family Medicine 10/10/22 11/28/22 Nate Lees AGNP PCP - General Family Medicine 11/29/22 01/09/23 Lisa Ji MD [address] [place] [phone] PCP - General Internal Medicine 01/10/23 documented as of this encounter
--- OUTSIDE RECORDS SUMMARY | 2024-11-24 09:22 | XMS_ITS | Encounter Summary ---
Author Organization [employer] [facility] Address [address] [place] [address] 7 [place] [address] Care Team Providers Care Field Investigator Name Role Phone Shyanne Antunez MD Primary Care Provider Gautam Montesinos Primary Care Provider Nate Carmona Primary Care Provider Unavail able Lisa Ji MD Primary Care Pro vider Encounter Details Date Type Department Care Team (Latest Contact Info) Description 12/07/2019 Abstract [facility] Dental, Provider, DDS Social History Tobacco [...] Description 01/08/2025 9:00 AM EDT Office Visit [facility] 230 [place] [address] Lisa Ji MD 230 [place], [place] [phone] documented as of this encounter Visit Diagnoses Not on filedocumented in this encounter Care Teams Field Investigator Relationship Specialty Start Date End Date Shyanne Antunez MD PCP - General Family Medicine 08/26/19 10/09/22 Gautam Reynaga FNP PCP - General Family Medicine 10/10/22 11/28/22 Nate Lees AGNP PCP - General Family Medicine 11/29/22 01/09/23 Lisa Ji MD [address] [place] [phone] PCP - General Internal Medicine 01/10/23 documented as of this encounter
--- OUTSIDE RECORDS SUMMARY | 2024-11-24 09:22 | XMS_ITS | Encounter Summary ---
Author Organization [employer] Address 75 [facility] 7t [place] [address] Care Team Providers Care Media Librarian Name Role Phone Lisa Ji MD Primary Care Pro vider Reason for Visit * Reason Comments Med Refill Encounter Details Date Type Department Care Team ([facility] st Contact Info) Description 02/25/2024 Refill [facility] [address] [place], [place] [phone] Lisa Ji MD 230 [place] [address] Social History Tobacco Use Types Packs/Day Years [...] Description 01/08/2025 9:00 AM EDT Office Visit [facility] [address] [place] [phone] Lisa Ji MD [address] [place] [address] documented as of this encounter Visit Diagnoses Not on filedocumented in this encounter Care Teams Media Librarian Relationship Specialty Start Date End Date Lisa Ji MD [address] [place] [phone] PCP - General Internal Medicine 01/10/23 documented as of this encounter
--- OUTSIDE RECORDS SUMMARY | 2024-11-24 09:22 | XMS_ITS | Encounter Summary ---
Author Organization [employer] Address [address] [place] [address] Care Team Providers Care Supervisor Veneer Name Role Phone Lisa Ji MD Primary Care Pro vider Encounter Details Date Type Department Care Team (Late st Contact Info) Description 03/26/2023 Abstract [facility] [address] [place] [address] Santiago Marquez, DMD [address] [place], [place] [id number] Social History Tobacco Use Types Packs/Day Years [...] suspected to have Coronavirus/COVID-19? No / Unsure 03/25/2023 10:41 AM EDT documented as of this encounter Plan of Treatment Upcoming Encounters Date Type Department Care Team (Late st Contact Info) Description 01/08/2025 9:00 AM EDT Office Visit [facility] [address] [place] [address] Lisa Ji MD [address] [place], [place] [id number] documented as of this encounter Visit Diagnoses Not on filedocumented in this encounter Care Teams Supervisor Veneer Relationship Specialty Start Date End Date Lisa Ji MD [address] [place] [address] [id number] PCP - General Internal Medicine 01/10/23 documented as of this encounter
--- OUTSIDE RECORDS SUMMARY | 2024-11-24 09:22 | XMS_ITS | Clinical Summary ---
Author Organization [employer] Address [address] [facility] [address] [place] [address] Care Team Providers Care Distribution Tech Name Role Phone Lisa Ji MD Primary Care Pro vider Allergies Active Allergy Reactions Criticality Noted Date Comments Lisinopril Swelling,Anaphylaxis High 06/13/2020 Medications cevimeline (Evoxac) 30 MG capsule Take 1 capsule (30 mg) by mouth at noon and 1 capsule (30 mg) in the evening. 60 capsule 2 01/24/20 24 025 Active Ventolin HFA 108 (90 Base) MCG/ACT inhaler INHALE 2 PUFFS BY MOUTH EVERY 6 HOURS NEEDED FOR WHEEZING 18 g 2 02/03/20 24 Active montelukast (Singulair) 10 MG tablet Take by mouth. Active Aspirin Low Dose 81 MG EC tabletIndicatio ns:Coronary artery disease involving [place] coronary artery of [place] heart, unspecified whether angina present TAKE 1 TABLET BY MOUTH AT BEDTIME 90 tablet 1 06/03/20 24 Active atorvastatin (Lipitor) 40 MG tabletIndicatio ns:Hypercholest erolemia TAKE 1 TABLET BY MOUTH AT BEDTIME 90 tablet 1 06/03/20 24 Active metFORMIN (Glucophage) 1000 MG tablet TAKE 1 TABLET BY MOUTH TWICE DAILY IN THE MORNING AND IN THE EVENING WITH MEALS 180 tablet 1 06/03/20 24 Active cholecalciferol (Vitamin D-3) 25 MCG tabletIndicatio ns:Low vitamin D level TAKE 1 TABLET BY MOUTH EVERY MORNING 90 tablet 1 06/03/20 24 Active omeprazole (PriLOSEC) [address] capsule TAKE 1 CAPSULE BY MOUTH EVERY MORNING BEFORE MEALS 90 capsule 1 07/01/20 24 Active cyanocobalamin (Vitamin B-12) 500 MCG tablet TAKE 1 TABLET BY MOUTH EVERY MORNING 90 tablet 1 07/09/20 24 Active Trelegy Ellipta 200-62.5-25 MCG/ACT aerosol powder INHALE 1 PUFF BY MOUTH EVERY DAY AT THE SAME TIME RINSE MOUTH AFTER USING 60 each 5 07/31/20 24 Active omega-3 (Fish Oil) 1000 MG capsule TAKE 1 CAPSULE BY MOUTH TWICE DAILY IN THE MORNING AND IN THE EVENING 180 capsule 1 09/02/20 24 Active amLODIPine (Norvasc) 10 MG tablet TAKE 1 TABLET BY MOUTH EVERY MORNING 90 tablet 1 11/03/19 25 Active ferrous gluconate (Fergon) 324 (38 Fe) MG tablet TAKE 1 TABLET BY MOUTH EVERY MORNING WITH BREAKFAST 90 tablet 1 11/03/19 25 Active Ascorbic Acid (vitamin C) 250 MG tablet TAKE 1 TABLET BY MOUTH EVERY MORNING 90 tablet 1 11/03/19 25 Active chlorthalidone (Hygroton) 25 MG tablet Take 1 tablet (25 mg) by mouth in the morning. 30 tablet 3 11/04/19 25 Active ferrous gluconate (Fergon) 324 (38 Fe) MG tablet Take 1 tablet (324 mg) by mouth with breakfast. 30 tablet 5 05/13/20 24 025 Discontinued Ascorbic Acid (vitamin C) 250 MG tablet Take 1 tablet (250 mg) by mouth Once per day. 30 tablet 5 05/13/20 24 025 Discontinued amLODIPine (Norvasc) 10 MG tablet TAKE 1 TABLET BY MOUTH EVERY MORNING 90 tablet 1 05/14/20 24 025 Discontinued chlorthalidone (Hygroton) 25 MG tablet TAKE 1 TABLET BY MOUTH EVERY MORNING 30 tablet 3 07/06/20 24 025 Discontinued(Re order (will not trigger notification to Pharmacy)) Active Problems Problem Noted Date Diagnosed Date Lung nodule 05/14/2024 Stage 3a chronic kidney disease 05/13/2024 Skin lesion 03/26/2024 Flexural atopic dermatitis 01/24/2024 Chronic obstructive pulmonar y disease, unspecified COPD type 12/04/2023 Normocytic anemia 08/07/2023 Overweight 06/11/2023 Assessment & Plan (06/11/2023 4:21 PM EDT): BMI 28.7 Noted lost 12 pounds in 3 mo -pt states he eats well w no major complaints -seems started weight loss since started taking metformin -will monitor pt at next apt in 4 weeks and will further eval if noted ongoing weight loss Poor memory 06/11/2023 Assessment & Plan (06/11/2023 4:27 PM EDT): Noted pt to be forgetful -requested today to nurse staff to schedule apt for minimental or MOCA test -will f results at next apt -also pt request referral for transportation ---sent today request to specialist referral Type 2 diabetes mellitus wit hout complication, without long-term current use of insulin 03/08/2023 Assessment & Plan (06/11/2023 4:05 PM EDT): Newly dxed 01/2023 Hb1AC 6.5<--6<--6.3, LDL 62,microalb neg ASCVD 24.5% ( x high dose statins) --already on statins and ASA x CAD hx -opthalmo 02/2022 Per pt -diet changes discussed in length -refusing mold holder referral-states saw in the past -wcontinue metformin 1 gr BID started 3 mo ago -DM labs-will RTC in fasting -will refer to podiatry and opthalmo at future visit -offered today to pt but Wants to hold for now Assessment & Plan (03/08/2023 6:13 PM EDT): Newly dxed 01/2023 Hb1AC 6.5<--6<--6.3, LDL 62,microalb neg ASCVD 24.5% ( x high dose statins) --already on statins and ASA x CAD hx -opthalmo 02/2022 Per pt -diet changes discussed in length -refusing mold holder referral-states saw in the past -will start metformin -explained pt in length to start 500 mg daily ( cut tab in half) x 5 day then 500 mg BID x 5 days and then 1 gr BID -explained possible SE -DM labs in 3 mo -will refer to podiatry and opthalmo at future visit Osteoarthrosis of hand 03/08/2023 Assessment & Plan (06/11/2023 4:04 PM EDT): Mild enlargement of prox PIP w no concerning symptoms or findings x autoimmune dx -likely OA -advised to do hand exercises -tylenol prn -will continue to monitor Assessment & Plan (03/08/2023 6:14 PM EDT): Mild enlargement of prox PIP w no concerning symptoms or findings x autoimmune dx -likely OA -advised to do hand exercises -tylenol prn -will continue to monitor Dry mouth 03/08/2023 Assessment & Plan (06/11/2023 4:27 PM EDT): Reports noticing some mild dry mouth w no other findings for the past year -per pt since had COVID 19 -normal mouth exam,denies eye dryness -advised x hydration -Sj??gren labs today ,if neg workup may consider image of parotid glands Assessment & Plan (03/08/2023 6:16 PM EDT): Reports noticing some mild dry w no other findings -advised x hydration and will start DM regimen to eval if tx condition helps w symptoms -maybe from polyuria? -will eval at next apt ,if symptoms persist will eval if symptoms x Sj??gren and will do labs if needed Stenosis of right vertebral artery 01/31/2023 Assessment & Plan (06/11/2023 4:00 PM EDT): From previous records pt w hx of right vertebral artery stenosis -CT/CT angio head neck 07/2022 IMPRESSION: 1. No acute territorial infarction or intracranial hemorrhage. No abnormal enhancement. 2. Severe stenosis at the origin of the right vertebral artery with multifocal areas of edvg-fo-latgrnod stenosis in the mid cervical right vertebral artery. Additional high-grade stenoses in the V3 segment of the upper cervical right vertebral artery near the craniovertebral junction. Mild long segment stenotic narrowing of the intradural right vertebral artery. Although findings may be due to chronic atheromatous disease, given that the remaining vasculature is relatively normal, the possibility of an age-indeterminate nonocclusive dissection of the right vertebral artery versus a prior dissection and vascular recanalization cannot be ruled out. If there is concern for a subtle acute or early evolving infarct in the posterior circulation, an MRI of the brain be recommended in follow-up for further evaluation. 3. Remainder of the vasculature in the head and neck appears relatively normal. 4. Paraseptal emphysematous changes in the lungs with lateral apical bullae. MR/MR head/brain wo contrast IMPRESSION: No acute intracranial process. Frontoparietal brain parenchymal volume loss bilaterally along the high cerebral convexities to the vertex is favored as opposed to small bilateral hemispheric subdural hygromas. Poor flow-related signal within the distal cervical and proximal intradural right vertebral artery due to stenotic changes in the vessel described on the CT angiogram study. Pt denies acute concerning symptoms from right vertebral artery stenosis -referred to vascular seen in 01/2023 ---from report no indication x procedure nor further imaging -to go back if symptomatic -discussed w pt about symptoms associated -continue ASA and statins Assessment & Plan (03/08/2023 5:58 PM EDT): From previous records pt w hx of right vertebral artery stenosis -CT/CT angio head neck 07/2022 IMPRESSION: 1. No acute territorial infarction or intracranial hemorrhage. No abnormal enhancement. 2. Severe stenosis at the origin of the right vertebral artery with multifocal areas of sbvr-jf-lrogrloe stenosis in the mid cervical right vertebral artery. Additional high-grade stenoses in the V3 segment of the upper cervical right vertebral artery near the craniovertebral junction. Mild long segment stenotic narrowing of the intradural right vertebral artery. Although findings may be due to chronic atheromatous disease, given that the remaining vasculature is relatively normal, the possibility of an age-indeterminate nonocclusive dissection of the right vertebral artery versus a prior dissection and vascular recanalization cannot be ruled out. If there is concern for a subtle acute or early evolving infarct in the posterior circulation, an MRI of the brain be recommended in follow-up for further evaluation. 3. Remainder of the vasculature in the head and neck appears relatively normal. 4. Paraseptal emphysematous changes in the lungs with lateral apical bullae. MR/MR head/brain wo contrast IMPRESSION: No acute intracranial process. Frontoparietal brain parenchymal volume loss bilaterally along the high cerebral convexities to the vertex is favored as opposed to small bilateral hemispheric subdural hygromas. Poor flow-related signal within the distal cervical and proximal intradural right vertebral artery due to stenotic changes in the vessel described on the CT angiogram study. Pt denies acute concerning symptoms from right vertebral artery stenosis -referred to vascular seen in 01/2023 ---from report no indication x procedure nor further imaging -to go back if symptomatic -discussed today w pt about symptoms associated -continue ASA and statins Assessment & Plan (01/31/2023 9:27 PM EDT): From previous records pt w hx of right vertebral artery stenosis -CT/CT angio head neck 07/2022 IMPRESSION: 1. No acute territorial infarction or intracranial hemorrhage. No abnormal enhancement. 2. Severe stenosis at the origin of the right vertebral artery with multifocal areas of qcra-iz-hntdoseo stenosis in the mid cervical right vertebral artery. Additional high-grade stenoses in the V3 segment of the upper cervical right vertebral artery near the craniovertebral junction. Mild long segment stenotic narrowing of the intradural right vertebral artery. Although findings may be due to chronic atheromatous disease, given that the remaining vasculature is relatively normal, the possibility of an age-indeterminate nonocclusive dissection of the right vertebral artery versus a prior dissection and vascular recanalization cannot be ruled out. If there is concern for a subtle acute or early evolving infarct in the posterior circulation, an MRI of the brain be recommended in follow-up for further evaluation. 3. Remainder of the vasculature in the head and neck appears relatively normal. 4. Paraseptal emphysematous changes in the lungs with lateral apical bullae. MR/MR head/brain wo contrast IMPRESSION: No acute intracranial process. Frontoparietal brain parenchymal volume loss bilaterally along the high cerebral convexities to the vertex is favored as opposed to small bilateral hemispheric subdural hygromas. Poor flow-related signal within the distal cervical and proximal intradural right vertebral artery due to stenotic changes in the vessel described on the CT angiogram study. Pt denies acute concerning symptoms from right vertebral artery stenosis -referred today to vascular -continue ASA and statins -check fsating lipids [facility] 01/31/2023 Assessment & Plan (06/11/2023 4:06 PM EDT): -01/2023 PSA wnl,Quantiferon neg -colonoscopy 06/2020 : Diverticuli . 1 to 1.2 cm polyp -sessile --path: tubular adenoma---( from literature review-adenoma >=10 mm,should undergo surveillance in 3 years.) ---referred today to GI -vaccines: s/p covid 19 x 3 ,Bivalent x2 , p23 x1, tdap 01/2023 , p20 01/2023 ,s/p zoster vaccine x 3,hep B immune, will offer flu vaccine at next apt --- -may need pelvic US x hx of enlarged inguinal LN ( in LE US 05/2022)not noted on exam at previous visit -will refer at future visit -pt wants to complete 1st current referrals prior new ones Assessment & Plan (03/11/2023 9:05 AM EDT): -01/2023 PSA wnl,Quantiferon neg -colonoscopy 06/2020 : Diverticuli . 1 to 1.2 cm polyp -sessile --path: tubular adenoma---( from literature review-adenoma >=10 mm,should undergo surveillance in 3 years.) ---will refer at future visits x 06/2023 -vaccines: s/p covid 19 x 3 ,Bivalent x1 -today to get 2nd dose here x comorbidities , p23 x1, tdap 01/2023 , p20 01/2023 ,s/p zoster vaccine x 3,hep B immune --- -may need pelvic US x hx of enlarged inguinal LN ( in US 05/2022)not noted on exam at previous visit -will refer at future visit -pt wants to complete 1st current referrals prior new ones Assessment & Plan (01/31/2023 9:36 PM EDT): -colonoscopy 3 y ago : polyp per pt --will try to get record -vaccines: s/p covid 19 x 3 ,Bivalent dose --will offer 2nd dose at next visit due to comorbities, p23 x1, tdap 2011 , today tdap and p20,s/p zoster vaccine x 3 -pt will have labs in fasting -will RTC x labs Heart murmur 01/31/2023 Assessment & Plan (06/11/2023 4:03 PM EDT): Noted 2nd left intercostal space murmur Echocardiogram was done 04/23/2023 showing normal study, EF 55-60%. 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 -will refer to ENT at future visit- pt wants to hold x now Assessment & Plan (01/31/2023 9:30 PM EDT): -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 -will refer to ENT at future visit History of tobacco use 01/31/2023 Assessment & Plan (06/11/2023 4:16 PM EDT): Used to smoke since 11 y of age and stopped at 59 y of age ( 8 years ago) --->10 cigarettes in average a day-PQT a year: 25 a year per pulm note 40 PQT calc -CT chest w/o contrast 2018: pulm emphysema mod size hiatal hernia ,old granulomatous dx -referred before x CT chest but not able to do from here so given was referred to retina subspecialist x COPD management advised pt as well to discuss w specialist x lung ca screening---if not done with pulm this month -will need to refer pt to lung ca screening program -referred today again x abd US AAA x screening --MA helped pt scheduling apt for 07/03/2023 Assessment & Plan (03/08/2023 6:08 PM EDT): Used to smoke since 11 y of age and stopped at 59 y of age ( 8 years ago) --->10 cigarettes in average a day-PQT a year: 25 a year -CT chest w/o contrast 2018: pulm emphysema mod size hiatal hernia ,old granulomatous dx -referred before x CT chest but not able to do from here so given was referred to retina subspecialist x COPD management advised pt as well to discuss w specialist x lung ca screening -referred today x abd US AAA x screening Assessment & Plan (01/31/2023 9:56 PM EDT): Used to smoke since 11 y of age and stopped at 59 y of age ( 8 years ago) --->10 cigarettes in average a day-PQT a year: 25 a year -CT chest w/o contrast 2018: pulm emphysema mod size hiatal hernia ,old granulomatous dx -referred today x lung ca screening -will do abd US AAA x screening at next visit and will check as well pelvic US x hx of enlarged inguinal LN not noted on exam ( in LE US 05/2022) Heartburn 03/07/2012 Assessment & Plan (06/11/2023 4:19 PM EDT): Reports chronic use off PPis ,stopped for the last 3 months as trial on H2 blockers prn but states was having again pain and GERD ,pt resumed again taking -resume PPI daily prn -refer to GI x EGD today Assessment & Plan (03/08/2023 6:00 PM EDT): Reports chronic use but denies having symptoms -continue to hold PPI and monitor symptoms if symptoms persist will refer to GI x EGD -for now famotidine PRN -states is symptomatic if drinking lemon extract x weight loss?? -advised pt to avoid doing this given is affecting his stomach Assessment & Plan (01/31/2023 9:37 PM EDT): Reports chronic use but denies having symptoms -advised to stop PPis and monitor symptoms if symptoms persist will refer to GI x EGD Asthma-chronic obstructive p ulmonary disease overlap syndrome 02/14/2012 Assessment & Plan (06/11/2023 3:57 PM EDT): Better controlled on trelegy -CT chest w/o contrast 2018: pulm emphysema mod size hiatal hernia ,old granulomatous dx -FPT 2018: normal -f w pulmonar-was referred to repeat PFT planned for this month Assessment & Plan (03/08/2023 6:10 PM EDT): Now much better controlled on recently added trelegy and stopped advair -CT chest w/o contrast 2018: pulm emphysema mod size hiatal hernia ,old granulomatous dx -FPT 2018: normal -referred to pulmonar w chronic uncontrol condition-has apt already schedule x 05/22/2023 at 10h45 -will monitor in 3 mo Assessment & Plan (01/31/2023 9:57 PM EDT): Not well controlled asthma on advair -CT chest w/o contrast 2018: pulm emphysema mod size hiatal hernia ,old granulomatous dx -FPT 2018: normal -stop advair and change to trilegy x COPD /asthma -monitor at next visit -referred to pulmonar w chronic uncontrol condition Benign hypertension 02/14/2012 Assessment & Plan (06/11/2023 3:59 PM EDT): Pt brings mx BP readings from home and all are wnl , from 120-130s/ 50-60s-just few 140s and one 150 EKG /2022 with findings consistent w LVH,? Possible branch block 01/2023 Microalb neg Here elevated BP today checked manually and with his BP machine giving similar readings -advised to continue taking his BP meds ,will hold on changes w normal BP at home -possible reactive today-denies any CV,respiratory nor neuro symptoms. -to continue to bring home BP readings at next visit -px new machine requested by pt given thinks old one is giving problems -continue care w Cardiology -saw opthalmo aprox 02/2022 -will refer at next visit -pt wants to hold for now -will check BP manually in both arms at next visit Assessment & Plan (03/08/2023 6:11 PM EDT): Pt brings mx BP readings from home and all are wnl , from 120-130s/ 50-60s EKG /2022 with findings consistent w LVH,? Possible branch block 01/2023 Microalb neg -advised to continue taking his BP meds -to continue to bring home BP readings at next visit -referred to cardiology x EKG findings ---has apt x 03/27/2023 -saw opthalmo aprox 02/2022 -will refer at next visit -will check BP manually in both arms at next visit Assessment & Plan (01/31/2023 9:58 PM EDT): Pt brings mx BP readings from home and all are wnl , from 120-130s/ 50-60s EKG today with findings consistent w LVH,? Possible branch block Here elevate -possibly reactive? -advised to continue taking his BP meds -denies need for any med refills x now -to bring home BP readings at next visit -referred to cardiology -saw opthalmo 2021 not yet one year -will monitor in next months x referral if not getting a call to schedule apt from bus assistant -will check BP manually in both arms at next visit Assessment & Plan (12/05/2022 2:55 PM EST): Educated patient that if he wants to make improvements he should start exercising and work on adding more vegetables to his diet. Patient is to continue current therapies. Patient to continue monitoring BP and bring list to TP appointment with me in the future. Hypercholesterolemia 02/14/2012 Coronary artery disease involving [place] coronar y artery 05/16/2003 Assessment & Plan (06/11/2023 4:00 PM EDT): EKG 01/2023 with findings consistent w LVH,? Possible branch block Per pt hx of AL in 2001 w no need x surgical intervention per pt -05/20/2023 by cards EKG done in July showed sinus rhythm with incomplete right bundle-branch block. Echocardiogram was done 04/23/2023 showing normal study, EF 55-60%. Nuclear stress test done 04/23/2023 showing exercise 5 minutes 20 seconds, moderate shortness of breath, no EKG changes, nuclear imaging with no clear ischemia, fixed defect most likely related to diaphragm attenuation 01/2023 Lipids wnl, LDL 62 -continue ASA and statins -continue to f w cardiology -per pt to f up in 6 months in 10/2023 Assessment & Plan (03/08/2023 5:58 PM EDT): EKG 01/2023 with findings consistent w LVH,? Possible branch block Per pt hx of AL in 2001 w no need x surgical intervention per pt 01/2023 Lipids wnl, LDL 62 -continue ASA and statins -referred to cards -has apt on 03/27/2023 -alarm signs and symptoms Assessment & Plan (01/31/2023 9:54 PM EDT): EKG today with findings consistent w LVH,? Possible branch block Per pt hx of AL in 2001 w no need x surgical intervention per pt -continue ASA and statins -referred to cards -alarm signs and symptoms Resolved Problems Problem Noted Date Diagnosed Date Resolved Date Hypokalemia 05/13/2024 08/14/2024 Nodule of chest wall 01/31/2023 024 Assessment & Plan (06/11/2023 4:06 PM EDT): Superficial chronic palpated nodule -tender and growing per pt ,noted in in lower left side of chest -Palpated aprox 2 cm superficial soft mass in left side of lower thoracic back , no overlying erythema nor deformity ,mild tender - chest wall US referred today Assessment & Plan (03/08/2023 6:06 PM EDT): Superficial chronic palpated nodule -tender and growing per pt ,noted in in lower left side of chest -will refer at next visit x chest wall US Assessment & Plan (01/31/2023 9:31 PM EDT): Superficial chronic palpated nodule -tender and growing per pt ,noted in in lower left side of chest -will do now CT lungs and if not seen will do chest wall US at future visit Umbilical hernia 01/31/2023 01/24/2024 Assessment & Plan (06/11/2023 4:04 PM EDT): Small umbilical hernia -alarm signs and symptoms discussed -may consider referral to surgeon at future visit -pt wants to hold x now Assessment & Plan (03/08/2023 6:01 PM EDT): Small umbilical hernia -alarm signs and symptoms discussed -may consider referral to surgeon at future visit -pt wants to hold x now Assessment & Plan (01/31/2023 9:50 PM EDT): Small umbilical hernia -alarm signs and symptoms discussed -may consider referral to surgeon at future visit [facility] emphysema 03/31/201801/31 Encounters Date Type Department Care Team Description 11/20/2024 9:15 AM EST Office Visit [facility] OPTOMETRY [address] [place] [address] Chandrakant, Annika, OD Presbyopia (Primary Dx) 11/20/2024 Travel 11/04/2024 Refill [facility] CHC MED & PEDS [address] [place] [address] Lisa Ji MD 11/03/2024 Refill [facility] MEDICINE [address] [place] [address] Lisa Ji MD 10/30/2024 11:00 AM EST Clinical Support [facility] MEDICINE [address] [place] [id number] Ingrid Olivera, RN Visit for suture removal 10/30/2024 Travel 10/26/2024 1:00 PM EST Clinical Support [facility] MEDICINE [address] [place] [id number] Ingrid Olivera, RN Encounter for wound care 10/23/2024 Telephone [facility] MED [facility] PEDS [address] [place] [address] Juliana Overton MA December recall 10/20/2024 Orders Only [facility] MEDICINE [address] [place] [address] Felicitas Zayas ANP Xerostomia (Primary Dx) 10/18/2024 Orders Only [facility] External Provider, [facility] 10/14/2024 Telephone [facility] MEDICINE [address] [place] [address] Columba Hammer, PharmD Appointment Request 10/14/2024 Telephone [facility] MEDICINE [address] [place] [address] Columba Hammer, PharmD 10/09/2024 Telephone [facility] [address] [place] [address] Lisa Ji MD Appointment Request 09/09/2024 Orders Only GENERIC EXTERNAL DATA DEPARTMENT Provider, Generic External Data 09/02/2024 Refill [facility] [address] [place] [address] Lisa Ji MD from Last 3 Months Immunizations Name Administration Dates Next Due Hep B, adult 08/09/2010,03/23/2010,02/08/2010 Influenza High-dose Quadriva lent Preservative Free 08/06/2023 Influenza Injectable Quadriv alant Preservative Free IIV4 MDCK 06/17/2020 Influenza injectable quadriv alent IIV4 with preservative 07/07/2018,09/10/2017,08/22/2016 Influenza injectable quadriv alent preservative free 07/13/2022,07/24/2021,11/02/2019 Influenza, High Dose Seasona l, Preservative Free 08/14/2024 Influenza, IIV3, injectable 07/26/2014, 1 Influenza, Split (incl. james fied surface antigen) 06/26/2013 Moderna Covid-19 Vaccine 12+ 09/19/2021,01/14/20 21,12/16/2020 Pfizer Covid-19 Vaccine 12+ 08/14/2024, Pfizer Covid-19 Vaccine 12+ Bivalent 03/08/2023, 07/16/2022 Pneumococcal Conjugate PCV 20 01/31/2023 Pneumococcal Polysaccharide PPSV23 07/28/2007 RSV Adjuvant 12/05/2023 Tdap 01/31/2023,05/01/2012 Zoster, Recombinant 09/27/2021,07/24/2021 Zoster, live 09/10/2017 Family History Medical History Relation Name Comments HTN,DM Father nephews x2 w unbspecified ca Other Relation Name Status Comments Father Other Social History Tobacco Use Types Packs/Day Years Used Date Smoking Tobacco: Former Cigarettes Passive Smoke Exposure: Never Smokeless Tobacco: Never Tobacco Cessation:Counseling Given: Not Answered Comments:Used to smoke since 11 y of [...] Orientation Straight 07/30/2022 10 :19 AM EDT Last Filed Vital Signs Vital Sign Reading Time Taken Comments Blood Pressure 142/70 08/14/2024 9:07 AM EST Pulse 65 08/14/2024 9:07 AM EST Temperature 36.6 ??C (97.8 ??F) 08/14/2024 9:07 AM ES T Respiratory Rate 20 08/14/2024 9:07 AM EST Oxygen Saturation 98% 08/14/2024 9:07 AM EST Inhaled Oxygen Concentration - - Weight 80 kg (176 lb 6.4 oz) 08/14/2024 9:07 AM EST Height 167.6 cm (5' 6 ) 08/14/2024 9:07 AM EST Body Mass Index 28.47 08/14/2024 9:07 AM EST Plan of Treatment Upcoming Encounters Date Type Department Care Team (Late st Contact Info) Description 01/08/2025 9:00 AM EDT Office Visit [facility] MEDICINE [address] [place] [address] [phone] Lisa Ji MD [address] [place], [place] [phone] Health Maintenance Due Date Last Done Comments CT Colonography 1955 FIT DNA/Cologuard 1955 Sigmoidoscopy 1955 Diabetes: Foot Exam 1965 Colonoscopy 07/21/2021 07/21/2020 Dental Oral Exam 05/07/2023 11/06/2022 Dental Prophylaxis 05/16/2023 11/15/2022 Dental X-Ray: Bitewings 11/07/2023 11/06/2022 Colorectal Cancer Screening 01/28/2024 Diabetes: Urine Protein Screening 06/12/2024 06/12/2023, 02/04/2023, 07/24/2021 Diabetes: Hemoglobin A1C 08/07/2024 024, 01/21/2024, 12/04/2023, Additional history exists SDOH Screening 01/23/2025 01/24/2024 FIT 01/26/2025 01/27/2024 FOBT 01/26/2025 01/27/2024 Depression Screening 03/26/2025 03/26/2024, 03/26/20 24 Lipid Panel 05/07/2025 05/07/2024, 12/30, 06/12/2023, Additional history exists Tobacco Screening 07/31/2025 07/31/2024 Alcohol/Substance Use Screening 08/14/2025 08/14/2024 Dental X-Ray: Full Mouth 11/07/2025 11/06/2022 Eye Exam 07/31/2026 07/31/2024, 1109/2023, 07/31/2024, Additional history exists DTaP/Tdap/Td Vaccines (3 - Td or Tdap) 01/31/2033 01/31/2023, 05/01/2012 Hepatitis B Vaccines Completed 08/09/2010, 03/23/2010, 02/08/2010 Zoster Vaccines Completed 09/27/2021, 07/01, 09/10/2017 Pneumococcal Vaccine: 50+ Years Completed 01/31/2023, 07/28/2007 Hepatitis C Screening Completed 02/04/2023 RSV Patients and Patients Aged 60 years or older Completed 12/05/2023 COVID-19 Vaccine Completed 08/14/2024, , 03/08/2023, Additional history exists Influenza Vaccine Completed 08/14/2024, , 07/13/2022, Additional history exists HIB Vaccines Aged Out No longer eligi ble based on patient's age to complete this topic HPV Vaccines Aged Out No longer eligi ble based on patient's age to complete this topic Hepatitis A Vaccines Aged Out No long er eligible based on patient's age to complete this topic IPV Vaccines Aged Out No longer eligi ble based on patient's age to complete this topic Meningococcal Vaccine Aged Out No kaylyn reji eligible based on patient's age to complete this topic RSV under 20 months Aged Out No longe r eligible based on patient's age to complete this topic Rotavirus Vaccines Aged Out No longer eligible based on patient's age to complete this topic Procedures Procedure Name Priority Date/Time Associated Diagnosis Comments CBC WITH AUTO DIFFERENTIAL Routine 11/17/2024 9:09 AM EST Iron deficiency anemia, unspecified iron deficiency anemia type SUTURE REMOVAL Routine 10/30/2024 10:42 AM EST Visit for suture removal WOUND CARE Routine 10/26/2024 1:29 PM EST Encounter for wound care CT CERVICAL SPINE WO CONTRAST Routine 10/18/2024 11:[address] HEAD WO CONTRAST Routine 10/18/2024 1 1:01 AM EST XR LUMBAR SPINE 2-3 VIEWS Routine 10/18/2024 10:58 AM EST HEMATOXYLIN AND EOSIN STAIN Routine 09/09/2024 9:06 AM EST GLUCOSE, WHOLE BLOOD Routine 09/09/2024 6:59 AM EST HEMOGLOBIN A1C Routine 05/07/2024 8:38 AM EDT Annual physical exam LIPID PANEL, STANDARD Routine 05/07/2024 8:38 AM EDT Annual physical exam FECAL GLOBIN BY IMMUNOCHEMISTRY Routine 01/27/2024 12:00 AM EDT ALBUMIN, RANDOM URINE W/CREATININE Routine 06/12/2023 8:53 AM EDT HEPATITIS C AB W/REFL TO HCV RNA, QN, PCR Routine 02/04/2023 8:39 AM EDT Health care maintenance PROPHYLAXIS - ADULT Routine 11/15/2022 8 :00 AM EST Gingivitis INTRAORAL - COMPLETE SERIES OF RADIOGRAPHIC IMAGES Routine 11/06/2022 9:30 AM EST Partial edentulism, class IV PERIODIC ORAL EVALUATION - ESTABLISHED PATIENT Routine 11/06/2022 9:30 AM EST Partial edentulism, class IV HM COLONOSCOPY Routine 07/21/2020 from Last 3 Months or Most Recently Relevant to Health Maintenance Results * (ABNORMAL) CBC auto differential (11/17/2024 9:09 AM EST) White Blood Count 15.8(H) 4.8 - 10.8 X10*3/uL [facility] Red Blood Count 4.76 4.60 - 5.80 X10*6/uL [facility] Hemoglobin 13.5(L) 14.0 - 18.0 g/dl [facility] Hematocrit 41.6(L) 42.0 - 52.0 % [facility] Mean Corpuscular Volume 87.4 80.0 - 98.0 fL [facility] Mean Corpuscular Hemoglobin 28.4 27.0 - 33.0 pg [facility] Mean Corpuscular HGB Conc 32.5 31.0 - 36.0 g/dl [facility] Red Cell Distribution Width 15.2 11.0 - 16.0 % [facility] Platelet Count 338 160 - 400 X10*3/uL [facility] Mean Platelet Volume 10.4 9.4 - 12.4 fL [facility] Neutrophils Percent Auto 69.8 45 - 73 % [facility] Imm Gran Pct Auto 0.5(H) 0.0 - 0.4 % [facility] Lymphocytes Percent Auto 19.7(L) 20 - 40 % [facility] Monocytes Percent Auto 8.5 2 - 11 % [facility] Eosinophils Percent Auto 1.0 0 - 4 % [facility] Basophils Percent Auto 0.5 0 - 2 % [facility] NRBC Pct Auto 0.0 0.0 - 0.2 /100WBC [facility] Neutrophils Absolute Auto 11.0(H) 2.0 - 8.3 x10*3/uL [facility] Imm Gran Abs Auto 0.08(H) 0.00 - 0.03 X10*3/uL [facility] Lymphocytes Absolute Auto 3.1 1.2 - 4.9 X10*3/uL [facility] Monocytes Absolute Auto 1.3(H) 0.1 - 1.2 X10*3/uL [facility] Eosinophils Absolute Auto 0.2 0.0 - 0.4 X10*3/uL [facility] Basophils Absolute Auto 0.1 0.0 - 0.2 X10*3/uL [facility] NRBC Abs Auto 0.000 0.0 - 0.012 X10*3/uL [facility] Blood Venous blood specimen / Unknown 11/17/2024 9:09 AM EST 11/17/2024 11:01 AM EST Lisa Vegas MD LAB BLOOD ORDERAB LES Final Result [facility] [address] [place] [address] [phone] * Suture Removal (10/30/2024 10:42 AM EST) [...] a fall down the stairs outside of latter day after slipping on ice 10/18/24. He presented to [facility] ED immediately after the fall at [...] VERMA IN CLINIC/BEDSIDE ORDERABLES Fin al Result * Wound Care (10/26/2024 1:29 PM EST) [...] a fall down the stairs outside of latter day after slipping on ice 10/18/24. He presented to [facility] ED immediately after the fall at [...] the touch, has red streaking, pus increases. Felicitas VERMA IN CLINIC/BEDSIDE ORDERABLES Fin al Result * CT Cervical Spine w/o Contrast (10/18/2024 11:06 AM EST) Anatomical Region Laterality Modality Spine, C-spine Computed Tomogra phy 10/18/2024 11:0 6 AM EST Narrative 10/18/2024 11:07 AM EST ? [facility] ?[address] ?[place] [address] ? CT Scan Report ? Signed ? Patient: John Milligan ?MR#: ?? [id number] ? : 1955 ?Acct:[id number] ? Age/Sex: 69 / M ?ADM Date: 10/18/24 ? Loc: HO.ED ? Attending Dr: ? Ordering Physician: Lauren Salter NP ?? Date of Service: 10/18/24 ?? Procedure(s): CT cervical spine wo IV con ?? Accession Number(s): [id number] ? cc: Lisa Ji MD; Lauren Salter NP ? Report Number: ?? [id number]: Total DLP = ??386.70 mGy-cm ? CLINICAL HISTORY: fall with head strike ? CT cervical spine without contrast ? Comparison: CT/SR - CT CERVICAL SPINE WO IV CON - 04/22/24 13:33 EDT ? Findings: ?? No prevertebral soft tissue edema. ?? No fracture or acute malalignment. ?? Facet joints are normally imbricating. ?? Mild multilevel degenerative change most pronounced at C5-C6. ?? Lung apices demonstrate possible small effusions. ? Impression: ? No acute cervical spine fracture or malalignment. ? This document has been electronically signed by: Vipin Vivar MD on ?? 10/18/2024 11:06:01 ? Dictated By: ?Vipin Vivar MD ? Signed By: ?<Electronically signed by Vipin Vivar MD in OV> ? 10/18/24 1106 ? DD/ 1106 ? TD/TT: 10/18/24 1106 ? Component Design Engineer: ? Procedure Note Fabienne, Robin - 10/18/2024 [facility] [address] [facility] [address] [place] [address] CT Scan Report Signed Patient: John Milligan#: [id number] : 7Acct:[id number] Age/Sex: 69 / MADM Date: 10/18/24 Loc: HO.ED Attending Dr: Ordering Physician: Lauren Salter NP Date of Service: 10/18/24 Procedure(s): CT cervical spine wo IV con Accession Number(s): [id number] cc: Lisa Ji MD; Lauren Salter NP Report Number: [id number]: Total DLP = 386.70 mGy-cm CLINICAL HISTORY: fall with head strike CT cervical spine without contrast Comparison: CT/SR - CT CERVICAL SPINE WO IV CON - 04/22/24 13:33 EDT Findings: No prevertebral soft tissue edema. No fracture or acute malalignment. Facet joints are normally imbricating. Mild multilevel degenerative change most pronounced at C5-C6. Lung apices demonstrate possible small effusions. Impression: No acute cervical spine fracture or malalignment. This document has been electronically signed by: Vipin Vivar MD on 10/18/2024 11:06:01 Dictated By: Vipin Vivar MD Signed By: <Electronically signed by Vipin Vivar MD in OV> 10/18/24 1106 DD/ 1106 TD/TT: 10/18/24 1106 Component Design Engineer: [facility] External Provider IMG CT PROCEDURES Edited Result - Final * CT Head w/o Contrast (10/18/2024 11:01 AM EST) Anatomical Region Laterality Modality Head, Neck Computed Tomogra phy 10/18/2024 11:0 1 AM EST Narrative 10/18/2024 11:02 AM EST ? [facility] ?[address] ?[place] [address] ? CT Scan Report ? Signed ? Patient: [place] El[place],John ?MR#: ?? [id number] ? : 1955 ?Acct:[id number] ? Age/Sex: 69 / M ?ADM Date: /19/25 ? Loc: HO.ED ? Attending Dr: ? Ordering Physician: Lauren Salter NP ?? Date of Service: 10/18/24 ?? Procedure(s): CT head/brain wo IV con ?? Accession Number(s): [id number] ? cc: Lisa Ji MD; Lauren Salter NP ? Report Number: ?? [id number]: Total DLP = ??718.61 mGy-cm ? CLINICAL HISTORY: fall with head strike ? CT head without contrast ? Comparison: CT/SR - CT HEAD/BRAIN WO IV CON - 04/22/24 13:33 EDT ? Findings: ?? No intra-axial mass, midline shift, hydrocephalus, or acute hemorrhage. ?? Mild volume loss. ?? The visualized paranasal sinuses and mastoid air cells are normal. ?? The orbits are within normal limits. ?? There is no acute fracture. Mild soft tissue edema, left frontal region. ? IMPRESSION: ?? 1. No acute intracranial findings. ? This document has been electronically signed by: Vipin Vivar MD on ?? 10/18/2024 11:01:49 ? Dictated By: ?Vipin Vivar MD ? Signed By: ?<Electronically signed by Vipin Vivar MD in OV> ? 10/18/24 1102 ? DD/ 1101 ? TD/TT: 10/18/24 1101 ? Component Design Engineer: ? Procedure Note Robin Loving - 10/18/[address] [place] [address] [address] Scan Report Signed Patient: Jonh MilliganMR#: [id number] : 1955cct:[id number] Age/Sex: 69 / MADM Date: 10/18/24 Loc: HO.ED Attending Dr: Ordering Physician: Lauren Salter NP Date of Service: 10/18/24 Procedure(s): CT head/brain wo IV con Accession Number(s): [id number] cc: Lisa Ji MD; Lauren Salter NP Report Number: [id number]: Total DLP = 718.61 mGy-cm CLINICAL HISTORY: fall with head strike CT head without contrast Comparison: CT/SR - CT HEAD/BRAIN WO IV CON - 04/22/24 13:33 EDT Findings: No intra-axial mass, midline shift, hydrocephalus, or acute hemorrhage. Mild volume loss. The visualized paranasal sinuses and mastoid air cells are normal. The orbits are within normal limits. There is no acute fracture. Mild soft tissue edema, left frontal region. IMPRESSION: 1. No acute intracranial findings. This document has been electronically signed by: Vipin Vivar MD on 10/18/2024 11:01:49 Dictated By: Vipin Vivar MD Signed By: <Electronically signed by Vipin Vivar MD in OV> 10/18/24 1102 DD/ 1101 TD/TT: 10/18/24 1101 Component Design Engineer: [facility] External Provider IMG CT PROCEDURES Edited Result - Final * XR Lumbar Spine 2-3 Views (10/18/2024 10:58 AM EST) Anatomical Region Laterality Modality Spine, L-spine Radiographic Carlie ging 10/18/2024 10:5 8 AM EST Narrative 10/18/2024 10:59 AM EST ? [facility] ?[address] ?[place] [address] ?XRay Report ? Signed ? Patient: John Milligan ?MR#: ?? [id number] ? : 1955 ?Acct:[id number] ? Age/Sex: 69 / M ?ADM Date: 10/18/24 ? Loc: HO.ED ? Attending Dr: ? Ordering Physician: Lauren Salter NP ?? Date of Service: 10/18/24 ?? Procedure(s): XR lumbar spine 2-3V ?? Accession Number(s): [id number] ? cc: Lisa Ji MD; Lauren Salter TAKER OFF ? CLINICAL HISTORY: midline tenderness, fall ? 3 views lumbar spine ? Comparison: None ? Findings: ?? No fractures or spondylolisthesis. ?? Degenerative facet arthropathy L4-L5. ?? Disc spaces are maintained. ?? Pedicles and transverse processes intact. ?? Lordotic curvature is preserved. ?? Borderline osteopenia.Calcified atherosclerotic disease. ?? Sacroiliac joints unremarkable. ? Impression: ?? 1. No compression fractures or spondylolisthesis. ? This document has been electronically signed by: Saroj Donaldson MD on ?? 10/18/2024 10:58:31 ? Dictated By: ?Saroj Donaldson MD ? Signed By: ?<Electronically signed by Saroj Donaldson MD in OV> ?10/18/24 1059 ? DD/ 1058 ? TD/TT: 10/18/24 1058 ? Component Design Engineer: ? Procedure Note Radhater, Image - 10/18/[address] [address] XRay Report Signed Patient: Megan Milligan#: [id number] : 1955cct:[id number] Age/Sex: 69 / MADM Date: 10/18/24 Loc: HO.ED Attending Dr: Ordering Physician: Lauren Salter NP Date of Service: 10/18/24 Procedure(s): XR lumbar spine 2-3V Accession Number(s): [id number] cc: Lisa Ji MD; Lauren Salter NP CLINICAL HISTORY: midline tenderness, fall 3 views lumbar spine Comparison: None Findings: No fractures or spondylolisthesis. Degenerative facet arthropathy L4-L5. Disc spaces are maintained. Pedicles and transverse processes intact. Lordotic curvature is preserved. Borderline osteopenia.Calcified atherosclerotic disease. Sacroiliac joints unremarkable. Impression: 1. No compression fractures or spondylolisthesis. This document has been electronically signed by: Saroj Donaldson MD on 10/18/2024 10:58:31 Dictated By: Saroj Donaldson MD Signed By: <Electronically signed by Saroj Donaldson MD in OV> 10/18/24 1059 DD/ 1058 TD/TT: 10/18/24 1058 Component Design Engineer: [facility] External Provider IMG XR PROCEDURES Edited Result - Final * Hematoxylin and Eosin Stain (09/09/2024 9:06 AM EST) 09/09/2024 9:06 AM EST 09/09/2024 10:04 AM EST Narrative [facility] - 09/11/2024 10:09 AM EST ----- ------- Name: John Milligan ? Age/Sex: 69/M ? : 1955 Unit#: [id number] ?? Attend Dr: Rolly Umanzor MD ?Re09/09/24 ?Status: DEP SDC ? Location: HO.SSS ?Disch: ? ----- ------- SPEC : [id number] ? RECD: 09/09/24-1003 ? STATUS: ??SOUT ? REQ NUM: [id number] ? HUGH: 09/09/24-905 ? SUBM DR: Rolly Umanzor MD ? ENTERED: ??09/09/24-5 ?SP TYPE: Surgical ? OTHR DR: Lisa Ji MD ORDERED: ??HE Stain/9, Gross Micro L4/3 ? Diagnosis ?? A. ??Colon, ascending, polypectomy: ??Colonic mucosa with prominent lymphoid aggregate. ? B. ??Colon, sigmoid, polypectomy: ??Tubular adenoma; negative for high-grade dysplasia or ?? carcinoma. ? C. ??Rectum, polypectomies: ??Hyperplastic mucosal polyp (one). ?Clinical History Pre-Op Dx: ??Screening Post-Op Dx: Colon polyps, internal hemorrhoids, diverticulosis ?Microscopic Description A-C. ??Microscopic sections reviewed. ? Material Received ?? A. Ascending colon polyp ?? B. Sigmoid colon polyp ?? C. Rectal polyps ? Gross Description Received in three parts. Part A: ??Received in formalin labeled ?ascending colon polyp? is a 1.2 x 0.3 x 0.2 cm hyperemic and congested quiñones-red rectangular-papular tissue fragment, submitted in toto in a cassette labeled A. Part B: ??Received in formalin labeled ?sigmoid polyp? is a 0.3 cm quiñones-pink papular tissue fragment, submitted in toto in a cassette labeled B. Part C: ??Received in formalin labeled ?rectal polyps (sic) is a 0.2 cm quiñones-pink irregular tissue fragment, submitted in toto in a cassette labeled C. CEDS ? CONTINUED ON NEXT PAGE ----- ------- Name: [place] ElanJohn ? Age/Sex: 69/M ? : 1955 Unit#: [id number] ?? Attend Dr: Rolly Umanzor MD ?Re09/09/24 ?Status: DEP SDC ? Location: HO.SSS ?Disch: ? ----- ------- SPEC : [id number] ? RECD: 09/09/24-1003 ? STATUS: ??SOUT ? REQ NUM: [id number] ? HUGH: 09/09/24-905 ? SUBM DR: Rolly Umanzor MD ? ENTERED: ??09/09/24-1014 ?SP TYPE: Surgical ? OTHR DR: Lisa Ji MD ORDERED: ??HE Stain/9, Gross Micro L4/3 ? Copies To: ?? Rolly Umanzor MD ?? [facility] ?? [address] ?? [place] [address] ?? [phone] ?? Lisa Ji MD ?? [address] [facility] ?? [place] ?? [phone] ----- ------- Signed (signature on file) Esau Villalobos MD 09/11/24 1009 ? ----- ------- ? END OF REPORT ? us Generic External Data Provider LAB BLOOD ORDERAB LES Final Result [facility] [address] [place] [address] [phone] * Glucose, Whole Blood (09/09/2024 6:59 AM EST) Pathologist [facility] Glucose, Whole Blood 109 60 - 115 mg/dL [facility] Comment:METER #: [id number] 09/09/2024 6:59 AM EST 09/09/2024 7:06 AM EST us Generic External Data Provider LAB BLOOD ORDERAB LES Final Result Performing Organization Address [facility]/ZIP Co de Phone Number [facility] [address] [place] [phone] * Hemoglobin A1c (05/07/2024 8:38 AM EDT) Hemoglobin A1c 5.8 <6.0 % [facility] Comment:Hemoglobin A1C Refer ence Range Adults: 4.8 - 6.0 % Non diabetic: < 6.0 % Goal: < 7.0 %Additional Action Suggested: > 8.0 %Note: Hemoglobin A1c results are invalid for patients with abnormal amounts of HbF. Blood transfusions may impact the HbA1c concentration in the patient sample. Estimated Average Glucose 120 mg/dL [facility] Comment:eAG = Estimated ave rage glucose which is %A1C expressed asaverage glucose, using the formula of the Y5A-OxsmglxByihzda Glucose study (ADAG), Diabetes Care, Vol.31,#8,Apr. 2007 Blood Venous blood specimen / Unknown 05/07/2024 8:38 AM EDT 05/07/2024 11:02 AM EDT us Lisa Vegas MD LAB BLOOD ORDERAB LES Final Result Performing Organization Address City/[facility]/ZIP Co de Phone Number [facility] [address] [place] [address] [phone] * (ABNORMAL) Lipid Panel, Standard (05/07/2024 8:38 AM EDT) Triglycerides 93 <150 mg/dL [facility] Comment:Desirable Triglyceri de: less than 150 mg/dLBorderline High Triglyceride 150-199 mg/dLHigh Triglyceride: 200-499 mg/dLVery High Triglyceride: greater than or equal to 5OO mg/dL Cholesterol 116 <200 mg/dL [facility] Comment:Desirable Cholestero l: less than 200 mg/dLBorderline High Cholesterol: 200-239 mg/dLHigh Cholesterol: greater than 239 mg/dL LDL Cholesterol Calculated 62 <100 mg/dL [facility] Comment:Desirable LDL: less than 100 mg/dLNear Optimal/Above Optimal LDL: 110- 129 mg/dLBorderline High LDL: 130-159 mg/dLHigh LDL: 160-189 mg/dLVery High LDL: greater than or equal to 190 mg/dL HDL Cholesterol 36(L) >40 mg/dL [facility] Comment:Desirable HDL: great er than 40 mg/dL Note: This HDL assay may give artificially low results in patients with liver disease. Blood Venous blood specimen / Unknown 05/07/2024 8:38 AM EDT 05/07/2024 11:02 AM EDT us Lisa Vegas MD LAB BLOOD ORDERAB LES Final Result [facility] [address] [place] [phone] * Fecal Globin by Immunochemistry (01/27/2024 12:00 AM EDT) Fecal Globin By Immunochemistry SEE NOTE [employer] [facility] Comment: ??FECAL GLOBIN BY IMMUNOCHEMISTRY ?Micro Number: ?[id number] ??Test Status: ? Final ??Specimen Source: ?? Insure (tm) fobt test card ??Specimen Quality: ??Adequate ??Fecal Globin: ?Not Detected 01/27/2024 01/31/2024 4:3 4 AM EDT Narrative [facility] - 01/31/2024 4:05 PM EDT FASTING: UNKNOWN Lisa Vegas MD LAB BODY FLUIDS A ND STOOLS ORDERABLES Final Result [address], [place] [phone] [employer] [place] [facility] [address] [place] [address] * Albumin, Random Urine W/Creatinine (06/12/2023 8:53 AM EDT) Creatinine, Urine 263.15 mg/dL [facility] Microalbumin Urine 8.0 mg/L [facility] Microalbum Creatinine Ratio Ur 3.0 <30 ug/mg cr [facility] Comment:Albumin/Creatinine R atio Reference Ranges: Normal: < 30 ug/mg creatinine Microalbuminuria: 30 - 300 ug/mg creatinineClinical Albuminuria: > 300 ug/mg creatinine 06/12/2023 8:53 AM EDT 06/12/2023 11:41 AM EDT Lisa Vegas MD LAB URINE ORDERAB LES Final Result Performing Organization Address City/State/[facility] Co de Phone Number [facility] [address] [place] [phone] * Hepatitis C Antibody with Reflex to HCV, RNA, Quantitative, Real-Time PCR (02/04/2023 8:39 AM EDT) Hepatitis C Antibody NON-REACT SOL NON-REACT SOL [employer] [place] [employer] Index 0.10 <1.00 [employer] [place] [employer] Comment: HCV antibody was non-reactive. There is no laboratory evidence of HCV infection. In most cases, no further action is required. However, if recent HCV exposure is suspected, a test for HCV RNA (test code 61810) is suggested. For additional information please refer to http://education.ComEd.Personally/faq/RKX81h5 (This link is being provided for informational/ educational purposes only.) Blood Venous blood specimen / Unknown 02/04/2023 8:39 AM EDT 02/04/2023 8:40 AM EDT Narrative [facility] - 02/06/2023 2:44 PM EDT FASTING:YES FASTING: YES us Lisa Vegas MD LAB BLOOD ORDERAB LES Final Result [facility] [address] [facility], [place] [address] [employer] [place] [facility] [address] [place] [address] * Hm Colonoscopy (07/21/2020) Colonoscopy Normal Normal Narrative Thalia Gilmore - 07/21/2020 Recommended 1 year follow up us Historical Provider HEALTH MAINTENANCE Final Result from Last 3 Months or Most Recently Relevant to Health Maintenance Insurance [facility] STANDARD DENTAL-[facility] MEDICA[employer] STAND ADULT Care Teams Distribution Tech Relationship Specialty Start Date End Date Lisa Ji MD [address] [place] [phone] PCP - General Internal Medicine 01/10/23
--- OUTSIDE RECORDS SUMMARY | 2024-11-24 09:22 | XMS_ITS | Encounter Summary ---
Author Organization [employer] Address [address] [facility] 7t [place] [address] Care Team Providers Care Early Childhood Teacher Assistant Name Role Phone Lisa Ji MD Primary Care Pro vider Reason for Visit * Reason Comments Med Refill Encounter Details Date Type Department Care Team ([facility] st Contact Info) Description 02/10/2023 Refill [facility] MED[facility] [address] [place], [place] [phone] [facility] 230 [place] [address] Social History Tobacco Use Types Packs/Day Years [...] suspected to have Coronavirus/COVID-19? No / Unsure 01/31/2023 9:07 AM EDT documented as of this encounter Miscellaneous Notes * Telephone Encounter - Lisa Vegas MD - 02/11/2023 11:30 AM EDT Pt not taking med * Telephone Encounter - Lisa Vegas MD - 02/11/2023 11:28 AM EDT I called today pt to confirm and he states not to be taking amlodipine only chlortalidone -will hold x now on refilling amlodipine -I will see pt in 2 weeks documented in this encounter Plan of Treatment Upcoming Encounters Date Type Department Care Team (Late st Contact Info) Description 01/08/2025 9:00 AM EDT Office Visit [facility] MEDICINE [address] [place], [place] [phone] Lisa Ji MD 230 [place] [address] documented as of this encounter Visit Diagnoses Not on filedocumented in this encounter Care Teams Early Childhood Teacher Assistant Relationship Specialty Start Date End Date Lisa Ji MD [address] [place], [place] [phone] PCP - General Internal Medicine 01/10/23 documented as of this encounter
--- OUTSIDE RECORDS SUMMARY | 2024-11-24 09:22 | XMS_ITS | Encounter Summary ---
Author Organization [employer] Address [address] [facility] 7t [place] [address] Care Team Providers Care Dry Color Mixer Name Role Phone Lisa Ji MD Primary Care Pro vider Reason for Visit * Reason Comments Med Refill Encounter Details Date Type Department Care Team ([facility] st Contact Info) Description 02/18/2023 Refill [facility] MED[facility]INE 230 [place], [place] [phone] [facility] 230 [place] [address] Social History Tobacco Use Types Packs/Day Years [...] suspected to have Coronavirus/COVID-19? No / Unsure 02/14/2023 10:05 AM EDT documented as of this encounter Plan of Treatment Upcoming Encounters Date Type Department Care Team (Late st Contact Info) Description 01/08/2025 9:00 AM EDT Office Visit [facility] MEDICINE [address] [place] [address] Lisa Ji MD 230 [place] [address] documented as of this encounter Visit Diagnoses Not on filedocumented in this encounter Care Teams Dry Color Mixer Relationship Specialty Start Date End Date Lisa Ji MD [address] [place] [address] [phone] PCP - General Internal Medicine 01/10/23 documented as of this encounter
--- OUTSIDE RECORDS SUMMARY | 2024-11-24 09:22 | XMS_ITS | Encounter Summary ---
Author Organization [employer] [facility] Address 75 [facility] 7 [place] [address] Care Team Providers Care Gold Charmer Name Role Phone Shyanne Antunez MD Primary Care Provider Gautam Montesinos Primary Care Provider Nate Carmona Primary Care Provider Unavail able Lisa Ji MD Primary Care Pro vider Encounter Details Date Type Department Care Team (Latest Contact Info) Description 12/03/2018 Abstract [facility] CONVERSIONS Dental, Provider, DDS Social History [...] Description 01/08/2025 9:00 AM EDT Office Visit [facility] MEDICINE 230 [place] [address] Lisa Ji MD 230 [place], [place] [phone] documented as of this encounter Visit Diagnoses Not on filedocumented in this encounter Care Teams Gold Charmer Relationship Specialty Start Date End Date Shyanne Antunez MD PCP - General Family Medicine 08/26/19 10/09/22 Gautam Reynaga FNP PCP - General Family Medicine 10/10/22 11/28/22 Nate Lees AGNP PCP - General Family Medicine 11/29/22 01/09/23 Lisa Ji MD [address] [place] [phone] PCP - General Internal Medicine 01/10/23 documented as of this encounter
--- OUTSIDE RECORDS SUMMARY | 2024-11-24 09:22 | XMS_ITS | Encounter Summary ---
Author Organization [employer] Address [address] [facility] 7t [place] [address] Care Team Providers Care Founder Ceo & President Name Role Phone Lisa Ji MD Primary Care Pro vider Reason for Visit * Reason Onset Date Comments Med Refill 11/04/2024 Encounter Details Date Type Department Care Team ([facility] st Contact Info) Description 11/04/2024 Refill [facility] [address] [place], [place] [phone] Lisa Ji MD [address] [place] [address] Social History Tobacco Use Types Packs/Day Years [...] Description 01/08/2025 9:00 AM EDT Office Visit [facility] MED[facility]INE [address] [place] [phone] Lisa Ji MD [address] [place] [address] [phone] documented as of this encounter Visit Diagnoses Not on filedocumented in this encounter Additional Health Concerns Assessment Noted Time PHQ-9 Depression Total Score: 0 03/26/20 24 9:07 AM EDT documented as of this encounter Care Teams Founder Ceo & President Relationship Specialty Start Date End Date Lisa Ji MD [address] [place] [address] [phone] PCP - General Internal Medicine 01/10/23 documented as of this encounter
== END 2024-11-24 08:46 | disposition home or self-care (01) ==
LOC: HO.CT 08:45
PROVIDERS: PCP Student in an Organized Health Care Education/Training Program; Visit Provider Psychiatry & Neurology Neurology
DX: G31.84 Mild cognitive impairment of uncertain or unknown etiology (principal)
CPT/HCPCS: 70450

== ENCOUNTER → 2024-11-24 08:47 | Outpatient (BNV) | payer MEDICARE, MEDICAID, SELFPAY | PROVIDERS: PCP Student in an Organized Health Care Education/Training Program; Visit Provider Radiology Diagnostic Radiology | DX: G31.84 Mild cognitive impairment of uncertain or unknown etiology (principal) | CPT/HCPCS: 70450 ==

== ENCOUNTER 2025-01-28 08:47 | Outpatient (AMB) | payer MEDICARE, MEDICAID, SELFPAY ==
--- NOTE | 2025-01-28 08:53 | MHC.OFFVIS ---
Vital Signs 01/28/25 08:57 Height 5 ft 6 in Weight 178 lb 9.191 oz BMI 28.8 BP 130/70 Blood Pressure Location Lt brachial Position Sitting Pulse 63 Pulse Source Monitor Intake Visit Reasons: 1 yr f/up Geophysics Scientist Required: Yes Geophysics Scientist Language: Clinical Immunologist Name: [email or web address]/[id number] Accompanied by: Spouse Allergies lisinopril Allergy (Intermediate, Verified 10/18/24 08:57) Swelling Medication List - Last Reconciled 01/28/25 by Bhavesh Medrano MD acetaminophen (Tylenol Extra Strength) 1,000 mg (2 x 500 mg) PO Q6H PRN albuterol sulfate 90 mcg/actuation (Ventolin HFA) 2 puffs inhalation QID PRN amlodipine 10 mg PO DAILY aspirin 81 mg PO DAILY atorvastatin 40 mg PO BEDTIME chlorthalidone 25 mg PO BEDTIME cholecalciferol (vitamin D3) (Vitamin D3) 25 mcg PO DAILY cyanocobalamin (vitamin B-12) 500 mcg PO QAM qkuayyeatas-dcyirnhwx-haczzxsv 200-62.5-25 mcg (Trelegy Ellipta) 1 ea inhalation DAILY ibuprofen 400 mg PO TID PRN lidocaine 5% 1 patch topical DAILY metformin 1,000 mg PO BID montelukast 10 mg PO QPM omega 9-fba-stu-fish oil 300 mg (120 mg- 180mg)-1,000 mg 1 cap PO BID omeprazole 20 mg PO DAILY HPI Comments Details: John returns for follow-up. History of coronary disease. Apparently myocardial infarction on 2001 in [place] but we do not know what exactly was done. Since last seen, he states he feels good.No cardiac symptoms. [facility] Medical History History of lower GI bleeding History of ME (myocardial infarction) Tubular adenoma of colon Personal history of nicotine dependence Normocytic anemia Poor memory Overweight Dry mouth Osteoarthrosis Skin lesion Diabetes Hearing loss Nodule of chest wall Murmur CAD (coronary artery disease) COPD (chronic obstructive pulmonary disease) Atherosclerotic cardiovascular disease Sessile colonic polyp Back pain Arthritis Peptic ulcer GERD (gastroesophageal reflux disease) Asthma Elevated cholesterol HTN (hypertension) Surgical History Hx of cardiac catheterization History of colonoscopy History of excision of mass History of umbilical hernia repair S/P excision of lipoma Family History Mother Diabetes Heart disease Arthritis Father Heart disease Social History Household Members: Spouse Housing: Apartment Are you a primary youth care professional to a significant other at home: No Do you presently have visiting nurse or other home services: No Alcohol intake: current Alcohol intake frequency: does not drink Comment: COUNTS CORRECT Patient Tobacco Use Status: Former Tobacco user Years Smoked: 50 Second Hand Smoke Exposure: No service: No Current occupational status: unemployed Review of Systems Const Denies chills, Denies fatigue, Denies fever(s), Denies frequent falls, Denies weakness, Denies weight gain and Denies weight loss ENT Denies dizziness Card Denies chest pain, Denies leg edema, Denies lightheadedness, Denies palpitations, Denies dyspnea and Denies dyspnea on exertion Resp Denies cough, Denies dyspnea and Denies dyspnea on exertion GI Denies hematochezia Musc Denies abnormal gait, Denies muscle weakness, Denies numbness, Denies radiating pain into limb and Denies tingling Neuro Denies abnormal gait, Denies dizziness, Denies frequent falls, Denies numbness, Denies tingling and Denies weakness Endo Denies fatigue and Denies palpitations Physical Exam Vital Signs: Last Vital Signs Pulse 63 01/28/25 08:57 BP 130/70 01/28/25 08:57 BMI result Body Mass Index 28.8 Const General: comfortable and no acute distress Orientation/consciousness: patient oriented x3 HEENT Other: Unremarkable Head: Yes normal to inspection Neck Neck: Yes normal visual inspection Chest Chest palpation & inspection: normal inspection of the chest Resp Auscultation: clear to auscultation bilaterally Cardio Palpation: normal PMI Heart sounds: S1 normal heart sound present, S2 normal heart sound present, no gallops, no murmurs and no rubs GI Palpation (GI): Soft to palpation Back/Spine/Pelvis Other: unremarkable Skin General skin exam: no rashes or lesions noted Neuro General: patient oriented x3 Extrem General: Yes normal to inspection Psych Mental Status: mental status grossly normal Office Procedures EKG Details: EKG with underlying sinus rhythm at 63/Min; RSR' pattern; no significant ischemic changes and otherwise unremarkable. 30212-[id number], Complete Assessment & Plan Assessment & Plan (1) Atherosclerotic cardiovascular disease: Code(s): I25.10 - Atherosclerotic heart disease of teller coronary artery without angina pectoris Category: Medical (2) HTN (hypertension): Code(s): I10 - Essential (primary) hypertension Category: Medical (3) Type 2 diabetes mellitus with unspecified complications: Code(s): E11.8 - Type 2 diabetes mellitus with unspecified complications Category: Medical (4) Elevated cholesterol: Code(s): E78.00 - Pure hypercholesterolemia, unspecified Category: Medical Plan Cardiac studies reviewed. Based on prior 12 lead EKG, possible prior NSTEMI with inferior wall involvement. In the echocardiogram, LVEF is 55-60% with no significant abnormalities. Myocardial perfusion imaging study reported to be with no ischemia; fixed inferior defect thought to be from diaphragmatic attenuation artifact but based on the EKG findings could also be reflecting a prior inferior scar. Overall, continue treatment for stable coronary disease. He has got no symptoms. Continue aspirin, statins. Cholesterol level is controlled. With regard to diabetes, hemoglobin A1c is 5.8%. On metformin. Blood pressure is stable. Listed to be on amlodipine, chlorthalidone. Advised him to report to us any symptoms. Otherwise, follow up in one year. Discussion Notes During the visit, I confirmed with the patient that current medications are deemed appropriate for his cardiac health maintenance, given his stability and lack of acute symptoms. Explicit instructions were provided to contact the office if symptoms such as chest pain develop. A follow-up has been set for one year to reassess his cardiovascular condition. There was no need for additional diagnostic studies or interventions at this time due to the patient's stable status. The patient is aware of the necessity to seek immediate care for any change in his condition. Patient was informed and verbally consented to the use of an ambient scribe for clinic note documentation during this visit. Patient Instructions: - Continue taking your current medications as prescribed. - If you experience chest pain or any cardiovascular symptoms, contact us immediately. - A follow-up visit is scheduled for one year to check on your heart health. - Do not hesitate to reach out with any questions or concerns regarding your treatment or condition. Coding Level of Care Code Est Pt Level 4 (88809) Diagnoses Atherosclerotic cardiovascular disease I25.10 HTN (hypertension) I10 Type 2 diabetes mellitus with unspecified complications E11.8 Elevated cholesterol E78.00 CPT Codes EKG - CPT: 30707-[id number], Complete ([id number])
[2025-01-28 08:57] VITALS: BP 130/70; PULSE 63; BMI 28.8
--- OUTSIDE RECORDS SUMMARY | 2025-01-28 09:09 | XMS_ITS | Encounter Summary ---
Author Organization [employer] Address 75 [facility] 7t [place] [address] Care Team Providers Care Steam Conditioning Operator Name Role Phone Shyanne Antunez MD Primary Care Provider Gautam Montesinos Primary Care Provider Nate Carmona Primary Care Provider Lisa Escobar MD Primary Care Pro vider Encounter Details Date Type Department Care Team (Latest Contact Info) Description 12/30/[address] [facility] CONVERSIONS Dental, Provider, DDS Social History [...] Care Team (Late st Contact Info) Description 01/29/2025 2:00 PM EDT Office Visit [facility] ADULT DENTAL [address] [place] [address] Kevan Gold 03/08/2025 9:00 AM EDT Office Visit [facility] ADULT DENTAL [address] [place] [address] Deon Alas DDS [address] [place] [address] 03/31/2025 10:45 AM EDT Office Visit [facility] MEDICINE [address] [place] [address] Lisa Ji MD 230 [place] [address] documented as of this encounter Visit Diagnoses Not on filedocumented in this encounter Care Teams Steam Conditioning Operator Relationship Specialty Start Date End Date Shyanne Antunez MD PCP - General Family Medicine 08/26/19 10/09/22 Gautam Reynaga FNP PCP - General Family Medicine 10/10/22 11/28/22 Nate Lees AGNP PCP - General Family Medicine 11/29/22 01/09/23 Lisa Ji MD 230 [place] [address] PCP - General Internal Medicine 01/10/23 documented as of this encounter
--- OUTSIDE RECORDS SUMMARY | 2025-01-28 09:09 | XMS_ITS | Encounter Summary ---
Author Organization [employer] Address [address] [facility] [address] 7t [place] [address] Care Team Providers Care Purchase Analyst Name Role Phone Lisa Ji MD Primary Care Pro vider Encounter Details Date Type Department Care Team (Late st Contact Info) Description 03/26/2023 Abstract [facility] ADULT DENTAL [address] [place] [address] Santiago Marquez, DMD [address] [place], [place] [phone] Social History Tobacco Use Types Packs/Day Years [...] Description 01/29/2025 2:00 PM EDT Office Visit [facility] ADULT DENTAL [address] [facility] [place] [address] Kevan Gold 03/08/2025 9:00 AM EDT Office Visit [facility] ADULT DENTAL [address] [place] [address] Deon Alas DDS [address] [place] [address] 03/31/2025 10:45 AM EDT Office Visit [facility] MEDICINE [address] [place] [address] Lisa Ji MD [address] [place] [address] documented as of this encounter Visit Diagnoses Not on filedocumented in this encounter Care Teams Purchase Analyst Relationship Specialty Start Date End Date Lisa Ji MD [address] [place] [id number] PCP - General Internal Medicine 01/10/23 documented as of this encounter
--- OUTSIDE RECORDS SUMMARY | 2025-01-28 09:09 | XMS_ITS | Encounter Summary ---
Author Organization [employer] Address [address] [facility] 7t [place] [address] Care Team Providers Care Laboratory Supervisor Name Role Phone Lisa Ji MD Primary Care Pro vider Reason for Visit * Reason Onset Date Comments pt1 01/22/2025 Encounter Details Date Type Department Care Team ([facility] st Contact Info) Description 01/22/2025 Telephone [facility] MEDICINE 230 [place], [place] [phone] Lisa Ji MD [address] [place] [address] pt1 Social History Tobacco Use Types Packs/Day Years Used Date Smoking Tobacco: Former Cigarettes Passive Smoke Exposure: Past Smokeless Tobacco: Never Comments:Used to smoke since [...] encounter Miscellaneous Notes * Telephone Encounter - Brittany Sanchez - 01/22/2025 1:02 PM EDT Patient calling requesting PT1 Home Address verified: Y/N: Yes Provider name or facility name: [address] [place] [address]. [facility] Escort needed: Y/N: Yes Do you have a wheelchair: Y/N: No If yes- Manual or electric: N/A Visits: (3x monthly) Patient calling requesting PT1 Home Address verified: Y/N: Yes Provider name or facility name: [facility] Hematology/Oncology -[address] [place] [address] [address]st [facility] [address] Escort needed: Y/N: Yes Do you have a wheelchair: Y/N: No If yes- Manual or electric: N/A Visits: (1x monthly) Patient calling requesting PT1 Home Address verified: Y/N: Yes Provider name or facility name: [address] [place] [address] 3rd Floor, [place] [address] - [facility] Escort needed: Y/N: Yes Do you have a wheelchair: Y/N: No If yes- Manual or electric: N/A Visits: (2x monthly) Patient calling requesting PT1 Home Address verified: Y/N: Yes Provider name or facility name: [address] [place] [address] - [facility] Escort needed: Y/N: Yes Do you have a wheelchair: Y/N: No If yes- Manual or electric: N/A Visits: (1x monthly) documented in this encounter Plan of Treatment Upcoming Encounters Date Type Department Care Team (Late st Contact Info) Description 01/29/2025 2:00 PM EDT Office Visit [facility] ADULT DENTAL [address] [facility] [place] [facility] [place] [address] Kevan Gold 03/08/2025 9:00 AM EDT Office Visit [facility] ADULT DENTAL [address] [place] [address] Deon Alas DDS [address] [place] [address] 03/31/2025 10:45 AM EDT Office Visit [facility] MEDICINE [address] [place] [address] Lisa Ji MD [address] [place] [address] documented as of this encounter Visit Diagnoses Not on filedocumented in this encounter Additional Health Concerns Assessment Noted Time PHQ-9 Depression Total Score: 0 03/26/20 24 9:07 AM EDT documented as of this encounter Care Teams Laboratory Supervisor Relationship Specialty Start Date End Date Lisa Ji MD [address] [place] [address] PCP - General Internal Medicine 01/10/23 documented as of this encounter
--- OUTSIDE RECORDS SUMMARY | 2025-01-28 09:09 | XMS_ITS | Encounter Summary ---
Author Organization [employer] Address [address] [facility] [address] 7t [place] [address] Care Team Providers Care Vp Patient Name Role Phone Lisa Ji MD Primary Care Pro vider Reason for Visit * Reason Onset Date Comments partial appt 05/29/2023 Encounter Details Date Type Department Care Team ([facility] st Contact Info) Description 05/29/2023 Telephone [facility] ADULT DENTAL [address] [place] [address] Santiago Marquez, DMD [address] [place] [address] partial appt Social History Tobacco Use Types [...] Description 01/29/2025 2:00 PM EDT Office Visit [facility] ADULT DENTAL [address] [place] [address] Kevan Gold 03/08/2025 9:00 AM EDT Office Visit [facility] ADULT DENTAL [address] [place] [address] Deon Alas DDS [address] [place] [address] 03/31/2025 10:45 AM EDT Office Visit [facility] MEDICINE [address] [place] [address] Lisa Ji MD [address] [place] [address] documented as of this encounter Visit Diagnoses Not on filedocumented in this encounter Care Teams Vp Patient Relationship Specialty Start Date End Date Lisa Ji MD [address] [place] [address] PCP - General Internal Medicine 01/10/23 documented as of this encounter
--- OUTSIDE RECORDS SUMMARY | 2025-01-28 09:09 | XMS_ITS | Encounter Summary ---
Author Organization [employer] Address [address] [facility] 7t [place] [address] Care Team Providers Care Posting Machine Operator Name Role Phone Shyanne Antunez MD Primary Care Provider Gautam Montesinos Primary Care Provider Nate Carmona Primary Care Provider Lisa Escobar MD Primary Care Pro vider Encounter Details Date Type Department Care Team (Latest Contact Info) Description 12/07/2019 Abstract [facility] CONVERSIONS Dental, Provider, DDS Social History [...] Description 01/29/2025 2:00 PM EDT Office Visit [facility] ADULT DENTAL [address] [place] [address] Kevan Gold 03/08/2025 9:00 AM EDT Office Visit [facility] ADULT DENTAL [address] [place] [address] Deon Alas DDS [address] [place] [address] 03/31/2025 10:45 AM EDT Office Visit [facility] MEDICINE [address] [place] [address] Lisa Ji MD [address] [place] [address] documented as of this encounter Visit Diagnoses Not on filedocumented in this encounter Care Teams Posting Machine Operator Relationship Specialty Start Date End Date Shyanne Antunez MD PCP - General Family Medicine 08/26/19 10/09/22 Gautam Reynaga FNP PCP - General Family Medicine 10/10/22 11/28/22 Nate Lees AGNP PCP - General Family Medicine 11/29/22 01/09/23 Lisa Ji MD [address] [place] [address] PCP - General Internal Medicine 01/10/23 documented as of this encounter
--- OUTSIDE RECORDS SUMMARY | 2025-01-28 09:09 | XMS_ITS | Encounter Summary ---
Author Organization [employer] Address [address] [facility] 7t [place] [address] Care Team Providers Care Greenhouse Grower Name Role Phone Lisa Ji MD Primary Care Pro vider Reason for Visit * Reason Comments Med Refill Encounter Details Date Type Department Care Team ([facility] st Contact Info) Description 02/18/2023 Refill [facility] MEDICINE [address] [place], [place] [phone] [facility] 230 [place] [address] Social History Tobacco Use Types Packs/Day Years [...] Description 01/29/2025 2:00 PM EDT Office Visit [facility] CHC ADULT DENTAL [address] [facility] [place] [address] Kevan Gold 03/08/2025 9:00 AM EDT Office Visit [facility] ADULT DENTAL [address] [place] [address] Deon Alas DDS [address] [place] [address] 03/31/2025 10:45 AM EDT Office Visit [facility] MEDICINE [address] [place] [address] Lisa Ji MD [address] [place] [address] documented as of this encounter Visit Diagnoses Not on filedocumented in this encounter Care Teams Greenhouse Grower Relationship Specialty Start Date End Date Lisa Ji MD [address] [place] [phone] PCP - General Internal Medicine 01/10/23 documented as of this encounter
--- OUTSIDE RECORDS SUMMARY | 2025-01-28 09:09 | XMS_ITS | Encounter Summary ---
Author Organization [employer] Address 75 [facility] 7t [place] [address] Care Team Providers Care Alarm Investigator Name Role Phone Lisa Ji MD Primary Care Pro vider Encounter Details Date Type Department Care Team (Late Contact Info) Description 01/10/2023 Orders Only [facility] MED & PEDS [address] [place] [address] Rocío Bermna LPN Social History Tobacco Use Types Packs/Day [...] Department Care Team (Late Contact Info) Description 01/29/2025 2:00 PM EDT Office Visit [facility] ADULT DENTAL [address] [place] [address] Kevan Gold 03/08/2025 9:00 AM EDT Office Visit [facility] ADULT DENTAL [address] [place] [address] Deon Alas DDS [address] [place] [address] 03/31/2025 10:45 AM EDT Office Visit [facility] MEDICINE [address] [place] [address] Lisa Ji MD 230 [place] [address] documented as of this encounter Visit Diagnoses Not on filedocumented in this encounter Care Teams Alarm Investigator Relationship Specialty Start Date End Date Lisa Ji MD [address] [place] [phone] PCP - General Internal Medicine 01/10/23 documented as of this encounter
--- OUTSIDE RECORDS SUMMARY | 2025-01-28 09:09 | XMS_ITS | Encounter Summary ---
Author Organization [employer] Address [address] [facility] 7t [place] [address] Care Team Providers Care Client Technical Support Associate Name Role Phone Lisa Ji MD Primary Care Pro vider Encounter Details Date Type Department Care Team (Late st Contact Info) Description 08/14/2023 Abstract [facility] MEDICINE [address] [place], [place] [phone] Lisa Ji MD 230 [place] [address] Social History Tobacco Use Types Packs/Day Years [...] 01/29/2025 2:00 PM EDT Office Visit [facility] ADULT DENTAL [address] [place] [address] Kevan Gold 03/08/2025 9:00 AM EDT Office Visit [facility] ADULT DENTAL [address] [place] [address] Deon Alas DDS [address] [place] [address] 03/31/2025 10:45 AM EDT Office Visit [facility] MEDICINE [address] [place] [address] Lisa Ji MD [address] [place] [address] documented as of this encounter Procedures Procedure Name Priority Date/Time Associated Diagnosis Comments COLONOSCOPY Routine 07/21/2020 documented in this encounter Results * Colonoscopy (07/21/2020) Colonoscopy Normal Normal Narrative Thalia Gilmore - 07/21/2020 Recommended 1 year follow up Historical Provider HEALTH MAINTENANCE Final Result documented in this encounter Visit Diagnoses Not on filedocumented in this encounter Care Teams Client Technical Support Associate Relationship Specialty Start Date End Date Lisa Ji MD [address] [place] [phone] PCP - General Internal Medicine 01/10/23 documented as of this encounter
--- OUTSIDE RECORDS SUMMARY | 2025-01-28 09:09 | XMS_ITS | Encounter Summary ---
Author Organization [employer] Address [address] [facility] 7t [place] [address] Care Team Providers Care Security Shift Manager Name Role Phone Shyanne Antunez MD Primary Care Provider Gautam Montesinos Primary Care Provider Nate Carmona Primary Care Provider Lisa Escobar MD Primary Care Pro vider Encounter Details Date Type Department Care Team (Latest Contact Info) Description 12/03/2018 Abstract [facility] CONVERSIONS Dental, Provider, DDS Social History Tobacco [...] 01/29/2025 2:00 PM EDT Office Visit [facility] ADULT DENTAL [address] [place] [address] Kevan Gold 03/08/2025 9:00 AM EDT Office Visit [facility] ADULT DENTAL [address] [place] [address] Deon Alas DDS [address] [place] [address] 03/31/2025 10:45 AM EDT Office Visit [facility] MEDICINE [address] [place] [address] Lisa Ji MD [address] [place] [address] documented as of this encounter Visit Diagnoses Not on filedocumented in this encounter Care Teams Security Shift Manager Relationship Specialty Start Date End Date Shyanne Antunez MD PCP - General Family Medicine 08/26/19 10/09/22 Gautam Reynaga FNP PCP - General Family Medicine 10/10/22 11/28/22 Nate Lees AGNP PCP - General Family Medicine 11/29/22 01/09/23 Lisa Ji MD [address] [place] [address] PCP - General Internal Medicine 01/10/23 documented as of this encounter
--- OUTSIDE RECORDS SUMMARY | 2025-01-28 09:09 | XMS_ITS | Encounter Summary ---
Author Organization [employer] Address 75 [facility] 7t [place] [address] Care Team Providers Care Pad Machine Offbearer Name Role Phone Lisa Ji MD Primary Care Pro vider Reason for Visit * Reason Comments Med Refill Encounter Details Date Type Department Care Team ([facility] st Contact Info) Description 09/10/2023 Refill [facility] MEDICINE [address] [place], [place] [phone] Lisa Ji MD 230 [place] [address] Social History Tobacco Use Types Packs/Day Years [...] Description 01/29/2025 2:00 PM EDT Office Visit [facility] CHC ADULT DENTAL [address] [place] [address] Kevan Gold 03/08/2025 9:00 AM EDT Office Visit [facility] ADULT DENTAL [address] [place] [address] Deon Alas DDS [address] [place] [address] 03/31/2025 10:45 AM EDT Office Visit [facility] MEDICINE [address] [place] [address] Lisa Ji MD [address] [place] [address] documented as of this encounter Visit Diagnoses Not on filedocumented in this encounter Care Teams Pad Machine Offbearer Relationship Specialty Start Date End Date Lisa Ji MD [address] [place] [address] PCP - General Internal Medicine 01/10/23 documented as of this encounter
--- OUTSIDE RECORDS SUMMARY | 2025-01-28 09:09 | XMS_ITS | Encounter Summary ---
Author Organization [employer] Address 75 [facility] 7t [place] [address] Care Team Providers Care Estimator And Drafter Supervisor Name Role Phone Lisa Ji MD Primary Care Pro vider Reason for Visit * Reason Comments Med Refill Encounter Details Date Type Department Care Team ([facility] st Contact Info) Description 02/10/2023 Refill [facility] MEDICINE [address] [place], [place] [phone] [facility] 230 [place] [address] Social History Tobacco Use Types Packs/Day Years [...] [facility] ADULT DENTAL [address] [place] [address] Kevan Gold 03/08/2025 9:00 AM EDT Office Visit [facility] ADULT DENTAL [address] [place] [address] Deon Alas DDS [address] [place] [address] 03/31/2025 10:45 AM EDT Office Visit [facility] MEDICINE [address] [place] [address] Lisa Ji MD [address] [place] [address] documented as of this encounter Visit Diagnoses Not on filedocumented in this encounter Care Teams Estimator And Drafter Supervisor Relationship Specialty Start Date End Date Lisa Ji MD [address] [place] [address] PCP - General Internal Medicine 01/10/23 documented as of this encounter
--- OUTSIDE RECORDS SUMMARY | 2025-01-28 09:09 | XMS_ITS | Encounter Summary ---
Author Organization [employer] Address 75 [facility] 7t [place] [address] Care Team Providers Care Bench Scientist Name Role Phone Lisa Ji MD Primary Care Pro vider Reason for Visit * Reason Onset Date Comments Appointment Request 10/09/2024 Encounter Details Date Type Department Care Team ([facility] Contact Info) Description 10/09/2024 Telephone [facility] MEDICINE 230 [place], [place] [phone] Lisa Ji MD [address] [place], [place] [phone] Appointment Request Social History Tobacco Use Types [...] follow up appt. Please contact pt at [phone]. (Georgian Speaker) documented in this encounter Plan of Treatment Upcoming Encounters Date Type Department Care Team (Late st Contact Info) Description 01/29/2025 2:00 PM EDT Office Visit [facility] CHC ADULT DENTAL [address] [place] [address] Kevan Gold 03/08/2025 9:00 AM EDT Office Visit [facility] ADULT DENTAL [address] [place] [address] Deon Alas DDS [address] [place] [address] 03/31/2025 10:45 AM EDT Office Visit [facility] MEDICINE [address] [place] [address] Lisa Ji MD [address] [place] [address] documented as of this encounter Visit Diagnoses Not on filedocumented in this encounter Additional Health Concerns Assessment Noted Time PHQ-9 Depression Total Score: 0 03/26/20 24 9:07 AM EDT documented as of this encounter Care Teams Bench Scientist Relationship Specialty Start Date End Date Lisa Ji MD [address] [place] [phone] PCP - General Internal Medicine 01/10/23 documented as of this encounter
--- OUTSIDE RECORDS SUMMARY | 2025-01-28 09:09 | XMS_ITS | Encounter Summary ---
Author Organization [employer] Address 75 [facility] 7t [place] [address] Care Team Providers Care Cms Expert Name Role Phone Lisa Ji MD Primary Care Pro vider Reason for Visit * Reason Comments Dental Exam Encounter Details Date Type Department Care Team ([facility] st Contact Info) Description 01/25/2025 9:00 AM EDT Office Visit [facility] ADULT DENTAL 230 [place], [place] [phone] Markos Simmons, JULISSA [address] [place], [place] [phone] Social History Tobacco Use Types Packs/Day Years [...] AM EDT documented as of this encounter Last Filed Vital Signs Vital Sign Reading Time Taken Comments Blood Pressure 138/80 01/25/2025 8:57 AM EDT Pulse 70 01/25/2025 8:57 AM EDT Temperature - - Respiratory Rate - - Oxygen Saturation - - Inhaled Oxygen Concentration - - Weight - - Height - - Body Mass Index - - documented in this encounter Progress Notes * Markos Simmons DMD - 01/25/2025 9:00 AM EDT C/C: uncomfortable P/ I.O.E: gen plaque accumulation, tilted #1, hyper-occlusion of upper anterior teeth of P/ E.O.E: wnl OCS: wnl Head and neck: wnl Radiographic: periapical lucency#26, pulp involved carious tooth#1, extruded #1, gen slight periodontal bone loss Dx: gen chronic slight periodontitis, extruded #1, ADC#1, Tx: prophy, recall exam, exo#1, monitor #26 Occlusal adjustment of upper anterior denture teeth of P/. Pt feels better Inform pt that he need to wear more of his new P/ instead of the old one Volodymyr documented in this encounter Plan of Treatment Upcoming Encounters Date Type Department Care Team (Late st Contact Info) Description 01/29/2025 2:00 PM EDT Office Visit [facility] CHC ADULT DENTAL [address] [facility] [place] [place] [address] Kevan Gold 03/08/2025 9:00 AM EDT Office Visit [facility] ADULT DENTAL [address] [place] [address] Deon Alas DDS [address] [place] [address] 03/31/2025 10:45 AM EDT Office Visit [facility] MEDICINE [address] [place] [address] Lisa Ji MD [address] [place], [place] [phone] Scheduled Orders Name Type Priority Associated Diagnoses Orde r Schedule 1 1 EXTRACTION, ERUPTED TOOTH OR EXPOSED ROOT (ELEVATION/FORCEPS REMOVAL) Dental Routine [address] arting 01/25/2025 PROPHYLAXIS - ADULT Dental Routine 1 Occ urrences starting 01/25/2025 documented as of this encounter Procedures Procedure Name Priority Date/Time Associated Diagnosis Comments PERIODIC ORAL EVALUATION - ESTABLISHED PATIENT Routine 01/25/2025 9:00 AM EDT documented in this encounter Visit Diagnoses Not on filedocumented in this encounter Additional Health Concerns Assessment Noted Time PHQ-9 Depression Total Score: 0 03/26/20 9:07 AM EDT documented as of this encounter Care Teams Cms Expert Relationship Specialty Start Date End Date Lisa Ji MD [address] [place] [address] PCP - General Internal Medicine 01/10/23 documented as of this encounter
--- OUTSIDE RECORDS SUMMARY | 2025-01-28 09:09 | XMS_ITS | Encounter Summary ---
Author Organization [employer] Address 75 [facility] 7t [place] [address] Care Team Providers Care Airport Guide Name Role Phone Lisa Ji MD Primary Care Pro vider Reason for Visit * Reason Comments Med Refill Encounter Details Date Type Department Care Team ([facility] st Contact Info) Description 02/25/2024 Refill [facility] MEDICINE 230 [place], [place] [phone] Lisa Ji MD 230 [place] [address] Social History Tobacco Use Types Packs/Day Years [...] Description 01/29/2025 2:00 PM EDT Office Visit [facility] ADULT DENTAL [address] [place] [address] Kevan Gold 03/08/2025 9:00 AM EDT Office Visit [facility] ADULT DENTAL [address] [place] [address] Deon Alas DDS [address] [place] [address] 03/31/2025 10:45 AM EDT Office Visit [facility] MEDICINE [address] [place] [address] Lisa Ji MD [address] [place] [address] documented as of this encounter Visit Diagnoses Not on filedocumented in this encounter Care Teams Airport Guide Relationship Specialty Start Date End Date Lisa Ji MD [address] [place] [phone] PCP - General Internal Medicine 01/10/23 documented as of this encounter
--- OUTSIDE RECORDS SUMMARY | 2025-01-28 09:09 | XMS_ITS | Encounter Summary ---
Author Organization [employer] Address [address] [facility] 7t [place] [address] Care Team Providers Care Economic Development Manager Name Role Phone Lisa Ji MD Primary Care Pro vider Encounter Details Date Type Department Care Team ([facility] st Contact Info) Description 10/14/2024 Telephone [facility] MEDICINE 230 [place], [place] [phone] Columba Hammer, PharmD [address] [place] [address] Social History Tobacco Use Types Packs/Day Years [...] Description 01/29/2025 2:00 PM EDT Office Visit [facility] CHC ADULT DENTAL [address] [place] [address] Kevan Gold 03/08/2025 9:00 AM EDT Office Visit [facility] ADULT DENTAL [address] [place] [address] Deon Alas DDS [address] [place] [address] 03/31/2025 10:45 AM EDT Office Visit [facility] MEDICINE [address] [place] [address] Lisa Ji MD [address] [place] [address] documented as of this encounter Visit Diagnoses Not on filedocumented in this encounter Additional Health Concerns Assessment Noted Time PHQ-9 Depression Total Score: 0 03/26/20 24 9:07 AM EDT documented as of this encounter Care Teams Economic Development Manager Relationship Specialty Start Date End Date Lisa Ji MD [address] [place] [address] PCP - General Internal Medicine 01/10/23 documented as of this encounter
--- OUTSIDE RECORDS SUMMARY | 2025-01-28 09:10 | XMS_ITS | Clinical Summary ---
Author Organization [employer] Address [address] [facility] [facility] [address] [place] [address] Care Team Providers Care Ladle Watcher Name Role Phone Lisa Ji MD Primary Care Pro vider Allergies Active Allergy Reactions Criticality Noted Date Comments Lisinopril Swelling,Anaphylaxis High 06/13/2020 Medications Ventolin HFA 108 (90 Base) MCG/ACT inhaler INHALE 2 PUFFS BY MOUTH EVERY 6 HOURS NEEDED FOR WHEEZING 18 g 2 02/03/20 24 Active montelukast (Singulair) 10 MG tablet Take by mouth. Activ e Trelegy Ellipta 200-62.5-25 MCG/ACT aerosol powder INHALE [...] morning. 30 tablet 3 11/04/19 25 Active Aspirin EC Adult Low Dose 81 MG EC tabletIndicati ons:Coronary artery disease involving [place] coronary artery of [place] heart, unspecified whether angina present TAKE 1 TABLET BY MOUTH AT BEDTIME 90 tablet 1 12/03/19 25 Active atorvastatin (Lipitor) 40 MG tabletIndicati ons:Hyperchole sterolemia TAKE 1 TABLET BY MOUTH AT BEDTIME 90 tablet 1 12/03/19 25 Active metFORMIN (Glucophage) 1000 MG tablet TAKE 1 TABLET BY MOUTH TWICE DAILY IN THE MORNING AND IN THE EVENING WITH MEALS 180 tablet 1 12/03/19 25 Active cholecalcifero l (Vitamin D-3) 25 MCG tabletIndicati ons:Low vitamin D level TAKE 1 TABLET BY MOUTH EVERY MORNING 90 tablet 1 12/03/19 25 Active omeprazole (PriLOSEC) [address] capsule TAKE 1 CAPSULE BY MOUTH EVERY MORNING BEFORE MEALS 90 capsule 01/05/20 25 Active docusate sodium (Colace) 100 MG capsule Take 1 capsule by mouth if needed in the morning and at bedtime for constipation. 11/09/19 25 Active pilocarpine (Salagen) 5 MG tablet Take 1 tablet (5 mg) by mouth Once per day. Stop cevemiline and start pilocarpine daily 30 tablet 1 01/09/20 25 026 Active cyanocobalamin (Vitamin B-12) 500 MCG tablet TAKE 1 TABLET BY MOUTH EVERY MORNING 90 tablet 1 01/13/20 25 Active cevimeline (Evoxac) 30 MG capsule Take 1 capsule (30 mg) by mouth at noon and 1 capsule (30 mg) in the evening. 60 capsule 2 01/24/20 24 025 Discontinued(O ther) omeprazole (PriLOSEC) [address] capsule TAKE 1 CAPSULE BY MOUTH EVERY MORNING BEFORE MEALS 90 capsule 1 07/01/20 24 025 Discontinued cyanocobalamin (Vitamin B-12) 500 MCG tablet TAKE 1 TABLET BY MOUTH EVERY MORNING 90 tablet 1 07/09/20 24 025 Discontinued Active Problems Problem Noted Date Diagnosed Date [...] pt -diet changes discussed in length -refusing [place]o [place] saw in the past -wcontinue metformin [...] pt -diet changes discussed in length -refusing ceo [place] saw in the past -will start [...] right vertebral artery with multifocal areas of nnno-cg-uskhcozm stenosis in the mid cervical right vertebral [...] right vertebral artery with multifocal areas of dxmu-oi-wdyjhmqy stenosis in the mid cervical right vertebral [...] right vertebral artery with multifocal areas of ezin-ww-jthzeiej stenosis in the mid cervical right vertebral [...] to vascular -continue ASA and statins -check [facility] lipids [facility] 01/31/2023 Assessment & Plan (06/11/2023 4:06 PM [...] from here so given was referred to supply officer x COPD management advised pt as well [...] from here so given was referred to supply officer x COPD management advised pt as well [...] getting a call to schedule apt from exercise planner -will check BP manually in both arms [...] future. Hypercholesterolemia 02/14/2012 Coronary artery disease involving [place] coronar y artery 05/16/2003 Assessment & Plan (06/11/2023 4:00 PM EDT): EKG 01/2023 with findings consistent w LVH,? Possible branch block Per pt hx of SD in 2001 w no need x surgical [...] Possible branch block Per pt hx of SD in 2001 w no need x surgical intervention per pt 01/2023 Lipids wnl, LDL 62 -continue ASA and statins -referred to cards -has apt on 03/27/2023 -alarm signs and symptoms Assessment & Plan (01/31/2023 9:54 PM EDT): EKG today with findings consistent w LVH,? Possible branch block Per pt hx of SD in 2001 w no need x surgical [...] Encounters Date Type Department Care Team Description 01/25/2025 9:00 AM EDT Office Visit [facility] ADULT DENTAL [address] [place] [phone] Markos Simmons, JULISSA 01/22/2025 Patient Outreach [address] [address] Lisa Ji MD Care Coordination (W outreach for SDOH PT-1 and food needs-referral completed /) 01/22/2025 Telephone [facility] MEDICINE [address] [place] [phone] Lisa Ji MD pt1 01/12/2025 Refill [facility] [address] [place] [phone] Davis Gordon MD 01/11/[address] [address] Lisa Ji MD Faxed Note Requested 01/11/[address] [phone] Lisa Ji MD Error (VOID this visit) 01/11/2025 Telephone [facility] MED[facility]INE [address] [place] [phone] Lisa Ji MD Appointment Confirmation 01/08/2025 9:00 AM EDT Office Visit [address] [address] Lisa Ji MD Leukocytosis, unspecified type (Primary Dx); Type 2 diabetes mellitus without complication, without long-term current use of insulin ([facility]); Chronic obstructive pulmonary disease, unspecified COPD type ([facility]); Stage 3a chronic kidney disease ([facility]); Dietary counseling; Exercise counseling; Anemia, unspecified type; Health care maintenance; Dry mouth; Poor memory 01/08/2025 Travel 01/03/2025 Refill [facility] MEDICINE [address] [place] [address] [facility] 12/31/2024 Telephone [facility] MEDICINE [address] [place] [address] Lisa Ji MD chart prep 12/11/2024 Population Health Risk Score [facility] [address] [phone] Provider, Population Health Generic 12/02/2024 Refill [facility] MEDICINE [address] [place] [address] Lisa Ji MD Coronary artery disease involving [place] coronary artery of [place] heart, unspecified whether angina present; Hypercholesterolemi a; Low vitamin D level 11/24/2024 Orders Only [facility] External Provider, [facility] 11/20/2024 9:15 AM EST Office Visit [facility] OPTOMETRY [address] [place] [address] Chandrakant, Annika, OD Presbyopia (Primary Dx) 11/20/2024 Travel 11/04/2024 Refill [facility] [address] [place], [place] [phone] Lisa Ji MD 11/03/2024 Refill [facility] MEDICINE [address] [place], [place] [phone] Lsia Ji MD from Last 3 Months Immunizations [...] Passive Smoke Exposure: Past Smokeless Tobacco: Never Tobacco Cessation:Counseling Given: Not [...] Pulse 70 01/25/2025 8:57 AM EDT Temperature 35.9 ??C (96.7 ??F) 01/08/2025 8:59 AM ED T Respiratory Rate 20 01/08/2025 8:59 AM EDT Oxygen Saturation 99% 01/08/2025 8:59 AM EDT Inhaled Oxygen Concentration - - Weight 81.2 kg (179 lb) 01/08/2025 8:59 AM EDT Height 167.6 cm (5' 6 ) 01/08/2025 8:59 AM EDT Body Mass Index 28.89 01/08/2025 8:59 AM EDT Plan of Treatment Upcoming Encounters Date Type Department Care Team (Late st Contact Info) Description 01/29/2025 2:00 PM EDT Office Visit [facility] ADULT D[facility]AL [address] [place] [address] Kevan Gold 03/08/2025 9:00 AM EDT Office Visit [facility] ADULT DENTAL [address] [place] [address] Deon Alas DDS [address] [place], [place] [phone] 03/31/2025 10:45 AM EDT Office Visit [facility] MEDICINE [address] [place], [place] [phone] Lisa Ji MD [address] [place], [place] [phone] Health Maintenance Due Date Last Done Comments CT Colonography 1955 FIT DNA/Cologuard 1955 Sigmoidoscopy 1955 Colonoscopy 07/21/2021 07/21/2020 Dental Prophylaxis 05/16/2023 11/15/2022 Dental X-Ray: Bitewings 11/07/2023 11/06/2022 Colorectal Cancer Screening 01/28/2024 Diabetes: Urine Protein Screening 06/12/2024 06/12/2023, 02/04/2023, 07/24/2021 SDOH Screening 01/23/2025 01/24/2024 FIT 01/26/2025 01/27/2024 FOBT 01/26/2025 01/27/2024 Depression Screening 03/26/2025 03/26/2024, 03/26/20 24 Lipid Panel 05/07/2025 05/07/2024, 12/30, 06/12/2023, Additional history exists Diabetes: Hemoglobin A1C 07/10/2025 025, 05/07/2024, 01/21/2024, Additional history exists Dental Oral Exam 07/28/2025 01/25/2025, 11/06/2022 Alcohol/Substance Use Screening 08/14/2025 08/14/2024 Dental X-Ray: Full Mouth 11/07/2025 11/06/2022 Diabetes: Foot Exam 01/08/2026 01/08/2025, 01/08/2025, 01/08/2025, Additional history exists Tobacco Screening 01/25/2026 01/25/2025 Eye Exam 07/31/2026 07/31/2024, 11/0 09/2023, 07/31/2024, Additional history exists DTaP/Tdap/Td Vaccines (3 [...] ESTABLISHED PATIENT Routine 01/25/2025 9:00 AM EDT POCT GLYCATED HEMOGLOBIN, TOTAL Routine 01/08/2025 9:14 AM EDT Type 2 diabetes mellitus without complication, without long-term current use of insulin ([facility]) POCT GLUCOSE Routine 01/08/2025 9:12 AM EDT Type 2 diabetes mellitus without complication, without long-term current use of insulin ([facility]) CT HEAD WO CONTRAST Routine 11/24/2024 8 :55 AM EST CBC WITH AUTO DIFFERENTIAL Routine 11/17/2024 9:09 AM EST Iron deficiency anemia, unspecified iron deficiency anemia type LIPID PANEL, STANDARD Routine 05/07/2024 8:38 AM [...] Relevant to Health Maintenance Results * (ABNORMAL) POCT HGB A1C (01/08/2025 9:14 AM EDT) Hemoglobin A1C 6.2(A) 4.0 - 6.0 % QC Media Lot # [id number] Lot# Expiration Date Blood 01/08/2025 9:14 AM EDT Lisa Vegas MD POINT OF CARE DANIEL T ENTER/EDIT ORDERABLES Final Result * POCT Glucose (01/08/2025 9:12 AM EDT) Glucose Blood, POC 92 60 - 200 mg/dL QC Media Lot # [id number] Lot# Expiration Date [id number] Blood Capillary blood specimen / Unknown 01/08/2025 9:12 AM EDT Lisa Vegas MD POINT OF CARE DANIEL T ENTER/EDIT ORDERABLES Final Result * CT Head w/o Contrast (11/24/2024 8:55 AM EST) Anatomical Region Laterality Modality Head, Neck Computed Tomogra phy 11/24/2024 8:55 AM EST Narrative 11/24/2024 3:14 PM EST ? [facility] ?[address] ?[place] [address] ? CT Scan Report ? Signed ? Patient: [place] Elan,John ?MR#: ?? [id number] ? : 1955 ?Acct:[id number] ? Age/Sex: 69 / M ?ADM Date: 11/24/24 ? Loc: HO.CT ? Attending Dr: Cezar Jc MD ? Ordering Physician: Cezar Jc MD ?? Date of Service: 11/24/24 ?? Procedure(s): CT head/brain wo IV con ?? Accession Number(s): [id number] ? cc: Cezar Jc MD; Lisa Ji MD ? Report Number: ?? [id number]: Total DLP = ??881.00 mGy-cm ?? EXAMINATION: ?? CT HEAD WITHOUT CONTRAST ? CLINICAL INFORMATION: ?? [facility] ? COMPARISON: ?? CT dated October 18, 2024. ? TECHNIQUE: ?? Contiguous axial imaging was performed from the skull base to vertex ?? without intravenous administration of contrast. ? This CT examination was performed using dose optimization techniques as ?? appropriate, variously including the following: ?? *Automated exposure control ?? *Adjustment of mA and/or kV according to patient size (this includes ?? techniques or standardized protocols for targeted exams where dose is ?? matched to indication/reason for exam; i.e. extremities or head) ?? *Use of iterative reconstruction technique ? DLP: ?? 881 mGy-cm ? FINDINGS: ?? Prominence of the extra-axial CSF spaces along the endometrial ?? convexities measuring less than 8 mm. ?? No acute intracranial hemorrhage, mass effect, midline shift, ?? hydrocephalus or herniation. ?? Valadez-white matter differentiation is normal. ?? Posterior cranial fossa contents demonstrated no acute intracranial ?? hemorrhage. ?? Calcified plaques in the V4 segments of the vertebral arteries and the ?? cavernous supracavernous segments both ICAs. ?? Tympanic cavities and mastoid cells are aerated. Decreased volume of ?? the maxillary sinuses bilaterally. No air-fluid levels in the included ?? paranasal sinuses. ?? There is a focal, 3 mm calcification in the right frontal soft tissue ?? scalp.. ? CT/CT head/brain wo IV con ?? IMPRESSION: ?? Consider bilateral hygromas versus old subdural hemorrhage. ?? No acute intracranial hemorrhage. ?? . ? Electronically signed by: ??Juan Miranda MD ??11/24/2024 03:11 PM ?? EST RP ? Dictated By: ?Juan Kenny MD ? Signed By: ?<Electronically signed by Juan Olivera MD in OV> ? 11/24/24 1511 ? DD/ 0855 ? TD/TT: 11/24/24 0920 ? Aircraft Sales Representative: ? Procedure Note Fabienne, Image - 11/24/[address] [place] [id number] [address] Scan Report Signed Patient: John MililganMR#: [id number] : 1955cct:[id number] Age/Sex: 69 / MADM Date: 11/24/24 Loc: HO.CT Attending Dr: Cezar Jc MD Ordering Physician: Cezar Jc MD Date of Service: 11/24/24 Procedure(s): CT head/brain wo IV con Accession Number(s): [id number] cc: Cezar Jc MD; Lisa Ji MD Report Number: [id number]: Total DLP = 881.00 mGy-cm EXAMINATION: CT HEAD WITHOUT CONTRAST CLINICAL INFORMATION: [facility] COMPARISON: CT dated October 18, 2024. TECHNIQUE: Contiguous axial imaging was performed from the skull base to vertex without intravenous administration of contrast. This CT examination was performed using dose optimization techniques as appropriate, variously including the following: *Automated exposure control *Adjustment of mA and/or kV according to patient size (this includes techniques or standardized protocols for targeted exams where dose is matched to indication/reason for exam; i.e. extremities or head) *Use of iterative reconstruction technique DLP: 881 mGy-cm FINDINGS: Prominence of the extra-axial CSF spaces along the endometrial convexities measuring less than 8 mm. No acute intracranial hemorrhage, mass effect, midline shift, hydrocephalus or herniation. Valadez-white matter differentiation is normal. Posterior cranial fossa contents demonstrated no acute intracranial hemorrhage. Calcified plaques in the V4 segments of the vertebral arteries and the cavernous supracavernous segments both ICAs. Tympanic cavities and mastoid cells are aerated. Decreased volume of the maxillary sinuses bilaterally. No air-fluid levels in the included paranasal sinuses. There is a focal, 3 mm calcification in the right frontal soft tissue scalp.. CT/CT head/brain wo IV con IMPRESSION: Consider bilateral hygromas versus old subdural hemorrhage. No acute intracranial hemorrhage. . Electronically signed by: Juan Miranda MD 11/24/2024 03:11 PM EST RP Dictated By: Juan Kenny MD Signed By: <Electronically signed by Juan Olivera MDin OV> 11/24/24 1511 DD/ 0855 TD/TT: 11/24/24 0920 Aircraft Sales Representative: [facility] External Provider IMG CT PROCEDURES Final Result * (ABNORMAL) CBC auto differential (11/17/2024 9:09 AM EST) White Blood Count 15.8(H) 4.8 - 10.8 X10*3/uL [facility] Red Blood Count 4.76 4.60 - 5.80 X10*6/uL [facility] Hemoglobin 13.5(L) 14.0 - 18.0 g/dl [facility] Hematocrit 41.6(L) 42.0 - 52.0 % [facility] Mean Corpuscular Volume 87.4 80.0 - 98.0 fL [facility] Mean Corpuscular Hemoglobin 28.4 27.0 - 33.0 pg [facility] Mean Corpuscular HGB Conc 32.5 31.0 - 36.0 g/dl [facility] Red Cell Distribution Width 15.2 11.0 - 16.0 % [facility] Platelet Count 338 160 - 400 X10*3/uL [facility] Mean Platelet Volume 10.4 9.4 - 12.4 fL [facility] Neutrophils Percent Auto 69.8 45 - 73 % [facility] Imm Gran Pct Auto 0.5(H) 0.0 - 0.4 % [facility] Lymphocytes Percent Auto 19.7(L) 20 - 40 % [facility] Monocytes Percent Auto 8.5 2 - 11 % [facility] Eosinophils Percent Auto 1.0 0 - 4 % [facility] Basophils Percent Auto 0.5 0 - 2 % [facility] NRBC Pct Auto 0.0 0.0 - 0.2 /100WBC [facility] Neutrophils Absolute Auto 11.0(H) 2.0 - 8.3 x10*3/uL [facility] Imm Gran Abs Auto 0.08(H) 0.00 - 0.03 X10*3/uL [facility] Lymphocytes Absolute Auto 3.1 1.2 - 4.9 X10*3/uL [facility] Monocytes Absolute Auto 1.3(H) 0.1 - 1.2 X10*3/uL [facility] Eosinophils Absolute Auto 0.2 0.0 - 0.4 X10*3/uL [facility] Basophils Absolute Auto 0.1 0.0 - 0.2 X10*3/uL [facility] NRBC Abs Auto 0.000 0.0 - 0.012 X10*3/uL [facility] Blood Venous blood specimen / Unknown 11/17/2024 9:09 AM EST 11/17/2024 11:01 AM EST us Lisa Vegas MD LAB BLOOD ORDERAB LES Final Result [facility] [address] [place] [phone] * (ABNORMAL) Lipid Panel, Standard (05/07/2024 8:38 AM EDT) Triglycerides 93 <150 mg/dL [facility] Comment:Desirable Triglyceri de: less than 150 mg/dLBorderline High Triglyceride 150-199 mg/dLHigh Triglyceride: 200-499 mg/dLVery High Triglyceride: greater than or equal to 5OO mg/dL Cholesterol 116 <200 mg/dL [facility] Comment:Desirable Cholestero l: less than 200 mg/dLBorderline High Cholesterol: 200-239 mg/dLHigh Cholesterol: greater than 239 mg/dL LDL Cholesterol Calculated 62 <100 mg/dL [facility] Comment:Desirable LDL: less than 100 mg/dLNear Optimal/Above Optimal LDL: 110- 129 mg/dLBorderline High LDL: 130-159 mg/dLHigh LDL: 160-189 mg/dLVery High LDL: greater than or equal to 190 mg/dL HDL Cholesterol 36(L) >40 mg/dL [facility] Comment:Desirable HDL: great er than 40 mg/dL Note: This HDL assay may give artificially low results in patients with liver disease. Blood Venous blood specimen / Unknown 05/07/2024 8:38 AM EDT 05/07/2024 11:02 AM EDT Lisa Vegas MD LAB BLOOD ORDERAB LES Final Result [facility] [address] [place] [phone] * Fecal Globin by Immunochemistry (01/27/2024 12:00 AM EDT) Fecal Globin By Immunochemistry SEE NOTE [facility] Comment: ??FECAL GLOBIN BY IMMUNOCHEMISTRY ?Micro Number: ?[id number] ??Test Status: ? Final ??Specimen Source: ?? Insure (tm) fobt test card ??Specimen Quality: ??Adequate ??Fecal Globin: ?Not Detected 01/27/2024 01/31/2024 4:3 4 AM EDT Narrative [facility] - 01/31/2024 4:05 PM EDT FASTING: UNKNOWN Lisa Vegas MD LAB BODY FLUIDS A ND STOOLS ORDERABLES Final Result [facility] [address], [place] [address] [facility] [address] [place] [phone] * Albumin, Random Urine W/Creatinine (06/12/2023 8:53 AM EDT) Creatinine, Urine 263.15 mg/dL [facility] Microalbumin Urine 8.0 mg/L [facility] Microalbum Creatinine Ratio Ur 3.0 <30 ug/mg cr [facility] Comment:Albumin/Creatinine R atio Reference Ranges: Normal: < 30 ug/mg creatinine Microalbuminuria: 30 - 300 ug/mg creatinineClinical Albuminuria: > 300 ug/mg creatinine 06/12/2023 8:53 AM EDT 06/12/2023 11:41 AM EDT Lisa Vegas MD LAB URINE ORDERAB LES Final Result [facility] [address] [place] [phone] * Hepatitis C Antibody with Reflex to HCV, RNA, Quantitative, Real-Time PCR (02/04/2023 8:39 AM EDT) Hepatitis C Antibody NON-REACT SOL NON-REACT SOL [facility] Index 0.10 <1.00 [facility] Comment: HCV antibody was non-reactive. There is no laboratory evidence of HCV infection. In most cases, no further action is required. However, if recent HCV exposure is suspected, a test for HCV RNA (test code 70719) is suggested. For additional information please refer to http://education.[employer]/faq/DRB86t4 (This link is being provided for informational/ educational purposes only.) Blood Venous blood specimen / Unknown 02/04/2023 8:39 AM EDT 02/04/2023 8:40 AM EDT Narrative [facility] - 02/06/2023 2:44 PM EDT FASTING:YES FASTING: YES us Lisa Vegas MD LAB BLOOD ORDERAB LES Final Result [facility] [address] [facility], [place] [address] [facility] [address] [place] [phone] * Hm Colonoscopy (07/21/2020) Colonoscopy Normal Normal Narrative Thalia Gilmore - 07/21/2020 Recommended 1 year follow up us Historical Provider HEALTH MAINTENANCE Final Result from Last 3 Months or Most Recently Relevant to Health Maintenance Insurance [facility] STANDARD [facility] MEDICARE ADVANTAGE [facility] MED[facility] STAND ADULT Care Teams Ladle Watcher Relationship Specialty Start Date End Date Lisa Ji MD [address] [place] [phone] PCP - General Internal Medicine 01/10/23
== END 2025-01-28 09:15 | disposition home or self-care (01) ==
LOC: HO.HCS 08:48
PROVIDERS: PCP Student in an Organized Health Care Education/Training Program; Visit Provider Internal Medicine
DX: I25.10 Atherosclerotic heart disease of native coronary artery without angina pectoris (principal); I10 Essential (primary) hypertension; E11.8 Type 2 diabetes mellitus with unspecified complications; E78.00 Pure hypercholesterolemia, unspecified
CPT/HCPCS: 93010; 99214

== ENCOUNTER → 2025-01-28 08:47 | Outpatient (BNVA) | payer MEDICARE, MEDICAID, SELFPAY | PROVIDERS: PCP Student in an Organized Health Care Education/Training Program; Visit Provider Internal Medicine | DX: I25.10 Atherosclerotic heart disease of native coronary artery without angina pectoris (principal); I10 Essential (primary) hypertension; E11.8 Type 2 diabetes mellitus with unspecified complications; E78.00 Pure hypercholesterolemia, unspecified | CPT/HCPCS: 93005; 99212 ==

== ENCOUNTER 2025-02-03 09:30 | Outpatient (REF) | payer MEDICARE, MEDICAID, SELFPAY ==
--- OUTSIDE RECORDS SUMMARY | 2025-02-03 10:26 | XMS_ITS | Encounter Summary ---
Author Organization [email or web address] Address [address] 7t [place] [address] Care Team Providers Care Sales Marketing Coordinator Name Role Phone Lisa Ji MD Primary Care Pro vider Reason for Visit * Reason Comments Routine Cleaning Encounter Details Date Type Department Care Team (Late st Contact Info) Description 01/29/2025 2:00 PM EDT Office Visit [facility] ADULT DENTAL [address] [place], [place] [phone] Kevan Gold Dental calculus (Primary Dx) Social History Tobacco Use Types [...] Sign Reading Time Taken Comments Blood Pressure 124/56 01/29/2025 1:36 PM EDT Pulse 68 01/29/2025 1:36 PM EDT Temperature - - Respiratory Rate - - Oxygen Saturation - - Inhaled Oxygen Concentration - - Weight - - Height - - Body Mass Index - - documented in this encounter Progress Notes * Kevan Gold - 01/29/2025 2:00 PM EDT Patient ID: John Ansari is a 69 y.o. male. Time Out: Timeout Date: 01/29/25, Timeout Time: 1337 Location: [facility] Tooth: Maxilla and Mandible Procedure: Prophylaxis Verified the above with patient, paperhanger assistant, and provider. Confirmed via patient's chart, intraorally and by radiographs. Fellmongery Worker: not applicable Medical Hx: Vitals: Blood pressure 124/56, pulse 68. Medications, Med Hx reviewed with patient and updated in chart. Treatment Provided Dental procedures in this visit D1110 - PROPHYLAXIS - ADULT (Completed) Service provider: Kevan Gold Billing provider: Padmini Holliday DDS D9450 - CASE PRESENTATION, DETAILED AND EXTENSIVE TREATMENT PLANNING (Completed) Service provider: Kevan Gold Billing provider: Padmini Holliday DDS Instruments Used: Ultrasonic Scalers and Prophy angle Fluoride: N/A Oral Cancer Screening: No lesions Head/Neck Exam: No Lesions Calculus: Light and Generalized Plaque: Light and Generalized Stain: Light and Generalized Bleeding: Light and Localized Gingiva: Healthy and Perio Charting Completed [place]: Fair Perio Chart: Completed Oral hygiene instructions provided to patient including brushing technique and flossing. Recommendations: [place] two times daily, modified sharp technique, Floss daily Recall Frequency: 6 mo NV: 6mr Hygienist: Kevan Gold RDH documented in this encounter Plan of Treatment Upcoming Encounters Date Type Department Care Team (Late st Contact Info) Description 03/08/2025 9:00 AM EDT Office Visit [facility] ADULT DENTAL [address] [place] [address] [phone] Deon Alas DDS 230 [place] [address] 03/31/2025 10:45 AM EDT Office Visit [facility] MEDICINE 230 [place], [place] [phone] Lisa Ji MD [address] [place] [address] [phone] documented as of this encounter Procedures Procedure Name Priority Date/Time Associated Diagnosis Comments PROPHYLAXIS - ADULT Routine 01/29/2025 2:00 PM EDT CASE PRESENTATION, DETAILED AND EXTENSIVE TREATMENT PLANNING Routine 01/29/2025 2:00 PM EDT documented in this encounter Visit Diagnoses Diagnosis Dental calculus- Primary Accretions on teeth documented in this encounter Additional Health Concerns Assessment Noted Time PHQ-9 Depression Total Score: 0 03/26/20 9:07 AM EDT documented as of this encounter Care Teams Sales Marketing Coordinator Relationship Specialty Start Date End Date Lisa Ji MD [address] [place] [address] [phone] PCP - General Internal Medicine 01/10/23 documented as of this encounter
--- OUTSIDE RECORDS SUMMARY | 2025-02-03 10:26 | XMS_ITS | Encounter Summary ---
Author Organization [employer] Address [address] 7t [place] [address] Care Team Providers Care Mysql Developer Name Role Phone Lisa Ji MD Primary Care Pro vider Reason for Visit * Reason Onset Date Comments partial appt 05/29/2023 Encounter Details Date Type Department Care Team (Late st Contact Info) Description 05/29/2023 Telephone [facility] ADULT DENTAL 230 [place] [address] Santiago Marquez, DMD [address] [place] [address] partial appt Social History Tobacco Use Types [...] Description 03/08/2025 9:00 AM EDT Office Visit [facility] ADULT DENTAL [address] [place] [address] Deon Alas DDS [address] [place] [address] 03/31/2025 10:45 AM EDT Office Visit [facility] MEDICINE [address] [place] [address] Lisa Ji MD [address] [place] [phone] documented as of this encounter Visit Diagnoses Not on filedocumented in this encounter Care Teams Mysql Developer Relationship Specialty Start Date End Date Lisa Ji MD [address] [place] [address] PCP - General Internal Medicine 01/10/23 documented as of this encounter
--- OUTSIDE RECORDS SUMMARY | 2025-02-03 10:26 | XMS_ITS | Encounter Summary ---
Author Organization [employer] Address [address] [facility] 7t [place] [address] Care Team Providers Care Multi Township Assessor Name Role Phone Lisa Ji MD Primary Care Pro vider Reason for Visit * Reason Comments Med Refill Encounter Details Date Type Department Care Team (Late st Contact Info) Description 02/10/2023 Refill [facility] MEDICINE 230 [place], [place] [phone] [facility] 230 [place], [place] [phone] Social History Tobacco Use Types Packs/Day Years [...] Description 03/08/2025 9:00 AM EDT Office Visit [facility] ADULT DENTAL 230 [place] [address] Deon Alas DDS 230 [place] [address] 03/31/2025 10:45 AM EDT Office Visit [facility] MEDICINE 230 [place] [address] Lisa Ji MD 230 [place] [address] documented as of this encounter Visit Diagnoses Not on filedocumented in this encounter Care Teams Multi Township Assessor Relationship Specialty Start Date End Date Lisa Ji MD 230 [place] [address] PCP - General Internal Medicine 01/10/23 documented as of this encounter
--- OUTSIDE RECORDS SUMMARY | 2025-02-03 10:26 | XMS_ITS | Encounter Summary ---
Author Organization [employer] Address [address] [facility] 7t [place] [address] Care Team Providers Care Soft Metals Hand Engraver Name Role Phone Lisa Ji MD Primary Care Pro vider Reason for Visit * Reason Comments Med Refill Encounter Details Date Type Department Care Team (Late st Contact Info) Description 02/25/2024 Refill [facility] MEDICINE 230 [place], [place] [phone] Lisa Ji MD 230 [place], [place] [phone] Social History Tobacco Use Types Packs/Day Years [...] Description 03/08/2025 9:00 AM EDT Office Visit [facility] ADULT DENTAL [address] [place] [address] Deon Alas DDS [address] [place] [address] 03/31/2025 10:45 AM EDT Office Visit [facility] MED[facility]INE [address] [place] [address] Lisa Ji MD [address] [place] [address] documented as of this encounter Visit Diagnoses Not on filedocumented in this encounter Care Teams Soft Metals Hand Engraver Relationship Specialty Start Date End Date Lisa Ji MD [address] [place] [address] PCP - General Internal Medicine 01/10/23 documented as of this encounter
--- OUTSIDE RECORDS SUMMARY | 2025-02-03 10:26 | XMS_ITS | Encounter Summary ---
Author Organization [employer] Address [address] [facility] 7t [place] [address] Care Team Providers Care Second Baker Name Role Phone Lisa Ji MD Primary Care Pro vider Reason for Visit * Reason Comments Med Refill Encounter Details Date Type Department Care Team (Late st Contact Info) Description 09/10/2023 Refill [facility]INE 230 [place], [place] [phone] Lisa Ji MD 230 [place] [address] Social History Tobacco Use Types Packs/Day Years [...] Description 03/08/2025 9:00 AM EDT Office Visit [facility] ADULT DENTAL [address] [place] [address] Deon Alas DDS [address] [place] [address] 03/31/2025 10:45 AM EDT Office Visit [facility] MED[facility]INE [address] [place] [address] Lisa Ji MD 230 [place] [address] documented as of this encounter Visit Diagnoses Not on filedocumented in this encounter Care Teams Second Baker Relationship Specialty Start Date End Date Lisa Ji MD 230 [place] [address] PCP - General Internal Medicine 01/10/23 documented as of this encounter
--- OUTSIDE RECORDS SUMMARY | 2025-02-03 10:26 | XMS_ITS | Encounter Summary ---
Author Organization [employer] Address [address] [facility] 7t [place] [address] Care Team Providers Care Supervisor Instrument Repair Name Role Phone Lisa Ji MD Primary Care Pro vider Reason for Visit * Reason Comments Med Refill Encounter Details Date Type Department Care Team (Late st Contact Info) Description 02/18/2023 Refill [facility] MEDICINE 230 [place], [place] [phone] [facility] 230 [place], [place] [phone] Social History Tobacco Use Types Packs/Day Years [...] Description 03/08/2025 9:00 AM EDT Office Visit [facility] ADULT DENTAL 230 [place] [address] Deon Alas DDS 230 [place] [address] 03/31/2025 10:45 AM EDT Office Visit [facility] MEDICINE [address] [place] [address] Lisa Ji MD 230 [place] [address] documented as of this encounter Visit Diagnoses Not on filedocumented in this encounter Care Teams Supervisor Instrument Repair Relationship Specialty Start Date End Date Lisa Ji MD [address] [place] [address] PCP - General Internal Medicine 01/10/23 documented as of this encounter
--- OUTSIDE RECORDS SUMMARY | 2025-02-03 10:26 | XMS_ITS | Encounter Summary ---
Author Organization [employer] Address [address] [facility] 7t [place] [address] Care Team Providers Care Children'S Book Author Name Role Phone Lisa Ji MD Primary Care Pro vider Reason for Visit * Reason Comments Med Refill Encounter Details Date Type Department Care Team (Late st Contact Info) Description 01/31/2025 Refill [facility] MEDICINE 230 [place], [place] [phone] Lisa Ji MD 230 [place], [place] [phone] Social History Tobacco Use Types Packs/Day Years [...] Description 03/08/2025 9:00 AM EDT Office Visit [facility] ADULT DENTAL [address] [place] [address] Deon Alas DDS [address] [place] [address] 03/31/2025 10:45 AM EDT Office Visit [facility] MEDICINE [address] [place] [address] Lisa Ji MD [address] [place] [address] documented as of this encounter Visit Diagnoses Not on filedocumented in this encounter Additional Health Concerns Assessment Noted Time PHQ-9 Depression Total Score: 0 03/26/20 24 9:07 AM EDT documented as of this encounter Care Teams Children'S Book Author Relationship Specialty Start Date End Date Lisa Ji MD [address] [place] [phone] PCP - General Internal Medicine 01/10/23 documented as of this encounter
--- OUTSIDE RECORDS SUMMARY | 2025-02-03 10:26 | XMS_ITS | Encounter Summary ---
Author Organization [employer] Address [address] [facility] [address] 7t [place] [address] Care Team Providers Care Head Grease Maker Name Role Phone Lisa Ji MD Primary Care Pro vider Encounter Details Date Type Department Care Team (Late st Contact Info) Description 01/10/2023 Orders Only [facility] [address] [place], [place] [phone] Rocío Berman LPN Social History Tobacco Use [...] Description 03/08/2025 9:00 AM EDT Office Visit [facility] ADULT DENTAL 230 [place], [place] [phone] Deon Alas DDS 230 [place], [place] [phone] 03/31/2025 10:45 AM EDT Office Visit [facility] MEDICINE 230 [place], [place] [phone] Lisa Ji MD [address] [place] [address] [phone] documented as of this encounter Visit Diagnoses Not on filedocumented in this encounter Care Teams Head Grease Maker Relationship Specialty Start Date End Date Lisa Ji MD [address] [place] [phone] PCP - General Internal Medicine 01/10/23 documented as of this encounter
--- OUTSIDE RECORDS SUMMARY | 2025-02-03 10:26 | XMS_ITS | Encounter Summary ---
Author Organization [employer] Address [address] [facility] 7t [place] [address] Care Team Providers Care On Line Csr Name Role Phone Lisa Ji MD Primary Care Pro vider Encounter Details Date Type Department Care Team ([facility] st Contact Info) Description 10/14/2024 Telephone [facility] 230 [place], [place] [phone] Columba Hammer, PharmD 230 [place] [address] Social History Tobacco Use Types Packs/Day Years [...] Description 03/08/2025 9:00 AM EDT Office Visit [facility] ADULT DENTAL [address] [place] [address] Deon Alas DDS [address] [place] [address] 03/31/2025 10:45 AM EDT Office Visit [facility] MED[facility] [address] [place] [address] Lisa Ji MD 230 [place] [address] documented as of this encounter Visit Diagnoses Not on filedocumented in this encounter Additional Health Concerns Assessment Noted Time PHQ-9 Depression Total Score: 0 03/26/20 24 9:07 AM EDT documented as of this encounter Care Teams On Line Csr Relationship Specialty Start Date End Date Lisa Ji MD [address] [place] [address] PCP - General Internal Medicine 01/10/23 documented as of this encounter
--- OUTSIDE RECORDS SUMMARY | 2025-02-03 10:26 | XMS_ITS | Encounter Summary ---
Author Organization [employer] Address [address] [facility] 7t [place] [address] Care Team Providers Care Night Clerk Auditor Name Role Phone Shyanne Antunez MD Primary Care Provider Gautam Montesinos Primary Care Provider Nate Carmona Primary Care Provider Unavail able Lisa Ji MD Primary Care Pro vider Encounter Details Date Type Department Care Team (Latest Contact Info) Description 12/07/2019 Abstract [facility] CONVERSIONS Dental, Provider, DDS Social History [...] Care Team ( st Contact Info) Description 03/08/2025 9:00 AM EDT Office Visit [facility] ADULT DENTAL 230 [place] [address] Deon Alas DDS 230 [place] [address] 03/31/2025 10:45 AM EDT Office Visit [facility] MEDICINE [address] [place] [address] Lisa Ji MD 230 [place] [address] documented as of this encounter Visit Diagnoses Not on filedocumented in this encounter Care Teams Night Clerk Auditor Relationship Specialty Start Date End Date Shyanne Antunez MD PCP - General Family Medicine 08/26/19 10/09/22 Gautam Reynaga FNP PCP - General Family Medicine 10/10/22 11/28/22 Nate Lees AGNP PCP - General Family Medicine 11/29/22 01/09/23 Lisa Ji MD [address] [place] [address] PCP - General Internal Medicine 01/10/23 documented as of this encounter
--- OUTSIDE RECORDS SUMMARY | 2025-02-03 10:26 | XMS_ITS | Encounter Summary ---
Author Organization [employer] Address 75 [facility] 7t [place] [address] Care Team Providers Care Zipper Cutter Name Role Phone Lisa Ji MD Primary Care Pro vider Reason for Visit * Reason Onset Date Comments pt1 01/22/2025 Encounter Details Date Type Department Care Team ([facility] st Contact Info) Description 01/22/2025 Telephone [facility] MEDICINE 230 [place], [place] [phone] Lisa Ji MD 230 [place], [place] [phone] pt1 Social History Tobacco Use Types Packs/Day [...] Yes Provider name or facility name: 230 [place] [address]. [facility] Escort needed: Y/N: Yes Do you have a wheelchair: Y/N: No If yes- Manual or electric: N/A Visits: (3x monthly) Patient calling requesting PT1 Home Address verified: Y/N: Yes Provider name or facility name: [facility] Hematology/Oncology -[address] [place] [address] 1st [facility] [address] Escort needed: Y/N: Yes Do you have a wheelchair: Y/N: No If yes- Manual or electric: N/A Visits: (1x monthly) Patient calling requesting PT1 Home Address verified: Y/N: Yes Provider name or facility name: [address] [place] [address] 3rd Floor, [place] [address] - [facility] Escort needed: Y/N: Yes Do you have a wheelchair: Y/N: No If yes- Manual or electric: N/A Visits: (2x monthly) Patient calling requesting PT1 Home Address verified: Y/N: Yes Provider name or facility name: [address] [place] [address] - [facility] Escort needed: Y/N: Yes Do you have a wheelchair: Y/N: No If yes- Manual or electric: N/A Visits: (1x monthly) documented in this encounter Plan of Treatment Upcoming Encounters Date Type Department Care Team (Late st Contact Info) Description 03/08/2025 9:00 AM EDT Office Visit [facility] ADULT DENTAL 230 [place] [address] Deon Alas DDS 230 [place] [address] 03/31/2025 10:45 AM EDT Office Visit [facility] MEDICINE 230 [place] [address] Lisa Ji MD 230 [place], [place] [phone] documented as of this encounter Visit Diagnoses Not on filedocumented in this encounter Additional Health Concerns Assessment Noted Time PHQ-9 Depression Total Score: 0 03/26/20 24 9:07 AM EDT documented as of this encounter Care Teams Zipper Cutter Relationship Specialty Start Date End Date Lisa Ji MD 230 [place], [place] [phone] PCP - General Internal Medicine 01/10/23 documented as of this encounter
--- OUTSIDE RECORDS SUMMARY | 2025-02-03 10:26 | XMS_ITS | Encounter Summary ---
Author Organization [employer] Address 75 [facility] 7t [place] [address] Care Team Providers Care Customer Engagement Analyst Name Role Phone Shyanne Antunez MD Primary Care Provider Gautam Montesinos Primary Care Provider Nate Carmona Primary Care Provider Unavail able Lisa Ji MD Primary Care Pro vider Encounter Details Date Type Department Care Team (Latest Contact Info) Description 12/30/2020 Abstract [facility] CONVERSIONS Dental, Provider, DDS Social History [...] Description 03/08/2025 9:00 AM EDT Office Visit [facility] ADULT DENTAL 230 [place] [address] Deon Alas DDS [address] [place] [address] 03/31/2025 10:45 AM EDT Office Visit [facility] MEDICINE 230 [place] [address] Lisa Ji MD 230 [place] [address] documented as of this encounter Visit Diagnoses Not on filedocumented in this encounter Care Teams Customer Engagement Analyst Relationship Specialty Start Date End Date Shyanne Antunez MD PCP - General Family Medicine 08/26/19 10/09/22 Gautam Reynaga FNP PCP - General Family Medicine 10/10/22 11/28/22 Nate Lees AGNP PCP - General Family Medicine 11/29/22 01/09/23 Lisa Ji MD [address] [place] [address] PCP - General Internal Medicine 01/10/23 documented as of this encounter
--- OUTSIDE RECORDS SUMMARY | 2025-02-03 10:26 | XMS_ITS | Encounter Summary ---
Author Organization [employer] Address [address] [facility] [address] 7t [place] [address] Care Team Providers Care Imagery Analyst Name Role Phone Lisa Ji MD Primary Care Pro vider Encounter Details Date Type Department Care Team (Late st Contact Info) Description 03/26/2023 Abstract [facility] ADULT DENTAL 230 [place] [address] Santiago Marquez, DMD [address] [place], [place] [phone] Social History Tobacco Use Types Packs/Day Years [...] Description 03/08/2025 9:00 AM EDT Office Visit [facility] ADULT DENTAL 230 [place] [address] Deon Alas DDS 230 [place] [address] 03/31/2025 10:45 AM EDT Office Visit [facility] MEDICINE 230 [place] [address] Lisa Ji MD 230 [place] [address] documented as of this encounter Visit Diagnoses Not on filedocumented in this encounter Care Teams Imagery Analyst Relationship Specialty Start Date End Date Lisa Ji MD 230 [place] [address] PCP - General Internal Medicine 01/10/23 documented as of this encounter
--- OUTSIDE RECORDS SUMMARY | 2025-02-03 10:26 | XMS_ITS | Encounter Summary ---
Author Organization [employer] Address 75 [facility] 7t [place] [address] Care Team Providers Care Grants Administrator Name Role Phone Lisa Ji MD Primary Care Pro vider Encounter Details Date Type Department Care Team ([facility] st Contact Info) Description 08/14/2023 Abstract [facility] MEDICINE 230 [place], [place] [phone] Lisa Ji MD 230 [place], [place] [phone] Social History Tobacco Use Types Packs/Day Years [...] is your housing situation today? I have jonellearlen mar 08/06/[address] you [...] Description 03/08/2025 9:00 AM EDT Office Visit [facility] ADULT DENTAL 230 [place] [address] Deon Alas DDS [address] [place] [address] 03/31/2025 10:45 AM EDT Office Visit [facility] MEDICINE 230 [place] [address] Lisa Ji MD 230 [place] [address] documented as of this encounter Procedures Procedure Name Priority Date/Time Associated Diagnosis Comments COLONOSCOPY Routine 07/21/2020 documented in this encounter Results * Colonoscopy (07/21/2020) Colonoscopy Normal Normal Narrative Thalia Gilmore - 07/21/2020 Recommended 1 year follow up us Historical Provider HEALTH MAINTENANCE Final Result documented in this encounter Visit Diagnoses Not on filedocumented in this encounter Care Teams Grants Administrator Relationship Specialty Start Date End Date Lisa Ji MD [address] [place] [address] PCP - General Internal Medicine 01/10/23 documented as of this encounter
--- OUTSIDE RECORDS SUMMARY | 2025-02-03 10:26 | XMS_ITS | Encounter Summary ---
Author Organization [employer] Address 75 [facility] 7t [place] [address] Care Team Providers Care Blind Stitch Machine Operator Name Role Phone Shyanne Antunez MD Primary Care Provider Gautam Montesinos Primary Care Provider Nate Carmona Primary Care Provider Unavail able Lisa Ji MD Primary Care Pro vider Encounter Details Date Type Department Care Team (Latest Contact Info) Description 12/03/[address] [facility] CONVERSIONS Dental, Provider, DDS Social History [...] Description 03/08/2025 9:00 AM EDT Office Visit [facility] ADULT DENTAL [address] [place] [address] Deon Alas DDS [address] [place] [address] 03/31/2025 10:45 AM EDT Office Visit [facility] MEDICINE [address] [place] [address] Lisa Ji MD 230 [place] [address] documented as of this encounter Visit Diagnoses Not on filedocumented in this encounter Care Teams Blind Stitch Machine Operator Relationship Specialty Start Date End Date Shyanne Antunez MD PCP - General Family Medicine 08/26/19 10/09/22 Gautam Reynaga FNP PCP - General Family Medicine 10/10/22 11/28/22 Nate Lees AGNP PCP - General Family Medicine 11/29/22 01/09/23 Lisa Ji MD [address] [place] [address] PCP - General Internal Medicine 01/10/23 documented as of this encounter
--- OUTSIDE RECORDS SUMMARY | 2025-02-03 10:26 | XMS_ITS | Clinical Summary ---
Author Organization [employer] Address [address] [facility] 7t [place] [address] Care Team Providers Care Java Technical Manager Name Role Phone Lisa Ji MD [...] MG EC tabletIndicati ons:Coronary artery disease involving [place] coronary artery of [place] heart, unspecified whether angina present TAKE 1 [...] BEFORE MEALS 90 capsule 01/05/20 25 Active pilocarpine (Salagen) 5 MG tablet Take 1 tablet (5 mg) by mouth Once per day. Stop cevemiline and start pilocarpine daily 30 tablet 1 01/09/20 25 2025 Active cyanocobalamin (Vitamin B-12) 500 MCG tablet TAKE 1 TABLET BY MOUTH EVERY MORNING 90 tablet 1 01/13/20 25 Active docusate sodium (Colace) 100 MG capsule TAKE 1 CAPSULE BY MOUTH TWICE DAILY NEEDED FOR CONSTIPATION 180 capsule 1 02/02/20 25 Active cevimeline (Evoxac) 30 MG capsule Take 1 capsule (30 mg) by mouth at noon and 1 capsule (30 mg) in the evening. 60 capsule 2 01/24/20 24 2024 Discontinued(O ther) cyanocobalamin (Vitamin B-12) 500 MCG tablet TAKE 1 TABLET BY MOUTH EVERY MORNING 90 tablet 1 07/09/20 24 2024 Discontinued docusate sodium (Colace) 100 MG capsule Take 1 capsule by mouth if needed in the morning and at bedtime for constipation. 11/09/19 25 2024 Discontinued Active Problems Problem Noted Date Diagnosed [...] pt -diet changes discussed in length -refusing satellite communications engineer referral-states saw in the past -wcontinue metformin [...] pt -diet changes discussed in length -refusing satellite communications engineer referral-states saw in the past -will start [...] right vertebral artery with multifocal areas of mrfa-us-mjojjaks stenosis in the mid cervical right vertebral [...] right vertebral artery with multifocal areas of ehok-eo-bkdhtfwf stenosis in the mid cervical right vertebral [...] right vertebral artery with multifocal areas of jnuc-pm-qvxzmyyp stenosis in the mid cervical right vertebral [...] to vascular -continue ASA and statins -check [facility] 01/31/2023 Assessment & Plan (06/11/2023 4:06 PM [...] from here so given was referred to customer experience manager x COPD management advised pt as well [...] from here so given was referred to customer experience manager x COPD management advised pt as well [...] getting a call to schedule apt from customer support specialist -will check BP manually in both arms [...] future. Hypercholesterolemia 02/14/2012 Coronary artery disease involving [place] coronar y artery 05/16/2003 Assessment & Plan (06/11/2023 4:00 PM EDT): EKG 01/2023 with findings consistent w LVH,? Possible branch block Per pt hx of PA in 2001 w no need x surgical [...] Possible branch block Per pt hx of PA in 2001 w no need x surgical intervention per pt 01/2023 Lipids wnl, LDL 62 -continue ASA and statins -referred to cards -has apt on 03/27/2023 -alarm signs and symptoms Assessment & Plan (01/31/2023 9:54 PM EDT): EKG today with findings consistent w LVH,? Possible branch block Per pt hx of PA in 2001 w no need x surgical [...] Encounters Date Type Department Care Team Description 01/31/2025 Refill [facility] MEDICINE [address] [place] [address] Lisa Ji MD 01/29/2025 2:00 PM EDT Office Visit [facility] ADULT DENTAL [address] [place], [place] [phone] Kevan Gold Dental calculus (Primary Dx) 01/25/2025 9:00 AM EDT Office Visit [facility] ADULT DENTAL [address] [place] [address] Markos Simmons DMD 01/22/2025 Patient Outreach [facility] MEDICINE [address] [place] [address] Lisa Ji MD Care Coordination (CHW outreach for SDOH PT-1 and food needs-referral completed /) 01/22/2025 Telephone [facility] MEDICINE [address] [place] [address] Lisa Ji MD pt1 01/12/2025 Refill [facility] MEDICINE [address] [place] [address] Davis Gordon MD 01/11/2025 Telephone [facility] MEDICINE [address] [place] [phone] Lisa Ji MD Faxed Note Requested 01/11/2025 Telephone [facility] MEDICINE [address] [place] [address] Lisa Ji MD Error (VOID this visit) 01/11/2025 Telephone [facility] MEDICINE [address] [place] [address] Lisa Ji MD Appointment Confirmation 01/08/2025 9:00 AM EDT Office Visit [facility] MEDICINE [address] [place] [address] Lisa Ji MD Leukocytosis, unspecified type (Primary Dx); Type 2 diabetes mellitus without complication, without long-term current use of insulin ([facility]); Chronic obstructive pulmonary disease, unspecified COPD type ([facility]); Stage 3a chronic kidney disease ([facility]); Dietary counseling; Exercise counseling; Anemia, unspecified type; Health care maintenance; Dry mouth; Poor memory 01/08/2025 Travel 01/03/2025 Refill [facility] MEDICINE [address] [place] [address] [facility] 12/31/2024 Telephone [facility] MEDICINE [address] [place] [address] Lisa Ji MD chart prep 12/11/2024 Population Health Risk Score [facility] () Department [address] [phone] Provider, Population Health Generic 12/02/2024 Refill [facility] MEDICINE [address] [place] [address] Lisa Ji MD Coronary artery disease involving [place] coronary artery of [place] heart, unspecified whether angina present; Hypercholesterolemi a; Low vitamin D level 11/24/2024 Orders Only [facility] External Provider, [facility] 11/20/2024 9:15 AM EST Office Visit [facility] OPTOMETRY [address] [place] [address] Annika Stallings, OD Presbyopia (Primary Dx) 11/20/2024 Travel from Last 3 Months Immunizations Name Administration [...] Pulse 68 01/29/2025 1:36 PM EDT Temperature 35.9 ??C (96.7 ??F) 01/08/2025 [...] Description 03/08/2025 9:00 AM EDT Office Visit [facility] ADULT DENTAL [address] [place] [address] Deon Alas DDS [address] [place] [address] 03/31/2025 10:45 AM EDT Office Visit [facility] MEDICINE [address] [place] [address] Lisa Ji MD [address] [place] [address] Health Maintenance Due Date Last Done Comments CT Colonography 1955 FIT DNA/Cologuard 1955 Sigmoidoscopy 1955 Colonoscopy 07/21/2021 07/21/2020 Dental X-Ray: Bitewings 11/07/2023 11/06/2022 Colorectal Cancer Screening 01/28/2024 Diabetes: Urine Protein Screening 06/12/2024 06/12/2023, 02/04/2023, 07/24/2021 SDOH Screening 01/23/2025 01/24/2024 FIT 01/26/2025 01/27/2024 FOBT 01/26/2025 01/27/2024 Depression Screening 03/26/2025 03/26/2024, 03/26/20 24 Lipid Panel 05/07/2025 05/07/2024, 12/30, 06/12/2023, Additional history exists Diabetes: Hemoglobin A1C 07/10/2025 025, 05/07/2024, 01/21/2024, Additional history exists Dental Oral Exam 07/28/2025 01/25/2025, 11/06/2022 Dental Prophylaxis 08/02/2025 01/29/2025, 11/15/2022 Alcohol/Substance Use Screening 08/14/2025 08/14/2024 Dental X-Ray: Full Mouth 11/07/2025 11/06/2022 Diabetes: Foot Exam 01/08/2026 01/08/2025, 01/08/2025, 01/08/2025, Additional history exists Tobacco Screening 01/29/2026 01/29/2025 Eye Exam 07/31/2026 07/31/2024, 09/2023, 07/31/2024, Additional history exists DTaP/Tdap/Td Vaccines [...] Procedure Name Priority Date/Time Associated Diagnosis Comments CASE PRESENTATION, DETAILED AND EXTENSIVE TREATMENT PLANNING Routine 01/29/2025 2:00 PM EDT PROPHYLAXIS - ADULT Routine 01/29/2025 2 :00 PM EDT PERIODIC ORAL EVALUATION - ESTABLISHED PATIENT Routine 01/25/2025 9:00 AM EDT POCT GLYCATED HEMOGLOBIN, TOTAL Routine 01/08/2025 9:14 AM EDT Type 2 diabetes mellitus without complication, without long-term current use of insulin ([facility]) POCT GLUCOSE Routine 01/08/2025 9:12 AM EDT Type 2 diabetes mellitus without complication, without long-term current use of insulin ([facility]) CT HEAD WO CONTRAST Routine 11/24/2024 [...] 02/04/2023 8:39 AM EDT Health care maintenance INTRAORAL - COMPLETE SERIES OF RADIOGRAPHIC IMAGES [...] Media Lot # [id number] Lot# Expiration Date Blood Capillary blood specimen / Unknown 01/08/2025 9:12 AM EDT Lisa Vegas MD POINT OF CARE DANIEL T ENTER/EDIT ORDERABLES Final Result * CT Head w/o Contrast (11/24/2024 8:55 AM EST) Anatomical Region Laterality Modality Head, Neck Computed Tomogra phy 11/24/2024 8:55 AM EST Narrative 11/24/2024 3:14 PM EST ? [facility] ?[address] ?[place] [address] ? CT Scan Report ? Signed ? Patient: Brantley Elan,John ?MR#: ?? [id number] ? : 1955 ?Acct:[id number] ? Age/Sex: 69 / M ?ADM Date: 11/24/24 ? Loc: HO.CT ? Attending Dr: Cezar Jc MD ? Ordering Physician: Cezar Jc MD ?? Date of Service: 11/24/24 ?? Procedure(s): CT head/brain wo IV con ?? Accession Number(s): [id number] ? cc: Cezar Jc MD; Lisa Ji MD ? Report Number: ?? [id number]: Total DLP = ??881.00 mGy-cm ?? EXAMINATION: [...] in OV> ? 11/24/24 1511 ? DD/ ? TD/TT: 11/24/24 0920 ? Inspector Eyeglass Frames: ? Procedure Note Fabienne, Robin - 11/24/[address] [place] [id number] [address] Scan Report Signed Patient: John MilliganMR#: [id number] : 1955cct:[id number] Age/Sex: 69 / MADM Date: 11/24/24 Loc: HO.CT Attending Dr: Cezar Jc MD Ordering Physician: Cezar Jc MD Date of Service: 11/24/24 Procedure(s): CT head/brain wo IV con Accession Number(s): [id number] cc: Cezar Jc MD; Lisa Ji MD Report Number: [id number]: Total DLP = 881.00 mGy-cm EXAMINATION: CT [...] 11/24/24 1511 DD/ 0855 TD/TT: 11/24/24 0920 Inspector Eyeglass Frames: [facility] External Provider IMG CT PROCEDURES Final Result * (ABNORMAL) CBC auto differential (11/17/2024 9:09 AM EST) White Blood Count 15.8(H) 4.8 - 10.8 X10*3/uL [facility] Red Blood Count 4.76 4.60 - 5.80 X10*6/uL [facility] Hemoglobin 13.5(L) 14.0 - 18.0 g/dl [facility] Hematocrit 41.6(L) 42.0 - 52.0 % [facility] Mean Corpuscular Volume 87.4 80.0 - 98.0 fL [facility] Mean Corpuscular Hemoglobin 28.4 27.0 - 33.0 pg [facility] Mean Corpuscular HGB Conc 32.5 31.0 - 36.0 g/dl [facility] Red Cell Distribution Width 15.2 11.0 - 16.0 % [facility] Platelet Count 338 160 - 400 X10*3/uL [facility] Mean Platelet Volume 10.4 9.4 - 12.4 fL [facility] Neutrophils Percent Auto 69.8 45 - 73 % [facility] Imm Gran Pct Auto 0.5(H) 0.0 - 0.4 % [facility] Lymphocytes Percent Auto 19.7(L) 20 - 40 % [facility] Monocytes Percent Auto 8.5 2 - 11 % [facility] Eosinophils Percent Auto 1.0 0 - 4 % [facility] Basophils Percent Auto 0.5 0 - 2 % [facility] NRBC Pct Auto 0.0 0.0 - 0.2 /100WBC [facility] Neutrophils Absolute Auto 11.0(H) 2.0 - 8.3 x10*3/uL [facility] Imm Gran Abs Auto 0.08(H) 0.00 - 0.03 X10*3/uL [facility] Lymphocytes Absolute Auto 3.1 1.2 - 4.9 X10*3/uL [facility] Monocytes Absolute Auto 1.3(H) 0.1 - 1.2 X10*3/uL [facility] Eosinophils Absolute Auto 0.2 0.0 - 0.4 X10*3/uL [facility] Basophils Absolute Auto 0.1 0.0 - 0.2 X10*3/uL [facility] NRBC Abs Auto 0.000 0.0 - 0.012 X10*3/uL [facility] Blood Venous blood specimen / Unknown 11/17/2024 9:09 AM EST 11/17/2024 11:01 AM EST us Lisa Vegas MD LAB BLOOD ORDERAB LES Final Result [facility] [address] [place] [phone] * (ABNORMAL) Lipid Panel, Standard (05/07/2024 8:38 AM EDT) Triglycerides 93 <150 mg/dL [facility] Comment:Desirable Triglyceri de: less than 150 mg/dLBorderline High Triglyceride 150-199 mg/dLHigh Triglyceride: 200-499 mg/dLVery High Triglyceride: greater than or equal to 5OO mg/dL Cholesterol 116 <200 mg/dL [facility] Comment:Desirable Cholestero l: less than 200 mg/dLBorderline High Cholesterol: 200-239 mg/dLHigh Cholesterol: greater than 239 mg/dL LDL Cholesterol Calculated 62 <100 mg/dL [facility] Comment:Desirable LDL: less than 100 mg/dLNear Optimal/Above Optimal LDL: 110- 129 mg/dLBorderline High LDL: 130-159 mg/dLHigh LDL: 160-189 mg/dLVery High LDL: greater than or equal to 190 mg/dL HDL Cholesterol 36(L) >40 mg/dL [facility] Comment:Desirable HDL: great er than 40 mg/dL Note: This HDL assay may give artificially low results in patients with liver disease. Blood Venous blood specimen / Unknown 05/07/2024 8:38 AM EDT 05/07/2024 11:02 AM EDT Lisa Vegas MD LAB BLOOD ORDERAB LES Final Result [facility] [address] [place] [address] [phone] * Fecal Globin by Immunochemistry (01/27/2024 12:00 AM EDT) Fecal Globin By Immunochemistry SEE NOTE Synchronized [facility] Comment: ??FECAL GLOBIN BY IMMUNOCHEMISTRY ?Micro Number: ?[id number] ??Test Status: ? Final ??Specimen Source: ?? Insure (tm) fobt test card ??Specimen Quality: ??Adequate ??Fecal Globin: ?Not Detected 01/27/2024 01/31/2024 4:3 4 AM EDT Narrative [facility] - 01/31/2024 4:05 PM EDT FASTING: UNKNOWN us Lisa Vegas MD LAB BODY FLUIDS A ND STOOLS ORDERABLES Final Result [facility] [address] [facility], [place] [address] Synchronized [facility] [address] [place] [address] * Albumin, Random Urine W/Creatinine (06/12/2023 8:53 AM EDT) Creatinine, Urine 263.15 mg/dL [facility] Microalbumin Urine 8.0 mg/L [facility] Microalbum Creatinine Ratio Ur 3.0 <30 ug/mg cr [facility] Comment:Albumin/Creatinine R atio Reference Ranges: Normal: < 30 ug/mg creatinine Microalbuminuria: 30 - 300 ug/mg creatinineClinical Albuminuria: > 300 ug/mg creatinine 06/12/2023 8:53 AM EDT 06/12/2023 11:41 AM EDT Lisa Vegas MD LAB URINE ORDERAB LES Final Result [facility] [address] [place] [phone] * Hepatitis C Antibody with Reflex to HCV, RNA, Quantitative, Real-Time PCR (02/04/2023 8:39 AM EDT) Hepatitis C Antibody NON-REACT SOL NON-REACT SOL [facility] Index 0.10 <1.00 [facility] Comment: HCV antibody was non-reactive. There is no laboratory evidence of HCV infection. In most cases, no further action is required. However, if recent HCV exposure is suspected, a test for HCV RNA (test code 12592) is suggested. For additional information please refer to http://education.Moogsoft/faq/AKE47g1 (This link is being provided for informational/ educational purposes only.) Blood Venous blood specimen / Unknown 02/04/2023 8:39 AM EDT 02/04/2023 8:40 AM EDT Narrative [facility] - 02/06/2023 2:44 PM EDT FASTING:YES FASTING: YES us Lisa Vegas MD LAB BLOOD ORDERAB LES Final Result [facility] [address] [facility], [place] [address] Synchronized [facility] [address] [place] [phone] * Hm Colonoscopy (07/21/2020) Colonoscopy Normal Normal Narrative DeirdreThalia - 07/21/2020 Recommended 1 year follow up us Historical Provider HEALTH MAINTENANCE Final Result from Last 3 Months or Most Recently Relevant to Health Maintenance Insurance [facility]ARD [facility] MEDICARE ADVANTAGE [place] ST[place] AD[place] Care Teams Java Technical Manager Relationship Specialty Start Date End Date Lisa Ji MD [address] [place] [phone] PCP - General Internal Medicine 01/10/23
--- OUTSIDE RECORDS SUMMARY | 2025-02-03 10:26 | XMS_ITS | Encounter Summary ---
Author Organization [employer] Address [address] [facility] 7t [place] [address] Care Team Providers Care Vision Therapist Name Role Phone Lisa Ji MD Primary Care Pro vider Reason for Visit * Reason Onset Date Comments Appointment Request 10/09/2024 Encounter Details Date Type Department Care Team ([facility] st Contact Info) Description 10/09/2024 Telephone [facility] MEDICINE [address] [place], [place] [phone] Lisa Ji MD [address] [place], [place] [phone] Appointment Request Social History Tobacco Use Types [...] follow up appt. Please contact pt at [phone]. (German Speaker) documented in this encounter Plan of Treatment Upcoming Encounters Date Type Department Care Team ([facility] st Contact Info) Description 03/08/2025 9:00 AM EDT Office Visit [facility] ADULT DENTAL [address] [place] [phone] Deon Alas DDS [address] [place] [phone] 03/31/2025 10:45 AM EDT Office Visit [facility] MEDICINE [address] [place] [phone] Lisa Ji MD [address] [place] [address] documented as of this encounter Visit Diagnoses Not on filedocumented in this encounter Additional Health Concerns Assessment Noted Time PHQ-9 Depression Total Score: 0 03/26/20 9:07 AM EDT documented as of this encounter Care Teams Vision Therapist Relationship Specialty Start Date End Date Lisa Ji MD [address] [place] [phone] PCP - General Internal Medicine 01/10/23 documented as of this encounter
[2025-02-03 11:17] LABS: Estimated Average Glucose 126 mg/dL; Hemoglobin A1C 146.3839 umol/L; Total Hemoglobin (HGBA1C) 3478.5034 umol/L
[2025-02-03 11:48] LABS: Anion Gap 14 (12-20); Blood Urea Nitrogen 20 mg/dL (9-16); Calcium 9.7 mg/dL (8.4-10.2); Carbon Dioxide 28 mmol/L (22-29); Chloride 102 mmol/L (96-108); Estimated Glomerular Filt Rate > 60; Glucose Random 122 mg/dL (60-115); Potassium 3.2 mmol/L (3.3-5.1); Sodium 141 mmol/L (135-145)
[2025-02-03 12:03] LABS: Thyroid Stimulating Hormone 0.93 uIU/mL (0.32-4.0)
[2025-02-03 12:18] LABS: Folate 11.1 ng/mL (> or = 4.0); Vitamin B12 678 pg/mL (200-900)
== END 2025-02-03 09:31 | disposition home or self-care (01) ==
LOC: HO.HHCL 09:30
PROVIDERS: Visit Provider Psychiatry & Neurology Neurology
DX: G31.84 Mild cognitive impairment of uncertain or unknown etiology (principal)
CPT/HCPCS: 36415; 80048; 82607; 82746; 83036; 84443

== ENCOUNTER → 2025-02-15 09:01 | Outpatient (BNV) | payer MEDICARE, MEDICAID, SELFPAY | PROVIDERS: PCP Student in an Organized Health Care Education/Training Program; Referring Provider Student in an Organized Health Care Education/Training Program; Visit Provider Internal Medicine Medical Oncology | DX: D72.829 Elevated white blood cell count, unspecified (principal); D64.9 Anemia, unspecified | CPT/HCPCS: 99214 ==

== ENCOUNTER 2025-03-30 10:17 | Outpatient (REF) | payer MEDICARE, MEDICAID, SELFPAY ==
--- NOTE | ~2025-03-30 | CT_ITS ---
EXAMINATION: CT LUNG SCREENING HISTORY: Z87.891 - Personal history of nicotine dependence TECHNIQUE: Low dose axial images were obtained from the sternal notch to upper abdomen without IV contrast per standard departmental protocol. Sagittal and coronal reformatted images were also obtained and reviewed. One or more of the following techniques was used for dose reduction: Automated exposure control, adjustment of the mA and/or kV according to patient size, use of iterative reconstruction technique. DLP: 96 mGy-cm COMPARISON: Comparison is made with the prior examination dated 04/22/2024. FINDINGS: Lung nodules: There is biapical pleural thickening. The previously seen bulla at the right lung apex is much smaller in size and demonstrates peripheral airspace opacity measuring up to 10 x 7 mm. Again seen is a tiny bulla at the left lung apex with adjacent airspace opacity measuring up to 9 mm in size. There are calcified granulomas in the right lower lobe (series 502, image 71) and in the left lower lobe (series 502, image 92) Emphysema: mild Coronary Calcification: severe Aortic Arch Calcification: mild Potentially Significant Incidentals : none Additional Chest Findings: There is no pleural or pericardial effusion. No mediastinal or axillary lymphadenopathy is identified. Visualized upper abdomen: The visualized portions of the liver, spleen, and adrenals have an unremarkable unenhanced appearance. There is a moderate to large hiatal hernia. 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 CT/CT lung screening IMPRESSION: Interval decrease in size of a bulla at the right lung apex, which now demonstrates peripheral airspace opacity measuring up to 10 x 7 mm. Short-term follow-up is recommended with low-dose chest CT in 6 months. LUNG-RADS ASSESSMENT: Lung-RADS 3: Probably Benign MANAGEMENT: 6 month LDCT Category S: N/A Electronically signed by: Piter Lim MD 03/30/2025 11:04 AM EDT
--- OUTSIDE RECORDS SUMMARY | 2025-03-30 11:23 | XMS_ITS | Encounter Summary ---
Author Organization [employer] Address [address] [facility] 7t [place] [address] Care Team Providers Care Market Development Specialist Name Role Phone Lisa Ji MD Primary Care Pro vider Reason for Visit * Reason Comments Med Refill Encounter Details Date Type Department Care Team ([facility] st Contact Info) Description 09/10/2023 Refill [facility] MEDICINE [address] [place], [place] [phone] Lisa Ji MD [address] [place] [address] Social History Tobacco Use Types Packs/Day Years [...] Care Team (Late st Contact Info) Description 03/31/2025 10:45 AM EDT Office Visit [facility] MEDICINE [address] [place] [phone] Lisa Ji MD [address] [place] [phone] documented as of this encounter Visit Diagnoses Not on filedocumented in this encounter Care Teams Market Development Specialist Relationship Specialty Start Date End Date Lisa Ji MD [address] [place] [phone] PCP - General Internal Medicine 01/10/23 documented as of this encounter
== END 2025-03-30 10:18 | disposition home or self-care (01) ==
LOC: HO.CT 10:17
PROVIDERS: PCP Student in an Organized Health Care Education/Training Program; Visit Provider Internal Medicine Pulmonary Disease
DX: Z12.2 Encounter for screening for malignant neoplasm of respiratory organs (principal); Z87.891 Personal history of nicotine dependence
CPT/HCPCS: 71271

== ENCOUNTER → 2025-03-30 10:19 | Outpatient (BNV) | payer MEDICARE, MEDICAID, SELFPAY | PROVIDERS: PCP Student in an Organized Health Care Education/Training Program; Visit Provider Radiology Diagnostic Radiology | DX: Z87.891 Personal history of nicotine dependence (principal) | CPT/HCPCS: 71271 ==

== ENCOUNTER 2025-03-31 09:37 | Outpatient (REF) | payer MEDICARE, MEDICAID, SELFPAY ==
[2025-03-31 11:26] LABS: MANUAL DIFF FLAG NO
[2025-03-31 11:47] LABS: Hematocrit 41.9 % (42.0-52.0); Hemoglobin 13.5 g/dl (14.0-18.0); Imm Gran Abs Auto 0.03 X10*3/uL (0.00-0.03); Imm Gran Pct Auto 0.3 % (0.0-0.4); Lymphocytes Absolute Auto 2.8 X10*3/uL (1.2-4.9); Mean Corpuscular HGB Conc 32.2 g/dl (31.0-36.0); Mean Corpuscular Hemoglobin 28.8 pg (27.0-33.0); Mean Corpuscular Volume 89.5 fL (80.0-98.0); NRBC Abs Auto 0.000 X10*3/uL (0.0-0.012); NRBC Pct Auto 0.0 /100WBC (0.0-0.2); Platelet Count 321 X10*3/uL (160-400); Red Blood Count 4.68 X10*6/uL (4.60-5.80); White Blood Count 9.6 X10*3/uL (4.8-10.8)
[2025-03-31 12:33] LABS: Alanine Aminotransferase 28 U/L (0-40); Albumin Level 4.5 g/dL (3.5-5.0); Alkaline Phosphatase 66 U/L (39-117); Anion Gap 9 (12-20); Aspartate Amino Transferase 23 U/L (5-37); Blood Urea Nitrogen 15 mg/dL (9-16); Calcium 9.3 mg/dL (8.4-10.2); Carbon Dioxide 25 mmol/L (22-29); Chloride 108 mmol/L (96-108); Estimated Glomerular Filt Rate > 60; Magnesium 1.7 mg/dL (1.6-2.6); Potassium 4.1 mmol/L (3.3-5.1); Sodium 138 mmol/L (135-145); Total Protein 7.4 g/dL (6.5-8.0)
== END 2025-03-31 09:38 | disposition home or self-care (01) ==
LOC: HO.HHCL 09:37
PROVIDERS: Internal Medicine Medical Oncology; PCP Student in an Organized Health Care Education/Training Program; Visit Provider Student in an Organized Health Care Education/Training Program
DX: D72.829 Elevated white blood cell count, unspecified (principal); D12.6 Benign neoplasm of colon, unspecified; E87.6 Hypokalemia
CPT/HCPCS: 36415; 80053; 83735; 85025

== ENCOUNTER 2025-04-01 09:19 | Outpatient (AMB) | payer MEDICARE, MEDICAID, SELFPAY ==
--- NOTE | 2025-04-01 09:22 | A.OFFVIS_ITS ---
Vital Signs 04/01/25 09:33 Height 5 ft 6 in Weight 178 lb 12 oz BMI 28.8 BP 150/68 H Blood Pressure Location Rt brachial Position Sitting Pulse 58 Pulse Source Pulse Oximeter Pulse Oximetry (%) 98 Oxygen Delivery Method Room Air Intake Visit Reasons: GERD. S/P duo Intake Note: Est pt for mgmt of GERD + s/p duo CC; Pt denies any new changes or concerns to report at this time. Reviewing results of procedure. Architectural Examiner Required: Yes Accompanied by: Self / Same As Patient Allergies lisinopril Allergy (Intermediate, Verified 04/01/25 09:22) Swelling HPI HPI GERD. S/P duo: Details: Assessment & Plan (1) Tubular adenoma of colon: Comment: 2023 SCOPE= multiple polyps/ TA IS REPEAT IN 3-6 mos; TA at the I/C valve, on 06/2020 scope repeat 1 year. Code(s): D12.6 - Benign neoplasm of colon, unspecified Category: Medical Plan [place]ESE #[place], Live He is agreeable to a 6 mos repeat. He did not have any of the problems with sedation or bleeding that he had on prior procedures. The procedure was well tolerated. The results were explained and the patient is agreeable to the follow-up interval as stated. The bowel pattern has returned to normal. Education was provided to tell any 1st degree relatives about their findings to be sure that they are screened by age 45. Educated that they will be put on a recall list when it is time for their repeat scope but should they move out of state or away from the hospital they will need to remember along with their primary to repeat the procedure in a timely fashion to avoid any adverse complications. He needs a low volume prep such as Suprep as he does not tolerate the PEG prep. His COPD is controlled as is his cardiac conditions. He was not asleep for one of the procedures and this upset him, no other problems with anesthesia or sedation. He will be having umbilical surgery soon. No ID problems. There is no known family history of colon cancer or polyps. I will see him after the repeat procedure. Orders: Orders Colonoscopy - GI Use Only Today D12.6 - Benign neoplasm of colon, unspecified Medications: New sodium,potassium,mag sulfates 17.5-3.13-1.6 gram (Suprep Bowel Prep Kit) 480 mL orally; FOR COLONOSCOPY PREP 354 mL 0RF bisacodyl (Dulcolax (bisacodyl)) 10 mg (2 x 5 mg) PO BEDTIME 4 tabs 0RF 2 days COLONOSCOPY 09/09/24 Findings: Terminal Ileum-not intubated Cecum:normal Ascending Colon: mild diverticulosis, 6-8 mm sessile poylp removed with cold snare Transverse Colon -normal Descending Colon:normal Sigmoid Colon: moderate diverticulosis, 7-9 mm sessile polyp removed with cold snare Rectum: Retroflexion with small internal hemorrhoids seen, grade I, 5-6 mm sessile polyp removed with cold forceps and 8-9 mm sessile polyp removed with cold snare Anorectum - normal Intervention: cold snare, cold forceps Impression and Post Procedure Diagnosis: diverticulosis colon polyps x 4 internal hemorrhoids Plan: High fiber diet leaflet Avoid straining at stool, epsom salts and sitz bath, anusol supps or cream Repeat Colonoscopy in 1 year or earlier if clinically indicated BIOPSY Received: 09/09/24 Diagnosis A. Colon, ascending, polypectomy: Colonic mucosa with prominent lymphoid agg regate. B. Colon, sigmoid, polypectomy: Tubular adenoma; negative for high-grade dysplasia or carcinoma. C. Rectum, polypectomies: Hyperplastic mucosal polyp (one * FROM CT ABD AND PELVIS 2022 GASTROINTESTINAL TRACT: A moderate-sized hiatal hernia is present. There is colonic diverticulosis without evidence of diverticulitis. The small and large bowel are unremarkable. The appendix is not seen but there is no evidence of appendicitis appendicitis. TODAY'S VISIT Barbadian #[id number], Raoul He is here today with his who is supportive The procedure needs to be repeated in 5 years since only 1 of the polyps was actually an adenoma. He had an appt to see me 06/2025 and he can cancel this appt. The procedure was well tolerated. The results were explained and the patient is agreeable to the follow-up interval as stated. The bowel pattern has returned to normal. Education was provided to tell any 1st degree relatives about their findings to be sure that they are screened by age 45. Educated that they will be put on a recall list when it is time for their repeat scope but should they move out of state or away from the hospital they will need to remember along with their primary to repeat the procedure in a timely fashion to avoid any adverse complications. He now says he wants an EGD because I suffer a lot of HB. However, he says that the omeprazole at 20mg qd is working well to control his sx. It is already known that he had a moderately large HH, so the options are medical treatment or surgical correction; and usually low dose PPI is quite preferred over surgery that has severe possible risks and recovery time. He denies any dysphagia or abd pain or other sx, so any other alarm sx so the risks of EGD are not justified with any potential benefits. This could change if he develops any other sx. He is welcome to return to our services if his GERD worsens. [facility] Medical History (Updated 04/01/25 @ 09:54 by BEATRIZ Carter) History of lower GI bleeding History of [place] (myocardial infarction) Tubular adenoma of colon Personal history of nicotine dependence Normocytic anemia Poor memory Overweight Dry mouth Osteoarthrosis Skin lesion Diabetes Hearing loss Nodule of chest wall Murmur CAD (coronary artery disease) COPD (chronic obstructive pulmonary disease) Atherosclerotic cardiovascular disease Sessile colonic polyp Back pain Arthritis Peptic ulcer GERD (gastroesophageal reflux disease) Asthma Elevated cholesterol HTN (hypertension) Surgical History Hx of cardiac catheterization History of colonoscopy History of excision of mass History of umbilical hernia repair S/P excision of lipoma Family History Mother Diabetes Heart disease Arthritis Father Heart disease Social History Household Members: Spouse Housing: Apartment Are you a primary direct care staffer to a significant other at home: No Do you presently have visiting nurse or other home services: No Alcohol intake: current Alcohol intake frequency: does not drink Comment: COUNTS CORRECT Patient Tobacco Use Status: Former Tobacco user Years Smoked: 48 Second Hand Smoke Exposure: No service: No Current occupational status: disabled Review of Systems Const Denies fatigue, Denies fever(s), Denies night sweats, Denies poor appetite and Denies weight loss ENT Reports Normal hearing present, Denies dental pain, Denies dysphagia, Denies hearing loss, Denies mouth pain, Denies odynophagia, Denies throat swelling, Denies tongue swelling and Reports other (Dentition adequate) Card Reports no additional complaints Resp Reports no additional complaints GI Details: Denies abdominal pain, Denies melena, Denies bloating, Denies hematochezia, Denies constipation, Denies GI cramping, Denies dysphagia, Denies excessive flatus, Denies early satiety, Reports heartburn, Denies diarrhea, Denies nausea, Denies odynophagia, Denies vomiting and Denies hematemesis Skin/Breast Denies pruritus, Denies lesions, Denies rash and Denies jaundice Neuro Reports Normal hearing present and Denies Abnormal speech present Endo Denies fatigue Aller/Immun Denies throat swelling and Denies tongue swelling Physical Exam Const General: cooperative, no acute distress, well developed and well groomed Nutritional Appearance: well nourished and overweight Orientation/consciousness: oriented to person, oriented to place and oriented to time Limitations: language barrier HEENT Head: Yes normocephalic and Yes atraumatic Eyes General: appearance normal, both eyes and all related structures Pupils: Equal, round and reactive pupils present Neck Neck: Yes normal visual inspection and Yes no lymphadenopathy Thyroid: Thyroid normal Resp Effort & Inspection: normal respiratory effort and able to speak in complete sentences Auscultation: clear to auscultation bilaterally Cardio Rate: regular rate Rhythm: regular rhythm Heart sounds: Normal, physiologic split S2 sound present Peripheral pulses: radial pulses present and posterior tibial pulses present GI Inspection: No distended, No Abdominal panniculus present and Yes obesity Palpation (GI): Soft to palpation, nontender, no guarding, not rigid and No hepatosplenomegaly present Percussion: Yes normal to percussion Auscultation: normal bowel sounds Rectal Exam - Male: Yes deferred Skin General skin exam: no rashes or lesions noted, turgor normal, skin not dry, no jaundice, No spider nevi and no striae Rashes: no rashes Nails: normal Neuro General: oriented to person, oriented to place and oriented to time Cranial nerves: Yes Equal, round and reactive pupils present and Yes Normal hearing present Speech: No Abnormal speech present Extrem General: Yes normal to inspection, No clubbing, No cyanosis and No edema Psych Appearance: grossly normal and well kempt Mental Status: mental status grossly normal Speech and movement: Normal speech and movement present Affect: normal affect Attitude: cooperative Thought process: Normal thought process present and not confabulating Thought content: Normal thought content present Insight: Limited insight present (Psych) Judgement: Limited judgement present (Psych) Assessment & Plan Assessment & Plan (1) Tubular adenoma of colon: Comment: 2024=1 TA repeat 5 years; (TA on 2014, 2019 and 2023 scope - multiple TA on 2023 scope - repeat 3-6months) Code(s): D12.6 - Benign neoplasm of colon, unspecified Category: Medical (2) GERD (gastroesophageal reflux disease): Code(s): K21.9 - Gastro-esophageal reflux disease without esophagitis Category: Medical Plan Barbadian #[id number], Raoul He is here today with his who is supportive The procedure needs to be repeated in 5 years since only 1 of the polyps was actually an adenoma. He had an appt to see me 06/2025 and he can cancel this appt. The procedure was well tolerated. The results were explained and the patient is agreeable to the follow-up interval as stated. The bowel pattern has returned to normal. Education was provided to tell any 1st degree relatives about their findings to be sure that they are screened by age 45. Educated that they will be put on a recall list when it is time for their repeat scope but should they move out of state or away from the hospital they will need to remember along with their primary to repeat the procedure in a timely fashion to avoid any adverse complications. He now says he wants an EGD because I suffer a lot of HB. However, he says that the omeprazole at 20mg qd is working well to control his sx. It is already known that he had a moderately large HH, so the options are medical treatment or surgical correction; and usually low dose PPI is quite preferred over surgery that has severe possible risks and recovery time. He denies any dysphagia or abd pain or other sx, so any other alarm sx so the risks of EGD are not justified with any potential benefits. This could change if he develops any other sx. He is welcome to return to our services if his GERD worsens. Coding Level of Care Code Est Pt Level 4 (58226) Diagnoses Tubular adenoma of colon D12.6 GERD (gastroesophageal reflux disease) K21.9 Time Spent (min) 35
[2025-04-01 09:33] VITALS: BP 150/68; PULSE 58; O2SAT 98; BMI 28.8
--- OUTSIDE RECORDS SUMMARY | 2025-04-01 09:34 | XMS_ITS | Encounter Summary ---
Author Organization [employer] Address [address] [facility] [address] [place] [address] Care Team Providers Care Operations Support Specialist Name Role Phone Lisa Ji MD Primary Care Pro vider Reason for Visit * Reason Comments Med Refill Encounter Details Date Type Department Care Team ([facility] st Contact Info) Description 09/10/2023 Refill [facility] [address] [place], [place] [phone] Lisa Ji MD [address] [place] [address] Social History Tobacco Use Types Packs/Day Years [...] Care Team (Late st Contact Info) Description 06/03/2025 9:45 AM EDT Office Visit [facility] [address] [place] [address] [phone] Lisa Ji MD [address] [place] [phone] documented as of this encounter Visit Diagnoses Not on filedocumented in this encounter Care Teams Operations Support Specialist Relationship Specialty Start Date End Date Lisa Ji MD [address] [place] [phone] PCP - General Internal Medicine 01/10/23 documented as of this encounter
== END 2025-04-01 10:11 | disposition home or self-care (01) ==
LOC: HO.HGI 09:19
PROVIDERS: PCP Student in an Organized Health Care Education/Training Program; Visit Provider Nurse Practitioner
DX: D12.6 Benign neoplasm of colon, unspecified (principal); K21.9 Gastro-esophageal reflux disease without esophagitis
CPT/HCPCS: 99214

== ENCOUNTER → 2025-04-01 09:19 | Outpatient (BNVA) | payer MEDICARE, MEDICAID, SELFPAY | PROVIDERS: PCP Student in an Organized Health Care Education/Training Program; Visit Provider Nurse Practitioner | DX: K21.9 Gastro-esophageal reflux disease without esophagitis (principal); D12.6 Benign neoplasm of colon, unspecified | CPT/HCPCS: 99212 ==

== ENCOUNTER 2025-05-12 12:49 | Outpatient (AMB) | payer MEDICARE, MEDICAID, SELFPAY ==
--- OUTSIDE RECORDS SUMMARY | 2025-05-12 13:18 | XMS_ITS | Encounter Summary ---
Author Organization [employer] Address [address] [facility] [address] [place] [address] Care Team Providers Care Tallow Maker Name Role Phone Lisa Ji MD Primary Care Pro vider Reason for Visit * Reason Comments Med Refill Encounter Details Date Type Department Care Team ([facility] st Contact Info) Description 09/10/[address] [facility] [address] [place], [place] [phone] Lisa Ji MD [address] [place] [address] Social History Tobacco Use Types Packs/Day Years [...] Description 06/03/2025 9:45 AM EDT Office Visit [facility] [address] [place] [address] [phone] Lisa Ji MD [address] [place] [phone] documented as of this encounter Visit Diagnoses Not on filedocumented in this encounter Care Teams Tallow Maker Relationship Specialty Start Date End Date Lisa Ji MD [address] [place] [phone] PCP - General Internal Medicine 01/10/23 documented as of this encounter
[2025-05-12 13:39] VITALS: BP 122/62; PULSE 52; O2SAT 98; BMI 28.7
--- NOTE | 2025-05-12 13:39 | A.OFFVIS_ITS ---
Vital Signs 05/12/25 13:39 Height 5 ft 6 in Weight 178 lb BMI 28.7 BP 122/62 Blood Pressure Location Lt brachial Position Sitting Pulse 52 Pulse Source Pulse Oximeter Pulse Oximetry (%) 98 Oxygen Delivery Method Room Air Intake Visit Reasons: COPD Technical Marketing Consultant Required: Yes Technical Marketing Consultant Name: Rocío Van C.L.M Allergies lisinopril Allergy (Intermediate, Verified 04/01/25 09:22) Swelling HPI HPI COPD: Details: 69-year-old gentleman, former 40 pack-year smoker, quit 2014 now followed for underlying pulmonary emphysema, pulmonary nodules, and environmental allergies. He continues to use Trelegy and albuterol MDI with good control of his symptoms. His 2nd follow-up CT chest shows stable 9 mm and under pulmonary nodules and also moderate-sized hiatal hernia. He denies recent exacerbations. [facility] Medical History (Updated 04/01/25 @ 09:54 by BEATRIZ Carter) History of lower GI bleeding History of [place] (myocardial infarction) Tubular adenoma of colon Personal history of nicotine dependence Normocytic anemia Poor memory Overweight Dry mouth Osteoarthrosis Skin lesion Diabetes Hearing loss Nodule of chest wall Murmur CAD (coronary artery disease) COPD (chronic obstructive pulmonary disease) Atherosclerotic cardiovascular disease Sessile colonic polyp Back pain Arthritis Peptic ulcer GERD (gastroesophageal reflux disease) Asthma Elevated cholesterol HTN (hypertension) Surgical History Hx of cardiac catheterization History of colonoscopy History of excision of mass History of umbilical hernia repair S/P excision of lipoma Family History Mother Diabetes Heart disease Arthritis Father Heart disease Social History Household Members: Spouse Housing: Apartment Are you a primary senior care provider to a significant other at home: No Do you presently have visiting nurse or other home services: No Alcohol intake: current Alcohol intake frequency: does not drink Comment: COUNTS CORRECT Patient Tobacco Use Status: Former Tobacco user Years Smoked: 48 Second Hand Smoke Exposure: No service: No Current occupational status: disabled Review of Systems Const Denies daytime sleepiness, Denies excessive sweating, Denies fatigue, Denies fever(s), Denies lethargy, Denies malaise, Denies night sweats, Denies snoring and Denies weight loss Eyes Denies blurry vision and Denies itchy eyes ENT Denies nasal congestion, Denies post nasal drip, Denies sinus pain, Denies sinus pressure and Denies other ( Thrush) Card Denies chest pain, Denies pedal edema, Denies dyspnea, Denies orthopnea and Denies paroxysmal nocturnal dyspnea Resp Denies cough, Denies hemoptysis, Denies excessive phlegm production, Denies dyspnea, Denies snoring and Denies wheezing GI Denies abdominal pain and Denies heartburn Musc Denies myalgias, Denies arthralgias and Denies joint swelling Skin/Breast Denies rash Neuro Denies memory loss and Denies seizure-like activity Psych Denies abnormal sleep pattern, Denies anxiety and Denies memory loss Endo Denies excessive sweating, Denies fatigue and Denies heat intolerance Sukumar/Lymph Denies easy bruising Aller/Immun Denies itchy eyes, Denies seasonal rhinorrhea and Denies wheezing Physical Exam Vital Signs: Last Vital Signs Pulse 52 05/12/25 13:39 BP 122/62 05/12/25 13:39 Pulse Ox 98 05/12/25 13:39 Oxygen Delivery Method Room Air 05/12/25 13:39 BMI result Body Mass Index 28.7 Const General: no acute distress and alert Nutritional Appearance: not obese Orientation/consciousness: Other orientation findings ( oriented) HEENT Head: Yes atraumatic Eyes General: appearance normal, both eyes and all related structures Sclerae: sclerae normal EOM: EOMs intact bilaterally Neck Neck: Yes supple Lymphatic: no lymphadenopathy noted Resp Effort & Inspection: normal respiratory effort and no use of accessory muscles Auscultation: clear to auscultation bilaterally Cardio Rate: regular rate Rhythm: regular rhythm Heart sounds: no gallops, no murmurs and no rubs Skin General skin exam: other ( warm) Extrem General: No clubbing, No cyanosis and No edema Assessment & Plan Assessment & Plan (1) COPD (chronic obstructive pulmonary disease): Code(s): J44.9 - Chronic obstructive pulmonary disease, unspecified Category: Medical Plan: Well controlled on current regimen of Trelegy and albuterol MDI. Continue current regimen. (2) Personal history of nicotine dependence: Comment: (former smoker - onset 11, 1ppd x 49, 40pyh - quit 2015) Code(s): Z87.891 - Personal history of nicotine dependence Category: Medical Plan: Results of follow-up CT chest reviewed, stable pulmonary nodules. Continue lung cancer screening, next in 6 months. Orders: Referrals Lung Cancer Screening Referral Z87.891 - Personal history of nicotine dependence Coding Level of Care Code Est Pt Level 4 (63482) Diagnoses COPD (chronic obstructive pulmonary disease) J44.9 Personal history of nicotine dependence Z87.891
== END 2025-05-12 14:02 | disposition home or self-care (01) ==
LOC: HO.HPS 12:49
PROVIDERS: PCP Student in an Organized Health Care Education/Training Program; Visit Provider Internal Medicine Pulmonary Disease
DX: J44.9 Chronic obstructive pulmonary disease, unspecified (principal); Z87.891 Personal history of nicotine dependence
CPT/HCPCS: 99214

== ENCOUNTER → 2025-05-12 12:49 | Outpatient (BNVA) | payer MEDICARE, MEDICAID, SELFPAY | PROVIDERS: PCP Student in an Organized Health Care Education/Training Program; Visit Provider Internal Medicine Pulmonary Disease | DX: J44.9 Chronic obstructive pulmonary disease, unspecified (principal); Z87.891 Personal history of nicotine dependence | CPT/HCPCS: 99212 ==

== ENCOUNTER 2025-05-17 09:48 | Emergency (ER) | payer MEDICARE, MEDICAID, SELFPAY ==
[2025-05-17 10:25] VITALS: BP 159/70; PULSE 51; RESP 16; TEMP 37; O2SAT 97; BMI 29.3
--- NOTE | 2025-05-17 10:25 | ED.GENADULT ---
HPI - General Adult General Chief complaint: Upper Respiratory Symptoms Stated complaint: pt states possible covid Time Seen by Provider: 05/17/25 10:32 Source: patient and esthetician spa (German) Mode of arrival: ambulatory Limitations: language barrier (German) History of Present Illness ED Provider: NANCY VILLEGAS PA-C HPI narrative: 69-year-old male with pmhx significant for CAD, NH, asthma/COPD, GERD, HTN, HLD, anemia, PUD presents to the ED today requesting COVID testing. He reports recent COVID exposure. He denies any symptoms. Denies fever, chills, shortness of breath, cough. Related Data Home Medications ?Medication ?Instructions ?Recorded ?Confirmed atorvastatin 40 mg tablet 40 mg PO BEDTIME 07/29/20 02/15/25 cholecalciferol (vitamin D3) 25 25 mcg PO DAILY 07/29/20 02/15/25 mcg (1,000 unit) tablet (Vitamin D3) omega-3 300 mg-dha 120 mg-epa 180 1 cap PO BID 08/14/22 02/15/25 mg-fish oil 1,000 mg capsule albuterol sulfate 90 mcg/actuation 2 puff inhalation QID PRN 03/27/23 02/15/25 aerosol inhaler (Ventolin HFA) Shortness Of Breath Or Wheezing fluticasone fur. 200 mcg-umeclid 1 ea inhalation DAILY 03/27/23 02/15/25 62.5 mcg-vilant 25 mcg inhalat.powder (Trelegy Ellipta) metformin 1,000 mg tablet 1,000 mg PO BID 03/27/23 02/15/25 omeprazole 20 mg capsule,delayed 20 mg PO DAILY 08/20/23 02/15/25 release aspirin 81 mg tablet,delayed 81 mg PO DAILY 11/15/23 02/15/25 release chlorthalidone 25 mg tablet 25 mg PO BEDTIME 11/15/23 02/15/25 amlodipine 10 mg tablet 10 mg PO DAILY 03/11/24 02/15/25 cyanocobalamin (vitamin B-12) 500 500 mcg PO QAM 03/11/24 02/15/25 mcg tablet ascorbic acid (vitamin C) 250 mg 250 mg PO QAM 04/01/25 tablet carbamide peroxide 6.5 % ear drops 4 drp otic (ear) left DAILY 04/01/25 (Ear Wax Removal Drops) docusate sodium 100 mg capsule 100 mg PO BID PRN constipation 04/01/25 ferrous gluconate 324 mg (38 mg 324 mg PO QAM 04/01/25 iron) tablet metoprolol tartrate 25 mg tablet 25 mg PO 04/01/25 pilocarpine HCl 5 mg tablet mg PO 04/01/25 Previous Rx's ?Medication ?Instructions ?Recorded acetaminophen 500 mg tablet 1,000 mg (2 x 500 mg) PO Q6H PRN 04/22/24 (Tylenol Extra Strength) fever or pain #20 tabs ibuprofen 400 mg tablet 400 mg PO TID PRN fever or pain 04/22/24 #30 tabs montelukast 10 mg tablet 10 mg PO QPM #30 tabs 10/05/24 lidocaine 5 % topical patch 1 patch topical DAILY #15 ea 10/18/24 potassium chloride 20 mEq 20 meq PO BID #30 tabs 02/15/25 tablet,extended release Allergies Allergy/AdvReac Type Severity Reaction Status Date / Time lisinopril Allergy Intermediate Swelling Verified 05/17/25 10:26 Review of Systems Review of Systems: Yes all other systems are reviewed and are negative [facility] Past Medical History Attestation statement: The following information was validated with the patient. Source: old records reviewed and nursing notes reviewed Medical History History of lower GI bleeding History of NH (myocardial infarction) Tubular adenoma of colon Personal history of nicotine dependence Normocytic anemia Poor memory Overweight Dry mouth Osteoarthrosis Skin lesion Diabetes Hearing loss Nodule of chest wall Murmur CAD (coronary artery disease) COPD (chronic obstructive pulmonary disease) Atherosclerotic cardiovascular disease Sessile colonic polyp Back pain Arthritis Peptic ulcer GERD (gastroesophageal reflux disease) Asthma Elevated cholesterol HTN (hypertension) Surgical History Hx of cardiac catheterization History of colonoscopy History of excision of mass History of umbilical hernia repair S/P excision of lipoma Family History Family History Mother Diabetes Heart disease Arthritis Father Heart disease Social History Social History Household Members: Spouse Housing: Apartment Are you a primary healthcare advisory services manager to a significant other at home: No Do you presently have visiting nurse or other home services: No Alcohol intake: current Alcohol intake frequency: does not drink Comment: COUNTS CORRECT Patient Tobacco Use Status: Former Tobacco user Years Smoked: 48 Second Hand Smoke Exposure: No Advance Directives: No Advance Directives Information Provided: Yes service: No Current occupational status: disabled Physical Exam ED Vital Signs: Vital Signs - 24 hr 05/17/25 10:25 Temperature 98.6 F Pulse Rate 51 Respiratory Rate 16 Blood Pressure 159/70 H Pulse Oximetry 97 Oxygen Delivery Method Room Air BMI result Body Mass Index 29.3 Hypertensive. Not hypoxic or febrile. General: Well appearing, in no acute distress. Skin: Warm, dry, intact. No rashes or lesions. Head: Normocephalic, atraumatic. EENT: Hearing is intact b/l. Conjunctiva clear. PERRLA. EOM intact. Moist mucous membranes.? Neck: Supple without LAD Cardiac: Chest wall symmetric. RRR Lungs: Normal respiratory effort without accessory muscle use. CTA bilaterally. Ext: Upper and lower extremities atraumatic, without tenderness, deformity, swelling or erythema Neuro: AOx3. Normal speech. Ambulating with steady gait. Course Course Course Narrative: Patient tested negative for COVID, flu, RSV. His vitals are stable. He is asymptomatic. Discussed results with patient. Patient has remained stable throughout ED visit today. Discussed worrisome signs and symptoms and when to return to the ED. All questions answered at this time. Patient is agreeable with disposition and stable for discharge. Medical Decision Making Medical Decision Making [facility] Narrative: 69-year-old male with pmhx significant for CAD, NH, asthma/COPD, GERD, HTN, HLD, anemia, PUD presents to the ED today requesting COVID testing. He is hypertensive, afebrile and not hypoxic. He is well-appearing, exam benign. Differential diagnosis includes covid. Plan for covid testing and anticipate discharge. Differential Diagnosis Differential Diagnoses: The differential diagnosis associated with the presentation includes as above. Admission/Observation not indicated. Lab Data [facility] Lab Attestation statement: I reviewed the patient's lab results. as above. Labs: Lab Results 05/17/25 Range/Units 10:37 Influenza Type A (PCR) NEGATIVE (Negative) Influenza Type B (PCR) NEGATIVE (Negative) RSV RNA Qual (PCR) NEGATIVE (Negative) SARS-CoV-2 RNA (RT-PCR) NEGATIVE (Negative) Independent Historian Clinical information obtained from an independent historian. History obtained from or confirmed by: Spouse () Social Determinants Patient?s care significantly limited by Social Determinants of Health including: Other Social Determinant of Health Critical Care Time Critical Care Time Critical Care Time: No Discharge Plan Discharge Clinical Impression: Lab test negative for COVID-19 virus Patient Disposition: Home, Self-Care Instructions: COVID-19 (Coronavirus Disease 2019) (ED) Additional Instructions: You presented to the ED today requesting to be tested for COVID. You tested negative for COVID, flu, RSV. Follow up with PCP as needed. Prescriptions: No Action montelukast 10 mg tablet 10 mg PO QPM Qty: 30 2RF atorvastatin 40 mg Tablet 40 mg PO BEDTIME cholecalciferol (vitamin D3) [Vitamin D3] 25 mcg (1,000 unit) Tablet 25 mcg PO DAILY omega 6-pnb-kft-fish oil 300 mg (120 mg- 180mg)-1,000 mg capsule 1 cap PO BID aspirin 81 mg Tablet,Delayed Release (Dr/Ec) 81 mg PO DAILY chlorthalidone 25 mg tablet 25 mg PO BEDTIME lidocaine 5 % adhesive patch,medicated 1 patch topical DAILY Qty: 15 0RF Rx Instructions: leave on most painful area for up to 12 hrs potassium chloride 20 mEq Tablet Extended Release 20 meq PO BID Qty: 30 2RF acetaminophen [Tylenol Extra Strength] 500 mg tablet 1,000 mg PO Q6H PRN (Reason: fever or pain) Qty: 20 0RF ibuprofen 400 mg tablet 400 mg PO TID PRN (Reason: fever or pain) Qty: 30 0RF Trelegy Ellipta 200-62.5-25 mcg blister with device 1 ea inhalation DAILY metformin 1,000 mg tablet 1,000 mg PO BID albuterol sulfate [Ventolin HFA] 90 mcg/actuation HFA aerosol inhaler 2 puff inhalation QID PRN (Reason: Shortness Of Breath Or Wheezing) amlodipine 10 mg tablet 10 mg PO DAILY cyanocobalamin (vitamin B-12) 500 mcg tablet 500 mcg PO QAM omeprazole 20 mg capsule,delayed release(DR/EC) 20 mg PO DAILY pilocarpine HCl 5 mg tablet PO ascorbic acid (vitamin C) 250 mg tablet 250 mg PO QAM Ear Wax Removal Drops 6.5 % drops 4 drp otic (ear) left DAILY docusate sodium 100 mg capsule 100 mg PO BID PRN (Reason: constipation) metoprolol tartrate 25 mg tablet 25 mg PO ferrous gluconate 324 mg (38 mg iron) tablet 324 mg PO QAM Referrals: Lisa Ji MD [Primary Care Provider, Internal Medicine] Discharge Date/Time: 05/17/25 12:03 Print Language: German
[2025-05-17 11:19] LABS: Resp Syncy Virus RNA Qual PCR NEGATIVE (Negative); SARS COV2 PCR INHOUSE NEGATIVE (Negative)
[2025-05-17 12:02] VITALS: BP 159/70; PULSE 51; RESP 16; TEMP 37; O2SAT 97
--- OUTSIDE RECORDS SUMMARY | 2025-05-17 13:12 | XMS_ITS | Encounter Summary ---
Author Organization [employer] Address [address] [facility] [address] [place] [address] Care Team Providers Care Freelance Data Entry Name Role Phone Lisa Ji MD Primary Care Pro vider Reason for Visit * Reason Comments Med Refill Encounter Details Date Type Department Care Team ([facility] st Contact Info) Description 09/10/2023 Refill [facility] [address], [place] [phone] Lisa Ji MD [address] [place] [address] Social History Tobacco Use Types Packs/Day Years [...] Description 06/03/2025 9:45 AM EDT Office Visit [facility] [address] [place] [address] [phone] Lisa Ji MD [address] [place] [phone] documented as of this encounter Visit Diagnoses Not on filedocumented in this encounter Care Teams Freelance Data Entry Relationship Specialty Start Date End Date Lisa Ji MD [address] [place] [phone] PCP - General Internal Medicine 01/10/23 documented as of this encounter
== END 2025-05-17 12:03 | disposition home or self-care (01) ==
PROVIDERS: Physician Assistant Medical; Emergency Provider Emergency Medicine; PCP Student in an Organized Health Care Education/Training Program
DX: Z20.822 Contact with and (suspected) exposure to COVID-19 (principal); I10 Essential (primary) hypertension; J44.89 Other specified chronic obstructive pulmonary disease; Z03.818 Encounter for observation for suspected exposure to other biological agents ruled out
CPT/HCPCS: 87637; 99282; 99283

== ENCOUNTER 2025-05-27 08:05 | Outpatient (REF) | payer MEDICARE, MEDICAID, SELFPAY ==
[2025-05-27 12:00] LABS: Alanine Aminotransferase 28 U/L (0-40); Albumin Level 4.5 g/dL (3.5-5.0); Alkaline Phosphatase 69 U/L (39-117); Anion Gap 9 (12-20); Aspartate Amino Transferase 30 U/L (5-37); Blood Urea Nitrogen 18 mg/dL (9-16); Calcium 9.2 mg/dL (8.4-10.2); Carbon Dioxide 27 mmol/L (22-29); Chloride 108 mmol/L (96-108); Estimated Glomerular Filt Rate > 60; Potassium 4.3 mmol/L (3.3-5.1); Sodium 140 mmol/L (135-145); Total Protein 7.4 g/dL (6.5-8.0)
== END 2025-05-27 08:06 | disposition home or self-care (01) ==
LOC: HO.HHCL 08:05
PROVIDERS: PCP Student in an Organized Health Care Education/Training Program; Visit Provider Internal Medicine Medical Oncology
DX: E87.6 Hypokalemia (principal)
CPT/HCPCS: 36415; 80053

== ENCOUNTER 2025-08-04 09:53 | Outpatient (REF) | payer MEDICARE, SELFPAY ==
--- NOTE | ~2025-08-04 | XR_ITS ---
EXAMINATION: XR HAND, RIGHT CLINICAL INFORMATION: bl hand pain COMPARISON: None available. TECHNIQUE: PA, lateral, and oblique views of the right hand. FINDINGS: There is palmar angular deformity of the neck of the fifth metacarpal consistent with a healed boxer's fracture. No acute fracture is identified. No degenerative changes are evident. Bone mineral density is within normal limits. XR/XR hand RT min 3V IMPRESSION: Healed boxer's fracture of the right hand. Electronically signed by: Dallas Robbins MD 08/04/2025 11:08 AM IGOR WINN
--- NOTE | ~2025-08-04 | XR_ITS ---
EXAMINATION: XR HAND, LEFT CLINICAL INFORMATION: bl hand pain COMPARISON: None available. TECHNIQUE: PA, lateral, and oblique views of the left hand. FINDINGS: No visible acute fracture, dislocation or suspicious bony lesion.. No significant joint space narrowing or marginal osteophytes. No osseous erosion. No abnormal soft tissue calcification. XR/XR hand LT min 3V IMPRESSION: No acute osseous findings Electronically signed by: Randy Headley MD 08/04/2025 10:30 AM IGOR
--- OUTSIDE RECORDS SUMMARY | 2025-08-04 11:14 | XMS_ITS | Encounter Summary ---
Author Organization [employer] Address [address] [facility] [address] [place] [address] Care Team Providers Care Speech And Language Clinician Name Role Phone Lisa Ji MD Primary Care Pro vider Encounter Details Date Type Department Care Team ([facility] st Contact Info) Description 08/14/2023 Abstract [facility] [address] [place], [place] [phone] Lisa Ji MD [address] [place] [address] Social History Tobacco Use Types Packs/Day Years [...] Care Team (Late st Contact Info) Description 10/08/2025 9:30 AM EST Office Visit [facility] [address] [place], [place] [phone] TarRanjana underwood, OD [address] [place] [address] documented as of this encounter Procedures Procedure Name Priority Date/Time Associated Diagnosis Comments COLONOSCOPY Routine 07/21/2020 documented in this encounter Results * Colonoscopy (07/21/2020) Colonoscopy Normal Normal Narrative Thalia Gilmore - 07/21/2020 Recommended 1 year follow up Historical Provider HEALTH MAINTENANCE Final Result documented in this encounter Visit Diagnoses Not on filedocumented in this encounter Care Teams Speech And Language Clinician Relationship Specialty Start Date End Date Lisa Ji MD [address] [place] [address] [phone] PCP - General Internal Medicine 01/10/23 documented as of this encounter
--- OUTSIDE RECORDS SUMMARY | 2025-08-04 11:14 | XMS_ITS | Encounter Summary ---
Author Organization [employer] Address 75 [facility] 7t [place] [address] Care Team Providers Care Enterprise Account Manager Name Role Phone Lisa Ji MD Primary Care Pro vider Encounter Details Date Type Department Care Team ([facility] st Contact Info) Description 10/14/2024 Telephone [facility] MEDICINE 230 [place], [place] [phone] Columba Hammer, PharmD 230 [place] [address] Social History Tobacco Use Types Packs/Day Years [...] Description 10/08/2025 9:30 AM EST Office Visit [facility] OPTOMETRY 267 [place], [place] [phone] TarkaRanjana, OD 267 [place] [address] documented as of this encounter Visit Diagnoses Not on filedocumented in this encounter Additional Health Concerns Assessment Noted Time PHQ-9 Depression Total Score: 0 03/26/20 9:07 AM EDT documented as of this encounter Care Teams Enterprise Account Manager Relationship Specialty Start Date End Date Lisa Ji MD [address] [place] [address] [phone] PCP - General Internal Medicine 01/10/23 documented as of this encounter
--- OUTSIDE RECORDS SUMMARY | 2025-08-04 11:14 | XMS_ITS | Encounter Summary ---
Author Organization [employer] Address 75 [facility] 7t [place] [address] Care Team Providers Care Industrial Pipefitter Journeyman Name Role Phone Lisa Ji MD Primary Care Pro vider Reason for Visit * Reason Onset Date Comments Appointment Request 10/09/2024 Encounter Details Date Type Department Care Team ([facility] st Contact Info) Description 10/09/2024 Telephone [facility] MEDICINE 230 [place], [place] [phone] Lisa Ji MD 230 [place], [place] [phone] Appointment Request Social History Tobacco Use Types [...] follow up appt. Please contact pt at [phone]. (Malaysian Speaker) documented in this encounter Plan of Treatment Upcoming Encounters Date Type Department Care Team (Late st Contact Info) Description 10/08/2025 9:30 AM EST Office Visit [facility] OPTOMETRY 267 [place] [address] Ranjana Choudhary, OD 267 [place] [address] documented as of this encounter Visit Diagnoses Not on filedocumented in this encounter Additional Health Concerns Assessment Noted Time PHQ-9 Depression Total Score: 0 03/26/20 24 9:07 AM EDT documented as of this encounter Care Teams Industrial Pipefitter Journeyman Relationship Specialty Start Date End Date Lisa Ji MD [address] [place] [phone] PCP - General Internal Medicine 01/10/23 documented as of this encounter
--- OUTSIDE RECORDS SUMMARY | 2025-08-04 11:14 | XMS_ITS | Encounter Summary ---
Author Organization [employer] Address 75 [facility] 7t [place] [address] Care Team Providers Care Motor Setter Name Role Phone Lisa Ji MD Primary Care Pro vider Reason for Visit * Reason Comments Med Refill Encounter Details Date Type Department Care Team ([facility] st Contact Info) Description 09/10/2023 Refill [facility] MEDICINE 230 [place], [place] [phone] Lisa Ji MD 230 [place] [address] Social History Tobacco Use Types Packs/Day Years [...] Description 10/08/2025 9:30 AM EST Office Visit [facility] OPTOMETRY 267 [place] [address] Ranjana Choudhary, OD 267 [place] [address] documented as of this encounter Visit Diagnoses Not on filedocumented in this encounter Care Teams Motor Setter Relationship Specialty Start Date End Date Lisa Ji MD [address] [place] [phone] PCP - General Internal Medicine 01/10/23 documented as of this encounter
--- OUTSIDE RECORDS SUMMARY | 2025-08-04 11:15 | XMS_ITS | Encounter Summary ---
Author Organization [employer] Address 75 [facility] 7t [place] [address] Care Team Providers Care Navy Airspace Officer Name Role Phone Lisa Ji MD Primary Care Pro vider Reason for Visit * Reason Onset Date Comments pt1 01/22/2025 Encounter Details Date Type Department Care Team ([facility] st Contact Info) Description 01/22/2025 Telephone [facility] MEDICINE 230 [place], [place] [phone] Lisa Ji MD 230 [place] [address] pt1 Social History Tobacco Use Types Packs/Day [...] Yes Provider name or facility name: 230 [place] [address]. [facility] Escort needed: Y/N: Yes Do you have a wheelchair: Y/N: No If yes- Manual or electric: N/A Visits: (3x monthly) Patient calling requesting PT1 Home Address verified: Y/N: Yes Provider name or facility name: [facility] Hematology/Oncology -[address] [place] [address] 1st [facility] [address] Escort needed: Y/N: Yes Do you have a wheelchair: Y/N: No If yes- Manual or electric: N/A Visits: (1x monthly) Patient calling requesting PT1 Home Address verified: Y/N: Yes Provider name or facility name: [address] [place] [address] 3rd Floor, [place] [address] - [facility] Escort needed: Y/N: Yes Do you have a wheelchair: Y/N: No If yes- Manual or electric: N/A Visits: (2x monthly) Patient calling requesting PT1 Home Address verified: Y/N: Yes Provider name or facility name: [address] [place] [address] - [facility] Escort needed: Y/N: Yes Do you have a wheelchair: Y/N: No If yes- Manual or electric: N/A Visits: (1x monthly) documented in this encounter Plan of Treatment Upcoming Encounters Date Type Department Care Team (Late st Contact Info) Description 10/08/2025 9:30 AM EST Office Visit [facility] OPTOMETRY 267 [place], [place] [phone] Ranjana Choudhary, OD 267 [place] [address] documented as of this encounter Visit Diagnoses Not on filedocumented in this encounter Additional Health Concerns Assessment Noted Time PHQ-9 Depression Total Score: 0 03/26/20 24 9:07 AM EDT documented as of this encounter Care Teams Navy Airspace Officer Relationship Specialty Start Date End Date Lisa Ji MD [address] [place] [address] [phone] PCP - General Internal Medicine 01/10/23 documented as of this encounter
--- OUTSIDE RECORDS SUMMARY | 2025-08-04 11:15 | XMS_ITS | Encounter Summary ---
Author Organization [employer] Address [address] [facility] [address] 7t [place] [address] Care Team Providers Care Instructor Traffic Safety Name Role Phone Lisa Ji MD Primary Care Pro vider Reason for Visit * Reason Onset Date Comments partial appt 05/29/2023 Encounter Details Date Type Department Care Team (Late st Contact Info) Description 05/29/2023 Telephone [facility] ADULT DENTAL 230 [place] [address] Santiago Marquez, DMD [address] [place] [address] partial appt Social History Tobacco Use Types [...] Description 10/08/2025 9:30 AM EST Office Visit [facility] OPTOMETRY 267 [place], [place] [phone] Ranjana Choudhary, OD 267 [place] [address] documented as of this encounter Visit Diagnoses Not on filedocumented in this encounter Care Teams Instructor Traffic Safety Relationship Specialty Start Date End Date Lisa Ji MD [address] [place] [address] [phone] PCP - General Internal Medicine 01/10/23 documented as of this encounter
--- OUTSIDE RECORDS SUMMARY | 2025-08-04 11:15 | XMS_ITS | Encounter Summary ---
Author Organization [employer] Address [address] [facility] [address] 7t [place] [address] Care Team Providers Care Comparison Shopper Name Role Phone Lisa Ji MD Primary Care Pro vider Encounter Details Date Type Department Care Team (Late st Contact Info) Description 03/26/2023 Abstract [facility] ADULT DENTAL 230 [place] [address] Santiago Marquez, DMD [address] [place], [place] [phone] Social History Tobacco Use Types Packs/Day Years [...] Description 10/08/2025 9:30 AM EST Office Visit [facility] OPT[facility]RY 267 [place], [place] [phone] Ranjana Choudhary, OD 267 [place], [place] [phone] documented as of this encounter Visit Diagnoses Not on filedocumented in this encounter Care Teams Comparison Shopper Relationship Specialty Start Date End Date Lisa Ji MD [address] [place] [address] [phone] PCP - General Internal Medicine 01/10/23 documented as of this encounter
--- OUTSIDE RECORDS SUMMARY | 2025-08-04 11:15 | XMS_ITS | Encounter Summary ---
Author Organization [employer] Address 75 [facility] 7t [place] [address] Care Team Providers Care Domestic Travel Consultant Name Role Phone Lisa Ji MD Primary Care Pro vider Reason for Visit * Reason Comments Med Refill Encounter Details Date Type Department Care Team ([facility] st Contact Info) Description 02/25/2024 Refill [facility] MEDICINE 230 [place], [place] [phone] Lisa Ji MD 230 [place], [place] [phone] Social History Tobacco Use Types Packs/Day Years [...] AM EST Office Visit [facility] OPTOMETRY 267 [place] [address] Ranjana Choudhary, OD 267 [place] [address] documented as of this encounter Visit Diagnoses Not on filedocumented in this encounter Care Teams Domestic Travel Consultant Relationship Specialty Start Date End Date Lisa Ji MD 230 [place], [place] [phone] PCP - General Internal Medicine 01/10/23 documented as of this encounter
--- OUTSIDE RECORDS SUMMARY | 2025-08-04 11:15 | XMS_ITS | Encounter Summary ---
Author Organization [employer] Address [address] [facility] 7t [place] [address] Care Team Providers Care Morning Caregiver Name Role Phone Shyanne Antunez MD Primary Care Provider Gautam Montesinos Primary Care Provider Nate Carmona Primary Care Provider Lisa Escobar MD Primary Care Pro vider Encounter Details Date Type Department Care Team (Latest Contact Info) Description 12/30/2020 Abstract [facility] CONVERSIONS Dental, Provider, DDS Social History [...] Description 10/08/2025 9:30 AM EST Office Visit [facility] OPTOMETRY 267 [place] [address] Ranjana Choudhary, OD 267 [place] [address] documented as of this encounter Visit Diagnoses Not on filedocumented in this encounter Care Teams Morning Caregiver Relationship Specialty Start Date End Date Shyanne Antunez MD PCP - General Family Medicine 08/26/19 10/09/22 Gautam Reynaga FNP PCP - General Family Medicine 10/10/22 11/28/22 Nate Lees AGNP PCP - General Family Medicine 11/29/22 01/09/23 Lisa Ji MD [address] [place] [phone] PCP - General Internal Medicine 01/10/23 documented as of this encounter
--- OUTSIDE RECORDS SUMMARY | 2025-08-04 11:15 | XMS_ITS | Encounter Summary ---
Author Organization [employer] Address [address] [facility] [address] 7t [place] [address] Care Team Providers Care Game Attendant Name Role Phone Lisa Ji MD Primary Care Pro vider Encounter Details Date Type Department Care Team (Late st Contact Info) Description 08/04/2025 Orders Only GENERIC EXTERNAL DATA DEPARTMENT Provider, Generic External Data Social History Tobacco Use Types Packs/Day Years Used Date Smoking Tobacco: Former Cigarettes Passive Smoke Exposure: Past Smokeless Tobacco: Never Comments:Used to smoke since 11 y of age and stopped at 59 y of age ( 10 years ago) --->10 cigarettes in average a day-PQT a year: 25 a year Alcohol Use Standard Drinks/Week Comments Never 0 (1 standard drink = 0.6 oz pur e alcohol) Depression Answer Date Recorded Patient Health Questionnaire-9 Score 0 03/31/2025 Patient Health Questionnaire-9 Score 0 03/31/2025 Last PHQ-9: Questionnaire Data Not on file 0 03/31/2025 Housing Stability Answer Date Recorded What is your housing situation today? I have jonelle mar 03/25/[address] you li ve. Do you have problems with any of the following? None of the above 03/25/2025 Food Insecurity Answer Date Recorded Within the past 12 months, y ou worried that your food would run out before you got money to buy more: Never True 03/25/2025 Within the past 12 months,th e food you bought just didn't last and you didn't have enough money to get more: Never True Transportation Answer Date Recorded In the past 12 months, has l ack of transportation kept you from medical appts, meetings, work or from getting things needed for daily living? No 03/25/2025 Utilities Answer Date Recorded In the past 12 months, has t he electric, gas, oil or water company threatened to shut off services in your home? No 03/25/2025 Depression Answer Date Recorded Patient Health Questionnaire-2 Score 0 03/31/2025 Internet Access Answer Date Recorded Internet Access Q1 Yes 03/25/2025 Internet Access Q2 Not on file 03/25/2025 Sex and Gender Information Value Date Recorded Sex Assigned at Male 07/30/2022 10:19 AM EDT Legal Sex Male 10:19 AM EDT Gender Identity Male 07/30/2022 10:19 AM EDT Sexual Orientation Straight 07/30/2022 10 :19 AM EDT documented as of this encounter Plan of Treatment Upcoming Encounters Date Type Department Care Team (Late st Contact Info) Description 10/08/2025 9:30 AM EST Office Visit [facility] OPTOMETRY 267 [place], [place] [phone] Ranjana Choudhary, OD 267 [place], [place] [phone] documented as of this encounter Procedures Procedure Name Priority Date/Time Associated Diagnosis Comments CBC WITH AUTO DIFFERENTIAL Routine 08/04/2025 11:03 AM EST documented in this encounter Results * (ABNORMAL) CBC auto differential (08/04/2025 11:03 AM EST) White Blood Count 10.9(H) 4.8 - 10.8 X10*3/uL [facility] Red Blood Count 4.62 4.60 - 5.80 X10*6/uL [facility] Hemoglobin 13.3(L) 14.0 - 18.0 g/dl [facility] Hematocrit 41.4(L) 42.0 - 52.0 % [facility] Mean Corpuscular Volume 89.6 80.0 - 98.0 fL [facility] Mean Corpuscular Hemoglobin 28.8 27.0 - 33.0 pg [facility] Mean Corpuscular HGB Conc 32.1 31.0 - 36.0 g/dl [facility] Red Cell Distribution Width 14.5 11.0 - 16.0 % [facility] Platelet Count 296 160 - 400 X10*3/uL [facility] Mean Platelet Volume 9.9 9.4 - 12.4 fL [facility] Neutrophils Percent Auto 61.4 45 - 73 % [facility] Imm Gran Pct Auto 0.4 0.0 - 0.4 % [facility] Lymphocytes Percent Auto 26.6 20 - 40 % [facility] Monocytes Percent Auto 8.9 2 - 11 % [facility] Eosinophils Percent Auto 2.0 0 - 4 % [facility] Basophils Percent Auto 0.7 0 - 2 % [facility] NRBC Pct Auto 0.0 0.0 - 0.2 /100WBC [facility] Neutrophils Absolute Auto 6.7 2.0 - 8.3 x10*3/uL [facility] Imm Gran Abs Auto 0.04(H) 0.00 - 0.03 X10*3/uL [facility] Lymphocytes Absolute Auto 2.9 1.2 - 4.9 X10*3/uL [facility] Monocytes Absolute Auto 1.0 0.1 - 1.2 X10*3/uL [facility] Eosinophils Absolute Auto 0.2 0.0 - 0.4 X10*3/uL [facility] Basophils Absolute Auto 0.1 0.0 - 0.2 X10*3/uL [facility] NRBC Abs Auto 0.000 0.0 - 0.012 X10*3/uL [facility] 08/04/2025 11:0 3 AM EST 08/04/2025 11:05 AM EST us Generic External Data Provider LAB BLOOD ORDERAB LES Final Result [facility] [address] [place] [address] [phone] documented in this encounter Visit Diagnoses Not on filedocumented in this encounter Additional Health Concerns Assessment Noted Time PHQ-9 Depression Total Score: 0 03/31/20 25 10:47 AM EDT documented as of this encounter Care Teams Game Attendant Relationship Specialty Start Date End Date Lisa Ji MD [address] [place] [phone] PCP - General Internal Medicine 01/10/23 documented as of this encounter
--- OUTSIDE RECORDS SUMMARY | 2025-08-04 11:15 | XMS_ITS | Encounter Summary ---
Author Organization [employer] Address 75 [facility] 7t [place] [address] Care Team Providers Care Manager Of International Name Role Phone Lisa Ji MD Primary Care Pro vider Reason for Visit * Reason Onset Date Comments Appointment Request 06/08/2025 Encounter Details Date Type Department Care Team ([facility] st Contact Info) Description 06/08/2025 Telephone [facility] MEDICINE 230 [place], [place] [phone] Lisa Ji MD 230 [place], [place] [phone] Appointment Request Social History Tobacco Use Types [...] encounter Miscellaneous Notes * Telephone Encounter - Tricia Leos - 06/08/2025 8:43 AM EDT Tc from pt requesting to reschedule canceled apt on 06/03 Contact pt at [phone] (serbian) documented in this encounter Plan of Treatment Upcoming Encounters Date Type Department Care Team (Late st Contact Info) Description 10/08/2025 9:30 AM EST Office Visit [facility] OPTOMETRY 267 [place] [address] TarkaRajnana, OD 267 [place] [address] documented as of this encounter Visit Diagnoses Not on filedocumented in this encounter Additional Health Concerns Assessment Noted Time PHQ-9 Depression Total Score: 0 03/31/20 25 10:47 AM EDT documented as of this encounter Care Teams Manager Of International Relationship Specialty Start Date End Date Lisa Ji MD [address] [place] [phone] PCP - General Internal Medicine 01/10/23 documented as of this encounter
--- OUTSIDE RECORDS SUMMARY | 2025-08-04 11:15 | XMS_ITS | Encounter Summary ---
Author Organization [employer] Address [address] [facility] [address] 7t [place] [address] Care Team Providers Care Television Analyzer Name Role Phone Lisa Ji MD Primary Care Pro vider Encounter Details Date Type Department Care Team (Late Contact Info) Description 01/10/2023 Orders Only [facility] MED & PEDS [address] [place], [place] [phone] Rocío Berman LPN Social History Tobacco Use [...] Department Care Team (Late Contact Info) Description 10/08/2025 9:30 AM EST Office Visit [facility] OPTOMETRY [address] [place] [address] Ranjana Choudhary, OD 267 [place], [place] [phone] documented as of this encounter Visit Diagnoses Not on filedocumented in this encounter Care Teams Television Analyzer Relationship Specialty Start Date End Date Lisa Ji MD [address] [place] [phone] PCP - General Internal Medicine 01/10/23 documented as of this encounter
--- OUTSIDE RECORDS SUMMARY | 2025-08-04 11:15 | XMS_ITS | Encounter Summary ---
Author Organization [employer] Address 75 [facility] 7t [place] [address] Care Team Providers Care Farm Field Manager Name Role Phone Lisa Ji MD Primary Care Pro vider Reason for Visit * Reason Comments Med Refill Encounter Details Date Type Department Care Team ([facility] st Contact Info) Description 02/18/2023 Refill [facility] MEDICINE 230 [place], [place] [phone] [facility] 230 [place] [address] Social History Tobacco Use Types Packs/Day Years [...] AM EST Office Visit [facility] 267 [place], [place] [phone] Ranjana Choudhary, OD 267 [place], [place] [phone] documented as of this encounter Visit Diagnoses Not on filedocumented in this encounter Care Teams Farm Field Manager Relationship Specialty Start Date End Date Lisa Ji MD [address] [place] [address] [phone] PCP - General Internal Medicine 01/10/23 documented as of this encounter
--- OUTSIDE RECORDS SUMMARY | 2025-08-04 11:15 | XMS_ITS | Encounter Summary ---
Author Organization [employer] Address 75 [facility] 7t [place] [address] Care Team Providers Care Probate Paralegal Name Role Phone Lisa Ji MD Primary Care Pro vider Reason for Visit * Reason Comments Med Refill Encounter Details Date Type Department Care Team ([facility] st Contact Info) Description 07/29/2025 Refill [facility] MEDICINE 230 [place], [place] [phone] Lisa Ji MD 230 [place] [address] Social History Tobacco Use Types Packs/Day Years [...] Description 10/08/2025 9:30 AM EST Office Visit [facility] OPTOMETRY 267 [place], [place] [phone] Ranjana Choudhary, OD 267 [place] [address] documented as of this encounter Visit Diagnoses Not on filedocumented in this encounter Additional Health Concerns Assessment Noted Time PHQ-9 Depression Total Score: 0 03/31/20 25 10:47 AM EDT documented as of this encounter Care Teams Probate Paralegal Relationship Specialty Start Date End Date Lisa Ji MD 230 [place] [address] PCP - General Internal Medicine 01/10/23 documented as of this encounter
--- OUTSIDE RECORDS SUMMARY | 2025-08-04 11:15 | XMS_ITS | Clinical Summary ---
Author Organization [employer] Address [address] [facility] [address] [place] [address] Care Team Providers Care Hand Stitcher Name Role Phone Lisa Ji MD Primary Care Pro vider Allergies Active Allergy Reactions Criticality Noted Date Comments Lisinopril Swelling,Anaphylaxis High 06/13/2020 Medications montelukast (Singulair) 10 MG tablet Take by mouth. Activ e Fluticasone-Um eclidin-Vilant (Trelegy Ellipta) 200-62.5-25 MCG/ACT aerosol powder INHALE 1 PUFF BY MOUTH EVERY DAY AT THE SAME TIME RINSE MOUTH AFTER USING 1 each 5 02/05/20 25 Active acetaminophen (Tylenol 8 Hour) 650 MG ER tablet Take 1 tablet (650 mg) by mouth every 8 (eight) hours if needed for mild pain. Do not crush, chew, or split. 20 tablet 02/11/20 25 Active Ventolin HFA 108 (90 Base) MCG/ACT inhaler INHALE 2 PUFFS BY MOUTH EVERY 6 HOURS NEEDED FOR WHEEZING 18 g 2 02/25/20 25 Active omega-3 (Fish Oil) 1000 MG capsule TAKE 1 CAPSULE BY MOUTH TWICE DAILY IN THE MORNING AND AT BEDTIME 180 capsule 1 03/03/20 25 Active potassium chloride CR (Klor-Con M20) 20 MEQ ER tablet Take 1 tablet by mouth 2 times daily. 03/17/20 25 Active amLODIPine (Norvasc) 10 MG tablet TAKE 1 TABLET BY MOUTH EVERY MORNING 90 tablet 1 05/03/20 25 Active Ascorbic Acid (vitamin C) 250 MG tablet TAKE 1 TABLET BY MOUTH EVERY MORNING 90 tablet 1 05/03/20 25 Active ferrous gluconate (Fergon) 324 (38 Fe) MG tablet TAKE 1 TABLET BY MOUTH EVERY MORNING WITH FOOD 90 tablet 1 05/03/20 25 Active Aspirin Low Dose 81 MG EC tabletIndicati ons:Coronary artery disease involving [place] lag[place] coronary artery of big lagoon heart, unspecified whether angina present TAKE 1 TABLET BY MOUTH AT BEDTIME 90 tablet 1 06/02/20 25 Active atorvastatin (Lipitor) 40 MG tabletIndicati ons:Hyperchole sterolemia TAKE 1 TABLET BY MOUTH AT BEDTIME 90 tablet 1 06/02/20 25 Active metFORMIN (Glucophage) 1000 MG tablet TAKE 1 TABLET BY MOUTH TWICE DAILY IN THE MORNING AND AT BEDTIME WITH MEALS 180 tablet 1 06/02/20 25 Active cholecalcifero l (Vitamin D-3) 25 MCG tabletIndicati ons:Low vitamin D level TAKE 1 TABLET BY MOUTH EVERY MORNING 90 tablet 1 06/02/20 25 Active pilocarpine (Salagen) 5 MG tablet TAKE 1 TABLET BY MOUTH EVERY MORNING 30 tablet 1 06/28/20 25 Active cyanocobalamin (Vitamin B-12) 500 MCG tablet TAKE 1 TABLET BY MOUTH EVERY MORNING 90 tablet 1 06/30/20 25 Active omeprazole (PriLOSEC) [address] capsule Take 1 capsule (20 mg) by mouth before breakfast. Do not crush or chew. 90 capsule 07/06/20 25 Active docusate sodium (Colace) 100 MG capsule TAKE 1 CAPSULE BY MOUTH TWICE DAILY NEEDED FOR CONSTIPATION 180 capsule 1 07/26/20 25 Active metoprolol tartrate (Lopressor) 25 MG tablet TAKE 1 TABLET BY MOUTH TWICE DAILY IN THE MORNING AND IN THE EVENING 60 tablet 2 07/29/20 25 Active docusate sodium (Colace) 100 MG capsule TAKE 1 CAPSULE BY MOUTH TWICE DAILY NEEDED FOR CONSTIPATION 180 capsule 1 02/02/20 25 2024 Discontinued omeprazole (PriLOSEC) [address] capsule TAKE 1 CAPSULE BY MOUTH EVERY MORNING BEFORE MEALS 90 capsule 04/06/20 25 2024 Discontinued(R magaly (will not trigger notification to Pharmacy)) metoprolol tartrate (Lopressor) 25 MG tablet TAKE 1 TABLET BY MOUTH TWICE DAILY IN THE MORNING AND IN THE EVENING 60 tablet 2 04/30/20 25 2024 Discontinued Active Problems Problem Noted Date Diagnosed Date Mass of left lower leg 07/30/2025 Closed fracture of tooth 03/08/2025 Tooth hypersensitivity 02/10/2025 Lung nodule 05/14/2024 Stage 3a chronic kidney disease ([facility]/HCC) 2023 Skin lesion 03/26/2024 Flexural atopic dermatitis 01/24/2024 Chronic obstructive pulmonar y disease, unspecified COPD type ([facility]) 12/04/2023 Normocytic anemia 08/07/2023 Overweight 06/11/2023 Assessment [...] pt -diet changes discussed in length -refusing warehouse unloader referral-states saw in the past -wcontinue metformin [...] pt -diet changes discussed in length -refusing warehouse unloader referral-states saw in the past -will start [...] mouth exam,denies eye dryness -advised x hydration -Sj gren labs today ,if neg workup may consider image of parotid glands Assessment & Plan (03/08/2023 6:16 PM EDT): Reports noticing some mild dry w no other findings -advised x hydration and will start DM regimen to eval if tx condition helps w symptoms -maybe from polyuria? -will eval at next apt ,if symptoms persist will eval if symptoms x Sj gren and will do labs if needed Stenosis of right vertebral artery 01/31/2023 Assessment & Plan (06/11/2023 4:00 PM EDT): From previous records pt w hx of right vertebral artery stenosis -CT/CT angio head neck 07/2022 IMPRESSION: 1. No acute territorial infarction or intracranial hemorrhage. No abnormal enhancement. 2. Severe stenosis at the origin of the right vertebral artery with multifocal areas of nybe-sy-wxnrlzov stenosis in the mid cervical right vertebral [...] right vertebral artery with multifocal areas of wzxx-np-jawacjos stenosis in the mid cervical right vertebral [...] right vertebral artery with multifocal areas of edef-zn-zrnzmizo stenosis in the mid cervical right vertebral [...] to vascular -continue ASA and statins -check [facility] 01/31/2023 Assessment & Plan (06/11/2023 4:06 PM [...] from here so given was referred to wire frame lampshade maker x COPD management advised pt as well [...] from here so given was referred to wire frame lampshade maker x COPD management advised pt as well [...] LN not noted on exam ( in [place] 05/2022) Heartburn 03/07/2012 Assessment & Plan [...] Asthma-chronic obstructive p ulmonary disease overlap syndrome (CMS/HCC) 02/14/2012 Assessment & Plan (06/11/2023 3:57 PM [...] getting a call to schedule apt from case therapist -will check BP manually in both arms [...] future. Hypercholesterolemia 02/14/2012 Coronary artery disease involving big lag[place] coronar y artery 05/16/2003 Assessment & Plan (06/11/2023 4:00 PM EDT): EKG 01/2023 with findings consistent w LVH,? Possible branch block Per pt hx of [place] in 2001 w no need x surgical [...] Possible branch block Per pt hx of [place] in 2001 w no need x surgical intervention per pt 01/2023 Lipids wnl, LDL 62 -continue ASA and statins -referred to cards -has apt on 03/27/2023 -alarm signs and symptoms Assessment & Plan (01/31/2023 9:54 PM EDT): EKG today with findings consistent w LVH,? Possible branch block Per pt hx of [place] in 2001 w no need x surgical [...] to surgeon at future visit [facility] emphysema (CMS/HCC) 03/31/2018 01/31/2023 Encounters Date Type Department Care Team Description 08/04/2025 Orders Only GENERIC EXTERNAL DATA DEPARTMENT Provider, Generic External Data 07/29/2025 10:30 AM EDT Office Visit [facility] [address] [place] [address] Lisa Ji MD Pain in both hands (Primary Dx); Pain of left calf; Encounter for immunization; Benign hypertension; Overweight; Type 2 diabetes mellitus without complication, without long-term current use of insulin (HCC); Health care maintenance; Osteoarthrosis of hand, unspecified laterality; Poor memory; Mass of left lower leg 07/29/2025 Travel 07/29/[address] [facility] [address] [place] [address] Lisa Ji MD 07/28/[address] [facility] [address] [place] [address] Lisa Ji MD chart prep 07/26/[address] [facility] [address] [place], [place] [id number] Lisa Ji MD 07/21/2025 [address] [facility] [address] [place], [place] [id number] Lisa Ji MD Pre-visit Planning (SDOH screening was completed on 03/25/2025) 07/06/[address] [facility] [address] [place], [place] [address] Lisa Ji MD 06/29/[address] [facility] [address] [place], [place] [address] Lisa Ji MD 06/26/[address] [facility] [address] [place], [place] [address] Lisa Ji MD 06/08/[address] [facility] [address] [place] [address] Lisa Ji MD Appointment Request 06/01/[address] [facility] [address] [place], [place] [address] Deanna Gonzalez MD Coronary artery disease involving big lagoon coronary artery of big lagoon heart, unspecified whether angina present; Hypercholesterolemi a; Low vitamin D level 05/17/2025 Orders Only GENERIC EXTERNAL DATA DEPARTMENT Provider, Generic External Data from Last 3 Months Immunizations Immunization Administration Dates Next Due Hep B, adult 08/09/2010,03/23/2010,02/08/2010 Influenza High-dose Quadriva lent Preservative Free 08/06/2023 Influenza Injectable Quadriv alant Preservative Free IIV4 MDCK 06/17/2020 Influenza injectable quadriv alent IIV4 with preservative 07/07/2018,09/10/2017,08/22/2016 Influenza injectable quadriv alent preservative free 07/13/2022,07/24/2021,11/02/2019 Influenza, High Dose Seasona l, Preservative Free 07/29/2025,08/14/2024 Influenza, IIV3, injectable 07/26/2014, 1 Influenza, Split (incl. james fied surface antigen) 06/26/2013 Moderna Covid-19 Vaccine 12+ 09/19/2021,01/14/20 21,12/16/2020 Pfizer Covid-19 Vaccine 12+ 07/29/2025,,09/25/2023 Pfizer Covid-19 Vaccine 12+ Bivalent 03/08/2023, 07/16/2022 [...] Sign Reading Time Taken Comments Blood Pressure 126/62 07/29/2025 11:31 AM EDT Pulse 60 07/29/2025 11:31 AM EDT Temperature 36.2 C (97.1 F) 07/29/2025 11:31 AM EDT Respiratory Rate 20 07/29/2025 11:3 1 AM EDT Oxygen Saturation 98% 07/29/2025 11: 31 AM EDT Inhaled Oxygen Concentration - - Weight 81.6 kg (179 lb 12.8 oz) 025 11:31 AM EDT Height 167.6 cm (5' 6 ) 07/29/2025 11:3 1 AM EDT Body Mass Index 29.02 07/29/2025 11:31 AM EDT Plan of Treatment Upcoming Encounters Date Type Department Care Team (Late st Contact Info) Description 10/08/2025 9:30 AM EST Office Visit [facility] [address] [place] [address] Ranjana Choudhary, OD [address] [place] [address] Health Maintenance Due Date Last Done Comments CT Colonography 1955 FIT DNA/Cologuard 1955 Sigmoidoscopy 1955 Colonoscopy 07/21/2021 07/21/2020 Dental X-Ray: Bitewings 11/07/2023 11/06/2022 Colorectal Cancer Screening 01/28/2024 Diabetes: Urine Protein Screening 06/12/2024 06/12/2023, 02/04/2023, 07/24/2021 FIT 01/26/2025 01/27/2024 FOBT 01/26/2025 01/27/2024 Diabetes: Hemoglobin A1C 04/09/2025 025, 05/07/2024, 01/21/2024, Additional history exists Lipid Panel 05/07/2025 05/07/2024, 12/30, 06/12/2023, Additional history exists Dental Oral Exam 07/28/2025 01/25/2025, 11/06/2022 Dental Prophylaxis 08/02/2025 01/29/2025, 11/15/2022 Alcohol/Substance Use Screening 08/14/2025 08/14/2024 Diabetes: Foot Exam 01/08/2026 01/08/2025, 01/08/2025, 01/08/2025, Additional history exists SDOH Screening 03/25/2026 03/25/2025 Depression Screening 03/31/2026 03/31/2025, 03/31/20 25 Tobacco Screening 07/29/2026 07/29/2025 Eye Exam 07/31/2026 07/31/2024, 09/2023, 07/31/2024, Additional history exists Dental X-Ray: Full Mouth 02/12/2028 02/10/2025, 03/2023 DTaP/Tdap/Td Vaccines (3 - Td or Tdap) 01/31/2033 01/31/2023, 05/01/2012 Hepatitis B Vaccines Completed 08/09/2010, 03/23/2010, 02/08/2010 Zoster Vaccines Completed 09/27/2021, 07/01, 09/10/2017 Pneumococcal Vaccine: 50+ Years Completed 01/31/2023, 07/28/2007 Hepatitis C Screening Completed 02/04/2023 RSV Patients and Patients Aged 60 years or older Completed 12/05/2023 COVID-19 Vaccine Completed 07/29/2025, , 09/25/2023, Additional history exists Influenza Vaccine Completed 07/29/2025, , 08/06/2023, Additional history exists HIB Vaccines Aged Out [...] patient's age to complete this topic Meningococcal B Vaccine Aged Out No l onger eligible based on patient's age to complete [...] AUTO DIFFERENTIAL Routine 08/04/2025 11:03 AM EST XR HAND 3+ VIEWS RIGHT Routine 10:07 AM EST Pain in both hands XR HAND 3+ VIEWS LEFT Routine 08/04/2025 10:04 AM EST Pain in both hands COMPREHENSIVE METABOLIC PANEL Routine 05/27/2025 8:09 AM EDT Health care maintenance SARS COV2/INFLUENZA A/B AND RSV RNA QL NAAT Routine 05/17/2025 10:37 AM EDT PANORAMIC RADIOGRAPHIC IMAGE Routine 02/10/2025 11:30 AM EDT PROPHYLAXIS - ADULT Routine 01/29/2025 2 :00 PM EDT PERIODIC ORAL EVALUATION - ESTABLISHED PATIENT Routine 01/25/2025 9:00 AM EDT POCT GLYCATED HEMOGLOBIN, TOTAL Routine 01/08/2025 9:14 AM EDT Type 2 diabetes mellitus without complication, without long-term current use of insulin ([facility]) LIPID PANEL, STANDARD Routine 05/07/2024 8:38 AM [...] Maintenance Results * (ABNORMAL) CBC auto differential (08/04/2025 11:03 AM EST) White Blood Count 10.9(H) 4.8 - 10.8 X10*3/uL [facility] Red Blood Count 4.62 4.60 - 5.80 X10*6/uL [facility] Hemoglobin 13.3(L) 14.0 - 18.0 g/dl [facility] Hematocrit 41.4(L) 42.0 - 52.0 % [facility] Mean Corpuscular Volume 89.6 80.0 - 98.0 fL [facility] Mean Corpuscular Hemoglobin 28.8 27.0 - 33.0 pg [facility] Mean Corpuscular HGB Conc 32.1 31.0 - 36.0 g/dl [facility] Red Cell Distribution Width 14.5 11.0 - 16.0 % [facility] Platelet Count 296 160 - 400 X10*3/uL [facility] Mean Platelet Volume 9.9 9.4 - 12.4 fL [facility] Neutrophils Percent Auto 61.4 45 - 73 % [facility] Imm Gran Pct Auto 0.4 0.0 - 0.4 % [facility] Lymphocytes Percent Auto 26.6 20 - 40 % [facility] Monocytes Percent Auto 8.9 2 - 11 % [facility] Eosinophils Percent Auto 2.0 0 - 4 % [facility] Basophils Percent Auto 0.7 0 - 2 % [facility] NRBC Pct Auto 0.0 0.0 - 0.2 /100WBC [facility] Neutrophils Absolute Auto 6.7 2.0 - 8.3 x10*3/uL [facility] Imm Gran Abs Auto 0.04(H) 0.00 - 0.03 X10*3/uL [facility] Lymphocytes Absolute Auto 2.9 1.2 - 4.9 X10*3/uL [facility] Monocytes Absolute Auto 1.0 0.1 - 1.2 X10*3/uL [facility] Eosinophils Absolute Auto 0.2 0.0 - 0.4 X10*3/uL [facility] Basophils Absolute Auto 0.1 0.0 - 0.2 X10*3/uL [facility] NRBC Abs Auto 0.000 0.0 - 0.012 X10*3/uL [facility] 08/04/2025 11:0 3 AM EST 08/04/2025 11:05 AM EST us Generic External Data Provider LAB BLOOD ORDERAB LES Final Result [facility] [address] [place] [phone] * XR Hand 3+ Views Right (08/04/2025 10:07 AM EST) Anatomical Region Laterality Modality Upper Extremities, Hand Right Radiogra phic Imaging 08/04/2025 10:0 7 AM EST Narrative 08/04/2025 11:11 AM EST [address] [address] XRay Report Signed Patient: John Milligan MR#: [id number] : 1955 Acct:[id number] Age/Sex: 69 / M ADM Date: 08/04/25 Loc: TAMIR Attending Dr: Lisa Vegas MD Ordering Physician: Lisa Ji MD Date of Service: 08/04/25 Procedure(s): XR hand RT min 3V Accession Number(s): [id number] cc: Lisa Ji MD Reason for Exam: bl hand pain EXAMINATION: XR HAND, RIGHT CLINICAL INFORMATION: bl hand pain COMPARISON: None available. TECHNIQUE: PA, lateral, and oblique views of the right hand. FINDINGS: There is palmar angular deformity of the neck of the fifth metacarpal consistent with a healed boxer's fracture. No acute fracture is identified. No degenerative changes are evident. Bone mineral density is within normal limits. XR/XR hand RT min 3V IMPRESSION: Healed boxer's fracture of the right hand. Electronically signed by: Dallas Robbins MD 08/04/2025 11:08 AM EST Dictated By: Dallas Robbins MD Signed By: <Electronically signed by Dallas Robbins MD in OV> 08/04/25 1108 DD/ 1007 TD/TT: 08/04/25 1015 Front Counter Attendant: Procedure Note Donotuseinterpreter, Image - 08/04/2025 [place] [address] XRay Report Signed Patient: John MilliganMR#: [id number] : 1955cct:[id number] Age/Sex: 69 / MADM Date: 08/04/25 Loc: HOSEAN Attending Dr: Lisa Vegas MD Ordering Physician: Lisa Ji MD Date of Service: 08/04/25 Procedure(s): XR hand RT min 3V Accession Number(s): [id number] cc: Lisa Ji MD Reason for Exam: bl hand pain EXAMINATION: XR HAND, RIGHT CLINICAL INFORMATION: bl hand pain COMPARISON: None available. TECHNIQUE: PA, lateral, and oblique views of the right hand. FINDINGS: There is palmar angular deformity of the neck of the fifth metacarpal consistent with a healed boxer's fracture. No acute fracture is identified. No degenerative changes are evident. Bone mineral density is within normal limits. XR/XR hand RT min 3V IMPRESSION: Healed boxer's fracture of the right hand. Electronically signed by: Dallas Robbins MD 08/04/2025 11:08 AM EST RP Dictated By: Dallas Robbins MD Signed By: <Electronically signed by Dallas Robbins MD in OV> 08/04/25 1108 DD/ 1007 TD/TT: 08/04/25 1015 Front Counter Attendant: Lisa Vegas MD IMG XR PROCEDURES Final Result * XR Hand 3+ Views Left (08/04/2025 10:04 AM EST) Anatomical Region Laterality Modality Upper Extremities, Hand Left Radiogra phic Imaging 08/04/2025 10:0 4 AM EST Narrative 08/04/2025 10:33 AM EST [address] [address] XRay Report Signed Patient: John Milligan MR#: [id number] : 1955 Acct:[id number] Age/Sex: 69 / M ADM Date: 08/04/25 Loc: HO.XRAY Attending Dr: Lisa Vegas MD Ordering Physician: Lisa Ji MD Date of Service: 08/04/25 Procedure(s): XR hand LT min 3V Accession Number(s): [id number] cc: Lisa Ji MD Reason for Exam: bl hand pain EXAMINATION: XR HAND, LEFT CLINICAL INFORMATION: bl hand pain COMPARISON: None available. TECHNIQUE: PA, lateral, and oblique views of the left hand. FINDINGS: No visible acute fracture, dislocation or suspicious bony lesion.. No significant joint space narrowing or marginal osteophytes. No osseous erosion. No abnormal soft tissue calcification. XR/XR hand LT min 3V IMPRESSION: No acute osseous findings Electronically signed by: Randy Headley MD 08/04/2025 10:30 AM EST RP Dictated By: Randy Headley MD Signed By: <Electronically signed by Randy Headley MD in OV> 08/04/25 1030 DD/ 1004 TD/TT: 08/04/25 1015 Front Counter Attendant: MARTIR Procedure Note Donotuseinterpreter, Image - 08/04/[address] [address] XRay Report Signed Patient: oJhn MilliganMR#: [id number] : 1955cct:[id number] Age/Sex: 69 / MADM Date: 08/04/25 Loc: HO.XRAY Attending Dr: Lisa Vegas MD Ordering Physician: Lisa Ji MD Date of Service: 08/04/25 Procedure(s): XR hand LT min 3V Accession Number(s): [id number] cc: Lisa Ji MD Reason for Exam: bl hand pain EXAMINATION: XR HAND, LEFT CLINICAL INFORMATION: bl hand pain COMPARISON: None available. TECHNIQUE: PA, lateral, and oblique views of the left hand. FINDINGS: No visible acute fracture, dislocation or suspicious bony lesion.. No significant joint space narrowing or marginal osteophytes. No osseous erosion. No abnormal soft tissue calcification. XR/XR hand LT min 3V IMPRESSION: No acute osseous findings Electronically signed by: Randy Headley MD 08/04/2025 10:30 AM EST Dictated By: Randy Headley MD Signed By: <Electronically signed by Randy Headley MD in OV> 08/04/25 1030 DD/ 1004 TD/TT: 08/04/25 1015 Front Counter Attendant: MARTIR us Lisa Veags MD IMG XR PROCEDURES Final Result * (ABNORMAL) Comprehensive Metabolic Panel (05/27/2025 8:09 AM EDT) Sodium 140 135 - 145 mmol/L [facility] Potassium 4.3 3.3 - 5.1 mmol/L [facility] Chloride 108 96 - 108 mmol/L [facility] Carbon Dioxide 27 22 - 29 mmol/L [facility] Anion Gap 9(L) 12 - 20 [facility] Urea Nitrogen (BUN) 18(H) 9 - 16 mg/dL [facility] Creatinine, Serum 1.15 0.5 - 1.4 mg/dL [facility] Estimated Glomerular Filt Rate >60 [facility] Comment:Chronic Kidney Disea se: Estimated GFR < 60 mL/min/1.67f2Nnfgwk Kidney Disease: Estimated GFR < 15 mL/min/1.73m2 Glucose 90 60 - 115 mg/dL [facility] Calcium 9.2 8.4 - 10.2 mg/dL [facility] Bilirubin, Total 0.4 0.0 - 1.0 mg/dL [facility] Aspartate Amino Transferase 30 5 - 37 U/L [facility] Alanine Aminotransferase 28 0 - 40 U/L [facility] Total Protein 7.4 6.5 - 8.0 g/dL [facility] Albumin Level 4.5 3.5 - 5.0 g/dL [facility] Alkaline Phosphatase 69 39 - 117 U/L [facility] Blood Venous blood specimen / Unknown 05/27/2025 8:09 AM EDT 05/27/2025 11:28 AM EDT us Lisa Vegas MD LAB BLOOD ORDERAB LES Final Result [facility] [address] [place] [phone] * SARS-CoV-2 RNA, Influenza A/B, and RSV RNA, Ql NAAT (05/17/2025 10:37 AM EDT) Influenza A PCR NEGATIVE Negative [facility] Influenza B PCR NEGATIVE Negative [facility] Resp Syncy Virus RNA Qual PCR NEGATIVE Negative [facility] SARS COV2 PCR NEGATIVE Negative [facility] Comment:All test results mus t be correlated with clinical findings.Negative results do not preclude SARS-CoV2, influenza Avirus, influenza B virus and/or RSV infectionand should not be used as the sole basis for treatment orother patient management decisions. Negative results must becombined with clinical observations, patient history, andepidemiological information.This test has not been evaluated for monitoring treatment ofinfection.This test has been authorized by the FDA under an EmergencyUse Authorization (EUA) for use by authorized laboratories.Testing performed on the [employer] GeneXpert utilizingreal-time RT-PCR.All SARS CoV2 and positive influenza A/B results arereported to [facility]. 05/17/2025 10:3 7 AM EDT 05/17/2025 10:39 AM EDT us Generic External Data Provider LAB MICROBIOLOGY - GENERAL ORDERABLES Final Result [facility] [address] [place] [phone] * (ABNORMAL) POCT HGB A1C (01/08/2025 9:14 AM EDT) Hemoglobin A1C 6.2(A) 4.0 - 6.0 % QC Media Lot # [id number] Lot# Expiration Date Blood 01/08/2025 9:14 AM EDT Lisa Vegas MD POINT OF CARE DANIEL T ENTER/EDIT ORDERABLES Final Result * (ABNORMAL) Lipid Panel, Standard (05/07/2024 8:38 AM EDT) Triglycerides 93 <150 mg/dL [facility] Comment:Desirable Triglyceri de: less than 150 mg/dLBorderline High Triglyceride 150-199 mg/dLHigh Triglyceride: 200-499 mg/dLVery High Triglyceride: greater than or equal to 5OO mg/dL Cholesterol 116 <200 mg/dL [facility] Comment:Desirable Cholestero l: less than 200 mg/dLBorderline High Cholesterol: 200-239 mg/dLHigh Cholesterol: greater than 239 mg/dL LDL Cholesterol Calculated 62 <100 mg/dL [facility] Comment:Desirable LDL: less than 100 mg/dLNear Optimal/Above Optimal LDL: 110- 129 mg/dLBorderline High LDL: 130-159 mg/dLHigh LDL: 160-189 mg/dLVery High LDL: greater than or equal to 190 mg/dL HDL Cholesterol 36(L) >40 mg/dL [facility] Comment:Desirable HDL: great er than 40 mg/dL Note: This HDL assay may give artificially low results in patients with liver disease. Blood Venous blood specimen / Unknown 05/07/2024 8:38 AM EDT 05/07/2024 11:02 AM EDT Lisa Vegas MD LAB BLOOD ORDERAB LES Final Result [facility] [address] [place] [phone] * Fecal Globin by Immunochemistry (01/27/2024 12:00 AM EDT) Fecal Globin By Immunochemistry SEE NOTE [facility] Comment: FECAL GLOBIN BY IMMUNOCHEMISTRY Micro Number: [id number] Test Status: Final Specimen Source: Insure (tm) fobt test card Specimen Quality: Adequate Fecal Globin: Not Detected 01/27/2024 01/31/2024 4:3 4 AM EDT Narrative [facility] - 01/31/2024 4:05 PM EDT FASTING: UNKNOWN us Lisa Vegas MD LAB BODY FLUIDS A ND STOOLS ORDERABLES Final Result [facility] [address] [place] [address], [place] [address] [facility] [address] [place] [phone] * Albumin, Random Urine W/Creatinine (06/12/2023 8:53 AM EDT) Creatinine, Urine 263.15 mg/dL [facility] Microalbumin Urine 8.0 mg/L [facility] Microalbum Creatinine Ratio Ur 3.0 <30 ug/mg cr [facility] Comment:Albumin/Creatinine R atio Reference Ranges: Normal: < 30 ug/mg creatinine Microalbuminuria: 30 - 300 ug/mg creatinineClinical Albuminuria: > 300 ug/mg creatinine 06/12/2023 8:53 AM EDT 06/12/2023 11:41 AM EDT Lisa Vegas MD LAB URINE ORDERAB LES Final Result Performing Organization Address City[facility]/ZIP Co de Phone Number [facility] [address] [place] [address] [phone] * Hepatitis C Antibody with Reflex to HCV, RNA, Quantitative, Real-Time PCR (02/04/2023 8:39 AM EDT) Hepatitis C Antibody NON-REACT SOL NON-REACT SOL [employer] Index 0.10 <1.00 [employer] Comment: HCV antibody was non-reactive. There is no laboratory evidence of HCV infection. In most cases, no further action is required. However, if recent HCV exposure is suspected, a test for HCV RNA (test code 35283) is suggested. For additional information please refer to http://education.[employer]omb[employer]/faq/LAW68d5 (This link is being provided for informational/ educational purposes only.) Blood Venous blood specimen / Unknown 02/04/2023 8:39 AM EDT 02/04/2023 8:40 AM EDT Narrative [facility] - 02/06/2023 2:44 PM EDT FASTING:YES FASTING: YES Lisa Vegas MD LAB BLOOD ORDERAB LES Final Result Performing Organization Address City[facility]/ZIP Co de Phone Number [facility] [address], [place] [address] [facility] [place] [employer] [address] [place] [address] * Hm Colonoscopy (07/21/2020) Colonoscopy Normal Normal Narrative Thalia Gilmore - 07/21/2020 Recommended 1 year follow up us Historical Provider HEALTH MAINTENANCE Final Result from Last 3 Months or Most Recently Relevant to Health Maintenance Insurance [facility] STANDARD UHC MEDICARE ADVANTAGE DENTAL-[facility] MEDICAID STAND [facility] Care Teams Hand Stitcher Relationship Specialty Start Date End Date Lisa Ji MD [address] [place] [phone] PCP - General Internal Medicine 01/10/23
--- OUTSIDE RECORDS SUMMARY | 2025-08-04 11:15 | XMS_ITS | Encounter Summary ---
Author Organization [employer] Address [address] [facility] 7t [place] [address] Care Team Providers Care Coding And Reimbursement Specialist Name Role Phone Shyanne Antunez MD Primary Care Provider Gautam Montesinos Primary Care Provider Nate Carmona Primary Care Provider Lisa Escobar MD Primary Care Pro vider Encounter Details Date Type Department Care Team (Latest Contact Info) Description 12/07/2019 Abstract [facility] CONVERSIONS Dental, Provider, DDS Social [...] Description 10/08/2025 9:30 AM EST Office Visit [facility] OPTOMETRY [address] [place] [address] Ranjana Choudhary, OD [address] [place] [address] documented as of this encounter Visit Diagnoses Not on filedocumented in this encounter Care Teams Coding And Reimbursement Specialist Relationship Specialty Start Date End Date Shyanne Antunez MD PCP - General Family Medicine 08/26/19 10/09/22 Gautam Reynaga FNP PCP - General Family Medicine 10/10/22 11/28/22 Nate Lees AGNP PCP - General Family Medicine 11/29/22 01/09/23 Lisa Ji MD [address] [place] [id number] PCP - General Internal Medicine 01/10/23 documented as of this encounter
--- OUTSIDE RECORDS SUMMARY | 2025-08-04 11:15 | XMS_ITS | Encounter Summary ---
Author Organization [employer] Address [address] [facility] 7t [place] [address] Care Team Providers Care Experimental Welder Name Role Phone Shyanne Antunez MD Primary Care Provider Gautam Montesinos Primary Care Provider Nate Carmona Primary Care Provider Lisa Escobar MD Primary Care Pro vider Encounter Details Date Type Department Care Team (Latest Contact Info) Description 12/03/2018 Abstract [facility] CONVERSIONS Dental, Provider, DDS Social History Tobacco [...] Description 10/08/2025 9:30 AM EST Office Visit [facility] OPTOMETRY [address] [place] [address] Ranjana Choudhary, OD [address] [place] [address] documented as of this encounter Visit Diagnoses Not on filedocumented in this encounter Care Teams Experimental Welder Relationship Specialty Start Date End Date Shyanne Antunez MD PCP - General Family Medicine 08/26/19 10/09/22 Gautam Reynaga FNP PCP - General Family Medicine 10/10/22 11/28/22 Nate Lees AGNP PCP - General Family Medicine 11/29/22 01/09/23 Lisa Ji MD [address] [place] [phone] PCP - General Internal Medicine 01/10/23 documented as of this encounter
--- OUTSIDE RECORDS SUMMARY | 2025-08-04 11:15 | XMS_ITS | Encounter Summary ---
Author Organization [employer] Address [address] [facility] 7t [place] [address] Care Team Providers Care Wind Plant Manager Name Role Phone Lisa Ji MD Primary Care Pro vider Reason for Visit * Reason Comments Med Refill Encounter Details Date Type Department Care Team ([facility] st Contact Info) Description 02/10/2023 Refill [facility] MEDICINE [address] [place], [place] [phone] [facility] [address] [place] [address] Social History Tobacco Use Types Packs/Day Years [...] Description 10/08/2025 9:30 AM EST Office Visit [facility] OPTOMETRY [address] [place] [address] Ranjana Choudhary, OD [address] [place] [address] documented as of this encounter Visit Diagnoses Not on filedocumented in this encounter Care Teams Wind Plant Manager Relationship Specialty Start Date End Date Lisa Ji MD [address] [place] [id number] PCP - General Internal Medicine 01/10/23 documented as of this encounter
== END 2025-08-04 09:54 | disposition home or self-care (01) ==
LOC: HO.XRAY 09:53
PROVIDERS: PCP Student in an Organized Health Care Education/Training Program; Visit Provider Student in an Organized Health Care Education/Training Program
DX: Z13.89 Encounter for screening for other disorder (principal)
CPT/HCPCS: 73130

== ENCOUNTER → 2025-08-04 09:58 | Outpatient (BNV) | payer MEDICARE, SELFPAY | PROVIDERS: PCP Student in an Organized Health Care Education/Training Program; Visit Provider Radiology Diagnostic Ultrasound | DX: I83.812 Varicose veins of left lower extremity with pain (principal); M79.641 Pain in right hand; M79.642 Pain in left hand; Z87.81 Personal history of (healed) traumatic fracture | CPT/HCPCS: 73130; 93971 ==

== ENCOUNTER 2025-08-04 10:15 | Emergency (ER) | payer MEDICARE, SELFPAY ==
--- NOTE | ~2025-08-04 | US_ITS ---
EXAMINATION: US TRIPLEX LOWER EXTREMITY, LEFT CLINICAL INFORMATION: Pain, left lower extremity. COMPARISON: None available. TECHNIQUE: Color-flow triplex imaging with spectral analysis and compression Doppler were performed on the left lower extremity. FINDINGS: Respiratory variation, normal compression and augmented flow are demonstrated throughout the interrogated left common femoral vein, superficial femoral vein, profunda femoral vein, popliteal vein and midcalf peroneal and posterior tibial venous segments . There is no Cannon's cyst. Varices in the mid calf. US/US venous duplex LE IMPRESSION: No acute deep venous thrombosis interrogated veins, left lower extremity. Negative for DVT. Varices, mid calf. Electronically signed by: Juan Miranda MD 08/04/2025 11:37 AM IGOR
[2025-08-04 10:39] VITALS: BP 180/90; PULSE 60; RESP 18; TEMP 36.6; O2SAT 98; BMI 28.8
--- NOTE | 2025-08-04 10:46 | ED.GENADULT ---
HPI - General Adult General Chief complaint: Extremity Injury, Lower Stated complaint: Lump on Left Leg Time Seen by Provider: 08/04/25 10:44 History of Present Illness ED Provider: Jez Aguirre HPI narrative: 69 yold past medical history diabetes, hypertension, COPD, IBS presents to ED for left calf pain for 6 months. Patient states having left calf lump that is slightly tender. Patient denies any chest pain, shortness of breath, weakness, dizziness, recent long travel, recent surgery. Related Data Home Medications ?Medication ?Instructions ?Recorded ?Confirmed atorvastatin 40 mg tablet 40 mg PO BEDTIME 07/29/20 02/15/25 cholecalciferol (vitamin D3) 25 25 mcg PO DAILY 07/29/20 02/15/25 mcg (1,000 unit) tablet (Vitamin D3) omega-3 300 mg-dha 120 mg-epa 180 1 cap PO BID 08/14/22 02/15/25 mg-fish oil 1,000 mg capsule albuterol sulfate 90 mcg/actuation 2 puff inhalation QID PRN 03/27/23 02/15/25 aerosol inhaler (Ventolin HFA) Shortness Of Breath Or Wheezing fluticasone fur. 200 mcg-umeclid 1 ea inhalation DAILY 03/27/23 02/15/25 62.5 mcg-vilant 25 mcg inhalat.powder (Trelegy Ellipta) metformin 1,000 mg tablet 1,000 mg PO BID 03/27/23 02/15/25 omeprazole 20 mg capsule,delayed 20 mg PO DAILY 08/20/23 02/15/25 release aspirin 81 mg tablet,delayed 81 mg PO DAILY 11/15/23 02/15/25 release chlorthalidone 25 mg tablet 25 mg PO BEDTIME 11/15/23 02/15/25 amlodipine 10 mg tablet 10 mg PO DAILY 03/11/24 02/15/25 cyanocobalamin (vitamin B-12) 500 500 mcg PO QAM 03/11/24 02/15/25 mcg tablet ascorbic acid (vitamin C) 250 mg 250 mg PO QAM 04/01/25 tablet carbamide peroxide 6.5 % ear drops 4 drp otic (ear) left DAILY 04/01/25 (Ear Wax Removal Drops) docusate sodium 100 mg capsule 100 mg PO BID PRN constipation 04/01/25 ferrous gluconate 324 mg (38 mg 324 mg PO QAM 04/01/25 iron) tablet metoprolol tartrate 25 mg tablet 25 mg PO 04/01/25 pilocarpine HCl 5 mg tablet mg PO 04/01/25 Previous Rx's ?Medication ?Instructions ?Recorded acetaminophen 500 mg tablet 1,000 mg (2 x 500 mg) PO Q6H PRN 04/22/24 (Tylenol Extra Strength) fever or pain #20 tabs ibuprofen 400 mg tablet 400 mg PO TID PRN fever or pain 04/22/24 #30 tabs lidocaine 5 % topical patch 1 patch topical DAILY #15 ea 10/18/24 Allergies Allergy/AdvReac Type Severity Reaction Status Date / Time lisinopril Allergy Intermediate Swelling Verified 08/04/25 10:41 Review of Systems Review of Systems: Left calf pain lump Yes all other systems are reviewed and are negative [facility] Past Medical History Medical History History of lower GI bleeding History of [place] (myocardial infarction) Tubular adenoma of colon Personal history of nicotine dependence Normocytic anemia Poor memory Overweight Dry mouth Osteoarthrosis Skin lesion Diabetes Hearing loss Nodule of chest wall Murmur CAD (coronary artery disease) COPD (chronic obstructive pulmonary disease) Atherosclerotic cardiovascular disease Sessile colonic polyp Back pain Arthritis Peptic ulcer GERD (gastroesophageal reflux disease) Asthma Elevated cholesterol HTN (hypertension) Surgical History Hx of cardiac catheterization History of colonoscopy History of excision of mass History of umbilical hernia repair S/P excision of lipoma Family History Family History Mother Diabetes Heart disease Arthritis Father Heart disease Social History Social History Household Members: Spouse Housing: Apartment Are you a primary manager long term care to a significant other at home: No Do you presently have visiting nurse or other home services: No Alcohol intake: current Alcohol intake frequency: does not drink Comment: COUNTS CORRECT Patient Tobacco Use Status: Former Tobacco user Years Smoked: 48 Second Hand Smoke Exposure: No Advance Directives: No Advance Directives Information Provided: Yes Do you have a plan to hurt others: No Plan service: No Current occupational status: disabled Physical Exam ED Vital Signs: Vital Signs - 24 hr 08/04/25 10:39 08/04/25 13:15 Temperature 98 F 98 F Pulse Rate 60 60 Respiratory Rate 18 18 Blood Pressure 180/90 H 180/90 H Pulse Oximetry 98 98 Oxygen Delivery Method Room Air Room Air BMI result Body Mass Index 28.8 Const General: cooperative, healthy appearing, comfortable, no acute distress, well developed, alert, awake and Physically active Orientation/consciousness: patient oriented x3 [facility] Head: Yes normal to inspection, Yes No palpable skull fracture present, Yes normocephalic, Yes atraumatic and No abrasion Eyes General: appearance normal, both eyes and all related structures Neck Neck: Yes normal visual inspection, Yes full ROM, Yes no lymphadenopathy, Yes no meningeal signs, Yes trachea midline, Yes supple, No anterior neck swelling and No tender Chest Chest palpation & inspection: normal inspection of the chest and normal palpation of entire chest wall Resp Effort & Inspection: normal respiratory effort and able to speak in complete sentences Cardio Jugular venous distension: no JVD Heart sounds: S1 normal heart sound present and S2 normal heart sound present GI Inspection: Yes normal to inspection Palpation (GI): not firm, nontender, no guarding and not rigid General: Yes no CVA tenderness Back/Spine/Pelvis Back: no CVA tenderness and No back tenderness Skin General skin exam: no rashes or lesions noted, elasticity normal and turgor normal Neuro General: patient oriented x3, gait normal, tone normal, moves all extremities, Normal light touch and pain sensation, no meningeal signs, no focal motor deficits, CN's II-XI intact bilaterally and normal sensation to monofilament Extrem General: Yes normal to inspection, Yes full ROM and Yes capillary refill normal Ankle/foot/toe images:  1. positive for tenderness on palpation. negative for swelling, pitting edema, ecchymosis, deformities, or erythema. rest of extremity is normal. motor, neuro, and vascular exam is intact. Psych Appearance: grossly normal, well kempt and not disheveled Course Course Course Narrative: RME: 69-year-old male presents to ED for left calf pain for 6 months. Patient states lump on left posterior calf after trauma 6 months ago. Patient denies any swelling, redness bluish black discoloration or deformity. Ultrasound labs ordered Medical Decision Making Medical Decision Making MDM Narrative: 69 yold male presents to the ED for left calf pain/lump for six month. labs ultrasound ordered. Patient vital signs are stable. Ultrasound shows varciose veins, negative DVT. not suspecting cellulitits, osteomyelitits, necrotizing fascitits, compartment syndrome, arterial occlusions, or septic joint. patient explained worrisome signs and informed to return to the ED Differential Diagnosis Differential Diagnoses: The differential diagnosis associated with the presentation includes (abscess, cellulitits, DVT) Admission/Observation Consideration of admission/observation: Escalation of care including admission/observation considered Lab Data 08/04/25 11:03 08/04/25 11:03 Labs: Lab Results 08/04/25 08/04/25 Range/Units 11:03 11:51 WBC 10.9 H (4.8-10.8) X10*3/uL RBC 4.62 (4.60-5.80) X10*6/uL Hgb 13.3 L (14.0-18.0) g/dl Hct 41.4 L (42.0-52.0) % MCV 89.6 (80.0-98.0) fL MCH 28.8 (27.0-33.0) pg MCHC 32.1 (31.0-36.0) g/dl RDW 14.5 (11.0-16.0) % Plt Count 296 (160-400) X10*3/uL MPV 9.9 (9.4-12.4) fL Immature Gran % (Auto) 0.4 (0.0-0.4) % Neut % (Auto) 61.4 (45-73) % Lymph % (Auto) 26.6 (20-40) % Crane % (Auto) 8.9 (2-11) % Eos % (Auto) 2.0 (0-4) % Baso % (Auto) 0.7 (0-2) % Lymph # (Auto) 2.9 (1.2-4.9) X10*3/uL Crane # (Auto) 1.0 (0.1-1.2) X10*3/uL Eos # (Auto) 0.2 (0.0-0.4) X10*3/uL Baso # (Auto) 0.1 (0.0-0.2) X10*3/uL Abs Immat Gran (auto) 0.04 H (0.00-0.03) X10*3/uL Absolute Neuts (auto) 6.7 (2.0-8.3) x10*3/uL Absolute Nucleated RBC 0.000 (0.0-0.012) X10*3/uL Nucleated RBC % (auto) 0.0 (0.0-0.2) /100WBC PT 10.6 L (11.2-13.5) SEC INR 0.9 (0.9-1.1) APTT 30.1 (26.7-34.1) SEC Sodium 139 (135-145) mmol/L Potassium 4.2 (3.3-5.1) mmol/L Chloride 109 H (96-108) mmol/L Carbon Dioxide 19 L (22-29) mmol/L Anion Gap 15 (12-20) BUN 14 (9-16) mg/dL Creatinine 1.02 (0.5-1.4) mg/dL Estim Creat Clear Calc 70.2 Estimated GFR > 60 Random Glucose 69 (60-115) mg/dL Calcium 9.2 (8.4-10.2) mg/dL Total Bilirubin 0.3 (0.0-1.0) mg/dL AST 28 (5-37) U/L ALT 25 (0-40) U/L Alkaline Phosphatase 90 (39-117) U/L Total Protein 8.0 (6.5-8.0) g/dL Albumin 4.5 (3.5-5.0) g/dL Independent Interpretation I performed an independent interpretation of an: Plain X-Ray and Ultrasound Independent Historian Clinical information obtained from an independent historian. History obtained from or confirmed by: Other (patient) Discharge Plan Discharge Clinical Impression: Varicose vein of leg Patient Disposition: Home, Self-Care Instructions: Venous Insufficiency (DC) Additional Instructions: Labs came back reassuring. Ultrasound shows varicose veins. You will need follow up with vascular surgeon. You came out [id number] compression stockings. Return to the ED for increased swelling, calf pain, chest pain, shortness of breath, redness, or any other concerning symptoms. Ordering Physician: Jez Aguirre Date of Service: 08/04/25 Procedure(s): US venous duplex LE LT Accession Number(s): [id number] cc: Jez Aguirre; Lisa Ji MD~ Reason for Exam: Left cafl lump. DVT, abscess, varicose veins EXAMINATION: US TRIPLEX LOWER EXTREMITY, LEFT CLINICAL INFORMATION: Pain, left lower extremity. COMPARISON: None available. TECHNIQUE: Color-flow triplex imaging with spectral analysis and compression Doppler were performed on the left lower extremity. FINDINGS: Respiratory variation, normal compression and augmented flow are demonstrated throughout the interrogated left common femoral vein, superficial femoral vein, profunda femoral vein, popliteal vein and midcalf peroneal and posterior tibial venous segments . There is no Cannon's cyst. Varices in the mid calf. US/US venous duplex LE LT IMPRESSION: No acute deep venous thrombosis interrogated veins, left lower extremity. Negative for DVT. Varices, mid calf. Electronically signed by: Juan Miranda MD 08/04/2025 11:37 AM [facility] Prescriptions: No Action atorvastatin 40 mg Tablet 40 mg PO BEDTIME cholecalciferol (vitamin D3) [Vitamin D3] 25 mcg (1,000 unit) Tablet 25 mcg PO DAILY omega 7-scv-szv-fish oil 300 mg (120 mg- 180mg)-1,000 mg capsule 1 cap PO BID aspirin 81 mg Tablet,Delayed Release (Dr/Ec) 81 mg PO DAILY chlorthalidone 25 mg tablet 25 mg PO BEDTIME lidocaine 5 % adhesive patch,medicated 1 patch topical DAILY Qty: 15 0RF Rx Instructions: leave on most painful area for up to 12 hrs acetaminophen [Tylenol Extra Strength] 500 mg tablet 1,000 mg PO Q6H PRN (Reason: fever or pain) Qty: 20 0RF ibuprofen 400 mg tablet 400 mg PO TID PRN (Reason: fever or pain) Qty: 30 0RF Trelegy Ellipta 200-62.5-25 mcg blister with device 1 ea inhalation DAILY metformin 1,000 mg tablet 1,000 mg PO BID albuterol sulfate [Ventolin HFA] 90 mcg/actuation HFA aerosol inhaler 2 puff inhalation QID PRN (Reason: Shortness Of Breath Or Wheezing) amlodipine 10 mg tablet 10 mg PO DAILY cyanocobalamin (vitamin B-12) 500 mcg tablet 500 mcg PO QAM omeprazole 20 mg capsule,delayed release(DR/EC) 20 mg PO DAILY pilocarpine HCl 5 mg tablet PO ascorbic acid (vitamin C) 250 mg tablet 250 mg PO QAM Ear Wax Removal Drops 6.5 % drops 4 drp otic (ear) left DAILY docusate sodium 100 mg capsule 100 mg PO BID PRN (Reason: constipation) metoprolol tartrate 25 mg tablet 25 mg PO ferrous gluconate 324 mg (38 mg iron) tablet 324 mg PO QAM Referrals: Josep Tong MD [Physician, Vascular Surgery] - 2 days Referral Note: Varicose veins Clinical Impression: Varicose vein of leg Lisa Ji MD [Primary Care Provider, Internal Medicine] - 2 days Referral Note: Varicose veins Clinical Impression: Varicose vein of leg Interventions: ED Discharge Assessment Last Done: 08/04/25 13:15 Discharge Date/Time: 08/04/25 13:15 Print Language: Frisian
[2025-08-04 11:06] LABS: MANUAL DIFF FLAG NO
[2025-08-04 11:11] LABS: Hematocrit 41.4 % (42.0-52.0); Hemoglobin 13.3 g/dl (14.0-18.0); Imm Gran Abs Auto 0.04 X10*3/uL (0.00-0.03); Imm Gran Pct Auto 0.4 % (0.0-0.4); Lymphocytes Absolute Auto 2.9 X10*3/uL (1.2-4.9); Mean Corpuscular HGB Conc 32.1 g/dl (31.0-36.0); Mean Corpuscular Hemoglobin 28.8 pg (27.0-33.0); Mean Corpuscular Volume 89.6 fL (80.0-98.0); NRBC Abs Auto 0.000 X10*3/uL (0.0-0.012); NRBC Pct Auto 0.0 /100WBC (0.0-0.2); Platelet Count 296 X10*3/uL (160-400); Red Blood Count 4.62 X10*6/uL (4.60-5.80); White Blood Count 10.9 X10*3/uL (4.8-10.8)
[2025-08-04 11:51] LABS: Alanine Aminotransferase 25 U/L (0-40); Albumin Level 4.5 g/dL (3.5-5.0); Alkaline Phosphatase 90 U/L (39-117); Anion Gap 15 (12-20); Aspartate Amino Transferase 28 U/L (5-37); Blood Urea Nitrogen 14 mg/dL (9-16); Calcium 9.2 mg/dL (8.4-10.2); Carbon Dioxide 19 mmol/L (22-29); Chloride 109 mmol/L (96-108); Creatinine Clr Calc Pharmacy 70.2; Estimated Glomerular Filt Rate > 60; Potassium 4.2 mmol/L (3.3-5.1); Sodium 139 mmol/L (135-145); Total Protein 8.0 g/dL (6.5-8.0)
[2025-08-04 12:06] LABS: INTERNATIONAL NORM RATIO 0.9 (0.9-1.1); Prothrombin Time 10.6 SEC (11.2-13.5)
[2025-08-04 12:08] LABS: Partial Thromboplastin Time 30.1 SEC (26.7-34.1)
[2025-08-04 13:15] VITALS: BP 180/90; PULSE 60; RESP 18; TEMP 36.6; O2SAT 98
== END 2025-08-04 13:15 | disposition home or self-care (01) ==
PROVIDERS: Physician Assistant; Emergency Provider Emergency Medicine; PCP Student in an Organized Health Care Education/Training Program
DX: I83.92 Asymptomatic varicose veins of left lower extremity (principal); M79.605 Pain in left leg; E11.9 Type 2 diabetes mellitus without complications; I10 Essential (primary) hypertension; J44.9 Chronic obstructive pulmonary disease, unspecified; M79.641 Pain in right hand; M79.642 Pain in left hand; Z87.891 Personal history of nicotine dependence
CPT/HCPCS: 36415; 73130; 80053; 85025; 85610; 85730; 93971; 99282; 99284

== ENCOUNTER 2025-09-15 12:24 | Outpatient (AMB) | payer MEDICARE, SELFPAY ==
--- NOTE | 2025-09-15 13:04 | MHC.OFFVIS ---
Intake Visit Reasons: Follow up [facility] Allergies lisinopril Allergy (Intermediate, Verified 08/04/25 10:41) Swelling Medication List - Last Reconciled 09/15/25 by Cezar Jc MD acetaminophen (Tylenol Extra Strength) 1,000 mg (2 x 500 mg) PO Q6H PRN albuterol sulfate 90 mcg/actuation (Ventolin HFA) 2 puffs inhalation QID PRN amlodipine 10 mg PO DAILY ascorbic acid (vitamin C) 250 mg PO QAM aspirin 81 mg PO DAILY atorvastatin 40 mg PO BEDTIME carbamide peroxide 6.5% (Ear Wax Removal Drops) 4 drps otic (ear) left DAILY chlorthalidone 25 mg PO BEDTIME cholecalciferol (vitamin D3) (Vitamin D3) 25 mcg PO DAILY cyanocobalamin (vitamin B-12) 500 mcg PO QAM docusate sodium 100 mg PO BID PRN ferrous gluconate 324 mg PO QAM ouvyfajhelh-dkvebxvhb-ihotqrmz 200-62.5-25 mcg (Trelegy Ellipta) 1 ea inhalation DAILY ibuprofen 400 mg PO TID PRN lidocaine 5% 1 patch topical DAILY metformin 1,000 mg PO BID metoprolol tartrate 25 mg PO omega 8-llm-mns-fish oil 300 mg (120 mg- 180mg)-1,000 mg 1 cap PO BID omeprazole 20 mg PO DAILY pilocarpine HCl mg PO HPI Comments Details: No change in memory. Generally functions normally. 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 There are some?concerns about his short-term memory. The patient downplays it and says yes he has some memory problems but that it is not an issue. He is functioning fairly well and still driving. No bladder control issues. [facility] Medical History History of lower GI bleeding History of ID (myocardial infarction) Tubular adenoma of colon Personal history of nicotine dependence Normocytic anemia Poor memory Overweight Dry mouth Osteoarthrosis Skin lesion Diabetes Hearing loss Nodule of chest wall Murmur CAD (coronary artery disease) COPD (chronic obstructive pulmonary disease) Atherosclerotic cardiovascular disease Sessile colonic polyp Back pain Arthritis Peptic ulcer GERD (gastroesophageal reflux disease) Asthma Elevated cholesterol HTN (hypertension) Surgical History Hx of cardiac catheterization History of colonoscopy History of excision of mass History of umbilical hernia repair S/P excision of lipoma Family History Mother Diabetes Heart disease Arthritis Father Heart disease Social History Household Members: Spouse Housing: Apartment Are you a primary health care marketing specialist to a significant other at home: No Do you presently have visiting nurse or other home services: No Alcohol intake: current Alcohol intake frequency: does not drink Comment: COUNTS CORRECT Patient Tobacco Use Status: Former Tobacco user Years Smoked: 50 Second Hand Smoke Exposure: No service: No Current occupational status: disabled Review of Systems Const Details: Sleep:? Difficulty getting to sleepdenies.? Difficulty maintaining sleepdenies?.? Urge to move legsdenies.? Teeth grindingdenies.? Shouting or Kicking during sleepdenies.? Abnormal behavior during sleepdenies.? Excessive sleepdenies.? Snoringdenies.? Daytime sleepinessdenies. ???General/Constitutional:? Change in appetitedenies.? Chillsdenies.? Fatiguedenies.? Feverdenies.? Weight gaindenies.? Weight lossdenies. ???Ophthalmologic:? Blurred visiondenies.? Diminished visual acuitydenies. ???ENT:? Stuffinessdenies.? Decreased hearingdenies.? Dry mouthdenies.? Ear paindenies.? Nosebleeddenies.? Ringing in the earsdenies.? Sinus paindenies.? Sore throatdenies.? Swollen glandsdenies. ???Endocrine:? Cold intolerancedenies.? Excessive thirstdenies.? Frequent urinationdenies.? Heat intolerancedenies. ???Respiratory:? Shortness of breathdenies.? Chest paindenies.? Coughdenies. ???Breast:? Breast lumpdenies.? Nipple dischargedenies. ???Cardiovascular:? Chest pain at restdenies.? Chest pain with exertiondenies.? Claudicationdenies.? Dizzinessdenies.? Fluid accumulation in the legsdenies.? Irregular heartbeatdenies.? Palpitationsdenies. ???Gastrointestinal:? Abdominal paindenies.? Constipationdenies.? Diarrheadenies.? Difficulty swallowingdenies.? Heartburndenies.? Nauseadenies.? Rectal bleedingdenies. ???Hematology:? Easy bruisingdenies.? Prolonged bleedingdenies. ???Genitourinary:? Frequent urinationdenies.? Urgencydenies.? Incontinencedenies.? Erectile Dysfunctiondenies. ???Musculoskeletal:? Neck paindenies.? Back paindenies.? Muscle achesdenies.? Painful jointsdenies.? Sciaticadenies.? Weaknessdenies. ???Podiatric:? Difficulty walkingdenies.? Foot numbnessdenies. ???Neurologic:? Difficulty swallowingdenies.? Balance difficultydenies.? Coordinationnormal.? Difficulty speakingdenies.? Dizzinessdenies.? Faintingdenies.? Gait abnormalitydenies.? Headachedenies.? Loss of strengthdenies.? Loss of use of extremitydenies.? Low back paindenies.? Memory lossdenies.? Seizuresdenies.? Ticsdenies.? Tingling/Numbnessdenies.? Transient loss of visiondenies.? Tremordenies. ???Psychiatric:? Anxietydenies.? Auditory/visual hallucinationsdenies.? Delusionsdenies.? Depressed mooddenies.? Stressorsdenies.? Substance abusedenies.? Suicidal thoughtsdenies. Physical Exam Neuro Other: Neurological: Abnormal neurological findings:??MMS 29/30.?Mental Status:??alert and oriented X 3,?Normal attention, orientation, memory and affect.?Cranial Nerves:??Pupils are equal, round and reactive to light. Fundoscopy shows normal disc bilaterally. External occular muscles are intact. Visual regan are full, no ptosis. Face is symmetrical, no facial weakness or droop. Facial sensations are normal. Tongue protrudes in midline. Palate elevates symmetrically. Shoulder shrugging is normal..?Motor Examination:??Normal muscle tone, bulk and strength,?No atrophy or fasciculations,?No drift of the extended upper extremities,?Deep tendon reflexes are 2+?,?Plantars are flexor?.?Motor Strength:?Proximal Muscles (out of 5):5Distal Muscles (out of 5):5Neck Flexors (out of 5):5Neck Extensors (out of 5):5Deltoid (out of 5):5Biceps (out of 5):5Triceps (out of 5):5Serratus Anterior (out of 5):5Wrist Extensors (out of 5):5APB (out of 5):5Finger Spread (out of 5):5Ileopsoas (out of 5):5Quadriceps (out of 5):5Hamstrings (out of 5):5Tibialis Anterior (out of 5):5Peronei (out of 5):5EDB (out of 5):5Gastrocnemius (out of 5):5Straight Leg Raising:??90 degrees.?Sensory Exam:??Normal light touch, temperature, pinprick, vibration and joint-position sensations?,?Rhomberg sign is absent.?Coordination:??no ataxia,?no titubation,?qhvvbh-qz-ffmi, pfyi-judt-mcsd test and rapid alternating movements were normal.?Gait Exam:??Within normal limits.?Cerebellar Signs:??Opntlt-xd-bbcm and ldsz-aa-sybf is normal,?no dysdiadochokinesia?.?Extrapyramidal System:??No tremor, rigidity with normal facial expressions,?No bradykinesia, no bradyphrenia. Normal arm swing and posture. No propulsion or retropulsion.?Speech:??Normal,?no dysphasia or dysarthria..? Mini Mental Status Exam: Level of Consciousness:??Alert.?Orientation:??Knows correct year, month, date, day and season,?Knows correct city, county and state. Knows correct location and floor.?Registration:??Able to register 3 objects.?Attention:??Serial 7's performed to 93.?Recall:??Able to recall 3 out of 3 objects.?Language:??Normal spontaneous speech, fluency, repetition,naming, comprehension, reading and writing.?Total Score:??29/30.? Assessment & Plan Assessment & Plan (1) MCI (mild cognitive impairment) with memory loss: Comment: 11/20/24 EEG- WNL 11/24/24 CT brain with 8mm hygromas bilaterally Labs requested Code(s): G31.84 - Mild cognitive impairment of uncertain or unknown etiology Category: Medical Plan Stable and doing well. No declinein memory. functioning fine an ddriving ok. Continue current meds. F/u with PCP. Will be seen here PRN only Coding Level of Care Code Est Pt Level 4 (27561) Diagnoses MCI (mild cognitive impairment) with memory loss G31.84
--- OUTSIDE RECORDS SUMMARY | 2025-09-15 16:21 | XMS_ITS | Encounter Summary ---
Author Organization [employer] Address [address] [facility] 7t [place] [address] Care Team Providers Care Humane Agent Name Role Phone Lisa Ji MD Primary Care Pro vider Reason for Visit * Reason Comments Med Refill Encounter Details Date Type Department Care Team ([facility] st Contact Info) Description 09/10/2023 Refill [facility] MEDICINE [address] [place], [place] [phone] Lisa Ji MD [address] [place] [address] Social History Tobacco Use Types Packs/Day Years [...] Care Team (Late st Contact Info) Description 09/17/2025 11:00 AM EST Clinical Support [facility] MEDIC[facility] [address] [place] [phone] 10/08/2025 9:30 AM EST Office Visit [facility] OPTOMETRY [address] [place] [address] TarRanjana underwood, OD [address] [place] [address] 11/11/2025 10:15 AM EST Office Visit [facility] MEDICINE [address] [place] [phone] Lisa Ji MD [address] [place] [phone] documented as of this encounter Visit Diagnoses Not on filedocumented in this encounter Care Teams Humane Agent Relationship Specialty Start Date End Date Lisa Ji MD [address] [place] [phone] PCP - General Internal Medicine 01/10/23 documented as of this encounter
--- OUTSIDE RECORDS SUMMARY | 2025-09-15 16:21 | XMS_ITS | Clinical Summary ---
Author Organization [employer] Address [address] [place] [address] Care Team Providers Care Nurse Recruiter Name Role Phone Lisa Ji MD Primary Care Pro vider Allergies Active Allergy Reactions Criticality Noted Date Comments Lisinopril Swelling,Anaphylaxis High 06/13/2020 Medications montelukast (Singulair) 10 MG tablet Take by mouth. Activ e acetaminophen (Tylenol 8 Hour) 650 MG ER tablet Take 1 tablet (650 mg) by mouth every 8 (eight) hours if needed for mild pain. Do not crush, chew, or split. 20 tablet 02/11/20 25 Active Ventolin HFA 108 (90 Base) MCG/ACT inhaler INHALE 2 PUFFS BY MOUTH EVERY 6 HOURS NEEDED FOR WHEEZING 18 g 2 02/25/20 25 Active potassium chloride CR (Klor-Con M20) 20 MEQ ER tablet Take 1 tablet by mouth 2 times daily. 03/17/20 25 Active amLODIPine (Norvasc) 10 MG tablet TAKE 1 TABLET BY MOUTH EVERY MORNING 90 tablet 1 5 8:38 AM EST 05/03/20 25 Active Ascorbic Acid (vitamin C) 250 MG tablet TAKE 1 TABLET BY MOUTH EVERY MORNING 90 tablet 1 5 8:38 AM EST 05/03/20 25 Active ferrous gluconate (Fergon) 324 (38 Fe) MG tablet TAKE 1 TABLET BY MOUTH EVERY MORNING WITH FOOD 90 tablet 1 5 8:38 AM EST 05/03/20 25 Active Aspirin Low Dose 81 MG EC tabletIndicati ons:Coronary artery disease involving port lions coronary artery of port lions heart, unspecified whether angina present TAKE 1 TABLET BY MOUTH AT BEDTIME 90 tablet 1 5 2:48 PM EST 06/02/20 25 Active atorvastatin (Lipitor) 40 MG tabletIndicati ons:Hyperchole sterolemia TAKE 1 TABLET BY MOUTH AT BEDTIME 90 tablet 1 5 2:48 PM EST 06/02/20 25 Active metFORMIN (Glucophage) 1000 MG tablet TAKE 1 TABLET BY MOUTH TWICE DAILY IN THE MORNING AND AT BEDTIME WITH MEALS 180 tablet 1 5 2:48 PM EST 06/02/20 25 Active cholecalcifero l (Vitamin D-3) 25 MCG tabletIndicati ons:Low vitamin D level TAKE 1 TABLET BY MOUTH EVERY MORNING 90 tablet 1 5 2:48 PM EST 06/02/20 25 Active cyanocobalamin (Vitamin B-12) 500 MCG [...] AND IN THE EVENING 60 tablet 2 5 8:38 AM EST 07/29/20 25 Active omega-3 (Fish Oil) 1000 MG capsule TAKE 1 CAPSULE BY MOUTH TWICE DAILY IN THE MORNING AND AT BEDTIME 180 capsule 1 5 2:48 PM EST 08/25/20 25 Active pilocarpine (Salagen) 5 MG tablet TAKE 1 TABLET BY MOUTH EVERY MORNING 30 tablet 1 5 2:48 PM EST 08/30/20 25 Active Trelegy Ellipta 200-62.5-25 MCG/ACT aerosol powder INHALE 1 PUFF BY MOUTH EVERY DAY AT THE SAME TIME RINSE MOUTH AFTER USING 60 each 5 5 10:59 AM EST 08/30/20 25 Active trimethoprim-p olymyxin b (Polytrim) ophthalmic solution Administer 1 drop into the right eye 4 times daily for 10 days. 10 mL 5 11:25 AM EST 09/03/20 25 025 Active dextran 70-hypromellos e (artificial tears) 0.1-0.3 % ophthalmic solutionIndica tions:EKC (epidemic keratoconjunct ivitis) 1 drop in both eyes every hour while awake for the first 2 days, then 4 times a day for 1 week. 30 mL 2 09/08/20 25 Active Fluticasone-Um eclidin-Vilant (Trelegy Ellipta) 200-62.5-25 MCG/ACT aerosol powder INHALE 1 PUFF BY MOUTH EVERY DAY AT THE SAME TIME RINSE MOUTH AFTER USING 1 each 5 5 8:38 AM EST 02/05/20 25 025 Discontinued omega-3 (Fish Oil) 1000 MG capsule TAKE 1 CAPSULE BY MOUTH TWICE DAILY IN THE MORNING AND AT BEDTIME 180 capsule 1 03/03/20 25 025 Discontinued pilocarpine (Salagen) 5 MG tablet TAKE 1 TABLET BY MOUTH EVERY MORNING 30 tablet 1 5 8:38 AM EST 06/28/20 25 025 Discontinued ketorolac (Acular) 0.4 % ophthalmic solutionIndica tions:EKC (epidemic keratoconjunct ivitis) Administer 1 drop into both eyes 3 times daily for 4 days. 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/2025 Lung nodule 05/14/2024 Stage 3a chronic kidney disease ([facility]) 2023 Skin lesion 03/26/2024 Flexural atopic dermatitis 01/24/2024 Chronic obstructive pulmonar y disease, unspecified COPD type ([facility]) 12/04/2023 Normocytic anemia 08/07/2023 Overweight 06/11/2023 Assessment [...] pt -diet changes discussed in length -refusing statistician applied referral-states saw in the past -wcontinue metformin [...] pt -diet changes discussed in length -refusing statistician applied referral-states saw in the past -will start [...] right vertebral artery with multifocal areas of ywny-nz-hiulrjxe stenosis in the mid cervical right vertebral [...] right vertebral artery with multifocal areas of ppiu-qu-zhkgluow stenosis in the mid cervical right vertebral [...] right vertebral artery with multifocal areas of xhwo-bq-wlhkkbrm stenosis in the mid cervical right vertebral [...] to vascular -continue ASA and statins -check [facility] 01/31/2023 Assessment & Plan (06/11/2023 4:06 [...] from here so given was referred to [facility] COPD management advised pt as well [...] from here so given was referred to [facility] COPD management advised pt as well [...] getting a call to schedule apt from [employer] -will check BP manually in both arms [...] future. Hypercholesterolemia 02/14/2012 Coronary artery disease involving port lions coronar y artery 05/16/2003 Assessment & Plan (06/11/2023 4:00 PM EDT): EKG 01/2023 with findings consistent w LVH,? Possible branch block Per pt hx of HI in 2001 w no need x surgical [...] Possible branch block Per pt hx of HI in 2001 w no need x surgical intervention per pt 01/2023 Lipids wnl, LDL 62 -continue ASA and statins -referred to cards -has apt on 03/27/2023 -alarm signs and symptoms Assessment & Plan (01/31/2023 9:54 PM EDT): EKG today with findings consistent w LVH,? Possible branch block Per pt hx of HI in 2001 w no need x surgical [...] Encounters Date Type Department Care Team Description 09/08/2025 11:30 AM EST Office Visit [facility] [address] [place] [address] Chandrakant, Annika, OD EKC (epidemic keratoconjunctivitis) (Primary Dx) 09/08/2025 10:00 AM EST Office Visit [facility] [address] [place] [phone] Chayo Quiros NP Acute right eye pain (Primary Dx); Elevated blood pressure reading in office with diagnosis of hypertension 09/08/2025 Travel 09/03/2025 9:40 AM EST Office Visit [facility] [address] [place] [address] Tj De Jesus MD Acute bacterial conjunctivitis of right eye (Primary Dx); Benign hypertension 09/03/2025 Travel 08/27/2025 Refill [facility] [address] [place] [address] Lisa Ji MD 08/25/2025 Refill [facility] [address] [place] [phone] Betty Armenta MD 08/04/2025 Results Follow-Up [facility] [address] [place] [phone] Lisa Campbell MD XR Hand 3+ Views Right 08/04/2025 Orders Only GENERIC EXTERNAL DATA DEPARTMENT Provider, Generic External Data 07/29/2025 10:30 AM EDT Office Visit [facility] [address] [place] [phone] Lisa Ji MD Pain in both hands (Primary Dx); Pain of left calf; Encounter for immunization; Benign hypertension; Overweight; Type 2 diabetes mellitus without complication, without long-term current use of insulin (HCC); Health care maintenance; Osteoarthrosis of hand, unspecified laterality; Poor memory; Mass of left lower leg 07/29/2025 Travel 07/29/2025 Refill [facility] [address] [place] [address] Lisa Ji MD 07/28/2025 Telephone [facility] [address] [place] [address] Lisa Ji MD chart prep 07/26/2025 Refill [facility] [address] [place] [address] Lisa Ji MD 07/21/2025 Patient Outreach [facility] [address] [place] [address] Lisa Ji MD Pre-visit Planning (SDOH screening was completed on 03/25/2025) 07/06/2025 Refill [facility] [address] [place] [address] Lisa Ji MD 06/29/2025 Refill [facility] [address] [place] [address] Lisa Ji MD 06/26/2025 Refill [facility] [address] [place] [address] Lisa Ji MD from Last 3 Months Immunizations Immunization Administration [...] Sign Reading Time Taken Comments Blood Pressure 189/76 09/08/2025 9:54 AM EST i took it one time with the machine, twice manual, and the numbers are the same Pulse 80 09/08/2025 9:54 AM EST Temperature 36.2 C (97.1 F) 09/08/2025 9:54 AM EST Respiratory Rate 18 09/08/2025 9:54 AM EST Oxygen Saturation 99% 09/08/2025 9:5 4 AM EST Inhaled Oxygen Concentration - - Weight 83.5 kg (184 lb) 09/08/2025 9:54 AM EST Height 167.6 cm (5' 6 ) 09/08/2025 9:54 AM EST Body Mass Index 29.7 09/08/2025 9:54 AM EST Plan of Treatment Upcoming Encounters Date Type Department Care Team (Late st Contact Info) Description 09/17/2025 11:00 AM EST Clinical Support [facility] [address] [place] [phone] 10/08/2025 9:30 AM EST Office Visit [facility] [address] [place] [address] Ranjana Choudhary OD [address] [place] [address] 11/11/2025 10:15 AM EST Office Visit [facility] [address] [place] [phone] Lisa Ji MD [address] [place] [address] Health Maintenance Due Date Last Done Comments CT Colonography 1955 FIT DNA/Cologuard 1955 Sigmoidoscopy 1957 Alcohol/Substance Use Screening 1969 Dental X-Ray: Bitewings 11/07/2023 11/06/2022 Diabetes: Urine Protein Screening 06/12/2024 06/12/2023, 06/12/2023, 02/04/2023, Additional history exists FIT 01/26/2025 01/27/2024, 01/27/2024 FOBT 01/26/2025 01/27/2024 Diabetes: Hemoglobin A1C 04/09/2025 025, 05/07/2024, 01/21/2024, Additional history exists Lipid Panel 05/07/2025 05/07/2024, 12/30, 06/12/2023, Additional history exists Dental Oral Exam 07/28/2025 01/25/2025, 11/06/2022 Dental Prophylaxis 08/02/2025 01/29/2025, 11/15/2022 Colonoscopy 09/09/2025 09/09/2024, 01/29, 07/21/2020 Colorectal Cancer Screening 09/09/2025 Diabetes: Foot Exam 01/08/2026 01/08/2025, 01/08/2025, 01/08/2025, Additional history exists COVID-19 Vaccine (2024- season) 2026 07/29/2025, 08/14/2024, 09/25/2023, Additional history exists SDOH Screening 03/25/2026 03/25/2025 Depression Screening 03/31/2026 03/31/2025, 03/31/20 25 Eye Exam 07/31/2026 07/31/2024, 09/2023, 07/31/2024, Additional history exists Tobacco Screening 09/08/2026 09/08/2025 Dental X-Ray: Full Mouth 02/12/2028 02/10/2025, 03/2023 DTaP/Tdap/Td Vaccines (3 - Td or Tdap) 01/31/2033 01/31/2023, 05/01/2012 Hepatitis B Vaccines Completed 08/09/2010, 03/23/2010, 02/08/2010 Zoster Vaccines Completed 09/27/2021, 07/01, 09/10/2017 Pneumococcal Vaccine: 50+ Years Completed 01/31/2023, 07/28/2007 Hepatitis C Screening Completed 02/04/2023 RSV Patients and Patients Aged 60 years or older Completed 12/05/2023 Influenza Vaccine Completed 07/29/2025, , 08/06/2023, Additional [...] on patient's age to complete this topic Goals Goal Patient Goal Type Associated Problems Recent Progress Patient-Stated? Author Help patients manage their type 2 diabetes Care Plan Help patients manage their type 2 diabetes No Lisa Ji MD Weekly blood pressure task Care Plan Weekly blood pressure task No Lisa Ji MD Help patients manage their type 2 diabetes Care Plan Help patients manage their type 2 diabetes No Lisa Ji MD Patient has chronic kidney disease Care Plan Patient has chronic kidney disease No Lisa Ji MD Weekly blood pressure task Care Plan Weekly blood pressure task No Gonzalo Villanueva MD Weekly blood pressure task Care Plan Weekly blood pressure task No Gonzalo Villanueva MD Patient has chronic kidney disease Care Plan Patient has chronic kidney disease No Gonzalo Villanueva MD Patient has chronic kidney disease Care Plan Patient has chronic kidney disease Gonzalo Somers MD Weekly blood pressure task Care Plan Weekly blood pressure task No Lynn Ribera MA Weekly blood pressure task Care Plan Weekly blood pressure task No Lynn Ribera MA Patient has chronic kidney disease Care Plan Patient has chronic kidney disease No Lynn Ribera [place] Patient has chronic kidney disease Care Plan Patient has chronic kidney disease No Lynn Ribera MA Weekly blood pressure task Care Plan Weekly blood pressure task No Beti Anglin Weekly blood pressure task Care Plan Weekly blood pressure task No Beti Anglin Patient has chronic kidney disease Care Plan Patient has chronic kidney disease No Beti Anglin Patient has chronic kidney disease Care Plan Patient has chronic kidney disease No Beti Anglin Procedures Procedure Name Priority Date/Time Associated Diagnosis Comments APTT Routine 08/04/2025 11:51 AM EST PROTHROMBIN TIME-INR Routine 08/04/2025 11:51 AM EST LOWER EXTREMITY VENOUS DUPLEX LEFT Routine 08/04/2025 11:12 AM EST COMPREHENSIVE METABOLIC PANEL Routine 08/04/2025 11:03 AM EST CBC WITH AUTO DIFFERENTIAL Routine 08/04/2025 11:03 AM EST XR HAND 3+ VIEWS RIGHT Routine 10:07 AM EST Pain in both hands XR HAND 3+ VIEWS LEFT Routine 08/04/2025 10:04 AM EST Pain in both hands PANORAMIC RADIOGRAPHIC IMAGE Routine 02/10/2025 11:30 AM EDT PROPHYLAXIS - ADULT Routine 01/29/2025 2 :00 PM EDT PERIODIC ORAL EVALUATION - ESTABLISHED PATIENT Routine 01/25/2025 9:00 AM EDT POCT GLYCATED HEMOGLOBIN, TOTAL Routine 01/08/2025 9:14 AM EDT Type 2 diabetes mellitus without complication, without long-term current use of insulin ([facility]) LIPID PANEL, STANDARD Routine 05/07/2024 8:38 AM [...] Recently Relevant to Health Maintenance Results * Partial Thromboplastin Time, Activated (APTT) (08/04/2025 11:51 AM EST) Partial Thromboplastin Time 30.1 26.7 - 34.1 SEC [facility] 08/04/2025 11:5 1 AM EST 08/04/2025 11:58 AM EST Narrative [facility] - 08/04/2025 12:08 PM EST SPECIMEN CLOTTED us Generic External Data Provider LAB BLOOD ORDERAB LES Final Result Performing Organization Address City/State/[facility] Co de Phone Number [facility] [address] [place] [phone] * (ABNORMAL) Prothrombin Time-INR (08/04/2025 11:51 AM EST) Prothrombin Time 10.6(L) 11.2 - 13.5 SEC [facility] INTERNATIONAL NORM RATIO 0.9 0.9 - 1.1 [facility] Comment:INTERNATIONAL NORMAL IZED RATIO (INR) REFERENCE RANGES Reference RangeFor patients not on anticoagulant therapy: 0.9 - 1.1INR ranges for oral anticoagulanttherapy:For prevention and treatment of venous thrombosis and pulmonary embolism: 2.0 - 3.0For acute myocardial infarction with aspirin therapy: 2.0 - 3.0For acute myocardial infarction without aspirin therapy: 3.0 - 4.0For patients with mechanical prosthetic heart valves: 2.5 - 3.5 08/04/2025 11:5 1 AM EST 08/04/2025 11:58 AM EST Narrative [facility] - 08/04/2025 12:08 PM EST SPECIMEN CLOTTED us Generic External Data Provider LAB BLOOD ORDERAB LES Final Result Performing Organization Address City/State/[facility] de Phone Number [facility] [address] [place] [phone] * Lower Extremity Venous Duplex (08/04/2025 11:12 AM EST) 08/04/2025 11:1 2 AM EST Narrative [facility] - 08/04/2025 11:40 AM EST [address] [address] Ultrasound Report Signed Patient: John Milligan MR#: [id number] : 1955 Acct:[id number] Age/Sex: 69 / M ADM Date: 08/04/25 Loc: HO.ED Attending Dr: Ordering Physician: Jez Aguirre Date of Service: 08/04/25 Procedure(s): US venous duplex LE LT Accession Number(s): [id number] cc: Jez Aguirre; Lisa Ji MD Reason for Exam: Left cafl lump. DVT, abscess, varicose veins EXAMINATION: US TRIPLEX LOWER EXTREMITY, LEFT CLINICAL INFORMATION: Pain, left lower extremity. COMPARISON: None available. TECHNIQUE: Color-flow triplex imaging with spectral analysis and compression Doppler were performed on the left lower extremity. FINDINGS: Respiratory variation, normal compression and augmented flow are demonstrated throughout the interrogated left common femoral vein, superficial femoral vein, profunda femoral vein, popliteal vein and midcalf peroneal and posterior tibial venous segments . There is no Cannon's cyst. Varices in the mid calf. US/US venous duplex LE LT IMPRESSION: No acute deep venous thrombosis interrogated veins, left lower extremity. Negative for DVT. Varices, mid calf. Electronically signed by: Juan Miranda MD 08/04/2025 11:37 AM EST RP Dictated By: Juan Kenny MD Signed By: <Electronically signed by uJan Olivera MD in OV> 08/04/25 1137 DD/ 1112 TD/TT: 08/04/25 1121 Senior Systems Programmer: Procedure Note Donotuseinterpreter, Image - 08/04/[address] [address] Ultrasound Report Signed Patient: John MilliganMR#: [id number] : 1955cct:[id number] Age/Sex: 69 / MADM Date: 08/04/25 Loc: .ED Attending Dr: Ordering Physician: Jez Aguirre Date of Service: 08/04/25 Procedure(s): US venous duplex LE LT Accession Number(s): [id number] cc: Jez Aguirre; Lisa Ji MD Reason for Exam: Left cafl lump. DVT, abscess, varicose veins EXAMINATION: US TRIPLEX LOWER EXTREMITY, LEFT CLINICAL INFORMATION: Pain, left lower extremity. COMPARISON: None available. TECHNIQUE: Color-flow triplex imaging with spectral analysis and compression Doppler were performed on the left lower extremity. FINDINGS: Respiratory variation, normal compression and augmented flow are demonstrated throughout the interrogated left common femoral vein, superficial femoral vein, profunda femoral vein, popliteal vein and midcalf peroneal and posterior tibial venous segments . There is no Cannon's cyst. Varices in the mid calf. US/US venous duplex LE LT IMPRESSION: No acute deep venous thrombosis interrogated veins, left lower extremity. Negative for DVT. Varices, mid calf. Electronically signed by: Juan Miranda MD 08/04/2025 11:37 AM EST RP Dictated By: Juan Kenny MD Signed By: <Electronically signed by Juan Olivera MDin OV> 08/04/25 1137 DD/ 1112 TD/TT: 08/04/25 1121 Senior Systems Programmer: us [facility] External Provider CV VASC ULAR PROCEDURES Final Result [facility] [address] [place] [address] * (ABNORMAL) CBC auto differential (08/04/2025 11:03 AM EST) White Blood Count 10.9(H) 4.8 - 10.8 X10*3/uL [facility] Red Blood Count 4.62 4.60 - 5.80 X10*6/uL [facility] Hemoglobin 13.3(L) 14.0 - 18.0 g/dl [facility] Hematocrit 41.4(L) 42.0 - 52.0 % [facility] Mean Corpuscular Volume 89.6 80.0 - 98.0 fL [facility] Mean Corpuscular Hemoglobin 28.8 27.0 - 33.0 pg [facility] Mean Corpuscular HGB Conc 32.1 31.0 - 36.0 g/dl [facility] Red Cell Distribution Width 14.5 11.0 - 16.0 % [facility] Platelet Count 296 160 - 400 X10*3/uL [facility] Mean Platelet Volume 9.9 9.4 - 12.4 fL [facility] Neutrophils Percent Auto 61.4 45 - 73 % [facility] Imm Gran Pct Auto 0.4 0.0 - 0.4 % [facility] Lymphocytes Percent Auto 26.6 20 - 40 % [facility] Monocytes Percent Auto 8.9 2 - 11 % [facility] Eosinophils Percent Auto 2.0 0 - 4 % [facility] Basophils Percent Auto 0.7 0 - 2 % [facility] NRBC Pct Auto 0.0 0.0 - 0.2 /100WBC [facility] Neutrophils Absolute Auto 6.7 2.0 - 8.3 x10*3/uL [facility] Imm Gran Abs Auto 0.04(H) 0.00 - 0.03 X10*3/uL [facility] Lymphocytes Absolute Auto 2.9 1.2 - 4.9 X10*3/uL [facility] Monocytes Absolute Auto 1.0 0.1 - 1.2 X10*3/uL [facility] Eosinophils Absolute Auto 0.2 0.0 - 0.4 X10*3/uL [facility] Basophils Absolute Auto 0.1 0.0 - 0.2 X10*3/uL [facility] NRBC Abs Auto 0.000 0.0 - 0.012 X10*3/uL [facility] 08/04/2025 11:0 3 AM EST 08/04/2025 11:05 AM EST us Generic External Data Provider LAB BLOOD ORDERAB LES Final Result [facility] [address] [place] [phone] * (ABNORMAL) Comprehensive Metabolic Panel (08/04/2025 11:03 AM EST) Sodium 139 135 - 145 mmol/L [facility] Potassium 4.2 3.3 - 5.1 mmol/L [facility] Comment:Slight Hemolysis.Int erpret result with caution. Chloride 109(H) 96 - 108 mmol/L [facility] Carbon Dioxide 19(L) 22 - 29 mmol/L [facility] Anion Gap 15 12 - 20 [facility] Urea Nitrogen (BUN) 14 9 - 16 mg/dL [facility] Creatinine, Serum 1.02 0.5 - 1.4 mg/dL [facility] Creatinine Clr Calc Pharmacy 70.2 [facility] Comment:eGFR (calculated fro m the MDRD study equation) and eCrCl(calculated from the Cockcroft-Gault equation) are based ondifferent parameters and may not yield comparable results.If eCrCl result is absurd, please check patient'sheight/weight. Estimated Glomerular Filt Rate >60 [facility] Comment:Chronic Kidney Disea se: Estimated GFR < 60 mL/min/[id number] Kidney Disease: Estimated GFR < 15 mL/min/1.73m2 Glucose 69 60 - 115 mg/dL [facility] Calcium 9.2 8.4 - 10.2 mg/dL [facility] Bilirubin, Total 0.3 0.0 - 1.0 mg/dL [facility] Aspartate Amino Transferase 28 5 - 37 U/L [facility] Comment:Slight Hemolysis.Int erpret result with caution. Alanine Aminotransferase 25 0 - 40 U/L [facility] Total Protein 8.0 6.5 - 8.0 g/dL [facility] Albumin Level 4.5 3.5 - 5.0 g/dL [facility] Alkaline Phosphatase 90 39 - 117 U/L [facility] 08/04/2025 11:0 3 AM EST 08/04/2025 11:05 AM EST us Generic External Data Provider LAB BLOOD ORDERAB LES Final Result Performing Organization Address City/State/[facility] Co de Phone Number [facility] [address] [place] [phone] * XR Hand 3+ Views Right (08/04/2025 10:07 AM EST) Anatomical Region Laterality Modality Upper Extremities, Hand Right Radiogra phic Imaging 08/04/2025 10:0 7 AM EST Narrative 08/04/2025 11:11 AM EST [address] [address] XRay Report Signed Patient: John Milligan MR#: [id number] : 1955 Acct:[id number] Age/Sex: 69 / M ADM Date: 08/04/25 Loc: TAMIR Attending Dr: Lisa Vegas MD Ordering Physician: Lisa Ji MD Date of Service: 08/04/25 Procedure(s): XR hand RT min 3V Accession Number(s): [id number] cc: Lisa Ji MD Reason for Exam: [...] 08/04/25 1108 DD/ 1007 TD/TT: 08/04/25 1015 Senior Systems Programmer: Procedure Note Donotuseinterpreter, Image - 08/04/2025 [place] [address] XRay Report Signed Patient: John MilliganMR#: [id number] : 1955cct:[id number] Age/Sex: 69 / MADM Date: 08/04/25 Loc: HO.CHARIS Attending Dr: Lisa Vegas MD Ordering Physician: Lisa Ji MD Date of Service: 08/04/25 Procedure(s): XR hand RT min 3V Accession Number(s): [id number] cc: Lisa Ji MD Reason for Exam: [...] 08/04/25 1108 DD/ 1007 TD/TT: 08/04/25 1015 Senior Systems Programmer: Lisa Vegas MD IMG XR PROCEDURES Final Result * XR Hand 3+ Views Left (08/04/2025 10:04 AM EST) Anatomical Region Laterality Modality Upper Extremities, Hand Left Radiogra phic Imaging 08/04/2025 10:0 4 AM EST Narrative 08/04/2025 10:33 AM EST [address] [address] XRay Report Signed Patient: John Milligan MR#: [id number] : 1955 Acct:[id number] Age/Sex: 69 / M ADM Date: 08/04/25 Loc: HOESAN Attending Dr: Lisa Vegas MD Ordering Physician: Lisa Ji MD Date of Service: 08/04/25 Procedure(s): XR hand LT min 3V Accession Number(s): [id number] cc: Lisa Ji MD Reason for Exam: [...] 08/04/25 1030 DD/ 1004 TD/TT: 08/04/25 1015 Senior Systems Programmer: MARTIR Procedure Note Donotuseinterpreter, Image - 08/04/[address] [address] XRay Report Signed Patient: John MilliganMR#: [id number] : 7Acct:[id number] Age/Sex: 69 / MADM Date: 08/04/25 Loc: HO.XRAY Attending Dr: Lisa [place] MD Ordering Physician: Lisa Ji MD Date of Service: 08/04/25 Procedure(s): XR hand LT min 3V Accession Number(s): [id number] cc: Lisa Ji MD Reason for Exam: [...] 08/04/25 1030 DD/ 1004 TD/TT: 08/04/25 1015 Senior Systems Programmer: MARTIR us Lisa [place] MD IMG XR PROCEDURES Final Result * (ABNORMAL) POCT HGB A1C (01/08/2025 9:14 AM EDT) Hemoglobin A1C 6.2(A) 4.0 - 6.0 % QC Media Lot # [id number] Lot# Expiration Date Blood 01/08/2025 9:14 AM EDT us Lisa [place] MD POINT OF CARE DANIEL T ENTER/EDIT ORDERABLES Final Result * (ABNORMAL) Lipid Panel, Standard (05/07/2024 8:38 AM EDT) Triglycerides 93 <150 mg/dL [facility] Comment:Desirable Triglyceri de: less than 150 mg/dLBorderline High Triglyceride 150-199 mg/dLHigh Triglyceride: 200-499 mg/dLVery High Triglyceride: greater than or equal to 5OO mg/dL Cholesterol 116 <200 mg/dL [facility] Comment:Desirable Cholestero l: less than 200 mg/dLBorderline High Cholesterol: 200-239 mg/dLHigh Cholesterol: greater than 239 mg/dL LDL Cholesterol Calculated 62 <100 mg/dL [facility] Comment:Desirable LDL: less than 100 mg/dLNear Optimal/Above Optimal LDL: 110- 129 mg/dLBorderline High LDL: 130-159 mg/dLHigh LDL: 160-189 mg/dLVery High LDL: greater than or equal to 190 mg/dL HDL Cholesterol 36(L) >40 mg/dL [facility] Comment:Desirable HDL: great er than 40 mg/dL Note: This HDL assay may give artificially low results in patients with liver disease. Blood Venous blood specimen / Unknown 05/07/2024 8:38 AM EDT 05/07/2024 11:02 AM EDT us Lisa [place] MD LAB BLOOD ORDERAB LES Final Result [facility] [address] [place] [phone] * Fecal Globin by Immunochemistry (01/27/2024 12:00 AM EDT) Fecal Globin By Immunochemistry SEE NOTE [facility] Comment: FECAL GLOBIN BY IMMUNOCHEMISTRY Micro Number: [id number] Test Status: Final Specimen Source: Insure (tm) fobt test card Specimen Quality: Adequate Fecal Globin: Not Detected 01/27/2024 01/31/2024 4:3 4 AM EDT Narrative [facility] - 01/31/2024 4:05 PM EDT FASTING: UNKNOWN Lisa [place] MD LAB BODY FLUIDS A ND STOOLS ORDERABLES Final Result [facility] [address], [place] [address] [employer] [place] [facility] [address] [place] [address] * Albumin, Random Urine W/Creatinine (06/12/2023 8:53 AM EDT) Creatinine, Urine 263.15 mg/dL [facility] Microalbumin Urine 8.0 mg/L [facility] Microalbum Creatinine Ratio Ur 3.0 <30 ug/mg cr [facility] Comment:Albumin/Creatinine R atio Reference Ranges: Normal: < 30 ug/mg creatinine Microalbuminuria: 30 - 300 ug/mg creatinineClinical Albuminuria: > 300 ug/mg creatinine 06/12/2023 8:53 AM EDT 06/12/2023 11:41 AM EDT Lisa [place] MD LAB URINE ORDERAB LES Final Result Performing Organization Address City/[facility]/ZIP Co de Phone Number [facility] [address] [place] [phone] * Hepatitis C Antibody with Reflex to HCV, RNA, Quantitative, Real-Time PCR (02/04/2023 8:39 AM EDT) Hepatitis C Antibody NON-REACT SOL NON-REACT SOL [facility] [facility] Index 0.10 <1.00 [facility] [facility] Comment: HCV antibody was non-reactive. There is no laboratory evidence of HCV infection. In most cases, no further action is required. However, if recent HCV exposure is suspected, a test for HCV RNA (test code 41592) is suggested. For additional information please refer to http://education.[employer]/faq/RHT32o9 (This link is being provided for informational/ educational purposes only.) Blood Venous blood specimen / Unknown 02/04/2023 8:39 AM EDT 02/04/2023 8:40 AM EDT Narrative [facility] - 02/06/2023 2:44 PM EDT FASTING:YES FASTING: YES us Lisa [place] MD LAB BLOOD ORDERAB LES Final Result [facility] [address], [place] [address] [facility] [address] [place] [address] * Hm Colonoscopy (07/21/2020) Colonoscopy Normal Normal Narrative Thalia [place] - 07/21/2020 Recommended 1 year follow up Historical Provider HEALTH MAINTENANCE Final Result from Last 3 Months or Most Recently Relevant to Health Maintenance Additional Health Concerns Active Problems Noted Date Diagnosed Date Help patients manage their type 2 diabetes 08/27 Weekly blood pressure task 08/27/2025 Help patients manage their type 2 diabetes 08/27 Patient has chronic kidney disease 08/27/2025 Weekly blood pressure task 09/03/2025 Weekly blood pressure task 09/03/2025 Patient has chronic kidney disease 09/03/2025 Patient has chronic kidney disease 09/03/2025 Weekly blood pressure task 09/08/2025 Weekly blood pressure task 09/08/2025 Patient has chronic kidney disease 09/08/2025 Patient has chronic kidney disease 09/08/2025 Weekly blood pressure task 09/08/2025 Weekly blood pressure task 09/08/2025 Patient has chronic kidney disease 09/08/2025 Patient has chronic kidney disease 09/08/2025 [facility] MEDIC[facility] STAND ADULT D[facility]AL - [facility] Care Teams Nurse Recruiter Relationship Specialty Start Date End Date Lisa Ji MD [address] [place] [phone] PCP - General Internal Medicine 01/10/23
--- OUTSIDE RECORDS SUMMARY | 2025-09-15 16:21 | XMS_ITS | Encounter Summary ---
Author Organization [employer] Address [address] 7t [place] [address] Care Team Providers Care Cellulose Insulation Helper Name Role Phone Lisa Ji MD Primary Care Pro vider Encounter Details Date Type Department Care Team (Late Contact Info) Description 01/10/2023 Orders Only [facility] MED & PEDS [address] [place], [place] [phone] Rocío Berman LPN Social History Tobacco Use [...] Department Care Team (Late Contact Info) Description 09/17/2025 11:00 AM EST Clinical Support [facility] MEDICINE [address] [place], [place] [phone] 10/08/2025 9:30 AM EST Office Visit [facility] OPTOMETRY [address] [place] [address] Ranjana Choudhary, OD [address] [place] [address] 11/11/2025 10:15 AM EST Office Visit [facility] MEDICINE [address] [place], [place] [phone] Lisa Ji MD 230 [place], [place] [phone] documented as of this encounter Visit Diagnoses Not on filedocumented in this encounter Care Teams Cellulose Insulation Helper Relationship Specialty Start Date End Date Lisa Ji MD [address] [place], [place] [phone] PCP - General Internal Medicine 01/10/23 documented as of this encounter
--- OUTSIDE RECORDS SUMMARY | 2025-09-15 16:21 | XMS_ITS | Encounter Summary ---
Author Organization [employer] Address [address] [facility] 7t [place] [address] Care Team Providers Care Rn Cvicu Name Role Phone Lisa Ji MD Primary Care Pro vider Reason for Visit * Reason Onset Date Comments pt1 01/22/2025 Encounter Details Date Type Department Care Team ([facility] st Contact Info) Description 01/22/2025 Telephone [facility] MEDICINE [address] [place], [place] [phone] Lisa Ji MD 230 [place] [address] pt1 Social History Tobacco Use Types Packs/Day [...] Yes Provider name or facility name: [address] [place] [address]. [facility] Escort needed: Y/N: Yes Do you have a wheelchair: Y/N: No If yes- Manual or electric: N/A Visits: (3x monthly) Patient calling requesting PT1 Home Address verified: Y/N: Yes Provider name or facility name: [facility] Hematology/Oncology -[address] [place] [address] 1st [facility] [address] Escort needed: Y/N: Yes Do you have a wheelchair: Y/N: No If yes- Manual or electric: N/A Visits: (1x monthly) Patient calling requesting PT1 Home Address verified: Y/N: Yes Provider name or facility name: [address] [place] [address] 3rd Floor, [place] [address] - [facility] Escort needed: Y/N: Yes Do you have a wheelchair: Y/N: No If yes- Manual or electric: N/A Visits: (2x monthly) Patient calling requesting PT1 Home Address verified: Y/N: Yes Provider name or facility name: [address] [place] [address] [facility] Escort needed: Y/N: Yes Do you have a wheelchair: Y/N: No If yes- Manual or electric: N/A Visits: (1x monthly) documented in this encounter Plan of Treatment Upcoming Encounters Date Type Department Care Team (Late st Contact Info) Description 09/17/2025 11:00 AM EST Clinical Support [facility] MEDICINE [address] [place] [address] 10/08/2025 9:30 AM EST Office Visit [facility] OPTOMETRY [address] [place] [address] Ranjana Choudhary, OD 267 [place] [address] 11/11/2025 10:15 AM EST Office Visit [facility] MEDICINE [address] [place] [address] Lisa Ji MD [address] [place] [address] documented as of this encounter Visit Diagnoses Not on filedocumented in this encounter Additional Health Concerns Assessment Noted Time PHQ-9 Depression Total Score: 0 03/26/20 24 9:07 AM EDT documented as of this encounter Care Teams Rn Cvicu Relationship Specialty Start Date End Date Lisa Ji MD 230 [place] [address] PCP - General Internal Medicine 01/10/23 documented as of this encounter
--- OUTSIDE RECORDS SUMMARY | 2025-09-15 16:21 | XMS_ITS | Encounter Summary ---
Author Organization [employer] Address [address] [place] [address] [address] [address] Care Team Providers Care Senior Environmental Engineer Name Role Phone Shyanne Antunez MD Primary Care Provider Gautam Montesinos Primary Care Provider Nate Carmona Primary Care Provider Lisa Escobar MD Primary Care Pro vider Encounter Details Date Type Department Care Team (Latest Contact Info) Description 12/03/2018 Abstract [facility] CONVERSIONS Dental, Provider, DDS Social History [...] Description 09/17/2025 11:00 AM EST Clinical Support [facility] MEDICINE [address] [place] [address] 10/08/2025 9:30 AM EST Office Visit [facility] OPTOMETRY [address] [place] [address] Ranjana Choudhary OD [address] [place] [address] 11/11/2025 10:15 AM EST Office Visit [facility] MEDICINE [address] [place] [address] Lisa Ji MD 230 [place] [address] documented as of this encounter Visit Diagnoses Not on filedocumented in this encounter Care Teams Senior Environmental Engineer Relationship Specialty Start Date End Date Shyanne Antunez MD PCP - General Family Medicine 08/26/19 10/09/22 Gautam Reynaga FNP PCP - General Family Medicine 10/10/22 11/28/22 Nate Lees AGNP PCP - General Family Medicine 11/29/22 01/09/23 Lisa Ji MD 230 [place] [address] PCP - General Internal Medicine 01/10/23 documented as of this encounter
--- OUTSIDE RECORDS SUMMARY | 2025-09-15 16:21 | XMS_ITS | Encounter Summary ---
Author Organization [employer] Address [address] [facility] 7t [place] [address] Care Team Providers Care Submarine Element Coordinator Name Role Phone Lisa Ji MD Primary Care Pro vider Reason for Visit * Reason Onset Date Comments Appointment Request 10/09/2024 Encounter Details Date Type Department Care Team ([facility] st Contact Info) Description 10/09/2024 Telephone [facility] [address] [place], [place] [phone] Lisa Ji MD 230 [place], [place] [phone] Appointment Request Social History Tobacco Use Types [...] follow up appt. Please contact pt at [phone]. (Sinhala Speaker) documented in this encounter Plan of Treatment Upcoming Encounters Date Type Department Care Team ([facility] st Contact Info) Description 09/17/2025 11:00 AM EST Clinical Support [facility] [address] [place] [address] 10/08/2025 9:30 AM EST Office Visit [facility] OPTOMETRY [address] [place] [address] Ranjana Choudhary, SOPHIA [address] [place] [address] 11/11/2025 10:15 AM EST Office Visit [facility] [address] [place] [address] Lisa Ji MD 230 [place] [address] documented as of this encounter Visit Diagnoses Not on filedocumented in this encounter Additional Health Concerns Assessment Noted Time PHQ-9 Depression Total Score: 0 03/26/20 24 9:07 AM EDT documented as of this encounter Care Teams Submarine Element Coordinator Relationship Specialty Start Date End Date Lisa Ji MD [address] [place] [phone] PCP - General Internal Medicine 01/10/23 documented as of this encounter
--- OUTSIDE RECORDS SUMMARY | 2025-09-15 16:21 | XMS_ITS | Encounter Summary ---
Author Organization [employer] Address [address] [place] [address] 7t [place] [address] Care Team Providers Care Rag Production Worker Name Role Phone Shyanne Antunez MD Primary Care Provider Gautam Montesinos Primary Care Provider Nate Carmona Primary Care Provider Lisa Escobar MD Primary Care Pro vider Encounter Details Date Type Department Care Team (Latest Contact Info) Description 12/30/2020 Abstract [facility] CONVERSIONS Dental, Provider, DDS Social [...] Description 09/17/2025 11:00 AM EST Clinical Support [facility] MEDICINE [address] [place] [address] 10/08/2025 9:30 AM EST Office Visit [facility] OPTOMETRY [address] [place] [address] Ranjana Choudhary OD 267 [place] [address] 11/11/2025 10:15 AM EST Office Visit [facility] MEDICINE [address] [place] [address] [phone] Lisa Ji MD 230 [place] [address] documented as of this encounter Visit Diagnoses Not on filedocumented in this encounter Care Teams Rag Production Worker Relationship Specialty Start Date End Date Shyanne Antunez MD PCP - General Family Medicine 08/26/19 10/09/22 Gautam Reynaga FNP PCP - General Family Medicine 10/10/22 11/28/22 Nate Lees AGNP PCP - General Family Medicine 11/29/22 01/09/23 Lisa Ji MD [address] [place] [address] PCP - General Internal Medicine 01/10/23 documented as of this encounter
--- OUTSIDE RECORDS SUMMARY | 2025-09-15 16:21 | XMS_ITS | Encounter Summary ---
Author Organization [employer] Address [address] [facility] 7t [place] [address] Care Team Providers Care Developer Trading Systems Name Role Phone Lisa Ji MD Primary Care Pro vider Reason for Visit * Reason Comments Med Refill Encounter Details Date Type Department Care Team ([facility] st Contact Info) Description 02/25/2024 Refill [facility] MEDICINE [address] [place], [place] [phone] Lisa Ji MD 230 [place], [place] [phone] Social History Tobacco Use Types Packs/Day Years [...] 09/17/2025 11:00 AM EST Clinical Support [facility] MEDICINE [address] [place] [address] 10/08/2025 9:30 AM EST Office Visit [facility] OPTOMETRY 267 [place] [address] Ranjana Choudhary, OD [address] [place] [address] 11/11/2025 10:15 AM EST Office Visit [facility] MEDICINE [address] [place] [address] Lisa Ji MD [address] [place] [address] documented as of this encounter Visit Diagnoses Not on filedocumented in this encounter Care Teams Developer Trading Systems Relationship Specialty Start Date End Date Lisa Ji MD [address] [place] [address] PCP - General Internal Medicine 01/10/23 documented as of this encounter
--- OUTSIDE RECORDS SUMMARY | 2025-09-15 16:21 | XMS_ITS | Encounter Summary ---
Author Organization [employer] Address [address] 7t [place] [address] Care Team Providers Care As400 Programmer Analyst Name Role Phone Lisa Ji MD Primary Care Pro vider Reason for Visit * Reason Onset Date Comments partial appt 05/29/2023 Encounter Details Date Type Department Care Team (Late st Contact Info) Description 05/29/2023 Telephone [facility] D[facility]AL [address] [place] [address] Santiago Marquez, DMD [address] [place] [address] partial appt Social History Tobacco Use Types [...] Description 09/17/2025 11:00 AM EST Clinical Support [facility] MEDICINE [address] [place] [address] 10/08/2025 9:30 AM EST Office Visit [facility] OPTOMETRY [address] [place], [place] [phone] Ranjana Choudhary, OD 267 [place] [address] 11/11/2025 10:15 AM EST Office Visit [facility] MEDICINE [address] [place] [address] Lisa Ji MD [address] [place] [address] documented as of this encounter Visit Diagnoses Not on filedocumented in this encounter Care Teams As400 Programmer Analyst Relationship Specialty Start Date End Date Lisa Ji MD [address] [place] [address] [phone] PCP - General Internal Medicine 01/10/23 documented as of this encounter
--- OUTSIDE RECORDS SUMMARY | 2025-09-15 16:21 | XMS_ITS | Encounter Summary ---
Author Organization [employer] Address [address] [facility] [address] 7t [place] [address] Care Team Providers Care Academic Advising Director Name Role Phone Lisa Ji MD Primary Care Pro vider Encounter Details Date Type Department Care Team ([facility] st Contact Info) Description 08/04/2025 Results Follow-Up [facility] MEDICINE [address] [place] [address] Lisa Campbell MD 230 [place] [address] XR Hand 3+ Views Right Social History Tobacco Use Types Packs/Day Years [...] as of this encounter Miscellaneous Notes * Result Encounter Note - Lisa [place] MD - 08/27/2025 2:21 PM EST Chronic changes will discuss w pt at next apt documented in this encounter Plan of Treatment Upcoming Encounters Date Type Department Care Team (Late st Contact Info) Description 09/17/2025 11:00 AM EST Clinical Support [facility] MEDICINE [address] [place] [address] 10/08/2025 9:30 AM EST Office Visit [facility] OPTOMETRY [address] [place] [address] Ranjana Choudhary, OD [address] [place] [address] 11/11/2025 10:15 AM EST Office Visit [facility] MEDICINE [address] [place] [address] Lisa Ji MD 230 [place] [address] documented as of this encounter Visit Diagnoses Not on filedocumented in this encounter Additional Health Concerns Assessment Noted Time PHQ-9 Depression Total Score: 0 03/31/20 25 10:47 AM EDT documented as of this encounter Care Teams Academic Advising Director Relationship Specialty Start Date End Date Lisa Ji MD [address] [place] [address] PCP - General Internal Medicine 01/10/23 documented as of this encounter
--- OUTSIDE RECORDS SUMMARY | 2025-09-15 16:21 | XMS_ITS | Encounter Summary ---
Author Organization [employer] Address [address] [facility] 7t [place] [address] Care Team Providers Care Cyber Forensics Analyst Name Role Phone Lisa Ji MD Primary Care Pro vider Reason for Visit * Reason Comments Med Refill Encounter Details Date Type Department Care Team ([facility] st Contact Info) Description 02/10/2023 Refill [facility] MEDICINE [address] [place], [place] [phone] [facility] 230 [place] [address] Social History Tobacco Use Types Packs/Day Years [...] Description 09/17/2025 11:00 AM EST Clinical Support [facility] MEDICINE [address] [place] [address] 10/08/2025 9:30 AM EST Office Visit [facility] OPTOMETRY [address] [place] [address] Ranjana Choudhary, OD [address] [place] [address] 11/11/2025 10:15 AM EST Office Visit [facility] MEDICINE [address] [place] [address] Lisa Ji MD 230 [place] [address] documented as of this encounter Visit Diagnoses Not on filedocumented in this encounter Care Teams Cyber Forensics Analyst Relationship Specialty Start Date End Date Lisa Ji MD [address] [place] [address] PCP - General Internal Medicine 01/10/23 documented as of this encounter
--- OUTSIDE RECORDS SUMMARY | 2025-09-15 16:21 | XMS_ITS | Encounter Summary ---
Author Organization [employer] Address [address] [facility] 7t [place] [address] Care Team Providers Care Wood Form Builder Name Role Phone Lisa Ji MD Primary Care Pro vider Reason for Visit * Reason Comments Med Refill Encounter Details Date Type Department Care Team ([facility] st Contact Info) Description 02/18/2023 Refill [facility] MEDICINE 230 [place], [place] [phone] [facility] [address] [place] [address] Social History Tobacco Use Types Packs/Day Years [...] Description 09/17/2025 11:00 AM EST Clinical Support [facility] MEDICINE [address] [place] [address] 10/08/2025 9:30 AM EST Office Visit [facility] OPTOMETRY [address] [place] [address] Ranjana Choudhary, OD [address] [place] [address] 11/11/2025 10:15 AM EST Office Visit [facility] MEDICINE [address] [place] [address] Lisa Ji MD [address] [place] [address] documented as of this encounter Visit Diagnoses Not on filedocumented in this encounter Care Teams Wood Form Builder Relationship Specialty Start Date End Date Lias Ji MD [address] [place] [address] [phone] PCP - General Internal Medicine 01/10/23 documented as of this encounter
--- OUTSIDE RECORDS SUMMARY | 2025-09-15 16:21 | XMS_ITS | Encounter Summary ---
Author Organization [email or web address] Address [address] [facility] 7t [place] [address] Care Team Providers Care Supervisor Lamp Shades Name Role Phone Lisa Ji MD Primary Care Pro vider Encounter Details Date Type Department Care Team ([facility] st Contact Info) Description 08/14/2023 Abstract [facility] MEDICINE [address] [place], [place] [phone] Lisa Ji MD 230 [place] [address] Social History Tobacco Use Types Packs/Day Years [...] Description 09/17/2025 11:00 AM EST Clinical Support [facility] MEDICINE [address] [place] [address] 10/08/2025 9:30 AM EST Office Visit [facility] OPTOMETRY [address] [place] [address] Ranjana Choudhary, OD 267 [place] [address] 11/11/2025 10:15 AM EST Office Visit [facility] MEDICINE [address] [place] [address] Lisa Ji MD [address] [place] [address] documented as of this encounter Procedures Procedure Name Priority Date/Time Associated Diagnosis Comments COLONOSCOPY Routine 07/21/2020 documented in this encounter Results * Hm Colonoscopy (07/21/2020) Colonoscopy Normal Normal Narrative Thalia [place] - 07/21/2020 Recommended 1 year follow up us Historical Provider HEALTH MAINTENANCE Final Result documented in this encounter Visit Diagnoses Not on filedocumented in this encounter Care Teams Supervisor Lamp Shades Relationship Specialty Start Date End Date Lisa Ji MD [address] [place] [address] PCP - General Internal Medicine 01/10/23 documented as of this encounter
--- OUTSIDE RECORDS SUMMARY | 2025-09-15 16:21 | XMS_ITS | Encounter Summary ---
Author Organization [employer] Address [address] [place] [address] 7t [place] [address] Care Team Providers Care Viner Operator Name Role Phone Shyanne Antunez MD Primary Care Provider Gautam Montesinos Primary Care Provider Nate Carmona Primary Care Provider Lias Escobar MD Primary Care Pro vider Encounter Details Date Type Department Care Team (Latest Contact Info) Description 12/07/2019 Abstract [facility] CONVERSIONS Dental, Provider, DDS Social [...] 09/17/2025 11:00 AM EST Clinical Support [facility] MEDICINE [address] [place] [phone] 10/08/2025 9:30 AM EST Office Visit [facility] OPTOMETRY [address] [place] [phone] Ranjana Choudhary OD [address] [place] [address] 11/11/2025 10:15 AM EST Office Visit [facility] MEDICINE [address] [place] [phone] Lisa Ji MD [address] [place] [address] documented as of this encounter Visit Diagnoses Not on filedocumented in this encounter Care Teams Viner Operator Relationship Specialty Start Date End Date Shyanne Antunez MD PCP - General Family Medicine 08/26/19 10/09/22 Gautam Reynaga FNP PCP - General Family Medicine 10/10/22 11/28/22 Nate Lees AGNP PCP - General Family Medicine 11/29/22 01/09/23 Lisa Ji MD [address] [place] [address] PCP - General Internal Medicine 01/10/23 documented as of this encounter
--- OUTSIDE RECORDS SUMMARY | 2025-09-15 16:21 | XMS_ITS | Encounter Summary ---
Author Organization [employer] Address [address] [facility] 7t [place] [address] Care Team Providers Care Owner Operator Tanker Truck Driver Name Role Phone Lisa Ji MD Primary Care Pro vider Encounter Details Date Type Department Care Team ([facility] st Contact Info) Description 10/14/2024 Telephone [facility] MEDICINE [address] [place], [place] [phone] Columba Hammer, PharmD [address] [place] [address] Social History Tobacco Use Types Packs/Day Years [...] Description 09/17/2025 11:00 AM EST Clinical Support [facility] MEDICINE [address] [place] [phone] 10/08/2025 9:30 AM EST Office Visit [facility] OPTOMETRY [address] [place] [phone] Ranjana Choudhary, SOPHIA [address] [place] [address] 11/11/2025 10:15 AM EST Office Visit [facility] MEDICINE [address] [place] [phone] Lisa Ji MD [address] [place] [address] documented as of this encounter Visit Diagnoses Not on filedocumented in this encounter Additional Health Concerns Assessment Noted Time PHQ-9 Depression Total Score: 0 03/26/20 24 9:07 AM EDT documented as of this encounter Care Teams Owner Operator Tanker Truck Driver Relationship Specialty Start Date End Date Lisa Ji MD [address] [place] [address] [place] [phone] PCP - General Internal Medicine 01/10/23 documented as of this encounter
--- OUTSIDE RECORDS SUMMARY | 2025-09-15 16:21 | XMS_ITS | Encounter Summary ---
Author Organization [employer] Address [address] [facility] [address] [place] [address] Care Team Providers Care Associate Sales Name Role Phone Lisa Ji MD Primary Care Pro vider Encounter Details Date Type Department Care Team (Late st Contact Info) Description 03/26/2023 Abstract [facility] ADULT DENTAL [address] [place] [address] Santiago Marquez, DMD [address] [place], [place] [phone] Social History Tobacco Use Types Packs/Day Years [...] Description 09/17/2025 11:00 AM EST Clinical Support [facility] MEDICINE [address] [place] [address] [phone] 10/08/2025 9:30 AM EST Office Visit [facility] OPTOMETRY [address] [place], [place] [phone] Priyankakj Ranjana, OD [address] [place] [address] 11/11/2025 10:15 AM EST Office Visit [facility] MEDICINE [address] [place] [address] [phone] Lisa Ji MD [address] [place] [phone] documented as of this encounter Visit Diagnoses Not on filedocumented in this encounter Care Teams Associate Sales Relationship Specialty Start Date End Date Lisa Ji MD [address] [place] [address] [phone] PCP - General Internal Medicine 01/10/23 documented as of this encounter
== END 2025-09-15 13:15 | disposition home or self-care (01) ==
LOC: HO.HSM 12:25
PROVIDERS: PCP Student in an Organized Health Care Education/Training Program; Visit Provider Psychiatry & Neurology Neurology
DX: G31.84 Mild cognitive impairment of uncertain or unknown etiology (principal)
CPT/HCPCS: 99214

== ENCOUNTER → 2025-09-15 12:24 | Outpatient (BNVA) | payer MEDICARE, SELFPAY | PROVIDERS: PCP Student in an Organized Health Care Education/Training Program; Visit Provider Psychiatry & Neurology Neurology | DX: G31.84 Mild cognitive impairment of uncertain or unknown etiology (principal) | CPT/HCPCS: 99212 ==